=== PATIENT | female | born 1935 | race Caucasian/White ===

== ENCOUNTER → 2016-09-19 | Outpatient (CLI) | payer OTHER ==
[~2016-09-19] MED LIST: ACET325T96 PO; AMLO-114 PO; APIX1TAB3 PO; FLNIN NAE; FRS/40 PO; GUAI100L PO; IBUP1CAP9; LISI40TA PO; MULT-506 PO; PRAV20TA PO; TRAM-10 PO
[2016-09-19 13:30] LABS: HEMATOCRIT 48.6 % (37-47); MEAN CELL VOLUME 91.2 fL (80-100); MEAN PLATELET VOLUME 10.8 fL (7.4-10.4); PLATELET COUNT 185 K/uL (130-400); RED BLOOD COUNT 5.33 M/uL (4.2-5.4); WHITE BLOOD COUNT 7.26 K/uL (4.8-10.8)
[2016-09-19 13:53] LABS: ESTIMATED AVERAGE GLUCOSE 146 mg/dl; HA1C FLAG Normal (Normal)
[2016-09-19 13:56] LABS: URINE APPEARANCE CLEAR (CLEAR); URINE BILIRUBIN NEG (NEG); URINE COLOR YELLOW; URINE NITRITE NEG (NEG); URINE PH 7.5 (4.5-7.5); URINE SPECIFIC GRAVITY 1.008 (1.000-1.030); UROBILINOGEN NEG (NEG)
[2016-09-19 13:57] LABS: MANUAL MICROSCOPIC REQUIRED? NO; REVIEW REQ? NO
[2016-09-19 14:05] LABS: URINE PROTIEN/CREAT RATIO 0.9 (0-0.2); URINE TOTAL PROTEIN 19.3 mg/dl (0-11.9)
[2016-09-19 14:16] LABS: RATIO 462.4 mcg/mg (0-30.0)
[2016-09-19 14:38] LABS: CALCIUM 10.2 mg/dl (8.5-10.1)
[2016-09-19 14:41] LABS: ALT/SGPT 21 U/L (12-78); AST/SGOT 21 U/L (15-37); BLOOD UREA NITROGEN 35 mg/dl (7-18); BUN/CREATININE RATIO 24.8 (10-20); CARBON DIOXIDE 32 mmol/L (21-32); CHLORIDE 100 mmol/L (98-107); CHOLESTEROL 204 mg/dl (0-200); GLUCOSE 161 mg/dl (70-99); POTASSIUM 4.6 mmol/L (3.5-5.1); SODIUM 138 mmol/L (136-145)
[2016-09-19 14:46] LABS: ALB/GLOB RATIO 1.1 (0.9-2); ALKALINE PHOSPHATASE 115 U/L (45-117); CHOLESTEROL/HDL RATIO 3.6; HDL CHOLESTEROL 56 mg/dl; LDL CHOLESTEROL CALCULATED 108 mg/dl; PHOSPHORUS 3.5 mg/dl (2.5-4.9); TRIGLYCERIDES 202 mg/dl (0-150); VERY LOW DENSITY LIPOPROT CALC 40 mg/dl
== END | disposition home or self-care (01) ==
LOC: C.LABBC 09:27
PROVIDERS: ATTEND Internal Medicine Nephrology
DX: E11.9 Type 2 diabetes mellitus without complications (principal); E78.5 Hyperlipidemia, unspecified; E53.8 Deficiency of other specified B group vitamins; I10 Essential (primary) hypertension; N18.3 Chronic kidney disease, stage 3 (moderate); E55.9 Vitamin D deficiency, unspecified

== ENCOUNTER → 2016-11-29 | Outpatient (CLI) | payer OTHER ==
[2016-11-29 15:52] LABS: URINE APPEARANCE CLEAR (CLEAR); URINE BILIRUBIN NEG (NEG); URINE COLOR YELLOW; URINE NITRITE NEG (NEG); URINE PH 6.5 (4.5-7.5); URINE SPECIFIC GRAVITY 1.014 (1.000-1.030); UROBILINOGEN NEG (NEG)
[2016-11-29 16:03] LABS: MANUAL MICROSCOPIC REQUIRED? NO; REVIEW REQ? NO
[2016-11-29 16:07] LABS: URINE PROTIEN/CREAT RATIO 0.2 (0-0.2); URINE TOTAL PROTEIN 10.4 mg/dl (0-11.9)
== END | disposition home or self-care (01) ==
LOC: C.LAB1850 14:12
PROVIDERS: ATTEND Internal Medicine Nephrology
DX: N18.3 Chronic kidney disease, stage 3 (moderate) (principal); N25.81 Secondary hyperparathyroidism of renal origin; R60.9 Edema, unspecified; E55.9 Vitamin D deficiency, unspecified; I12.9 Hypertensive chronic kidney disease with stage 1 through stage 4 chronic kidney disease, or unspecified chronic kidney disease

== ENCOUNTER → 2017-10-09 | Outpatient (CLI) | payer OTHER ==
[~2017-10-09] MED LIST changes: +ACET-1693 PO; -ACET325T96 PO
[2017-10-09 16:53] LABS: HEMATOCRIT 48.9 % (37-47); HEMOGLOBIN 16.7 g/dL (12.0-16.0); MEAN CELL VOLUME 90.6 fL (80-100); MEAN CORPUSCULAR HEMOGLOBIN 30.9 pg (25-34); MEAN CORPUSCULAR HGB CONC 34.2 g/dl (32-36); MEAN PLATELET VOLUME 10.8 fL (7.4-10.4); PLATELET COUNT 192 K/uL (130-400); RED CELL DISTRIBUTION WIDTH SD 46.6 fL (36.4-46.3); WHITE BLOOD COUNT 6.83 K/uL (4.8-10.8)
[2017-10-09 17:15] LABS: ALBUMIN 4.1 gm/dl (3.4-5.0); ALT/SGPT 17 U/L (12-78); AST/SGOT 18 U/L (15-37); BLOOD UREA NITROGEN 33 mg/dl (7-18); CALCIUM 9.2 mg/dl (8.5-10.1); CARBON DIOXIDE 31 mmol/L (21-32); CREATININE 1.56 mg/dl (0.60-1.20); GLUCOSE 166 mg/dl (70-99); POTASSIUM 4.1 mmol/L (3.5-5.1); SODIUM 135 mmol/L (136-145)
[2017-10-09 17:46] LABS: HEMOGLOBIN A1C 7.2 % (4.5-5.6)
== END | disposition home or self-care (01) ==
LOC: C.LABBC 13:17
PROVIDERS: ATTEND Internal Medicine Nephrology
DX: I12.9 Hypertensive chronic kidney disease with stage 1 through stage 4 chronic kidney disease, or unspecified chronic kidney disease (principal); E11.22 Type 2 diabetes mellitus with diabetic chronic kidney disease; N18.3 Chronic kidney disease, stage 3 (moderate); N25.81 Secondary hyperparathyroidism of renal origin; R60.9 Edema, unspecified; E55.9 Vitamin D deficiency, unspecified; E78.5 Hyperlipidemia, unspecified; E53.8 Deficiency of other specified B group vitamins

== ENCOUNTER 2022-09-26 12:10 | Inpatient (IN) ==
[2022-09-26 12:52] LABS: Basophils # (auto) 0.06 K/uL (0-0.2); Basophils % (auto) 0.9 %; Eosinophils # (auto) 0.11 K/uL (0-0.50); Eosinophils % (auto) 1.6 %; Hematocrit (blood only) 43.4 % (37.0-47.0); Hemoglobin 14.6 g/dl (12.0-16.0); Immature Granulocytes # (auto) 0.02 K/uL (0.01-0.20); Immature Granulocytes % (auto) 0.3 %; Lymphocytes # (auto) 1.07 K/uL (1.2-3.4); Lymphocytes % (auto) 15.7 %; Mean Corpuscular Hemoglobin 30.7 pg (25.0-34.0); Mean Corpuscular Hgb Conc 33.6 g/dL (32.0-36.0); Mean Corpuscular Volume 91.4 fL (80.0-100.0); Mean Platelet Volume 9.6 fL (9.4-12.4); Monocytes # (auto) 0.56 K/uL (0.11-0.59); Monocytes % (auto) 8.2 %; Neutrophils # (auto) 5.01 K/uL (1.40-6.50); Neutrophils % (auto) 73.3 %; Platelet Count 211 K/uL (130-400); RDW Coefficient of Variation 15.3 % (11.5-14.5); RDW Standard Deviation 50.4 fL (36.4-46.3); Red Blood Count 4.75 M/uL (4.20-5.40); White Blood Count 6.83 K/ul (4.8-10.8)
[2022-09-26 13:06] LABS: Alanine Aminotransferase 6 U/L (7-52); Albumin Globulin Ratio 1.2 (0.9-2); Albumin Level 4.2 gm/dl (3.4-5.0); Alkaline Phosphatase 121 U/L (34-104); Anion Gap 10 (3-11); Aspartate Aminotransferase 17 U/L (13-39); Bilirubin,Total 0.7 mg/dl (0.2-1.0); Blood Urea Nitrogen 78 mg/dl (6-23); Carbon Dioxide 24 mmol/L (21-32); Chloride 93 mmol/L (98-107); Est GFR (African American) 22.2 ml/min; Est GFR (Non-African American) 19.2 ml/min; Globulin 3.4 gm/dl (2.5-4.0); Glucose 122 mg/dl (70-99(Fasting)); Potassium 5.5 mmol/L (3.5-5.1); Sodium 127 mmol/L (136-145); Total Protein 7.6 gm/dl (6.0-8.3)
--- NOTE | 2022-09-26 13:50 | Emergency Department Note ---
Impression & Plan Cellulitis, JUDE (acute kidney injury), Acute hyponatremia, Acute hyperkalemia ED Provider Note NAME: DEBBIE GRANADOS AGE: 87 SEX: F : 1935 ARRIVES VIA: Walk-In INFORMANT: Patient ED PROVIDER(S): Raymond Dumas DO CHIEF COMPLAINT: right foot pain HPI: Patient is an 87-year-old female who presents to the ER as he was seen and evaluated here about a week ago. She was treated for cellulitis of her right lower extremity. She notes about a month ago she dropped an object on her foot. She was found to have a fracture and discharged on antibiotics. She was eventually placed on doxycycline as she was having a fair amount of diarrhea from the initial antibiotics. She currently is still taking the doxycycline. The redness has gotten worse. The swelling and the pain is worse. She saw her PCP today who sent over for admission for IV antibiotics. Denies any fevers. No headache or change in vision. No chest pain or shortness of breath. PAST MEDICAL HISTORY:See Below PAST SURGICAL HISTORY:See Below FAMILY HISTORY:See Below SOCIAL HISTORY:See Below HOME MEDICATIONS:See Below ALLERGIES:See Below VITALS:See Below PHYSICAL EXAMINATION: GENERAL: Sitting up in bed, alert, well appearing, well nourished, no distress, non-toxic EYE EXAM: normal conjunctiva. OROPHARYNX: no exudate, no erythema, lips, buccal mucosa, and tongue normal and mucous membranes are moist NECK: supple, no nuchal rigidity, no adenopathy, non-tender LUNGS: Clear to auscultation. Normal chest wall mechanics HEART: no murmurs, S1 normal and S2 normal ABDOMEN: abdomen soft, non-tender, normo-active bowel sounds, no masses, no rebound or guarding. UPPER EXTREMITIES: upper extremities are grossly normal. LOWER EXTREMITIES: Pitting edema in bilateral lower extremities with small open sore over the right third through fifth metatarsals on the dorsal surface. Pitting edema bilaterally. Erythema tracking up to the right mid greer. NEURO EXAM: Normal sensorium, cranial nerves II-XII grossly intact, normal spee ch, no gross weakness of arms, no gross weakness of legs. MEDICAL DECISION MAKING: Patient is an 87-year-old female who presents the ER for right foot pain. IV was established blood work was obtained. External records were reviewed. Labs show no significant leukocytosis or anemia. BMP with a mild hyponatremia 127 and hyperkalemia at 5.5 and a creatinine of 2.2 up from baseline of 1. Pro-Brooks was normal. COVID was negative. X-ray of the foot shows no obvious fracture. Patient was given IV antibiotics. Updated bedside. Discussed with Dr. En Ernst for further evaluation management and treatment. Patient was given Reglan as well as IV fluids and Zofran. Triage Nursing notes reviewed. Limited review of prior medical records performed Vital Signs: reviewed and remarkable for no significant abnormalities Differential diagnosis: Cellulitis, abscess, MRSA infection, DVT, necrotizing fasciitis, dermatitis, drug eruption, allergic reaction, as well as other pathologies. ER treatment provided: See below Diagnostics interpreted by me include EKG and cardiac monitoring as listed below: -Cardiac Monitoring: An order was placed for continuous cardiac monitoring. The monitor shows a rate of 62 with sinus rhythm. -ECG: none -Laboratory studies:Interpreted by me as stated above in MDM and shown below. Imaging studies: Xrays: As interpreted by me: X-ray of the foot shows no obvious fracture CTs show: none Consultation(s): As described in MDM Procedures:none Critical Care: None Past Med/Surg History Medical History Chronic anticoagulation Diastolic congestive heart failure Hyperlipidemia Hypertension Lymphedema Osteoarthritis Stage III chronic kidney disease Surgical History H/O left cataract extraction History of radiation therapy History of right cataract extraction Hx of basal cell carcinoma excision Hx of shoulder surgery Hx of total hysterectomy with removal of both tubes and ovaries S/P appendectomy S/P colonoscopy S/P lumpectomy, left breast S/P tonsillectomy Family History Other Adopted Myocardial infarction Denies family history of Ovarian cancer Prostate cancer Breast cancer Colorectal cancer Social History Smoking Status: Never smoker Second Hand Exposure: No; Do You Dip or Chew Tobacco: No; Hx Alcohol Use: Yes Alcohol type: wine Hx Substance Use: No Preferred Language: Ug[place] Communication Ability: Effective Visual Impairment: No Limitations Hearing Ability: Normal Solid Waste Analyst Required: No Beliefs That Will Affect Care: None marital status: Current Living Situation: Alone 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, unknown family hx Feels Safe at Home: Yes Childhood Exposure to Second-Hand Smoke: No Dental Care, Regularly: Yes Physical Activity Frequency Comment: limited by physical condition Seatbelt Use: always Sunscreen Use: No Assistive Devices: Cane, Glasses and Stair Lift Allergies Allergies Allergy/AdvReac Type Severity Reaction Status Date / Time amoxicillin Allergy Mild Rash Verified 09/26/22 14:52 ciprofloxacin Allergy Mild Rash Verified 09/26/22 14:52 clavulanic acid Allergy Mild Rash Verified 09/26/22 14:52 codeine Allergy Mild nausea and Verified 09/26/22 14:52 vomiting latex Allergy Mild Rash Verified 09/26/22 14:52 povidone-iodine Allergy Mild RASH Verified 09/26/22 14:52 soap [From Betadine] Allergy Mild Rash Verified 09/26/22 14:52 Sulfa (Sulfonamide Allergy Mild RASH Verified 09/26/22 14:52 Antibiotics) cephalexin Allergy Unknown . Verified 09/26/22 14:52 sulfamethoxazole Allergy Unknown Diarrhea Verified 09/26/22 14:52 [From Bactrim] trimethoprim [From Bactrim] Allergy Unknown Diarrhea Verified 09/26/22 14:52 ceftriaxone [From Rocephin] AdvReac Severe Diarrhea Verified 09/26/22 11:26 meperidine AdvReac Mild nausea/vomi Verified 09/26/22 11:26 ting Home Meds Home Medications Medication Instructions Recorded Confirmed acetaminophen 500 mg tablet 1,000 mg PO HS PRN Pain 07/25/20 09/26/22 (Tylenol Extra Strength) furosemide 40 mg tablet 80 mg PO QAM 11/08/21 09/26/22 amlodipine 2.5 mg tablet 2.5 mg PO DAILY 09/21/22 09/26/22 multivitamin 1 tab PO DAILY 09/26/22 09/26/22 Previous Rx's Medication Instructions Recorded blood sugar diagnostic (FreeStyle #100 ea 02/27/19 Lite Strips) diclofenac sodium 1 % topical gel 1 g topical BID PRN Pain #100 grams 01/22/22 lisinopril 40 mg tablet 40 mg PO QAM #90 tabs 04/11/22 apixaban 5 mg tablet (Eliquis) 5 mg PO BID #180 tabs 07/31/22 tramadol 50 mg tablet 50 mg PO TID #270 tabs 09/19/22 doxycycline monohydrate 100 mg 100 mg PO BID #20 caps 09/21/22 capsule Results & Data (ED) Vital Signs Vital Signs - 24 hr 09/26/22 12:21 09/26/22 13:41 09/26/22 13:39 Temperature 36.6 C Temperature Source Temporal Artery Scan Pulse Rate 60 65 59 L Pulse Rate from SpO2 Sensor 65 Respiratory Rate 18 19 Respiratory Effort / Characteristics Non-Labored Spontaneous Respiratory Depth Normal Respiratory Pattern Regular Blood Pressure 167/78 H Blood Pressure Mean 107 Blood Pressure Position Sitting Pulse Oximetry 95 97 Oxygen Delivery Method Room Air Oxygen Flow Rate Sepsis Recent Fever Within 48 Hours No Sepsis New/Unexplained Change in Mental Status N/A Sepsis Action Taken by Nursing No Action Required 09/26/22 13:40 09/26/22 13:50 09/26/22 13:55 Temperature Temperature Source Pulse Rate 65 62 63 Pulse Rate from SpO2 Sensor 66 65 59 L Respiratory Rate 14 16 22 Respiratory Effort / Characteristics Respiratory Depth Respiratory Pattern Blood Pressure Blood Pressure Mean Blood Pressure Position Pulse Oximetry 97 93 95 Oxygen Delivery Method Oxygen Flow Rate Sepsis Recent Fever Within 48 Hours Sepsis New/Unexplained Change in Mental Status Sepsis Action Taken by Nursing 09/26/22 13:55 09/26/22 14:00 09/26/22 14:00 Temperature Temperature Source Pulse Rate 65 Pulse Rate from SpO2 Sensor 63 Respiratory Rate 17 Respiratory Effort / Characteristics Respiratory Depth Respiratory Pattern Blood Pressure 147/68 H 147/62 H Blood Pressure Mean 94 90 Blood Pressure Position Pulse Oximetry 96 Oxygen Delivery Method Oxygen Flow Rate Sepsis Recent Fever Within 48 Hours Sepsis New/Unexplained Change in Mental Status Sepsis Action Taken by Nursing 09/26/22 14:10 09/26/22 14:20 09/26/22 14:30 Temperature Temperature Source Pulse Rate 61 62 68 Pulse Rate from SpO2 Sensor 58 L 65 68 Respiratory Rate 24 30 H 29 H Respiratory Effort / Characteristics Respiratory Depth Respiratory Pattern Blood Pressure Blood Pressure Mean Blood Pressure Position Pulse Oximetry 96 100 92 Oxygen Delivery Method Oxygen Flow Rate Sepsis Recent Fever Within 48 Hours Sepsis New/Unexplained Change in Mental Status Sepsis Action Taken by Nursing 09/26/22 14:31 09/26/22 14:31 09/26/22 14:40 Temperature Temperature Source Pulse Rate 72 71 Pulse Rate from SpO2 Sensor 72 73 Respiratory Rate 39 H 27 H Respiratory Effort / Characteristics Respiratory Depth Respiratory Pattern Blood Pressure 170/71 H Blood Pressure Mean 104 Blood Pressure Position Pulse Oximetry 95 92 Oxygen Delivery Method Oxygen Flow Rate Sepsis Recent Fever Within 48 Hours Sepsis New/Unexplained Change in Mental Status Sepsis Action Taken by Nursing 09/26/22 14:50 09/26/22 15:00 09/26/22 15:00 Temperature Temperature Source Pulse Rate 66 64 Pulse Rate from SpO2 Sensor 72 69 Respiratory Rate 35 H 15 Respiratory Effort / Characteristics Respiratory Depth Respiratory Pattern Blood Pressure 142/87 H Blood Pressure Mean 105 Blood Pressure Position Pulse Oximetry 97 99 Oxygen Delivery Method Oxygen Flow Rate Sepsis Recent Fever Within 48 Hours Sepsis New/Unexplained Change in Mental Status Sepsis Action Taken by Nursing 09/26/22 15:10 09/26/22 15:20 09/26/22 15:29 Temperature Temperature Source Pulse Rate 72 75 67 Pulse Rate from SpO2 Sensor 80 72 Respiratory Rate 15 19 15 Respiratory Effort / Characteristics Respiratory Depth Respiratory Pattern Blood Pressure Blood Pressure Mean Blood Pressure Position Pulse Oximetry 96 98 97 Oxygen Delivery Method Oxygen Flow Rate Sepsis Recent Fever Within 48 Hours Sepsis New/Unexplained Change in Mental Status Sepsis Action Taken by Nursing 09/26/22 15:29 09/26/22 15:30 09/26/22 15:30 Temperature Temperature Source Pulse Rate 66 Pulse Rate from SpO2 Sensor 68 Respiratory Rate 15 Respiratory Effort / Characteristics Respiratory Depth Respiratory Pattern Blood Pressure 163/121 H 168/74 H Blood Pressure Mean 135 105 Blood Pressure Position Pulse Oximetry 95 Oxygen Delivery Method Oxygen Flow Rate Sepsis Recent Fever Within 48 Hours Sepsis New/Unexplained Change in Mental Status Sepsis Action Taken by Nursing 09/26/22 15:40 09/26/22 15:41 09/26/22 15:41 Temperature Temperature Source Pulse Rate 66 67 Pulse Rate from SpO2 Sensor Respiratory Rate 15 19 Respiratory Effort / Characteristics Respiratory Depth Respiratory Pattern Blood Pressure 180/71 H Blood Pressure Mean 107 Blood Pressure Position Pulse Oximetry Oxygen Delivery Method Oxygen Flow Rate Sepsis Recent Fever Within 48 Hours Sepsis New/Unexplained Change in Mental Status Sepsis Action Taken by Nursing 09/26/22 15:50 09/26/22 16:00 09/26/22 16:00 Temperature Temperature Source Pulse Rate 64 58 L Pulse Rate from SpO2 Sensor 63 58 L Respiratory Rate 15 15 Respiratory Effort / Characteristics Respiratory Depth Respiratory Pattern Blood Pressure 153/62 H Blood Pressure Mean 92 Blood Pressure Position Pulse Oximetry 98 98 Oxygen Delivery Method Oxygen Flow Rate Sepsis Recent Fever Within 48 Hours Sepsis New/Unexplained Change in Mental Status Sepsis Action Taken by Nursing 09/26/22 16:10 Temperature Temperature Source Pulse Rate 60 Pulse Rate from SpO2 Sensor 56 L Respiratory Rate 18 Respiratory Effort / Characteristics Respiratory Depth Respiratory Pattern Blood Pressure Blood Pressure Mean Blood Pressure Position Pulse Oximetry 99 Oxygen Delivery Method Oxygen Flow Rate 2 Sepsis Recent Fever Within 48 Hours Sepsis New/Unexplained Change in Mental Status Sepsis Action Taken by Nursing Laboratory Data 09/26/22 12:29 09/26/22 12:29 Lab Results 09/26/22 09/26/22 09/26/22 Range/Units 12:29 12:29 12:29 WBC 6.83 (4.8-10.8) K/ul RBC 4.75 (4.20-5.40) M/uL Hgb 14.6 (12.0-16.0) g/dl Hct 43.4 (37.0-47.0) % MCV 91.4 (80.0-100.0) fL MCH 30.7 (25.0-34.0) pg MCHC 33.6 (32.0-36.0) g/dL RDW Std Deviation 50.4 H (36.4-46.3) fL RDW Coeff of Rylee 15.3 H (11.5-14.5) % Plt Count 211 (130-400) K/uL MPV 9.6 (9.4-12.4) fL Immature Gran % (Auto) 0.3 % Neut % (Auto) 73.3 % Lymph % (Auto) 15.7 % [place] % (Auto) 8.2 % Eos % (Auto) 1.6 % Baso % (Auto) 0.9 % Neut # (Auto) 5.01 (1.40-6.50) K/uL Lymph # (Auto) 1.07 L (1.2-3.4) K/uL [place] # (Auto) 0.56 (0.11-0.59) K/uL Eos # (Auto) 0.11 (0-0.50) K/uL Baso # (Auto) 0.06 (0-0.2) K/uL Immature Gran # (Auto) 0.02 (0.01-0.20) K/uL ESR 65 H (0-30) mm/hr Sodium 127 L (136-145) mmol/L Potassium 5.5 H (3.5-5.1) mmol/L Chloride 93 L (98-107) mmol/L Carbon Dioxide 24 (21-32) mmol/L Anion Gap 10 (3-11) BUN 78 H (6-23) mg/dl Creatinine 2.23 H (0.6-1.2) mg/dl Est Cr Clr Drug Dosing Not Reportable Est GFR ( Amer) 22.2 ml/min Est GFR (Non-Af Amer) 19.2 ml/min BUN/Creatinine Ratio 35.0 H (10-20) Glucose 122 H (70-99(Fasting)) mg/dl Calcium 9.0 (8.6-10.3) mg/dl Total Bilirubin 0.7 (0.2-1.0) mg/dl AST 17 (13-39) U/L ALT 6 L (7-52) U/L Alkaline Phosphatase 121 H (34-104) U/L C-Reactive Protein 2.01 H (0-0.5) mg/dl Total Protein 7.6 (6.0-8.3) gm/dl Albumin 4.2 (3.4-5.0) gm/dl Globulin 3.4 (2.5-4.0) gm/dl Albumin/Globulin Ratio 1.2 (0.9-2) Procalcitonin (0-0.5) ng/ml SARS-CoV-2, RNA, NAAT (NEGATIVE) 09/26/22 09/26/22 Range/Units 12:29 13:55 WBC (4.8-10.8) K/ul RBC (4.20-5.40) M/uL Hgb (12.0-16.0) g/dl Hct (37.0-47.0) % MCV (80.0-100.0) fL MCH (25.0-34.0) pg MCHC (32.0-36.0) g/dL RDW Std Deviation (36.4-46.3) fL RDW Coeff of Rylee (11.5-14.5) % Plt Count (130-400) K/uL MPV (9.4-12.4) fL Immature Gran % (Auto) % Neut % (Auto) % Lymph % (Auto) % [place] % (Auto) % Eos % (Auto) % Baso % (Auto) % Neut # (Auto) (1.40-6.50) K/uL Lymph # (Auto) (1.2-3.4) K/uL [place] # (Auto) (0.11-0.59) K/uL Eos # (Auto) (0-0.50) K/uL Baso # (Auto) (0-0.2) K/uL Immature Gran # (Auto) (0.01-0.20) K/uL ESR (0-30) mm/hr Sodium (136-145) mmol/L Potassium (3.5-5.1) mmol/L Chloride (98-107) mmol/L Carbon Dioxide (21-32) mmol/L Anion Gap (3-11) BUN (6-23) mg/dl Creatinine (0.6-1.2) mg/dl Est Cr Clr Drug Dosing Est GFR ( Amer) ml/min Est GFR (Non-Af Amer) ml/min BUN/Creatinine Ratio (10-20) Glucose (70-99(Fasting)) mg/dl Calcium (8.6-10.3) mg/dl Total Bilirubin (0.2-1.0) mg/dl AST (13-39) U/L ALT (7-52) U/L Alkaline Phosphatase (34-104) U/L C-Reactive Protein (0-0.5) mg/dl Total Protein (6.0-8.3) gm/dl Albumin (3.4-5.0) gm/dl Globulin (2.5-4.0) gm/dl Albumin/Globulin Ratio (0.9-2) Procalcitonin 0.06 (0-0.5) ng/ml SARS-CoV-2, RNA, NAAT NEGATIVE (NEGATIVE) Administered Medications Daptomycin 300 mg/ Syringe 6 mls @ 3 mls/min IV Q24H [facility]; Protocol Stop: 09/28/22 13:59 Last Admin: 09/26/22 14:36 Dose: 3 mls/min Documented By: BCN Discontinued Medications Morphine Sulfate (Morphine Sulfate 4 Mg/Ml 1 Ml Carp\Vial) 4 mg IV NOW STA Stop: 09/26/22 14:39 Last Admin: 09/26/22 14:46 Dose: 4 mg Documented By: OSCAR Ondansetron HCl (Ondansetron Inj 2 Mg/Ml 2 Ml Vial) 4 mg IV NOW STA Stop: 09/26/22 14:31 Last Admin: 09/26/22 14:36 Dose: 4 mg Documented By: OSCAR Imaging Data Radiologist's Impression: Foot X-Ray 09/26/22 13:50 RIGHT FOOT 3 VIEWS CLINICAL HISTORY: Right foot pain and swelling. FINDINGS: 3 views of the right foot are compared to study dated 09/17/2022. The skeletal structures are osteopenic. No acute fracture is seen. There is a large plantar heel spur. Degenerative spurring is seen along the dorsal aspect of the tarsal bones. Erosive/destructive change is again seen at the first metatarsophalangeal joint with surrounding edema and soft tissue calcifications. Moderate osteoarthritic change is noted in the midfoot. Milder soft tissue francine ma is present throughout the remainder of the foot. IMPRESSION: 1. Diffuse soft tissue swelling with no fracture identified. 2. Erosive/destructive change at the first metatarsophalangeal joint as above. This could represent septic arthritis with osteomyelitis or gout. Clinical correlation will be essential. Electronically signed by: Olman Benítez M.D. 09/26/2022 2:24 PM Discharge Plan Visit Data Chief Complaint: Infection Stated Complaint: RIGHT FOOT INFECTION ED Provider: Raymond Dumas Discharge Problem: Cellulitis, JUDE (acute kidney injury), Acute hyponatremia, Acute hyperkalemia Forms Stand Alone Forms: [facility] Prescriptions Prescriptions: No Action (DME) FreeStyle Lite Strips strip See Dose Instructions .ROUTE .MEDSUPPLY Qty: 100 3RF Dose Instruction: As directed Rx Instructions: test once daily diclofenac sodium 1 % gel 1 g topical BID PRN (Reason: Pain) Qty: 100 6RF Eliquis 5 mg tablet 5 mg PO BID Qty: 180 3RF tramadol 50 mg tablet 50 mg PO TID Qty: 270 0RF acetaminophen [Tylenol Extra Strength] 500 mg tablet 1,000 mg PO HS PRN (Reason: Pain) lisinopril 40 mg tablet 40 mg PO QAM Qty: 90 3RF amlodipine 2.5 mg tablet 2.5 mg PO DAILY doxycycline monohydrate 100 mg capsule 100 mg PO BID Qty: 20 0RF Rx Instructions: BEGIN 09/21/22 X 10 DAYS furosemide 40 mg tablet 80 mg PO QAM multivitamin [Multiple Vitamin] Tablet 1 tab PO DAILY Referrals Referrals: Pro,Donnell Mcclain MD [Primary Care Provider] -
[2022-09-26] MEDS ORDERED: DAPTOmycin 300 MG in SYRINGE 0 ML IV SCH (14:00)
--- NOTE | 2022-09-26 14:26 | XRay Report ---
RIGHT FOOT 3 VIEWS CLINICAL HISTORY: Right foot pain and swelling. FINDINGS: 3 views of the right foot are compared to study dated 09/17/2022. The skeletal structures ar e osteopenic. No acute fracture is seen. There is a large plantar heel spur. Degenerative spurring is seen along the dorsal aspect of the tarsal bones. Erosive/destructive change is again seen at the fi rst metatarsophalangeal joint with surrounding edema and soft tissue calcifications. Moderate osteoa rthritic change is noted in the midfoot. Milder soft tissue edema is present throughout the remainder of the foot. IMPRESSION: 1. Diffuse soft tissue swelling with no fracture identified. 2. Erosive/destructive change at the first metatarsophalangeal joint as above. This could represent s eptic arthritis with osteomyelitis or gout. Clinical correlation will be essential. Electronically signed by: Olman Benítez M.D. 09/26/2022 2:24 PM
[2022-09-26] MEDS ORDERED: ONDANSETRON INJ 2 MG/ML 2 ML VIAL IV STA (14:30)
[2022-09-26] MEDS ORDERED: MoRPHine SULFATE 4 MG/ML 1 ML CARP\\VIAL IV STA (14:38)
--- NOTE | 2022-09-26 15:00 | History & Physical Report ---
Date of Service September 26, 2022 Assessment & Plan (1) JUDE (acute kidney injury): Plan: Suspect pre-renal secondary to Lasix use and recent diarrhea NSS @ 100 ml/hr, reduced rate due to history of diastolic heart failure although no frequent hospitalizations for this (2) Cellulitis of foot: Plan: Suspected cellulitis - although unclear if just resolving in setting of swelling given lack of WBC or fever. Add blood cultures, ESR, CRP, procalcitonin Given multiple allergies will continue just on daptomycin at this time Consult orthopedics given concern for OM on foot XR US arterial doppler (3) Acute hyponatremia: Plan: Suspect secondary to diuretics. Hold Lasix. IV fluids as above (4) Acute hyperkalemia: Plan: Suspect secondary to JUDE and ACEi. Should improve with IV fluids, d/c lisinopril and as JUDE improves. (5) Diastolic congestive heart failure: Plan: Noted history of this. Although per cardiology outpatient note this was in Jun 2012 in setting of atrial fibrillation. Suspect current leg edema is more from vein insufficiency and lack of movement due to recent cellulitis and fracture rather than CHF. US venous doppler deferred on admission given she is already taking Eliquis (6) Fracture of 1st metatarsal: Plan: Consult orthopedics (7) Hypertension: Plan: Hold lisinopril due to hyperkalemia and Lasix due to JUDE Continue amlodipine Hydralazine PRN for sBP > 180 (8) Permanent atrial fibrillation: Plan: Anticoagulation with Eliquis Rate controlled without medications Plan VTE Prophylaxis - continue Eliquis (reduced dose due to current Cr Diet - regular Disposition - admit to med/tele Admission and Anticipated Discharge Date Admission Date: September 26, 2022 History of Present Illness Chief Complaint: Nausea, diarrhea, increasing right leg pain Primary Care Provider: Donnell Garibay MD Kelsey Gatica is an 87 year old female who presents to the ER with nausea, diarrhea and increasing right leg pain. She reports initial injury to her right foot in the first week of August when she dropped an umbrella stand on it. She was able to ambulate on it afterwards and did not initially present to a health care provider. However on September 17 she presented to the ER due to worsening erythema around her foot. XR showed comminuted fracture of distal 1st MT. She was also diagnosed with cellulitis and given a dose of ceftriaxone in the emergency room. Admission was advised but she refused. She was initially treated with cefdinir but this was changed to doxycycline at her primary care provider follow up appointment due to cefdinir causing diarrhea. The doxycycline caused her to have nausea but has been able to keep taking this. She also reports burning her skin on her right foot as she was soaking it she poured some hot water in the water bath and it splashed on the top of her foot. She followed up with her PCP today and recommended she comes to the emergency room due to worsening swelling and pain. Due to concerns for dehydration as she has not been eating and drinking well with her diarrhea she stopped taking her furosemide today. She reports her diarrhea has improved and is not watery. No history of c. diff. Allergies Allergy/AdvReac Type Severity Reaction Status Date / Time amoxicillin Allergy Mild Rash Verified 09/26/22 14:52 ciprofloxacin Allergy Mild Rash Verified 09/26/22 14:52 clavulanic acid Allergy Mild Rash Verified 09/26/22 14:52 codeine Allergy Mild nausea and Verified 09/26/22 14:52 vomiting latex Allergy Mild Rash Verified 09/26/22 14:52 povidone-iodine Allergy Mild RASH Verified 09/26/22 14:52 soap [From Betadine] Allergy Mild Rash Verified 09/26/22 14:52 Sulfa (Sulfonamide Allergy Mild RASH Verified 09/26/22 14:52 Antibiotics) cephalexin Allergy Unknown . Verified 09/26/22 14:52 sulfamethoxazole Allergy Unknown Diarrhea Verified 09/26/22 14:52 [From Bactrim] trimethoprim [From Bactrim] Allergy Unknown Diarrhea Verified 09/26/22 14:52 ceftriaxone [From Rocephin] AdvReac Severe Diarrhea Verified 09/26/22 11:26 meperidine AdvReac Mild nausea/vomi Verified 09/26/22 11:26 ting Home Medications Medication Instructions Recorded Confirmed Type blood sugar diagnostic (FreeStyle #100 ea 02/27/19 09/26/22 Rx Lite Strips) acetaminophen 500 mg tablet 1,000 mg PO HS PRN Pain 07/25/20 09/26/22 History (Tylenol Extra Strength) furosemide 40 mg tablet 80 mg PO QAM 11/08/21 09/26/22 History diclofenac sodium 1 % topical gel 1 g topical BID PRN Pain #100 grams 01/22/22 09/26/22 Rx lisinopril 40 mg tablet 40 mg PO QAM #90 tabs 04/11/22 09/26/22 Rx apixaban 5 mg tablet (Eliquis) 5 mg PO BID #180 tabs 07/31/22 09/26/22 Rx tramadol 50 mg tablet 50 mg PO TID #270 tabs 09/19/22 09/26/22 Rx amlodipine 2.5 mg tablet 2.5 mg PO DAILY 09/21/22 09/26/22 History doxycycline monohydrate 100 mg 100 mg PO BID #20 caps 09/21/22 09/26/22 Rx capsule multivitamin 1 tab PO DAILY 09/26/22 09/26/22 History Past Med/Surg History Medical History Chronic anticoagulation Diastolic congestive heart failure f/u Dr. Hayes Hyperlipidemia Hypertension Lymphedema chronic Osteoarthritis Stage III chronic kidney disease f/u nephrology at [place] Surgical History H/O left cataract extraction History of radiation therapy History of right cataract extraction Hx of basal cell carcinoma excision x1 rt eyelid, x1 left and left ear Hx of shoulder surgery rt. repair shoulder dislocation Hx of total hysterectomy with removal of both tubes and ovaries S/P appendectomy S/P colonoscopy S/P lumpectomy, left breast with axillary node removal S/P tonsillectomy Family History Other Adopted Myocardial infarction Denies family history of Ovarian cancer Prostate cancer Breast cancer Colorectal cancer Social History Smoking Status: Never smoker Second Hand Exposure: No; Do You Dip or Chew Tobacco: No; Hx Alcohol Use: No Hx Substance Use: No Preferred Language: Malian Communication Ability: Effective Visual Impairment: No Limitations Hearing Ability: Normal Documentation Analyst Required: No Beliefs That Will Affect Care: None marital status: Current Living Situation: Alone Current Living Situation Comment: lives home alone in a townhouse 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, unknown family hx Feels Safe at Home: Yes Safety Concerns: Feels Safe At This Time Childhood Exposure to Second-Hand Smoke: No Dental Care, Regularly: Yes Physical Activity Frequency Comment: limited by physical condition Seatbelt Use: always Sunscreen Use: No Assistive Devices: Cane and Walker Review of Systems Review of Systems: All systems reviewed & are unremarkable except as noted in HPI & below Physical Exam Constitutional: well developed; + not well nourished and no acute distress Eyes: + anicteric sclerae; normal pupil size Respiratory: normal respiratory effort, lungs clear to auscultation Cardiovascular: Rate/Rhythm: regular rate and + irregularly irregular Heart Sounds: + murmur (systolic loudest in apex) Extremities: + pedal edema (3+ b/l pitting right > left) Gastrointestinal (Abdomen): normal bowel sounds, soft, nontender, no hepatosplenomegaly Skin: + erythema (right dark erythema from mid-greer to toes) clear fluid filled blister over dorsal foot and distal 1st toe Neurologic: moves all extremities and awake; not confused Psychiatric: A+Ox3, euthymic affect Results & Data Results & Data Vital Signs (Past 12 Hours) Vital Signs Temp Pulse Resp BP Pulse Ox O2 Del Method 09/26/22 14:50 66 35 H 97 09/26/22 14:40 71 27 H 92 09/26/22 14:31 170/71 H 09/26/22 14:31 72 39 H 95 09/26/22 14:30 68 29 H 92 09/26/22 14:20 62 30 H 100 09/26/22 14:10 61 24 96 09/26/22 14:00 65 17 96 09/26/22 14:00 147/62 H 09/26/22 13:55 147/68 H 09/26/22 13:55 63 22 95 09/26/22 13:50 62 16 93 09/26/22 13:40 65 14 97 09/26/22 13:39 59 L 19 97 09/26/22 13:41 65 09/26/22 12:21 36.6 C 60 18 167/78 H 95 Room Air Laboratory Results Abnormal lab results 09/26/22 09/26/22 Range/Units 12:29 12:29 RDW Std Deviation 50.4 H (36.4-46.3) fL RDW Coeff of Rylee 15.3 H (11.5-14.5) % Lymph # (Auto) 1.07 L (1.2-3.4) K/uL Sodium 127 L (136-145) mmol/L Potassium 5.5 H (3.5-5.1) mmol/L Chloride 93 L (98-107) mmol/L BUN 78 H (6-23) mg/dl Creatinine 2.23 H (0.6-1.2) mg/dl BUN/Creatinine Ratio 35.0 H (10-20) Glucose 122 H (70-99(Fasting)) mg/dl ALT 6 L (7-52) U/L Alkaline Phosphatase 121 H (34-104) U/L Diagnostic Findings RIGHT FOOT 3 VIEWS CLINICAL HISTORY: Right foot pain and swelling. FINDINGS: 3 views of the right foot are compared to study dated 09/17/2022. The skeletal structures are osteopenic. No acute fracture is seen. There is a large plantar heel spur. Degenerative spurring is seen along the dorsal aspect of the tarsal bones. Erosive/destructive change is again seen at the first metatarsophalangeal joint with surrounding edema and soft tissue calcifications. Moderate osteoarthritic change is noted in the midfoot. Milder soft tissue edema is present throughout the remainder of the foot. IMPRESSION: 1. Diffuse soft tissue swelling with no fracture identified. 2. Erosive/destructive change at the first metatarsophalangeal joint as above. This could represent septic arthritis with osteomyelitis or gout. Clinical correlation will be essential. Medications Administered ER Medications Given: Ondansetron 4mg IV Morphine 4mg IV Daptomycin 300mg IV ECG Rate (beats per minute): 60 Rhythm: atrial fibrillation Findings: + LAFB Comparison ECG Date: from (September 17, 2022) Change: no significant change Code Status & VTE Plan Code Status Full PG Care Time/CCT Total # of Minutes Spent Total Time Spent with Patient: Total time spent is greater than 50% in coordination of care (as documented) at patient's floor/unit and/or counseling patient: Coding Level of Care Code 21550 INT INP/OBS CARE 3/75MIN Diagnoses JUDE (acute kidney injury) N17.9 Cellulitis of foot L03.119 Acute hyponatremia E87.1 Acute hyperkalemia E87.5 Diastolic congestive heart failure I50.30 Fracture of 1st metatarsal S92.313A Hypertension I10 Permanent atrial fibrillation I48.2
[2022-09-26 16:01] LABS: C Reactive Protein 2.01 mg/dl (0-0.5)
[2022-09-26] MEDS ORDERED: METOCLOPRAMIDE HCL INJ 5 MG/ML 2 ML VIAL IV STA (16:48)
[2022-09-26] MEDS: SODIUM CHLORIDE 0.9% 1000ML 1,000 ML IV SCH (18:58)
--- NOTE | 2022-09-26 19:05 | XRay Report ---
XR chest 1V portable CLINICAL HISTORY: Congestive heart failure. COMPARISON STUDY: Chest radiograph June 30, 2012. FINDINGS: There are left axillary surgical clips. Cardiomegaly is noted. There is extensive mitral an nular calcification. There is no pneumothorax or pleural effusion. No definite consolidation. Interst itial thickening has slightly increased since prior exam although is likely chronic. IMPRESSION: 1. Slight increase in interstitial thickening. This likely reflects interstitial lung disease althoug h mild superimposed pulmonary edema would be difficult to exclude. 2. Stable cardiomegaly. ACT 112: Negative or not required by law. Electronically signed by: Navid Lemus M.D. 09/26/2022 7:04 PM
[2022-09-26] MEDS: ONDANSETRON INJ 2 MG/ML 2 ML VIAL IV PRN (20:09)
[2022-09-26] MEDS: ACETAMINOPHEN 500 MG TAB PO SCH (22:50)
[2022-09-26] MEDS: MoRPHine SULFATE 2 MG/ML CARP IV PRN (22:56)
[2022-09-26] MEDS: APIXABAN 2.5 MG TAB PO SCH (22:57)
[2022-09-26] MEDS ORDERED: hydrALAZINE HCL 20 MG/ML VIAL IV PRN (23:40)
[2022-09-27] MEDS: traMADol HCL 50 MG TABLET PO PRN ×2 (00:25→13:40)
[2022-09-27 01:14] LABS: BUN Creatinine Ratio 39.7 (10-20); Calcium 8.7 mg/dl (8.6-10.3); Creatinine Clr Calc Pharmacy 18.5 ml/min; Est GFR (African American) 27.2 ml/min; Est GFR (Non-African American) 23.4 ml/min; Potassium 5.2 mmol/L (3.5-5.1)
[2022-09-27] MEDS: MoRPHine SULFATE 4 MG/ML 1 ML CARP\\VIAL IV PRN ×2 (02:00→06:13)
[2022-09-27] MEDS: SODIUM CHLORIDE 0.9% 1000ML 1,000 ML IV SCH ×2 (05:44→10:52)
[2022-09-27] MEDS ORDERED: STAT IV STA (06:04)
[2022-09-27] MEDS ORDERED: SODIUM BICARBONATE 8.4% 150 MEQ in DEXTROSE 5% 1,000 ML IV SCH (06:30)
[2022-09-27] MEDS: ONDANSETRON INJ 2 MG/ML 2 ML VIAL IV PRN ×2 (06:47→13:40)
[2022-09-27 08:17] LABS: Basophils # (auto) 0.04 K/uL (0-0.2); Basophils % (auto) 0.7 %; Eosinophils # (auto) 0.05 K/uL (0-0.50); Eosinophils % (auto) 0.8 %; Hematocrit (blood only) 41.3 % (37.0-47.0); Hemoglobin 14.1 g/dl (12.0-16.0); Immature Granulocytes # (auto) 0.02 K/uL (0.01-0.20); Immature Granulocytes % (auto) 0.3 %; Lymphocytes # (auto) 1.26 K/uL (1.2-3.4); Lymphocytes % (auto) 20.8 %; Mean Corpuscular Hemoglobin 30.9 pg (25.0-34.0); Mean Corpuscular Hgb Conc 34.1 g/dL (32.0-36.0); Mean Corpuscular Volume 90.4 fL (80.0-100.0); Monocytes # (auto) 0.45 K/uL (0.11-0.59); Monocytes % (auto) 7.4 %; Neutrophils # (auto) 4.25 K/uL (1.40-6.50); Platelet Count 187 K/uL (130-400); RDW Coefficient of Variation 14.8 % (11.5-14.5); RDW Standard Deviation 49.1 fL (36.4-46.3); Red Blood Count 4.57 M/uL (4.20-5.40); White Blood Count 6.07 K/ul (4.8-10.8)
[2022-09-27] MEDS: amLODIPine BESYLATE 5 MG TAB PO SCH (08:19)
[2022-09-27] MEDS: APIXABAN 2.5 MG TAB PO SCH ×2 (08:19→22:34)
[2022-09-27] MEDS: ACETAMINOPHEN 500 MG TAB PO SCH ×3 (08:19→22:34)
--- NOTE | 2022-09-27 08:24 | Ultrasound Report ---
ULTRASOUND RIGHT LOWER EXTREMITY ARTERIAL CLINICAL HISTORY: Right leg cellulitis. Pain and swelling. COMPARISON STUDY: No priors. TECHNIQUE: Real-time grayscale and color Doppler sonography of the arteries of the right lower extrem ity is performed from the inguinal crease to the foot. Ankle brachial indices were not assessed due t o severe calf pain. FINDINGS: Atherosclerotic plaque and irregularity is seen throughout the arteries of the right lower extremity. The cardiac pulsations are irregularly irregular. There are triphasic waveforms in the com mon femoral artery with velocities measuring up to 95 cm/s. The profunda femoris artery is patent wit h velocities measuring up to 110 cm/s. There are biphasic to triphasic waveforms throughout the super ficial femoral artery with velocities measuring up to 126 cm/s. There are focally elevated velocities in the popliteal artery, which measured up to 384 cm/s. The [id number] posterior tibial artery is not visualized and likely occluded. The proximal posterior tibial artery is patent with velocities m easuring up to 42 cm/s. The anterior tibial and peroneal arteries are patent. Velocities in the anter ior tibial artery measured up to 69 cm/s and velocities in the peroneal artery measured up to 41 cm/s . The dorsalis pedis artery is patent with fluoroscopy is measuring up to 53 cm/s. IMPRESSION: 1. Peripheral vascular disease as above with occlusion of the [id number] posterior tibial artery. 2. Focally elevated velocities within the popliteal artery suggest high-grade stenosis. 3. The cardiac pulsations are irregularly irregular. Correlate for evidence of arrhythmia. Dictated: 09/27/2022 7:53 AM Transcribed: 09/27/2022 8:21 AM Yousif [id number] KETTY_George Electronically signed by: Olman Benítez M.D. 09/27/2022 8:22 AM
[2022-09-27 08:43] LABS: BUN Creatinine Ratio 40.2 (10-20); Calcium 8.6 mg/dl (8.6-10.3); Creatinine Clr Calc Pharmacy 20.6 ml/min; Est GFR (Non-African American) 25.9 ml/min; Potassium 5.2 mmol/L (3.5-5.1)
[2022-09-27] MEDS ORDERED: SODIUM CHLORIDE 1 GM TABLET PO SCH (09:00)
--- NOTE | 2022-09-27 10:36 | Electrocardiogram Report ---
Test Reason : Blood Pressure : / mmHG Vent. Rate : 060 BPM Atrial Rate : 044 BPM P-R Int : 000 ms QRS Dur : 104 ms QT Int : 404 ms P-R-T Axes : 000 -50 077 degrees QTc Int : 404 ms Atrial fibrillation Left anterior fascicular block Cannot rule out Inferior infarct (masked by fascicular block?) , age undetermined Anterior infarct (cited on or before 17-SEP-2022) Abnormal ECG When compared with ECG of 17-SEP-2022 11:55, Premature ventricular complexes are no longer Present Confirmed by Yves Samaniego ([id number]) on 09/27/2022 10:36:47 AM Referred By: Donnell Garibay Confirmed By:Yves Samaniego
[2022-09-27] MEDS: METOCLOPRAMIDE HCL INJ 5 MG/ML 2 ML VIAL IV SCH ×3 (10:52→22:43)
--- NOTE | 2022-09-27 15:29 | Hospitalist Progress Note ---
Date of Service September 27, 2022 Assessment & Plan (1) JUDE (acute kidney injury): Plan: Creatinine improving with IV fluids. 2.2 on admission and now 1.7. Monitor intake and output. Serial labs . Lasix and lisinopril are on hold (2) Cellulitis of foot: Plan: Suspected cellulitis distal right forefoot. Osteomyelitis needs to be ruled out. Orthopedic consultation pending. Continue daptomycin, day 2. Blood cultures negative to date (3) Acute hyponatremia: Plan: Improving with IV fluids. Serial labs. Hold Lasix. (4) Acute hyperkalemia: Plan: Lisinopril on hold. Continue IV fluids. Treat acute kidney injury. Improving (5) Diastolic congestive heart failure: Plan: No current CHF. Monitor intake and output. Serial chest x-ray as needed. Continue current medical management. Lasix is temporarily on hold (6) Fracture of 1st metatarsal: Plan: Possible. Consult orthopedics (7) Hypertension: Plan: Hold lisinopril due to hyperkalemia and Lasix due to JUDE. Continue amlodipine. Hydralazine PRN for SBP > 180 (8) Permanent atrial fibrillation: Plan: Anticoagulation with Eliquis. Telemetry. Rate controlled without medications (9) Peripheral arterial disease: Plan: Right lower extremity, noted on arterial Doppler. Vascular surgery consultation requested. No overt ischemia of the right foot Plan VTE Prophylaxis - continue Eliquis (reduced dose due to current Cr Disposition -to be determined Admission and Anticipated Discharge Date Admission Date: September 26, 2022 Subjective Alert and oriented. No distress. Daughter is at the bedside. Persistent nausea and vomiting despite intravenous Zofran. She had loose stools prior to this admission. Intravenous Reglan ordered. We will check stool BioFire. Arterial Doppler of the right lower extremity reveals occluded posterior tibialis artery. Vascular surgery consultation pending. She remains on intravenous daptomycin, day 2, for suspected right foot cellulitis. O steomyelitis needs to be ruled out. She remains on Eliquis. Potassium improved down to 5.2. Creatinine improved down to 1.7. Review of Systems Review of Systems: Constitutional-no fever or chills ENT-no blurred vision, no double vision, no epistaxis, no sore throat Respiratory-no cough, no wheezing, no shortness of breath Cardiac-no palpitations, no chest pain, no syncope GI-persistent nausea and vomiting. No hematemesis. Diarrhea has resolved. No melena or hematochezia. -no urinary retention, no urinary incontinence, no dysuria, no hematuria Musculoskeletal-distal right foot pain since she dropped a patio umbrella on it a month ago. Skin-bruising noted on the dorsal distal aspect of the right foot. Superficial laceration in this area is healing. Neuro-no isolated weakness, no paresthesia Psych-no depression, no anxiety Physical Exam Physical Exam: General-alert and oriented x3, no fevers, no chills HEENT-head atraumatic and normocephalic, pupils equal and reactive to light, extraocular muscles intact Neck-no lymphadenopathy or thyromegaly, trachea midline Chest-clear to auscultation percussion. No rales wheezing or rhonchi Cardiac-regular rate and rhythm, normal S1 and S2 Abdomen-normal bowel sounds, nontender, no hepatosplenomegaly Extremities-distal right forefoot is tender to palpation with associated bruising. Healing curved laceration distal aspect right lateral foot. Nonpalpable pulses in the right foot. Neuro-cranial nerves II through XII intact, motor and sensory function within normal limits, strength symmetrical , no focal deficits Psych-normal affect, normal mood Results & Data Results & Data Vital Signs (Past 12 Hours) Vital Signs Temp Pulse Pulse Resp BP Pulse Ox O2 Del Method 09/27/22 11:22 36.9 C 52 L 19 150/75 H 96 Nasal Cannula 09/27/22 08:00 Nasal Cannula 09/27/22 07:55 36.9 C 75 20 184/86 H 97 Nasal Cannula 09/27/22 07:00 75 09/27/22 04:00 36.6 C 75 18 129/65 98 Nasal Cannula O2 Flow Rate 09/27/22 11:22 2 09/27/22 08:00 2 09/27/22 07:55 2 09/27/22 07:00 09/27/22 04:00 2 Laboratory Results 09/27/22 06:57 09/27/22 06:57 PG Care Time/CCT Total # of Minutes Spent Total Time Spent with Patient: Total time spent is greater than 50% in coordination of care (as documented) at patient's floor/unit and/or counseling patient: Coding Level of Care Code 42127 SUB INP/OBS CARE 3/50MIN Diagnoses JUDE (acute kidney injury) N17.9 Cellulitis of foot L03.119 Acute hyponatremia E87.1 Acute hyperkalemia E87.5 Diastolic congestive heart failure I50.30 Fracture of 1st metatarsal S92.313A Hypertension I10 Permanent atrial fibrillation I48.2 Peripheral arterial disease I73.9
[2022-09-27 18:24] LABS: Adenovirus F 40/41 PCR Not Detected (NotDetected); Astrovirus PCR Not Detected (NotDetected); Campylobacter PCR Not Detected (NotDetected); Cryptosporidium PCR Not Detected (NotDetected); Cyclospora cayetanensis PCR Not Detected (NotDetected); Entamoeba histolytica PCR Not Detected (NotDetected); Enteroaggregative E.coli(EAEC) Not Detected (NotDetected); Enteropathogenic E.coli (EPEC) Not Detected (NotDetected); Enterotoxigenic E.coli (ETEC) Not Detected (NotDetected); Giardia lamblia PCR Not Detected (NotDetected); Norovirus GI/GII PCR Not Detected (NotDetected); Plesiomonas shigelloides PCR Not Detected (NotDetected); Salmonella PCR Not Detected (NotDetected); Sapovirus PCR Not Detected (NotDetected); Shiga-like Toxin E.coli (STEC) Not Detected (NotDetected); Shigella/Enteroinvasive E.coli Not Detected (NotDetected); Vibrio cholerae PCR Not Detected (NotDetected); Vibrio species PCR Not Detected (NotDetected); Yersinia enterocolitica PCR Not Detected (NotDetected)
[2022-09-27 19:05] LABS: Rotavirus A PCR DETECTED (NotDetected)
[2022-09-28] MEDS: traMADol HCL 50 MG TABLET PO PRN ×2 (00:34→21:59)
[2022-09-28] MEDS: MoRPHine SULFATE 2 MG/ML CARP IV PRN (02:41)
[2022-09-28] MEDS: SODIUM CHLORIDE 0.9% 1000ML 1,000 ML IV SCH ×3 (02:44→19:47)
[2022-09-28] MEDS: METOCLOPRAMIDE HCL INJ 5 MG/ML 2 ML VIAL IV SCH ×4 (02:47→21:50)
[2022-09-28 07:19] LABS: Basophils # (auto) 0.06 K/uL (0-0.2); Basophils % (auto) 0.9 %; Eosinophils # (auto) 0.11 K/uL (0-0.50); Eosinophils % (auto) 1.6 %; Hematocrit (blood only) 39.8 % (37.0-47.0); Hemoglobin 13.4 g/dl (12.0-16.0); Immature Granulocytes # (auto) 0.02 K/uL (0.01-0.20); Immature Granulocytes % (auto) 0.3 %; Lymphocytes # (auto) 1.36 K/uL (1.2-3.4); Lymphocytes % (auto) 20.2 %; Mean Corpuscular Hemoglobin 31.2 pg (25.0-34.0); Mean Corpuscular Hgb Conc 33.7 g/dL (32.0-36.0); Mean Corpuscular Volume 92.8 fL (80.0-100.0); Mean Platelet Volume 9.5 fL (9.4-12.4); Monocytes # (auto) 0.56 K/uL (0.11-0.59); Monocytes % (auto) 8.3 %; Neutrophils # (auto) 4.61 K/uL (1.40-6.50); Neutrophils % (auto) 68.7 %; Platelet Count 160 K/uL (130-400); RDW Coefficient of Variation 15.9 % (11.5-14.5); Red Blood Count 4.29 M/uL (4.20-5.40); White Blood Count 6.72 K/ul (4.8-10.8)
[2022-09-28 07:32] LABS: Calcium 8.4 mg/dl (8.6-10.3); Creatinine Clr Calc Pharmacy 22.7 ml/min; Est GFR (African American) 33.5 ml/min; Est GFR (Non-African American) 28.9 ml/min
[2022-09-28] MEDS: ACETAMINOPHEN 500 MG TAB PO SCH ×3 (09:13→21:50)
[2022-09-28] MEDS: amLODIPine BESYLATE 5 MG TAB PO SCH (09:13)
[2022-09-28] MEDS: APIXABAN 2.5 MG TAB PO SCH ×2 (09:13→21:50)
--- NOTE | 2022-09-28 10:49 | Consultation ---
Date of Consultation September 28, 2022 Assessment & Plan (1) Peripheral arterial disease: Pt with mild/moderate PAD of RLE by US. She is asymptomatic from this and does not require vascular surgical intervention at this time. Recommend continue local wound care/abx. Please call if needed. History of Present Illness Reason for Consultation: PAD Attending Physician: Anthony Stevenson MD History of Present Illness 87 yo f with hx of CKD, a fib on apixaban, OA, lymphedema, HTN, gout, hyperlipemia, CHF, DMII, admitted with cellulitis of R foot, seen in consultation today for PAD noted on ultrasound. Pt states she dropped something on her R foot 1-2 weeks ago, and developed increasing erythema, pain, and swelling a few days ago and came to [facility] for eval. States her sx are improving since admission. Prior to this event, denies hx of calf claudication, prior nonhealing wounds or ulcerations, rest pain. Denies RICHARDS, fever, chest pain, SOB, abd pain, N/V, other complaints. Arterial US of RLE demonstrates moderate stenosis of R pop, otherwise mild diffuse disease. Allergies Allergy/AdvReac Type Severity Reaction Status Date / Time amoxicillin Allergy Mild Rash Verified 09/26/22 14:52 ciprofloxacin Allergy Mild Rash Verified 09/26/22 14:52 clavulanic acid Allergy Mild Rash Verified 09/26/22 14:52 codeine Allergy Mild nausea and Verified 09/26/22 14:52 vomiting latex Allergy Mild Rash Verified 09/26/22 14:52 povidone-iodine Allergy Mild RASH Verified 09/26/22 14:52 soap [From Betadine] Allergy Mild Rash Verified 09/26/22 14:52 Sulfa (Sulfonamide Allergy Mild RASH Verified 09/26/22 14:52 Antibiotics) cephalexin Allergy Unknown . Verified 09/26/22 14:52 sulfamethoxazole Allergy Unknown Diarrhea Verified 09/26/22 14:52 [From Bactrim] trimethoprim [From Bactrim] Allergy Unknown Diarrhea Verified 09/26/22 14:52 ceftriaxone [From Rocephin] AdvReac Severe Diarrhea Verified 09/26/22 11:26 meperidine AdvReac Mild nausea/vomi Verified 09/26/22 11:26 ting Home Medications Medication Instructions Recorded Confirmed Type blood sugar diagnostic (FreeStyle #100 ea 02/27/19 09/26/22 Rx Lite Strips) acetaminophen 500 mg tablet 1,000 mg PO HS PRN Pain 07/25/20 09/26/22 History (Tylenol Extra Strength) furosemide 40 mg tablet 80 mg PO QAM 11/08/21 09/26/22 History diclofenac sodium 1 % topical gel 1 g topical BID PRN Pain #100 grams 01/22/22 09/26/22 Rx lisinopril 40 mg tablet 40 mg PO QAM #90 tabs 04/11/22 09/26/22 Rx apixaban 5 mg tablet (Eliquis) 5 mg PO BID #180 tabs 07/31/22 09/26/22 Rx tramadol 50 mg tablet 50 mg PO TID #270 tabs 09/19/22 09/26/22 Rx amlodipine 2.5 mg tablet 2.5 mg PO DAILY 09/21/22 09/26/22 History doxycycline monohydrate 100 mg 100 mg PO BID #20 caps 09/21/22 09/26/22 Rx capsule multivitamin 1 tab PO DAILY 09/26/22 09/26/22 History Patient History Medical History Chronic anticoagulation Diastolic congestive heart failure f/u Dr. Hayes Hyperlipidemia Hypertension Lymphedema chronic Osteoarthritis Stage III chronic kidney disease f/u nephrology at [place] Surgical History H/O left cataract extraction History of radiation therapy History of right cataract extraction Hx of basal cell carcinoma excision x1 rt eyelid, x1 left and left ear Hx of shoulder surgery rt. repair shoulder dislocation Hx of total hysterectomy with removal of both tubes and ovaries S/P appendectomy S/P colonoscopy S/P lumpectomy, left breast with axillary node removal S/P tonsillectomy Family History Other Adopted Myocardial infarction Denies family history of Ovarian cancer Prostate cancer Breast cancer Colorectal cancer Social History Smoking Status: Never smoker Second Hand Exposure: No; Do You Dip or Chew Tobacco: No; Hx Alcohol Use: No Hx Substance Use: No Preferred Language: Kazakh Communication Ability: Effective Visual Impairment: No Limitations Hearing Ability: Normal Stock Receiver Required: No Beliefs That Will Affect Care: None marital status: Current Living Situation: Alone Current Living Situation Comment: lives home alone in a townhouse 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, unknown family hx Feels Safe at Home: Yes Safety Concerns: Feels Safe At This Time Childhood Exposure to Second-Hand Smoke: No Dental Care, Regularly: Yes Physical Activity Frequency Comment: limited by physical condition Seatbelt Use: always Sunscreen Use: No Assistive Devices: Cane, Glasses, Raised Toilet Seat, Stair Lift and Walker Review of Systems Review of Systems: All systems reviewed & are unremarkable except as noted in HPI & below Physical Exam Constitutional: WD/WN, vitals as above cooperative and comfortable; not in distress ENMT: Ears: no hearing impairment Neck: trachea midline Respiratory: normal respiratory effort, lungs clear to auscultation Auscultation: + diminished lung sounds Cardiovascular: Rate/Rhythm: + irregularly irregular Vessels: posterior tibial pulses present (excellent doppler signals BLE), dorsalis pedis pulses present (excellent doppler signals BLE) and radial pulses present; + abnormal peripheral pulses Extremities: normal capillary refill Gastrointestinal (Abdomen): Inspection/Auscultation: abdomen normal to inspection and normal bowel sounds Percussion/Palpation: abdomen soft; abdomen nontender Musculoskeletal: no cyanosis or clubbing, extremities motor strength 5/5 Skin: + wound (R lateral dorsal foot skin superficial skin wound) and + erythema (dorsal foot) Pt with mild erythema, edema, tenderness to R foot, with small open/scabbed area lateral-dorsal foot. Purplish discoloration to distal toes 2,3,4 blanches and refills normally, likely ecchymosis, not ischemic. Psychiatric: A+Ox3, euthymic affect Results & Data Vital Signs (Past 12 Hours) Vital Signs Temp Pulse Resp BP Pulse Ox O2 Del Method O2 Flow Rate 09/28/22 07:21 36.7 C 63 18 167/69 H 96 Room Air 09/28/22 03:00 36.4 C L 61 18 174/76 H 90 Nasal Cannula 2
[2022-09-28] MEDS ORDERED: DAPTOmycin 300 MG in SYRINGE 0 ML IV SCH ×2 (13:00→14:00)
--- NOTE | 2022-09-28 14:34 | Orthopedic Consultation ---
Date of Service September 28, 2022 Assessment & Plan (1) Cellulitis of leg, right: Patient can be weightbearing as tolerated Continue with prophylactic ABX No evidence of osteomyelitis in RLE Continue with boot as tolerated Follow up with [facility] Orthopedics on an outpatient basis if needed Dr. Peterson was at bedside and performed the history, physical exam, and plan History of Present Illness Reason for Consultation: . Requesting Physician: . Attending Physician: Anthony Stevenson MD Kelsey is an 87 y/o female who was admitted to [facility] for RLE swelling and pain. She states that a months ago she has an outdoor umbrella fall on her right foot. If did break the skin. Since then she has had swelling, pain in her foot. She states that she expectedit to get better at this time but it hasnt. 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 Allergies Allergy/AdvReac Type Severity Reaction Status Date / Time amoxicillin Allergy Mild Rash Verified 09/26/22 14:52 ciprofloxacin Allergy Mild Rash Verified 09/26/22 14:52 clavulanic acid Allergy Mild Rash Verified 09/26/22 14:52 codeine Allergy Mild nausea and Verified 09/26/22 14:52 vomiting latex Allergy Mild Rash Verified 09/26/22 14:52 povidone-iodine Allergy Mild RASH Verified 09/26/22 14:52 soap [From Betadine] Allergy Mild Rash Verified 09/26/22 14:52 Sulfa (Sulfonamide Allergy Mild RASH Verified 09/26/22 14:52 Antibiotics) cephalexin Allergy Unknown . Verified 09/26/22 14:52 sulfamethoxazole Allergy Unknown Diarrhea Verified 09/26/22 14:52 [From Bactrim] trimethoprim [From Bactrim] Allergy Unknown Diarrhea Verified 09/26/22 14:52 ceftriaxone [From Rocephin] AdvReac Severe Diarrhea Verified 09/26/22 11:26 meperidine AdvReac Mild nausea/vomi Verified 09/26/22 11:26 ting Home Medications Medication Instructions Recorded Confirmed Type blood sugar diagnostic (MalloryStyle #100 ea 02/27/19 09/26/22 Rx Lite Strips) acetaminophen 500 mg tablet 1,000 mg PO HS PRN Pain 07/25/20 09/26/22 History (Tylenol Extra Strength) furosemide 40 mg tablet 80 mg PO QAM 11/08/21 09/26/22 History diclofenac sodium 1 % topical gel 1 g topical BID PRN Pain #100 grams 01/22/22 09/26/22 Rx lisinopril 40 mg tablet 40 mg PO QAM #90 tabs 04/11/22 09/26/22 Rx apixaban 5 mg tablet (Eliquis) 5 mg PO BID #180 tabs 07/31/22 09/26/22 Rx tramadol 50 mg tablet 50 mg PO TID #270 tabs 09/19/22 09/26/22 Rx amlodipine 2.5 mg tablet 2.5 mg PO DAILY 09/21/22 09/26/22 History doxycycline monohydrate 100 mg 100 mg PO BID #20 caps 09/21/22 09/26/22 Rx capsule multivitamin 1 tab PO DAILY 09/26/22 09/26/22 History Past Med/Surg History Medical History Chronic anticoagulation Diastolic congestive heart failure f/u Dr. Hayes Hyperlipidemia Hypertension Lymphedema chronic Osteoarthritis Stage III chronic kidney disease f/u nephrology at [facility] Surgical History H/O left cataract extraction History of radiation therapy History of right cataract extraction Hx of basal cell carcinoma excision x1 rt eyelid, x1 left and left ear Hx of shoulder surgery rt. repair shoulder dislocation Hx of total hysterectomy with removal of both tubes and ovaries S/P appendectomy S/P colonoscopy S/P lumpectomy, left breast with axillary node removal S/P tonsillectomy Family History Other Adopted Myocardial infarction Denies family history of Ovarian cancer Prostate cancer Breast cancer Colorectal cancer Social History Smoking Status: Never smoker Second Hand Exposure: No; Do You Dip or Chew Tobacco: No; Hx Alcohol Use: No Hx Substance Use: No Preferred Language: Greenlandic Communication Ability: Effective Visual Impairment: No Limitations Hearing Ability: Normal Allopathic Doctor Required: No Beliefs That Will Affect Care: None marital status: Current Living Situation: Alone Current Living Situation Comment: lives home alone in a townhouse 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 Physical Exam Swelling with associated eccymosis in RLE over the dorsal aspect of her foot. There is a small abrasion in the dorsal and lateral aspect of her right foot. No drainage, eythema. Neurovascularly intact. Results & Data Results & Data Laboratory Results . Diagnostic Findings . PG Care Time/CCT Total # of Minutes Spent Total Time Spent with Patient: Total time spent is greater than 50% in coordination of care (as documented) at patient's floor/unit and/or counseling patient: Coding Level of Care Code 46787 IN/OBS CONSULT LVL 3,45M Diagnoses Cellulitis of leg, right L03.115
--- NOTE | 2022-09-28 15:44 | Hospitalist Progress Note ---
Date of Service September 28, 2022 Assessment & Plan (1) JUDE (acute kidney injury): Plan: Creatinine improving with IV fluids. Fluid rate tapered down. Cr 2.2 on admission and now 1.5. Monitor intake and output. Serial labs . Lasix and lisinopril are on hold (2) Cellulitis of foot: Plan: Suspected cellulitis distal right forefoot. Osteomyelitis needs to be ruled out. Orthopedic consultation pending. Continue daptomycin, day 3. Blood cultures negative to date (3) Acute hyponatremia: Plan: Resolved with IV fluids. Serial labs. Holding Lasix due to volume depletion brought on by gastroenteritis (4) Acute hyperkalemia: Plan: Lisinopril has been discontinued. Potassium has improved. IV fluids have been tapered down. (5) Diastolic congestive heart failure: Plan: No current CHF. Monitor intake and output. Serial chest x-ray as needed. Continue current medical management. Lasix is temporarily on hold (6) Fracture of 1st metatarsal: Plan: Possible. Consult orthopedics (7) Hypertension: Plan: Discontinued lisinopril due to hyperkalemia and Lasix is on hold due to JUDE. Continue amlodipine. Hydralazine PRN for SBP > 180 (8) Permanent atrial fibrillation: Plan: Anticoagulation with Eliquis. Telemetry. Rate controlled without medications (9) Peripheral arterial disease: Plan: Right lower extremity, noted on arterial Doppler. Vascular surgery consultation appreciated. No acute intervention needed at this time. No overt ischemia of the right foot Plan VTE Prophylaxis - continue Eliquis (reduced dose on admission ) Disposition -possible discharge to home tomorrow, September 29 Admission and Anticipated Discharge Date Admission Date: September 26, 2022 Subjective She looks and feels better. Rotavirus identified in the stool which is the cause of her gastroenteritis. It is viral. IV fluids taper down. Lasix remain s on hold. Lisinopril will be stopped indefinitely due to hyperkalemia. Blood pressure is acceptable and stable without it. Creatinine improved to 1.5. No acute intervention necessary for the right lower extremity arterial disease per vascular surgery. She remains on intravenous daptomycin. Orthopedic consultation pending. Hopefully she can go home tomorrow, September 29 Review of Systems Review of Systems: Constitutional-no fever or chills ENT-no blurred vision, no double vision, no epistaxis, no sore throat Respiratory-no cough, no wheezing, no shortness of breath Cardiac-no palpitations, no chest pain, no syncope GI-persistent nausea and vomiting. No hematemesis. Diarrhea has resolved. No melena or hematochezia. -no urinary retention, no urinary incontinence, no dysuria, no hematuria Musculoskeletal-distal right foot pain since she dropped a patio umbrella on it a month ago. Skin-bruising noted on the dorsal distal aspect of the right foot. Superficial laceration in this area is healing. Neuro-no isolated weakness, no paresthesia Psych-no depression, no anxiety Physical Exam Physical Exam: General-alert and oriented x3, no fevers, no chills HEENT-head atraumatic and normocephalic, pupils equal and reactive to light, extraocular muscles intact Neck-no lymphadenopathy or thyromegaly, trachea midline Chest-clear to auscultation percussion. No rales wheezing or rhonchi Cardiac-regular rate and rhythm, normal S1 and S2 Abdomen-normal bowel sounds, nontender, no hepatosplenomegaly Extremities-distal right forefoot is tender to palpation with associated bruising. Healing curved laceration distal aspect right lateral foot. Nonpalpable pulses in the right foot. Neuro-cranial nerves II through XII intact, motor and sensory function within normal limits, strength symmetrical , no focal deficits Psych-normal affect, normal mood Results & Data Results & Data Vital Signs (Past 12 Hours) Vital Signs Temp Pulse Pulse Resp BP Pulse Ox O2 Del Method 09/28/22 14:41 36.4 C L 60 18 169/71 H 93 Room Air 09/28/22 11:52 36.4 C L 67 20 173/76 H 94 Room Air 09/28/22 08:00 58 L 09/28/22 07:21 36.7 C 63 18 167/69 H 96 Room Air Laboratory Results 09/28/22 06:53 09/28/22 06:53 PG Care Time/CCT Total # of Minutes Spent Total Time Spent with Patient: Total time spent is greater than 50% in coordination of care (as documented) at patient's floor/unit and/or counseling patient: Coding Level of Care Code 39643 SUB INP/OBS CARE 3/50MIN Diagnoses JUDE (acute kidney injury) N17.9 Cellulitis of foot L03.119 Acute hyponatremia E87.1 Acute hyperkalemia E87.5 Diastolic congestive heart failure I50.30 Fracture of 1st metatarsal S92.313A Hypertension I10 Permanent atrial fibrillation I48.2 Peripheral arterial disease I73.9
[2022-09-29] MEDS: METOCLOPRAMIDE HCL INJ 5 MG/ML 2 ML VIAL IV SCH ×3 (04:27→16:07)
[2022-09-29 07:11] LABS: Basophils # (auto) 0.06 K/uL (0-0.2); Basophils % (auto) 0.8 %; Eosinophils # (auto) 0.25 K/uL (0-0.50); Eosinophils % (auto) 3.4 %; Hemoglobin 13.9 g/dl (12.0-16.0); Immature Granulocytes # (auto) 0.02 K/uL (0.01-0.20); Immature Granulocytes % (auto) 0.3 %; Lymphocytes # (auto) 1.34 K/uL (1.2-3.4); Lymphocytes % (auto) 18.1 %; Mean Corpuscular Hemoglobin 31.2 pg (25.0-34.0); Mean Corpuscular Hgb Conc 33.9 g/dL (32.0-36.0); Mean Corpuscular Volume 91.9 fL (80.0-100.0); Mean Platelet Volume 9.8 fL (9.4-12.4); Monocytes # (auto) 0.64 K/uL (0.11-0.59); Monocytes % (auto) 8.6 %; Neutrophils # (auto) 5.11 K/uL (1.40-6.50); Neutrophils % (auto) 68.8 %; Platelet Count 162 K/uL (130-400); RDW Coefficient of Variation 15.5 % (11.5-14.5); RDW Standard Deviation 51.7 fL (36.4-46.3); Red Blood Count 4.46 M/uL (4.20-5.40); White Blood Count 7.42 K/ul (4.8-10.8)
[2022-09-29 07:37] LABS: BUN Creatinine Ratio 39.9 (10-20); Calcium 8.7 mg/dl (8.6-10.3); Creatinine Clr Calc Pharmacy 26.3 ml/min; Est GFR (African American) 39.7 ml/min; Est GFR (Non-African American) 34.3 ml/min; Potassium 4.8 mmol/L (3.5-5.1)
[2022-09-29] MEDS ORDERED: amLODIPine BESYLATE 5 MG TAB PO SCH (09:00)
[2022-09-29] MEDS: APIXABAN 2.5 MG TAB PO SCH (09:03)
[2022-09-29] MEDS: ACETAMINOPHEN 500 MG TAB PO SCH ×2 (09:03→13:57)
[2022-09-29] MEDS ORDERED: FUROSEMIDE 40 MG/4 ML VIAL IV ONE (09:50)
--- NOTE | 2022-09-29 11:08 | Discharge Summary ---
Date of Service September 29, 2022 Admission HPI Per Admitting Provider Kelsey Gatica is an 87 year old female who presents to the ER with nausea, diarrhea and increasing right leg pain. She reports initial injury to her right foot in the first week of August when she dropped an umbrella stand on it. She was able to ambulate on it afterwards and did not initially present to a health care provider. However on September 17 she presented to the ER due to worsening erythema around her foot. XR showed comminuted fracture of distal 1st MT. She was also diagnosed with cellulitis and given a dose of ceftriaxone in the emergency room. Admission was advised but she refused. She was initially treated with cefdinir but this was changed to doxycycline at her primary care provider follow up appointment due to cefdinir causing diarrhea. The doxycycline caused her to have nausea but has been able to keep taking this. She also reports burning her skin on her right foot as she was soaking it she poured some hot water in the water bath and it splashed on the top of her foot. She followed up with her PCP today and recommended she comes to the emergency room due to worsening swelling and pain. Due to concerns for dehydration as she has not been eating and drinking well with her diarrhea she stopped taking her furosemide today. She reports her diarrhea has improved and is not watery. No history of c. diff. Principal Diagnosis Acute viral gastroenteritis, hypovolemia, acute kidney injury, hyperkalemia, hyponatremia, right foot cellulitis Discharge Exam General-alert and oriented x3, no fevers, no chills HEENT-head atraumatic and normocephalic, pupils equal and reactive to light, extraocular muscles intact Neck-no lymphadenopathy or thyromegaly, trachea midline Chest-clear to auscultation percussion. No rales wheezing or rhonchi Cardiac-regular rate and rhythm, normal S1 and S2 Abdomen-normal bowel sounds, nontender, no hepatosplenomegaly Extremities-distal right forefoot is tender to palpation with associated bruising. Healing curved laceration distal aspect right lateral foot. Nonpalpable pulses in the right foot. Neuro-cranial nerves II through XII intact, motor and sensory function within normal limits, strength symmetrical , no focal deficits Psych-normal affect, normal mood Discharge Data Allergies Allergy/AdvReac Type Severity Reaction Status Date / Time amoxicillin Allergy Mild Rash Verified 09/26/22 14:52 ciprofloxacin Allergy Mild Rash Verified 09/26/22 14:52 clavulanic acid Allergy Mild Rash Verified 09/26/22 14:52 codeine Allergy Mild nausea and Verified 09/26/22 14:52 vomiting latex Allergy Mild Rash Verified 09/26/22 14:52 povidone-iodine Allergy Mild RASH Verified 09/26/22 14:52 soap [From Betadine] Allergy Mild Rash Verified 09/26/22 14:52 Sulfa (Sulfonamide Allergy Mild RASH Verified 09/26/22 14:52 Antibiotics) cephalexin Allergy Unknown . Verified 09/26/22 14:52 sulfamethoxazole Allergy Unknown Diarrhea Verified 09/26/22 14:52 [From Bactrim] trimethoprim [From Bactrim] Allergy Unknown Diarrhea Verified 09/26/22 14:52 ceftriaxone [From Rocephin] AdvReac Severe Diarrhea Verified 09/26/22 11:26 meperidine AdvReac Mild nausea/vomi Verified 09/26/22 11:26 ting Consultations 09/26/22 13:46 ED Decision to Admit Stat 09/26/22 23:43 Consult Orthopedic Surgery Routine 09/27/22 09:38 Consult Vascular Surgery Routine Ordered Studies 09/26/22 15:24 US arterial duplex LE RT Routine Hospital Course (1) JUDE (acute kidney injury): Creatinine improved with IV fluids. However, her chronic edema has worsened. She will will receive 1 dose of intravenous Lasix before she goes home today, september 29. Lasix will be restarted at discharge. Lisinopril has been discontinued indefinitely due to hyperkalemia and renal insufficiency (2) Cellulitis of foot: Suspected cellulitis distal right forefoot. Osteomyelitis ruled out by orthopedics. We will switch to oral antibiotic at discharge. Treated with intravenous daptomycin while hospitalized. Blood cultures negative to date (3) Acute hyponatremia: Resolved with IV fluids. Serial labs. Holding Lasix due to volume depletion brought on by gastroenteritis. Will restart Lasix at discharge (4) Acute hyperkalemia: Lisinopril has been discontinued indefinitely. Potassium has improved. IV fluids now discontinued (5) Diastolic congestive heart failure: No current CHF. Monitor intake and output. Serial chest x-ray as needed. Continue current medical management. Lasix held while hospitalized and will be restarted at discharge (6) Fracture of 1st metatarsal: Ruled out by orthopedics (7) Hypertension: Discontinued lisinopril due to hyperkalemia. She is intolerant of higher doses of amlodipine. Lasix will be restarted at discharge. Hydralazine PRN for SBP > 180 (8) Permanent atrial fibrillation: Anticoagulation with Eliquis. Telemetry. Rate controlled without medications (9) Peripheral arterial disease: Right lower extremity, noted on arterial Doppler. Vascular surgery consultation appreciated. No acute intervention needed at this time. No overt ischemia of the right foot Plan VTE Prophylaxis - continue Eliquis Disposition -anticipate discharge to home later today, september Total Time Total Time Spent Total Time Spent (In Minutes): 40 minutes Discharge Plan Discharge Items Patient Disposition: Home - Self-Care Reason For Visit: CELLULITIS, JUDE Discharge Diagnosis: Acute viral gastroenteritis, hypovolemia, acute kidney injury, hyponatremia, hyperkalemia, right foot cellulitis Activity: Resume your previous activity Non-emergency contact: Primary Care Provider Call non-emergency contact if: you have any medication questions Follow-up/Referrals: Donnell Garibay MD [Primary Care Provider] - 10/08/22 11:00 am Diet: Regular and Heart Healthy Addtl Attending Provider Instructions: Lisinopril has been stopped indefinitely. Take cephalexin antibiotic for 1 more week Pending Studies at Discharge: No Stand-Alone Forms: [facility] [employer], Smoking Cessation Medications and DC Order Prescriptions: New doxycycline hyclate 100 mg capsule 100 mg PO BID 7 Days Qty: 14 0RF Continued (DME) FreeStyle Lite Strips strip See Dose Instructions .ROUTE .MEDSUPPLY Qty: 100 3RF Dose Instruction: As directed Rx Instructions: test once daily diclofenac sodium 1 % gel 1 g topical BID PRN (Reason: Pain) Qty: 100 6RF Eliquis 5 mg tablet 5 mg PO BID Qty: 180 3RF tramadol 50 mg tablet 50 mg PO TID Qty: 270 0RF acetaminophen [Tylenol Extra Strength] 500 mg tablet 1,000 mg PO HS PRN (Reason: Pain) amlodipine 2.5 mg tablet 2.5 mg PO DAILY furosemide 40 mg tablet 80 mg PO QAM multivitamin [Multiple Vitamin] Tablet 1 tab PO DAILY Discontinued lisinopril 40 mg tablet 40 mg PO QAM Qty: 90 3RF doxycycline monohydrate 100 mg capsule 100 mg PO BID Qty: 20 0RF Rx Instructions: BEGIN 09/21/22 X 10 DAYS Discharge Orders: Discharge Order (Routine); Ordered 09/29/22 Ordered By: Anthony Stevenson Admission Data Admit Date/Time: 09/26/22 15:23 Attending Provider: Anthony Stevenson Admit Provider: En Ernst Primary Care Provider: Donnell Garibay Other Providers: En Ernst ; Dandre Peterson ; Tulio Grimaldo Coding Level of Care Code 36952 INP/OBS DISCH >30 MIN Diagnoses JUDE (acute kidney injury) N17.9 Cellulitis of foot L03.119 Acute hyponatremia E87.1 Acute hyperkalemia E87.5 Diastolic congestive heart failure I50.30 Fracture of 1st metatarsal S92.313A Hypertension I10 Permanent atrial fibrillation I48.2 Peripheral arterial disease I73.9
[2022-09-29] MEDS ORDERED: DAPTOmycin 300 MG in SYRINGE 0 ML IV SCH (14:00)
[2022-09-30] MEDS ORDERED: amLODIPine BESYLATE 5 MG TAB PO SCH (09:00)
== END 2022-09-29 18:10 | disposition home or self-care (01) | DRG 683 ==
LOC: ED 12:10 → SUATTDRO 15:23 → 2N 15:23
DX: Z79.899 Other long term (current) drug therapy; L03.115 Cellulitis of right lower limb; S92.313A Displaced fracture of first metatarsal bone, unspecified foot, initial encounter for closed fracture; I50.30 Unspecified diastolic (congestive) heart failure; W22.8XXA Striking against or struck by other objects, initial encounter; E87.1 Hypo-osmolality and hyponatremia; A08.4 Viral intestinal infection, unspecified; Z88.2 Allergy status to sulfonamides; Z79.811 Long term (current) use of aromatase inhibitors; Z88.0 Allergy status to penicillin; E87.5 Hyperkalemia; Z88.1 Allergy status to other antibiotic agents; Z88.8 Allergy status to other drugs, medicaments and biological substances; I48.21 Permanent atrial fibrillation; Z88.5 Allergy status to narcotic agent; Z79.01 Long term (current) use of anticoagulants; N17.9 Acute kidney failure, unspecified; Z79.83 Long term (current) use of bisphosphonates; I73.9 Peripheral vascular disease, unspecified; Z88.3 Allergy status to other anti-infective agents; I13.0 Hypertensive heart and chronic kidney disease with heart failure and stage 1 through stage 4 chronic kidney disease, or unspecified chronic kidney disease

== ENCOUNTER 2023-04-25 12:46 | Inpatient (IN) ==
--- NOTE | 2023-04-25 13:07 | ED Triage Note ---
Date of Service April 25, 2023 History of Present Illness This patient was briefly evaluated while in triage. An abbreviated physical exam was performed. This patient is a 87-year-old Female sent to ED by nuclear worker technician who presents to the ED for evaluation of edema and increasing dyspnea. No chest pain. Is taking diuretics but is 40 pounds over goal weight. Physical Exam CONSTITUTIONAL: in no acute pain or distress, resting comfortably SKIN: pink, warm, dry CARDIAC: regular rate and rhythm RESPIRATORY: crackles wheezes b/l bases. not dyspneic MSK: 4+ pitting edema in b/l lower extremities Initial orders for labs and / or imaging were placed and patient was placed in the waiting area until a bed is available. Please see further documentation for the full ED course.
[2023-04-25 14:10] LABS: Anion Gap 15 (3-11); Bilirubin,Total 1.6 mg/dl (0.2-1.0); Calcium 9.1 mg/dl (8.6-10.3); Carbon Dioxide 23 mmol/L (21-32); Chloride 96 mmol/L (98-107); Magnesium 2.4 mg/dl (1.7-2.4); Potassium 4.8 mmol/L (3.5-5.1); Sodium 134 mmol/L (136-145)
[2023-04-25 14:16] LABS: Alanine Aminotransferase 9 U/L (7-52); Albumin Globulin Ratio 1.4 (0.9-2); Alkaline Phosphatase 97 U/L (34-104); Aspartate Aminotransferase 20 U/L (13-39); BUN Creatinine Ratio 40.7 (10-20); Blood Urea Nitrogen 98 mg/dl (6-23); Est GFR (African American) 20.3 ml/min; Est GFR (Non-African American) 17.5 ml/min; Globulin 2.9 gm/dl (2.5-4.0); Glucose 135 mg/dl (70-99(Fasting)); Total Protein 6.9 gm/dl (6.0-8.3)
--- NOTE | 2023-04-25 14:42 | XRay Report ---
SINGLE VIEW CHEST CLINICAL HISTORY: Dyspnea. Edema. FINDINGS: A PA chest radiograph is compared to study dated 09/26/2022. The examination is degraded by p atient rotation. Surgical clips project over the left axilla. The heart is enlarged and noting ather osclerotic calcification of the thoracic aorta. There is pulmonary vascular congestion. Bilateral air space opacities likely representing interstitial edema. Small pleural effusions are noted. There is b ibasilar scarring/atelectasis. No pneumothorax is seen. The skeletal structures are osteopenic. The b gregoria thorax is grossly intact. IMPRESSION: 1. Cardiomegaly with evidence of congestive failure. 2. Bilateral airspace opacities likely represent pulmonary edema. Correlate clinically for evidence o f a superimposed infectious/inflammatory pneumonitis. Radiographic follow-up to resolution is recomme nded. 3. Small pleural effusions. ACT 112: Negative or not required by law. Electronically signed by: Olman Benítez M.D. 04/25/2023 2:41 PM
[2023-04-25] MEDS ORDERED: ASPIRIN CHEW 324 MG PO STA (15:04)
[2023-04-25] MEDS ORDERED: FUROSEMIDE 40 MG/4 ML VIAL IV ONE ×2 (15:04→19:51)
[2023-04-25 15:09] LABS: Hemoglobin 14.9 g/dl (12.0-16.0); Mean Corpuscular Hemoglobin 26.5 pg (25.0-34.0); Mean Corpuscular Volume 85.4 fL (80.0-100.0); Mean Platelet Volume 11.6 fL (9.4-12.4); Platelet Count 111 K/uL (130-400); RDW Coefficient of Variation 17.4 % (11.5-14.5); RDW Standard Deviation 51.1 fL (36.4-46.3); Red Blood Count 5.62 M/uL (4.20-5.40)
--- NOTE | 2023-04-25 15:18 | Emergency Department Note ---
Impression & Plan Pulmonary edema, Non-ST elevation [place] (NSTEMI), Elevated troponin I level, JUDE (acute kidney injury), Abnormal EKG, Bilateral pleural effusion ED Provider Note NAME: DEBBIE GRANADOS AGE: 87 SEX: F : 1935 ARRIVES VIA: Walk-In INFORMANT: Patient, ED PROVIDER(S): Donnell Garcia DO CHIEF COMPLAINT: Shortness of breath HPI: The patient is an 87-year-old female who has a history of volume overload who presented to the emergency department because of swelling in both upper and lower extremities. She is also had difficulty breathing. She was sent to the emergency department by Dr. Hurst for possible admission to the hospital. The patient denies having any significant urine output since this morning. She denies having any fever or hemoptysis. She states that she is been compliant with her outpatient medications ROS: See above HPI for pertinent positives & negatives. A total of 10 systems reviewed and were otherwise negative. PAST MEDICAL HISTORY: See Below PAST SURGICAL HISTORY: See Below FAMILY HISTORY: See Below SOCIAL HISTORY: See Below HOME MEDICATIONS: See Below ALLERGIES: See Below VITALS: See Below PHYSICAL EXAMINATION: GENERAL: Patient is awake alert in no acute distress patient is resting comfortably and showing no signs of anxiety EYES: The conjunctivae are clear. The pupils are round and reactive. EARS, NOSE, MOUTH AND THROAT: The nose is without any evidence of any deformity. NECK: The neck is nontender and supple. JVD was noted. RESPIRATORY: Diminished breath sounds are noted throughout with rales in all lung salazar. CARDIOVASCULAR: Regular heart sounds were noted to auscultation. There is no definite murmur. Heart sounds were distant. GASTROINTESTINAL: The abdomen is soft. Abdomen is nontender. MUSCULOSKELETAL/EXTREMITIES: There is no evidence of gross deformity full range of motion is noted in the hips and shoulders. SKIN: Chronic venous stasis changes were noted. Pedal edema was noted bilaterally. NEUROLOGIC: Patient is awake alert and oriented x3 MEDICAL DECISION MAKING: The patient is an 87-year-old female who presented to the emergency department for an evaluation of difficulty breathing. The patient had difficulty breathing and fluid retention. She has a history of cardiac disease. The patient was seen by her primary community relations manager and was referred to the emergency department for possible admission. The patient was treated with aspirin in the emergency department. The patient was also treated with Lasix. She was found to have an elevation in her creatinine as well as signs of volume overload on physical exam as well as pulmonary edema on chest x-ray. I discussed the patient's laboratory and radiographic studies with her. I also discussed her condition with the on- call [facility]. They have agreed to evaluate the patient in the emergency department for further management and disposition. Triage Nursing notes reviewed. Prior medical records reviewed Vital Signs: reviewed and remarkable for bradycardia. Differential diagnosis: Reactive airway disease, pneumonia, pneumothorax, COPD, CHF, infections, cardiac ischemia, pulmonary embolism, musculoskeletal, gastrointestinal, as well as other pathologies. ER treatment provided: See below Diagnostics interpreted by me: ECG: EKG was obtained in the emergency department. My interpretation is regular bradycardic rhythm that could be a slow atrial fibrillation versus junctional at 58 bpm. There is no ectopy. Low voltage was noted throughout as well as poor R wave progression. This was compared to a tracing from September 26, 2022. The changes are new compared to the previous tracing. Cardiac Monitoring: An order was placed for continuous cardiac monitoring. The monitor shows a rate of 53 bpm with sinus rhythm. Laboratory studies: As stated above and show below. Imaging studies: See below. Radiographic imaging was reviewed by myself Consultation(s): I discussed this case with Dr. Ernst who is on-call for the [facility]. ED COURSE: Procedures: none Critical Care: I have personally spent greater than 35 minutes of critical care time in the direct management of this patient. This includes bedside care, interpretation of diagnostic studies, and testing, discussion with consultants, patient, and family members, and other required patient management activities. This 35 minutes is in excess of all separately billable procedures. Past Med/Surg History Medical History Acute hyperkalemia Acute hyponatremia JUDE (acute kidney injury) Cellulitis of foot Chronic anticoagulation Diastolic congestive heart failure f/u Dr. Hayes Hyperlipidemia Hypertension Lymphedema chronic Osteoarthritis Permanent atrial fibrillation Stage III chronic kidney disease f/u nephrology at [place] Surgical History H/O left cataract extraction History of right cataract extraction Hx of shoulder surgery rt. repair shoulder dislocation Hx of basal cell carcinoma excision x1 rt eyelid, x1 left and left ear Hx of total hysterectomy with removal of both tubes and ovaries History of radiation therapy S/P tonsillectomy S/P colonoscopy S/P lumpectomy, left breast with axillary node removal S/P appendectomy Family History Other Adopted Myocardial infarction Denies family history of Ovarian cancer Prostate cancer Breast cancer Colorectal cancer Social History Smoking Status: Never smoker Second Hand Exposure: No; Do You Dip or Chew Tobacco: No; Hx Alcohol Use: No Hx Substance Use: No Preferred Language: Palestinian Communication Ability: Effective Visual Impairment: No Limitations Hearing Ability: Normal Rag Sorter Required: No Beliefs That Will Affect Care: None marital status: Current Living Situation: Alone Current Living Situation Comment: lives home alone in a townhouse 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, unknown family hx Feels Safe at Home: Yes Childhood Exposure to Second-Hand Smoke: No Dental Care, Regularly: Yes Physical Activity Frequency Comment: limited by physical condition Seatbelt Use: always Sunscreen Use: No Assistive Devices: Cane, Glasses, Raised Toilet Seat, Stair Lift and Walker Allergies Allergies Allergy/AdvReac Type Severity Reaction Status Date / Time codeine Allergy Mild nausea and Verified 04/25/23 11:43 vomiting latex Allergy Mild Rash Verified 04/25/23 11:43 povidone-iodine Allergy Mild RASH Verified 04/25/23 11:43 soap [From Betadine] Allergy Mild Rash Verified 04/25/23 11:43 Sulfa (Sulfonamide Allergy Mild RASH Verified 04/25/23 11:43 Antibiotics) cephalexin Allergy Unknown . Verified 04/25/23 11:43 sulfamethoxazole Allergy Unknown Diarrhea Verified 04/25/23 11:43 [From Bactrim] trimethoprim [From Bactrim] Allergy Unknown Diarrhea Verified 04/25/23 11:43 ceftriaxone [From Rocephin] AdvReac Severe Diarrhea Verified 04/25/23 11:43 meperidine AdvReac Mild nausea/vomi Verified 04/25/23 11:43 ting Home Meds Home Medications Medication Instructions Recorded Confirmed acetaminophen 500 mg tablet 1,000 mg PO HS PRN Pain 07/25/20 04/25/23 (Tylenol Extra Strength) Previous Rx's Medication Instructions Recorded ondansetron HCl 4 mg tablet 4 mg PO Q8H PRN nausea and 12/05/22 vomiting #10 tabs diclofenac sodium 1 % topical gel 1 g topical BID PRN Pain #100 grams 02/20/23 apixaban 2.5 mg tablet (Eliquis) 2.5 mg PO BID #180 tabs 04/02/23 bumetanide 2 mg tablet 2 mg PO BID #60 tabs 04/02/23 tramadol 50 mg tablet 50 mg PO TID #270 tabs 04/10/23 Results & Data (ED) Vital Signs Vital Signs - 24 hr 04/25/23 13:02 04/25/23 15:13 04/25/23 15:15 Pulse Rate 54 L 54 L Pulse Rate [Apical] Pulse Rate from SpO2 Sensor 51 L 53 L Respiratory Rate 18 17 13 Respiratory Effort / Characteristics Non-Labored Spontaneous Respiratory Depth Normal Respiratory Pattern Blood Pressure 125/65 Blood Pressure [Right Arm] Blood Pressure Mean 85 Blood Pressure Mean [Right Arm] Blood Pressure Position Sitting Blood Pressure Position [Right Arm] Pulse Oximetry 90 95 93 Oxygen Delivery Method Room Air Sepsis Recent Fever Within 48 Hours No Sepsis New/Unexplained Change in Mental Status No Sepsis Action Taken by Nursing No Action Required 04/25/23 15:15 04/25/23 15:19 04/25/23 15:19 Pulse Rate 60 Pulse Rate [Apical] Pulse Rate from SpO2 Sensor 55 L Respiratory Rate 25 H Respiratory Effort / Characteristics Respiratory Depth Respiratory Pattern Blood Pressure 140/60 119/65 Blood Pressure [Right Arm] Blood Pressure Mean 97 79 Blood Pressure Mean [Right Arm] Blood Pressure Position Blood Pressure Position [Right Arm] Pulse Oximetry 88 L Oxygen Delivery Method Sepsis Recent Fever Within 48 Hours Sepsis New/Unexplained Change in Mental Status Sepsis Action Taken by Nursing 04/25/23 15:20 04/25/23 15:21 04/25/23 15:30 Pulse Rate 57 L 62 65 Pulse Rate [Apical] Pulse Rate from SpO2 Sensor 59 L 53 L Respiratory Rate 26 H 8 L Respiratory Effort / Characteristics Respiratory Depth Respiratory Pattern Blood Pressure Blood Pressure [Right Arm] Blood Pressure Mean Blood Pressure Mean [Right Arm] Blood Pressure Position Blood Pressure Position [Right Arm] Pulse Oximetry 86 L 89 L Oxygen Delivery Method Sepsis Recent Fever Within 48 Hours Sepsis New/Unexplained Change in Mental Status Sepsis Action Taken by Nursing 04/25/23 15:35 04/25/23 16:43 Pulse Rate Pulse Rate [Apical] 53 L Pulse Rate from SpO2 Sensor Respiratory Rate 20 Respiratory Effort / Characteristics Non-Labored Spontaneous Respiratory Depth Normal Respiratory Pattern Regular Blood Pressure Blood Pressure [Right Arm] 125/70 Blood Pressure Mean Blood Pressure Mean [Right Arm] 88 Blood Pressure Position Blood Pressure Position [Right Arm] Semi-fowlers Pulse Oximetry 90 94 Oxygen Delivery Method Room Air Room Air Sepsis Recent Fever Within 48 Hours Sepsis New/Unexplained Change in Mental Status Sepsis Action Taken by Assisted Medications Current Medication List: was personally reviewed by me Laboratory Data Attestation: I reviewed the patient's lab results. 04/25/23 13:18 04/25/23 13:26 Lab Results 04/25/23 04/25/23 04/25/23 Range/Units 13:18 13:20 13:26 WBC 14.80 H (4.8-10.8) K/ul RBC 5.62 H (4.20-5.40) M/uL Hgb 14.9 (12.0-16.0) g/dl Hct 48.0 H (37.0-47.0) % MCV 85.4 (80.0-100.0) fL MCH 26.5 (25.0-34.0) pg MCHC 31.0 L (32.0-36.0) g/dL RDW Std Deviation 51.1 H (36.4-46.3) fL RDW Coeff of Rylee 17.4 H (11.5-14.5) % Plt Count 111 L (130-400) K/uL MPV 11.6 (9.4-12.4) fL Immature Gran % (Auto) 0.7 % Neut % (Auto) 93.2 % Lymph % (Auto) 3.4 % [place]asta % (Auto) 2.1 % Eos % (Auto) 0.1 % Baso % (Auto) 0.5 % Neut # (Auto) 13.80 H (1.40-6.50) K/uL Lymph # (Auto) 0.51 L (1.20-3.40) K/uL [place]asta # (Auto) 0.31 (0.11-0.59) K/uL Eos # (Auto) 0.01 (0.00-0.50) K/uL Baso # (Auto) 0.07 (0.00-0.20) K/uL Immature Gran # (Auto) 0.10 (0.01-0.20) K/uL Anisocytosis Present Echinocytes 1+ Sodium 134 L (136-145) mmol/L Potassium 4.8 (3.5-5.1) mmol/L Chloride 96 L (98-107) mmol/L Carbon Dioxide 23 (21-32) mmol/L Anion Gap 15 H (3-11) BUN 98 H (6-23) mg/dl Creatinine 2.41 H (0.6-1.2) mg/dl Est Cr Clr Drug Dosing Not Reportable Est GFR ( Amer) 20.3 ml/min Est GFR (Non-Af Amer) 17.5 ml/min BUN/Creatinine Ratio 40.7 H (10-20) Glucose 135 H (70-99(Fasting)) mg/dl Calcium 9.1 (8.6-10.3) mg/dl Magnesium 2.4 (1.7-2.4) mg/dl Total Bilirubin 1.6 H (0.2-1.0) mg/dl AST 20 (13-39) U/L ALT 9 (7-52) U/L Alkaline Phosphatase 97 (34-104) U/L Troponin I High Sens 140.0 H* (0-14) pg/ml C-Reactive Protein 11.62 H (0-0.5) mg/dl B-Natriuretic Peptide 2673 H (0-100) pg/ml Total Protein 6.9 (6.0-8.3) gm/dl Albumin 4.0 (3.4-5.0) gm/dl Globulin 2.9 (2.5-4.0) gm/dl Albumin/Globulin Ratio 1.4 (0.9-2) 04/25/23 Range/Units 15:31 WBC (4.8-10.8) K/ul RBC (4.20-5.40) M/uL Hgb (12.0-16.0) g/dl Hct (37.0-47.0) % MCV (80.0-100.0) fL MCH (25.0-34.0) pg MCHC (32.0-36.0) g/dL RDW Std Deviation (36.4-46.3) fL RDW Coeff of Rylee (11.5-14.5) % Plt Count (130-400) K/uL MPV (9.4-12.4) fL Immature Gran % (Auto) % Neut % (Auto) % Lymph % (Auto) % [place]asta % (Auto) % Eos % (Auto) % Baso % (Auto) % Neut # (Auto) (1.40-6.50) K/uL Lymph # (Auto) (1.20-3.40) K/uL [place] # (Auto) (0.11-0.59) K/uL Eos # (Auto) (0.00-0.50) K/uL Baso # (Auto) (0.00-0.20) K/uL Immature Gran # (Auto) (0.01-0.20) K/uL Anisocytosis Echinocytes Sodium (136-145) mmol/L Potassium (3.5-5.1) mmol/L Chloride (98-107) mmol/L Carbon Dioxide (21-32) mmol/L Anion Gap (3-11) BUN (6-23) mg/dl Creatinine (0.6-1.2) mg/dl Est Cr Clr Drug Dosing Est GFR ( Amer) ml/min Est GFR (Non-Af Amer) ml/min BUN/Creatinine Ratio (10-20) Glucose (70-99(Fasting)) mg/dl Calcium (8.6-10.3) mg/dl Magnesium (1.7-2.4) mg/dl Total Bilirubin (0.2-1.0) mg/dl AST (13-39) U/L ALT (7-52) U/L Alkaline Phosphatase (34-104) U/L Troponin I High Sens 189.8 H* D (0-14) pg/ml C-Reactive Protein (0-0.5) mg/dl B-Natriuretic Peptide (0-100) pg/ml Total Protein (6.0-8.3) gm/dl Albumin (3.4-5.0) gm/dl Globulin (2.5-4.0) gm/dl Albumin/Globulin Ratio (0.9-2) Administered Medications Discontinued Medications Aspirin (Aspirin Chew 324 Mg) 324 mg PO NOW STA Stop: 04/25/23 15:05 Last Admin: 04/25/23 15:15 Dose: 324 mg Documented By: VICKY Furosemide (Furosemide 40 Mg/4 Ml Vial) 40 mg IV ONE ONE Stop: 04/25/23 15:05 Last Admin: 04/25/23 15:16 Dose: 40 mg Documented By: VICKY Imaging Data Attestation: I personally reviewed and interpreted this imaging study as follows: My Impression: 1 view chest x-ray was obtained in the emergency department. My interpretation is pulmonary edema with bilateral pleural effusions, final report below Radiologist's Impression: Chest X-Ray 04/25/23 13:00 SINGLE VIEW CHEST CLINICAL HISTORY: Dyspnea. Edema. FINDINGS: A PA chest radiograph is compared to study dated 09/26/2022. The examination is degraded by patient rotation. Surgical clips project over the left axilla. The heart is enlarged and noting atherosclerotic calcification of the thoracic aorta. There is pulmonary vascular congestion. Bilateral airspace opacities likely representing interstitial edema. Small pleural effusions are noted. There is bibasilar scarring/atelectasis. No pneumothorax is seen. The skeletal structures are osteopenic. The bony thorax is grossly intact. IMPRESSION: 1. Cardiomegaly with evidence of congestive failure. 2. Bilateral airspace opacities likely represent pulmonary edema. Correlate clinically for evidence of a superimposed infectious/inflammatory pneumonitis. Radiographic follow-up to resolution is recommended. 3. Small pleural effusions. ACT 112: Negative or not required by law. Electronically signed by: Olman Benítez M.D. 04/25/2023 2:41 PM Discharge Plan Visit Data Chief Complaint: Shortness of Breath/Dyspnea Stated Complaint: REF BY , ANJEL, ED Provider: Donnell Garcia Discharge Problem: Pulmonary edema, Non-ST elevation [place] (NSTEMI), Elevated troponin I level, JUDE (acute kidney injury), Abnormal EKG, Bilateral pleural effusion Patient Disposition: Being Evaluated by Hospitalist Forms Stand Alone Forms: My [facility] Prescriptions Prescriptions: No Action diclofenac sodium 1 % gel 1 g topical BID PRN (Reason: Pain) Qty: 100 6RF tramadol 50 mg tablet 50 mg PO TID Qty: 270 0RF acetaminophen [Tylenol Extra Strength] 500 mg tablet 1,000 mg PO HS PRN (Reason: Pain) ondansetron HCl 4 mg tablet 4 mg PO Q8H PRN (Reason: nausea and vomiting) Qty: 10 1RF Eliquis 2.5 mg tablet 2.5 mg PO BID Qty: 180 3RF bumetanide 2 mg tablet 2 mg PO BID Qty: 60 2RF Referrals Referrals: Donnell Garibay MD [Primary Care Provider] - Discharge Problem: Pulmonary edema Qualifiers: Chronicity: acute Qualified Code(s): J81.0 - Acute pulmonary edema
[2023-04-25 15:26] LABS: Anisocytosis Present; Basophils # (auto) 0.07 K/uL (0.00-0.20); Basophils % (auto) 0.5 %; Echinocytes 1+; Eosinophils # (auto) 0.01 K/uL (0.00-0.50); Eosinophils % (auto) 0.1 %; Immature Granulocytes % (auto) 0.7 %; Lymphocytes # (auto) 0.51 K/uL (1.20-3.40); Lymphocytes % (auto) 3.4 %; Monocytes # (auto) 0.31 K/uL (0.11-0.59); Monocytes % (auto) 2.1 %; Neutrophils % (auto) 93.2 %
--- NOTE | 2023-04-25 15:55 | History & Physical Report ---
Date of Service April 25, 2023 Assessment & Plan (1) (HFpEF) heart failure with preserved ejection fraction: Plan: Significant fluid/weight/anasarca/BNP Suspect from under diuresis following hospitalization in September when she was dehydrated with diarrhea but appears the balance tipped too much the other way and she has never got back down to her baseline weight - start Lasix 80mg IV BID Strict I&Os, smith catheter inserted on admission for better UA and strict I&Os Daily weights Repeat TTE per cardiology recommendations (2) Leukocytosis: Plan: UA concerning for infection although no specific symptoms of this No definitive cellulitic region although large blister on left foot No alternative cause of neutrophilia from history other than infection with mildly elevated procalcitonin Therefore will empirically treat with IV Zosyn pending blood/urine cultures (3) JUDE (acute kidney injury): Plan: Nephrology consult per patient request Suspect from poor effective forward flow and should improve with diuresis +/- UTI Cr 2.41 on admission with baseline 1.26 in October (1.73 in February) CT A/P without contrast to rule out obstructive cause (4) Bilateral pleural effusion: (5) Anasarca: (6) Permanent atrial fibrillation: Plan: Continue Eliquis for anticoagulation Rate controlled without AV nadira blocking agents (7) Type 2 diabetes mellitus: Plan: Hemoglobin A1C 6.9 On no medications as outpatient (8) Liver cirrhosis: Plan: Noted on CT Hepatitis panel in AM INR in AM Decrease Plt and elevated bilirubin suggestive this may be contributing towards overall fluid balance Consider gastroenterology consult (9) Elevated troponin: Plan: No acute chest pain or shortness of breath to suggest ACS, suspect demand ischemia from hypervolemia state TTE in AM Plan VTE Prophylaxis - Eliquis Diet - Low Na, Heart healthy, fluid restricted Disposition - admit to PCU Admission and Anticipated Discharge Date Admission Date: April 25, 2023 History of Present Illness Chief Complaint: Leg swelling and shortness of breath Primary Care Provider: Donnell Garibay MD Emma Gatica is an 87 year old female who presented to the ER on advice of her kitchen mechanic due to worsening shortness of breath and increasing leg edema. She reports her kitchen mechanic and heart failure clinic have been trying to get her into the hospital for some time. For the past few days she has been getting significant worse and now finding it difficult to get around. Noticed blister on her left foot just a couple of days ago which subsequently popped. No urinary symptoms. No chest pain or palpitations. She has significant orthopnea and shortness of breath on exertion. She notes the significant weight gain occurred after IV fluids given for multiple days in September when she was dehydrated with JUDE in setting of diarrhea and Lasix/lisinopril discontinued and she received IV fluids for several days with improvement in her Cr. She has never gone back to her baseline weight since this admission. WBC elevated in the ER. She notes a blister that suddenly appeared on her left foot a few days ago but no definitive new infection on her legs. No fevers. She reports chills since September but nothing new recently. No cough, nasal congestion or sinus pain. Allergies Allergy/AdvReac Type Severity Reaction Status Date / Time codeine Allergy Mild nausea and Verified 04/25/23 11:43 vomiting latex Allergy Mild Rash Verified 04/25/23 11:43 povidone-iodine Allergy Mild RASH Verified 04/25/23 11:43 soap [From Betadine] Allergy Mild Rash Verified 04/25/23 11:43 Sulfa (Sulfonamide Allergy Mild RASH Verified 04/25/23 11:43 Antibiotics) cephalexin Allergy Unknown . Verified 04/25/23 11:43 sulfamethoxazole Allergy Unknown Diarrhea Verified 04/25/23 11:43 [From Bactrim] trimethoprim [From Bactrim] Allergy Unknown Diarrhea Verified 04/25/23 11:43 ceftriaxone [From Rocephin] AdvReac Severe Diarrhea Verified 04/25/23 11:43 meperidine AdvReac Mild nausea/vomi Verified 04/25/23 11:43 ting Home Medications Medication Instructions Recorded Confirmed Type acetaminophen 500 mg tablet 1,000 mg PO HS PRN Pain 07/25/20 04/25/23 History (Tylenol Extra Strength) ondansetron HCl 4 mg tablet 4 mg PO Q8H PRN nausea and 12/05/22 04/25/23 Rx vomiting #10 tabs diclofenac sodium 1 % topical gel 1 g topical BID PRN Pain #100 grams 02/20/23 04/25/23 Rx apixaban 2.5 mg tablet (Eliquis) 2.5 mg PO BID #180 tabs 04/02/23 04/25/23 Rx bumetanide 2 mg tablet 2 mg PO BID #60 tabs 04/02/23 04/25/23 Rx tramadol 50 mg tablet 50 mg PO TID #270 tabs 04/10/23 04/25/23 Rx Past Med/Surg History Medical History Acute hyperkalemia Acute hyponatremia JUDE (acute kidney injury) Cellulitis of foot Chronic anticoagulation Diastolic congestive heart failure f/u Dr. Hayes Hyperlipidemia Hypertension Lymphedema chronic Osteoarthritis Permanent atrial fibrillation Stage III chronic kidney disease f/u nephrology at [place] Surgical History H/O left cataract extraction History of right cataract extraction Hx of shoulder surgery rt. repair shoulder dislocation Hx of basal cell carcinoma excision x1 rt eyelid, x1 left and left ear Hx of total hysterectomy with removal of both tubes and ovaries History of radiation therapy S/P tonsillectomy S/P colonoscopy S/P lumpectomy, left breast with axillary node removal S/P appendectomy Family History Other Adopted Myocardial infarction Denies family history of Ovarian cancer Prostate cancer Breast cancer Colorectal cancer Social History Smoking Status: Never smoker Second Hand Exposure: No; Do You Dip or Chew Tobacco: No; Hx Alcohol Use: No Hx Substance Use: No Preferred Language: Bruneian Communication Ability: Effective Visual Impairment: No Limitations Hearing Ability: Normal Fabricator [employer]er [employer] Required: No Beliefs That Will Affect Care: None marital status: Current Living Situation: Family Current Living Situation Comment: lives home alone in a townhouse 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 Other Information That Helps Us Care for You: No other: patient is adopted, unknown family hx Feels Safe at Home: Yes Safety Concerns: Feels Safe At This Time Childhood Exposure to Second-Hand Smoke: No Dental Care, Regularly: Yes Physical Activity Frequency Comment: limited by physical condition Seatbelt Use: always Sunscreen Use: No Assistive Devices: Lift Chair, Stair Lift and Walker Review of Systems Review of Systems: All systems reviewed & are unremarkable except as noted in HPI & below Physical Exam Constitutional: well developed; + not well nourished and no acute distress Eyes: PERRL, conjunctivae normal, anicteric sclerae ENMT: external ear and nose normal, oropharynx normal Respiratory: normal respiratory effort; no respiratory distress Auscultation: + diminished lung sounds (bibasal) and + crackles (bibasal); no wheezes Cardiovascular: Rate/Rhythm: regular rate and + irregularly irregular Heart Sounds: no murmur Extremities: normal capillary refill and + pedal edema (unwrapped legs therefore unclear extent but up to abdomen); no calf tenderness Gastrointestinal (Abdomen): Inspection/Auscultation: abdomen normal to inspection and + abdomen distended Percussion/Palpation: + abdomen tender (generalized) and abdomen soft; no guarding and abdomen not rigid Skin: Homogenous dark erythema on b/l lower extremities without any definitive bright erythematous swelling and warmth consistent with cellulitis Large erupted blister on left foot Neurologic: moves all extremities and awake; not confused Psychiatric: A+Ox3, euthymic affect Results & Data Results & Data Vital Signs (Past 12 Hours) Vital Signs Pulse Resp BP Pulse Ox O2 Del Method 04/25/23 15:35 90 Room Air 04/25/23 15:30 65 8 L 89 L 04/25/23 15:21 62 04/25/23 15:20 57 L 26 H 86 L 04/25/23 15:19 119/65 04/25/23 15:19 60 25 H 88 L 04/25/23 15:15 140/60 04/25/23 15:15 54 L 13 93 04/25/23 15:13 54 L 17 95 04/25/23 13:02 18 125/65 90 Room Air Laboratory Results Abnormal lab results 04/25/23 04/25/23 04/25/23 Range/Units 13:18 13:20 13:26 WBC 14.80 H (4.8-10.8) K/ul RBC 5.62 H (4.20-5.40) M/uL Hct 48.0 H (37.0-47.0) % MCHC 31.0 L (32.0-36.0) g/dL RDW Std Deviation 51.1 H (36.4-46.3) fL RDW Coeff of Rylee 17.4 H (11.5-14.5) % Plt Count 111 L (130-400) K/uL Neut # (Auto) 13.80 H (1.40-6.50) K/uL Lymph # (Auto) 0.51 L (1.20-3.40) K/uL Sodium 134 L (136-145) mmol/L Chloride 96 L (98-107) mmol/L Anion Gap 15 H (3-11) BUN 98 H (6-23) mg/dl Creatinine 2.41 H (0.6-1.2) mg/dl BUN/Creatinine Ratio 40.7 H (10-20) Glucose 135 H (70-99(Fasting)) mg/dl Lactate (0.4-2.0) mmol/L Total Bilirubin 1.6 H (0.2-1.0) mg/dl Troponin I High Sens 140.0 H* (0-14) pg/ml C-Reactive Protein 11.62 H (0-0.5) mg/dl B-Natriuretic Peptide 2673 H (0-100) pg/ml Procalcitonin (0-0.5) ng/ml Urine Appearance (Clear) Urine Protein (Negative) Urine Ketones (Negative) Urine Blood (Negative) Urine Bilirubin (Negative) Ur Leukocyte Esterase (Negative) Urine RBC (0-4) /hpf Urine WBC (0-5) /hpf Ur Epithelial Cells (0-5) /lpf Urine Bacteria (Negative) U Random Total Protein (0-11.9) mg/dl Protein/Creatinin Ratio (0-0.2) 04/25/23 04/25/23 04/25/23 Range/Units 15:31 16:44 17:16 WBC (4.8-10.8) K/ul RBC (4.20-5.40) M/uL Hct (37.0-47.0) % MCHC (32.0-36.0) g/dL RDW Std Deviation (36.4-46.3) fL RDW Coeff of Rylee (11.5-14.5) % Plt Count (130-400) K/uL Neut # (Auto) (1.40-6.50) K/uL Lymph # (Auto) (1.20-3.40) K/uL Sodium (136-145) mmol/L Chloride (98-107) mmol/L Anion Gap (3-11) BUN (6-23) mg/dl Creatinine (0.6-1.2) mg/dl BUN/Creatinine Ratio (10-20) Glucose (70-99(Fasting)) mg/dl Lactate 2.8 H* (0.4-2.0) mmol/L Total Bilirubin (0.2-1.0) mg/dl Troponin I High Sens 189.8 H* D (0-14) pg/ml C-Reactive Protein (0-0.5) mg/dl B-Natriuretic Peptide (0-100) pg/ml Procalcitonin 0.66 H (0-0.5) ng/ml Urine Appearance Turbid A (Clear) Urine Protein 1+ H (Negative) Urine Ketones Trace H (Negative) Urine Blood 3+ H (Negative) Urine Bilirubin 1+ H (Negative) Ur Leukocyte Esterase 3+ H (Negative) Urine RBC 5-10 H (0-4) /hpf Urine WBC >30 H (0-5) /hpf Ur Epithelial Cells >30 H (0-5) /lpf Urine Bacteria 4+ H (Negative) U Random Total Protein 38.5 H (0-11.9) mg/dl Protein/Creatinin Ratio 0.4 H (0-0.2) Diagnostic Findings SINGLE VIEW CHEST CLINICAL HISTORY: Dyspnea. Edema. FINDINGS: A PA chest radiograph is compared to study dated 09/26/2022. The examination is degraded by patient rotation. Surgical clips project over the left axilla. The heart is enlarged and noting atherosclerotic calcification of the thoracic aorta. There is pulmonary vascular congestion. Bilateral airspace opacities likely representing interstitial edema. Small pleural effusions are noted. There is bibasilar scarring/atelectasis. No pneumothorax is seen. The skeletal structures are osteopenic. The bony thorax is grossly intact. IMPRESSION: 1. Cardiomegaly with evidence of congestive failure. 2. Bilateral airspace opacities likely represent pulmonary edema. Correlate clinically for evidence of a superimposed infectious/inflammatory pneumonitis. Radiographic follow-up to resolution is recommended. 3. Small pleural effusions. Medications Administered ER Medications Given: Aspirin 324mg PO Lasix 40mg IV ECG Rate (beats per minute): 58 Rhythm: atrial fibrillation Findings: + other (low voltage QRS) and + LAFB Comparison ECG Date: from (September 26, 2022) Change: the following changes noted (QRS complexes much lower amplitude, T wave flattening throughout) Code Status & VTE Plan Code Status Full VTE Prophylaxis Plan VTE Prophylaxis will be ordered: Yes PG Care Time/CCT Total # of Minutes Spent Total Time Spent with Patient: Total time spent is greater than 50% in coordination of care (as documented) at patient's floor/unit and/or counseling patient: Coding Level of Care Code 58518 INT INP/OBS CARE 75MIN Diagnoses (HFpEF) heart failure with preserved ejection fraction I50.30 Leukocytosis D72.829 JUDE (acute kidney injury) N17.9 Bilateral pleural effusion J90 Anasarca R60.1 Permanent atrial fibrillation I48.2 Type 2 diabetes mellitus E11.9 Liver cirrhosis K74.60 Elevated troponin R79.89
[2023-04-25 16:43] LABS: C Reactive Protein 11.62 mg/dl (0-0.5)
--- NOTE | 2023-04-25 16:46 | CT Scan Report ---
CT chest diagnostic wo con CLINICAL HISTORY: Shortness of breath ?pulmonary edema ?PNA TECHNIQUE: Multidetector row helical CT of the chest was performed. Coronal and sagittal reformations were obtained. Automated dose lowering techniques and/or adjustment according to patient size were u tilized for this exam. CT DOSE: 1244.28 mGy.cm Comparison: Comparison is made to CT abdomen pelvis 01/12/2022 FINDINGS: Lungs and pleura: Moderate bilateral pleural effusions are seen. Atelectasis is seen with mosaic atte nuation and bronchial wall thickening. Interstitial thickening is seen. Heart and pericardium: Cardiomegaly is seen with biatrial enlargement. Vessels: Severe atherosclerotic changes in the aorta and coronary arteries. Pulmonary trunk measures 37 mm in diameter. Mediastinum and anya: Multiple lymph nodes measure up to 11 mm in diameter. Chest wall and lower neck: Unremarkable. Abdomen: For findings below the diaphragm, please refer to CT of the abdomen dated the same. Bones: Degenerative changes in the thoracic spine. IMPRESSION: 1. Moderate bilateral pleural effusions with underlying atelectasis. Interstitial thickening with br onchial wall thickening and mosaic attenuation may which reflect small airways disease. 2. Cardiomegaly and pulmonary hypertension. ACT 112: Negative or not required by law. Electronically signed by: Elvin Nath M.D. 04/25/2023 4:45 PM
[2023-04-25 17:02] LABS: Appearance Urine Turbid (Clear); Blood Urine 3+ (Negative); Color Urine Dark Yellow; Glucose Urine UA Negative (Negative); Ketones Urine Trace (Negative); Leukocyte Esterase Urine 3+ (Negative); Nitrite Urine Negative (Negative); Protein Urine 1+ (Negative); Specific Gravity Urine 1.019 (1.000-1.030); Urobilinogen Urine Negative (Negative)
--- NOTE | 2023-04-25 17:08 | CT Scan Report ---
CT SCAN OF THE ABDOMEN AND PELVIS WITHOUT IV CONTRAST CLINICAL HISTORY: Acute renal insufficiency. Generalized abdominal pain. Dyspnea. Fluid retention. COMPARISON STUDY: Abdominal CT dated 01/12/2022. TECHNIQUE: CT scan of the abdomen and pelvis is performed from the lung bases to the proximal femora. Images are reviewed in the axial, sagittal, and coronal planes. IV contrast was not administered for this examination due to poor renal function. Note that the examination is suboptimal without oral an d IV contrast. There is also motion artifact, and streak artifact from the arms which could not be el evated above the abdomen. A dose lowering technique was utilized adhering to the principles of ALARA. FINDINGS: Lung bases: The heart is enlarged and without pericardial effusion. The coronary arteries and mitral annulus are denser calcified. There are moderate pleural effusions with dependent consolidation. Surg ical clips are noted in the left breast. Liver: The unenhanced liver is cirrhotic in morphology and heterogeneous attenuation. There is hypert rophy of the left lobe and nodularity of the hepatic surface contour. There is no intrahepatic biliar y ductal dilatation. Gallbladder: There are layering calcified gallstones within the gallbladder lumen, with no CT evidenc e of acute cholecystitis. Spleen: Normal in size and attenuation. Pancreas: The unenhanced pancreas is atrophic and grossly unremarkable. Adrenal glands: Unremarkable. Kidneys: The unenhanced kidneys are atrophic and without hydronephrosis. There are bilateral renovasc ular calcifications. No renal calculi are clearly identified. There is no evidence of contour deformi ng renal mass lesion. Abdominal vasculature: The abdominal aorta is normal in course and caliber noting advanced atheroscle rotic calcification. Bowel: There is advanced colonic diverticulosis without CT evidence of acute diverticulitis. No bowel obstruction is seen. Mild to moderate fecal retention is noted throughout the colon. The appendix is not visualized and reported surgically absent. Peritoneum: There is a small volume of abdominopelvic ascites. No intraperitoneal free air is seen. Lymphadenopathy: None. Pelvic viscera: The bladder is decompressed and grossly unremarkable. The uterus is surgically absent . No adnexal lesion is seen. Skeletal structures: The skeletal structures are osteopenic. There is moderate to advanced lumbosacra l spondylosis as well as mild scoliosis. No lytic or blastic lesions are seen. Advanced arthritic ramirez nge is seen in the left hip. Soft tissues: There is anasarca of the body wall. IMPRESSION: 1. Significantly streak and motion compromised examination. The examination is also suboptimal withou t oral and IV contrast. 2. There is evidence of fluid overload, including moderate pleural effusions, anasarca of the body wa ll, and a small volume of abdominopelvic ascites. 3. The liver is cirrhotic in morphology and heterogeneous attenuation. 4. Cholelithiasis without CT evidence of acute cholecystitis. 5. Colonic diverticulosis without CT evidence of acute diverticulitis. 6. Cardiomegaly with advanced coronary atherosclerosis. 7. Additional findings as above. ACT 112: Negative or not required by law. Electronically signed by: Olman Benítez M.D. 04/25/2023 5:07 PM
[2023-04-25 17:09] LABS: Bilirubin Urine 1+ (Negative)
[2023-04-25 17:18] LABS: Bacteria Urine 4+ (Negative); Epithelial Cell Urine >30 /lpf (0-5); WBC Urine >30 /hpf (0-5)
[2023-04-25 17:23] LABS: Creatinine Urine Random 98.5 mg/dl; Protein Creatinine Ratio Urine 0.4 (0-0.2); Total Protein Urine Random 38.5 mg/dl (0-11.9)
[2023-04-25 17:53] LABS: Adenovirus PCR Not Detected (NotDetected); Bordetella parapertussis PCR Not Detected (NotDetected); Bordetella pertussis PCR Not Detected (NotDetected); Chlamydia pneumoniae PCR Not Detected (NotDetected); Coronavirus 229E PCR Not Detected (NotDetected); Coronavirus CoV-2 (COVID19)PCR Not Detected (NotDetected); Coronavirus HKU1 PCR Not Detected (NotDetected); Coronavirus NL63 PCR Not Detected (NotDetected); Coronavirus OC43PCR Not Detected (NotDetected); Human Metapneumovirus PCR Not Detected (NotDetected); Influenza A PCR Not Detected (NotDetected); Influenza B PCR Not Detected (NotDetected); Mycoplasma pneumoniae PCR Not Detected (NotDetected); Parainfluenza Virus 1 PCR Not Detected (NotDetected); Parainfluenza Virus 2 PCR Not Detected (NotDetected); Parainfluenza Virus 3 PCR Not Detected (NotDetected); Parainfluenza Virus 4 PCR Not Detected (NotDetected); Respiratory Syncytial VirusPCR Not Detected (NotDetected); Rhinovirus/Enterovirus PCR Not Detected (NotDetected)
[2023-04-25] MEDS ORDERED: ACETAMINOPHEN 500 MG TAB PO PRN (18:23)
[2023-04-25] MEDS ORDERED: Patient's HEIGHT &/or WEIGHT Needed SCH (19:00)
[2023-04-25] MEDS ORDERED: PIPER/TAZO 4.5g in D5W MINI-B 100 ML IV ONE (20:00)
[2023-04-25] MEDS: traMADol HCL 50 MG TABLET PO SCH (20:32)
[2023-04-25] MEDS: APIXABAN 2.5 MG TAB PO SCH (20:49)
[2023-04-26] MEDS ORDERED: GLUCAGON FOR INJ 1 MG VIAL SQ PRN (00:08)
[2023-04-26] MEDS ORDERED: GLUCOSE 40% GEL 15 GM TUBE PO PRN (00:08)
[2023-04-26] MEDS ORDERED: DEXTROSE 50% 50 ML SYRINGE IV PRN (00:08)
[2023-04-26] MEDS ORDERED: GLUCOSE 10 TAB/TUBE PO PRN (00:08)
[2023-04-26] MEDS ORDERED: CARBOHYDRATES FOR HYPOGLYCEMIA PO PRN (00:08)
[2023-04-26] MEDS: PIPERACILLIN/TAZOBACTAM 4.5 GM in DEXTROSE 5% MINI-B 100 ML IV SCH ×2 (03:36→16:11)
[2023-04-26 06:07] LABS: Basophils # (auto) 0.05 K/uL (0.00-0.20); Basophils % (auto) 0.5 %; Eosinophils # (auto) 0.13 K/uL (0.00-0.50); Eosinophils % (auto) 1.2 %; Hematocrit (blood only) 43.8 % (37.0-47.0); Immature Granulocytes # (auto) 0.03 K/uL (0.01-0.20); Immature Granulocytes % (auto) 0.3 %; Lymphocytes # (auto) 0.45 K/uL (1.20-3.40); Lymphocytes % (auto) 4.1 %; Mean Corpuscular Hemoglobin 26.5 pg (25.0-34.0); Mean Corpuscular Volume 82.8 fL (80.0-100.0); Mean Platelet Volume 10.9 fL (9.4-12.4); Monocytes # (auto) 0.45 K/uL (0.11-0.59); Monocytes % (auto) 4.1 %; Neutrophils # (auto) 9.85 K/uL (1.40-6.50); Neutrophils % (auto) 89.8 %; Platelet Count 100 K/uL (130-400); RDW Coefficient of Variation 17.3 % (11.5-14.5); RDW Standard Deviation 50.6 fL (36.4-46.3); Red Blood Count 5.29 M/uL (4.20-5.40); White Blood Count 10.96 K/ul (4.8-10.8)
[2023-04-26 06:24] LABS: Albumin Globulin Ratio 1.3 (0.9-2); Albumin Level 3.4 gm/dl (3.4-5.0); BUN Creatinine Ratio 38.4 (10-20); Bilirubin,Total 1.3 mg/dl (0.2-1.0); Calcium 8.9 mg/dl (8.6-10.3); Creatinine Clr Calc Pharmacy 15.7 ml/min; Est GFR (African American) 18.9 ml/min; Est GFR (Non-African American) 16.3 ml/min; Globulin 2.7 gm/dl (2.5-4.0); Potassium 4.8 mmol/L (3.5-5.1); Total Protein 6.1 gm/dl (6.0-8.3)
[2023-04-26 06:39] LABS: INR 1.3 (0.9-1.1); Prothrombin Time 13.8 Seconds (9.0-12.0)
--- NOTE | 2023-04-26 08:15 | Hospitalist Progress Note ---
Date of Service April 26, 2023 Assessment & Plan (1) Leukocytosis: Plan: Possible sepsis - leukocytosis which improved on antibiotics, lactate elevation (though may be caused by organ failure above), mild procalcitonin elevation, CRP significantly elevated at 11 Possible sources - left foot / leg cellulitis, urinary tract infection (culture with 100K GNR), pneumonia seems less likely pulmonary symptoms more related to volume overload and PCT proportionally not very elevated Consider gout flare as alternative explanation (L foot most suspicious) - steroids would be only reasonable treatment for acute gout in this case -continue pip-tazo -follow blood cx 04/25 -follow urine Cx -orderd hydromorphone IV x 1 for left foot, then prn oxycodone and tramadol (2) (HFpEF) heart failure with preserved ejection fraction: Plan: Acute on chronic biventricular heart failure with mildly reduced LV EF, moderately reduced RV function, RV volume and pressure overload Cardiorenal syndrome Underlying cirrhosis Severe total body volume overload with moderate bilateral pleural effusions, some ascites, severe anasarca refractory to oral diuretics Echo 04/26 reviewed Elevation of HS troponin is related to demand ischemia from the above issues rather than an ACS. She has severe atherosclerosis based on CT findings. This is a complex situation with underlying multiple organ failure and limited therapeutic options. Ms. Gatica is at extremely high risk of morbidity, mortality, and significant loss of functional status due to severe exacerbation of severe underlying medical comorbidities. Appreciate thoughtful consultation by private mortgage banker safe and sql consultant, whose recommendations I reviewed today. Discussed with Dr. Clemente at bedside. -trial of diuresis with lasix 80 IV bid and IV diuril per private mortgage banker safe -if this fails, trial of dialysis was discussed with Ms. Gatica who would want to proceed. Hemodialysis may be physiologically challenging given the cardiorenal failure and cirrhosis -standard GDMT options for heart failure are problematic and contraindicated in this case as outlined in Dr. Perales's note -I&O, daily weight -am CBC BMP LFT INR trop (3) JUDE (acute kidney injury): Plan: JUDE on CKD stage 3, cardiorenal syndrome Cr 2.41 on admission with baseline 1.26 in October (1.73-2 in February) CT A/P without contrast - no obstructive cause of JUDE present private mortgage banker safe consulting, see discussion above (4) Bilateral pleural effusion: (5) Anasarca: (6) Permanent atrial fibrillation: Plan: Continue Eliquis for anticoagulation intrinsically rate controlled without AV nadira blocking agents (7) Type 2 diabetes mellitus: Plan: Hemoglobin A1C 6.9 On no medications as outpatient, stop BG checks unless steroids ordered (8) Liver cirrhosis: Plan: Noted on CT, discussed finding with patient Hepatitis panel pending 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 Demand ischemia. See above Plan Foot wound present on admission - consulted wound nurse VTE Prophylaxis - Eliquis Diet - Low Na, Heart healthy, fluid restricted Disposition - admit to PCU Admission and Anticipated Discharge Date Admission Date: April 25, 2023 Subjective shortness of breath persists unchanged since yesterday, dry cough, no chest pain anasarca - edema of abdomen and 4 ext building for months and legs weeping large bulla dorsum L foot ruptured, left foot very painful Only 200 UOP after lasix 100 mg IV Physical Exam 2 Physical Exam: PHYSICAL EXAMINATION Last 24h vital signs reviewed, see documentation in flowsheet General: acutely and chronically ill appearing woman, some distress with acute L foot pain with dressing change HEENT: Normocephalic, atraumatic, pupils round and equal, sclerae anicteric, no conjunctival injection, dry mucus membranes Lungs: increased respiratory effort. Clear to auscultation anteriorly, can't get posterior exam. Heart: Regular rate and rhythm, systolic murmur, +JVD Abdomen: Soft, nontender, nondistended. Bowel sounds present. Abdominal wall edema present Extremities: Warm, dry. 2+ UE edema 3-4+ edema of bilateral LE. Ext are warm Both LE are key. L forefoot is tender and more erythematous than chronic bilateral LE erythema. large shallow wound L forfoot on dorsum site of ruptured bulla. no drainage 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 Neuro: Alert and oriented x 4, face symmetric, moves 4 extremities but appears globally weak Psych: Normal affect and behavior Results & Data Results & Data Vital Signs (Past 12 Hours) Vital Signs Temp Pulse Resp BP Pulse Ox O2 Del Method 04/26/23 07:00 36.5 C 68 16 124/61 95 Room Air 04/26/23 03:00 36.7 C 48 L 16 107/44 L 95 Nasal Cannula 04/25/23 22:48 36.5 C 45 L 16 104/59 L 98 Nasal Cannula Laboratory Results 04/26/23 05:48 04/26/23 05:48 Diagnostic Findings Chest X-Ray 04/25/23 13:00 SINGLE VIEW CHEST CLINICAL HISTORY: Dyspnea. Edema. FINDINGS: A PA chest radiograph is compared to study dated 09/26/2022. The examination is degraded by patient rotation. Surgical clips project over the left axilla. The heart is enlarged and noting atherosclerotic calcification of the thoracic aorta. There is pulmonary vascular congestion. Bilateral airspace opacities likely representing interstitial edema. Small pleural effusions are noted. There is bibasilar scarring/atelectasis. No pneumothorax is seen. The skeletal structures are osteopenic. The bony thorax is grossly intact. IMPRESSION: 1. Cardiomegaly with evidence of congestive failure. 2. Bilateral airspace opacities likely represent pulmonary edema. Correlate clinically for evidence of a superimposed infectious/inflammatory pneumonitis. Radiographic follow-up to resolution is recommended. 3. Small pleural effusions. ACT 112: Negative or not required by law. Electronically signed by: Olman Benítez M.D. 04/25/2023 2:41 PM Abdomen/Pelvis CT 04/25/23 15:55 CT SCAN OF THE ABDOMEN AND PELVIS WITHOUT IV CONTRAST CLINICAL HISTORY: Acute renal insufficiency. Generalized abdominal pain. Dyspnea. Fluid retention. COMPARISON STUDY: Abdominal CT dated 01/12/2022. TECHNIQUE: CT scan of the abdomen and pelvis is performed from the lung bases to the proximal femora. Images are reviewed in the axial, sagittal, and coronal planes. IV contrast was not administered for this examination due to poor renal function. Note that the examination is suboptimal without oral and IV contrast. There is also motion artifact, and streak artifact from the arms which could not be elevated above the abdomen. A dose lowering technique was utilized adhering to the principles of ALARA. FINDINGS: Lung bases: The heart is enlarged and without pericardial effusion. The coronary arteries and mitral annulus are denser calcified. There are moderate pleural effusions with dependent consolidation. Surgical clips are noted in the left breast. Liver: The unenhanced liver is cirrhotic in morphology and heterogeneous attenuation. There is hypertrophy of the left lobe and nodularity of the hepatic surface contour. There is no intrahepatic biliary ductal dilatation. Gallbladder: There are layering calcified gallstones within the gallbladder lumen, with no CT evidence of acute cholecystitis. Spleen: Normal in size and attenuation. Pancreas: The unenhanced pancreas is atrophic and grossly unremarkable. Adrenal glands: Unremarkable. Kidneys: The unenhanced kidneys are atrophic and without hydronephrosis. There are bilateral renovascular calcifications. No renal calculi are clearly identified. There is no evidence of contour deforming renal mass lesion. Abdominal vasculature: The abdominal aorta is normal in course and caliber noting advanced atherosclerotic calcification. Bowel: There is advanced colonic diverticulosis without CT evidence of acute diverticulitis. No bowel obstruction is seen. Mild to moderate fecal retention is noted throughout the colon. The appendix is not visualized and reported surgically absent. Peritoneum: There is a small volume of abdominopelvic ascites. No intraperitoneal free air is seen. Lymphadenopathy: None. Pelvic viscera: The bladder is decompressed and grossly unremarkable. The uterus is surgically absent. No adnexal lesion is seen. Skeletal structures: The skeletal structures are osteopenic. There is moderate to advanced lumbosacral spondylosis as well as mild scoliosis. No lytic or blastic lesions are seen. Advanced arthritic change is seen in the left hip. Soft tissues: There is anasarca of the body wall. IMPRESSION: 1. Significantly streak and motion compromised examination. The examination is also suboptimal without oral and IV contrast. 2. There is evidence of fluid overload, including moderate pleural effusions, anasarca of the body wall, and a small volume of abdominopelvic ascites. 3. The liver is cirrhotic in morphology and heterogeneous attenuation. 4. Cholelithiasis without CT evidence of acute cholecystitis. 5. Colonic diverticulosis without CT evidence of acute diverticulitis. 6. Cardiomegaly with advanced coronary atherosclerosis. 7. Additional findings as above. ACT 112: Negative or not required by law. Electronically signed by: Olman Benítez M.D. 04/25/2023 5:[address] 04/25/23 15:59 CT chest diagnostic wo con CLINICAL HISTORY: Shortness of breath ?pulmonary edema ?PNA TECHNIQUE: Multidetector row helical CT of the chest was performed. Coronal and sagittal reformations were obtained. Automated dose lowering techniques and/or adjustment according to patient size were utilized for this exam. CT DOSE: 1244.28 mGy.cm Comparison: Comparison is made to CT abdomen pelvis 01/12/2022 FINDINGS: Lungs and pleura: Moderate bilateral pleural effusions are seen. Atelectasis is seen with mosaic attenuation and bronchial wall thickening. Interstitial thickening is seen. Heart and pericardium: Cardiomegaly is seen with biatrial enlargement. Vessels: Severe atherosclerotic changes in the aorta and coronary arteries. Pulmonary trunk measures 37 mm in diameter. Mediastinum and anya: Multiple lymph nodes measure up to 11 mm in diameter. Chest wall and lower neck: Unremarkable. Abdomen: For findings below the diaphragm, please refer to CT of the abdomen dated the same. Bones: Degenerative changes in the thoracic spine. IMPRESSION: 1. Moderate bilateral pleural effusions with underlying atelectasis. Interstitial thickening with bronchial wall thickening and mosaic attenuation may which reflect small airways disease. 2. Cardiomegaly and pulmonary hypertension. ACT 112: Negative or not required by law. Electronically signed by: Elvin Nath M.D. 04/25/2023 4:45 PM PG Care Time/CCT Total # of Minutes Spent Total Time Spent with Patient: Total time spent on clincial care today 60 minutes Coding Level of Care Code 80523 SUB INP/OBS CARE 3/50MIN Diagnoses Leukocytosis D72.829 (HFpEF) heart failure with preserved ejection fraction I50.30 JUDE (acute kidney injury) N17.9 Bilateral pleural effusion J90 Anasarca R60.1 Permanent atrial fibrillation I48.2 Type 2 diabetes mellitus E11.9 Liver cirrhosis K74.60 Elevated troponin R79.89
[2023-04-26] MEDS: ACETAMINOPHEN 325 MG TAB PO PRN (08:27)
[2023-04-26] MEDS ORDERED: FUROSEMIDE 40 MG/4 ML VIAL IV ONE (08:39)
--- NOTE | 2023-04-26 08:43 | Nephrology Consultation ---
Date of Consultation April 26, 2023 Assessment & Plan (1) Stage III chronic kidney disease: (2) JUDE (acute kidney injury): (3) Congestive heart failure: Plan Cardiorenal syndrome. Although patient has preserved LVEF 50-55% on 11/16 echocardiogram, she has moderate mitral regurgitation and evidence of pulmonary HTN. Attempts at diuresis as outpatient have resulted in an increase in Cr from 1.5 to 2.5. Patient was admitted last evening w/ pulmonary edema and tense LE swelling with weeping bullae. Furosemide 100 mg IV x1 given this morning resulting in 200 cc UO within one hour. This suggests that patient remains diuretic sensitive and warrants a trial of medical management before considering RELATIONS MANAGER. Will schedule Furosemide 80 mg IV BID and provide one dose of IV Diuril. Monitor PRP, UO. Follow up echocardiogram has been ordered. If patient fails to diurese, will need to consider IJ TCC on Saturday. I did speak w/ Ms. Gatica today about dialysis. Indications/risks/benefits/alternatives were reviewed with her in detail. I explained that patient's usually suffer a functional decline when started on dialysis. I expressed concern due to her frailty. Mrs. Gatica voiced understanding but indicated that if she develops renal failure, she would like a trial of dialysis to see if she would improve. History of Present Illness Reason for Consultation: JUDE/CKD, CHF Attending Physician: Jyothi Matthew MD History of Present Illness Ms. Gatica is an 87 year old white female who is seen at the request of the [facility] Hospitalist Service for evaluation of JUDE/CKD, CHF. Information for the HPI is obtained from direct patient interview and review of the EMR. HPI is summarized as follows: Mrs. Gatica has CKD stage G3a/A3 (moderate impairment). Her baseline Cr has been 1.2-1.5 w/ mGFR 47 cc/min. Her renal impairment has been attributed to hypertensive nephrosclerosis and microvascular disease. Ms. Gatica's medical history is also significant for hypercholesterolemia, atrial fibrillation, diastolic CHF (possibly related to previous radiation therapy), breast CA s/p left breast lumpectomy w/ lymph node dissection, chemotherapy and radiation therapy - L arm chronic lymphedema. Ms. Gatica has been followed at the [facility] CHF clinic. She has experienced progressive volume retention and diuretic titration has resulted in worsening kidney function. Ms. Gatica returned to Cardiology yesterday and was noted to be in heart failure with tense LE swelling and weeping bullae. Creatinine had risen to 2.5. Admission was advised for IV diuretic therapy and possible HD if renal function continues to worsen. Allergies Allergy/AdvReac Type Severity Reaction Status Date / Time codeine Allergy Mild nausea and Verified 04/25/23 11:43 vomiting latex Allergy Mild Rash Verified 04/25/23 11:43 povidone-iodine Allergy Mild RASH Verified 04/25/23 11:43 soap [From Betadine] Allergy Mild Rash Verified 04/25/23 11:43 Sulfa (Sulfonamide Allergy Mild RASH Verified 04/25/23 11:43 Antibiotics) cephalexin Allergy Unknown . Verified 04/25/23 11:43 sulfamethoxazole Allergy Unknown Diarrhea Verified 04/25/23 11:43 [From Bactrim] trimethoprim [From Bactrim] Allergy Unknown Diarrhea Verified 04/25/23 11:43 ceftriaxone [From Rocephin] AdvReac Severe Diarrhea Verified 04/25/23 11:43 meperidine AdvReac Mild nausea/vomi Verified 04/25/23 11:43 ting Home Medications Medication Instructions Recorded Confirmed Type acetaminophen 500 mg tablet 1,000 mg PO HS PRN Pain 07/25/20 04/25/23 History (Tylenol Extra Strength) ondansetron HCl 4 mg tablet 4 mg PO Q8H PRN nausea and 12/05/22 04/25/23 Rx vomiting #10 tabs diclofenac sodium 1 % topical gel 1 g topical BID PRN Pain #100 grams 02/20/23 04/25/23 Rx apixaban 2.5 mg tablet (Eliquis) 2.5 mg PO BID #180 tabs 04/02/23 04/25/23 Rx bumetanide 2 mg tablet 2 mg PO BID #60 tabs 04/02/23 04/25/23 Rx tramadol 50 mg tablet 50 mg PO TID #270 tabs 04/10/23 04/25/23 Rx Patient History Medical History Acute hyperkalemia Acute hyponatremia JUDE (acute kidney injury) Cellulitis of foot Chronic anticoagulation Diastolic congestive heart failure f/u Dr. Hayes Hyperlipidemia Hypertension Lymphedema chronic Osteoarthritis Permanent atrial fibrillation Stage III chronic kidney disease f/u nephrology [place] Surgical History H/O left cataract extraction History of right cataract extraction Hx of shoulder surgery rt. repair shoulder dislocation Hx of basal cell carcinoma excision x1 rt eyelid, x1 left and left ear Hx of total hysterectomy with removal of both tubes and ovaries History of radiation therapy S/P tonsillectomy S/P colonoscopy S/P lumpectomy, left breast with axillary node removal S/P appendectomy Family History Other Adopted Myocardial infarction Denies family history of Ovarian cancer Prostate cancer Breast cancer Colorectal cancer Social History Smoking Status: Never smoker Second Hand Exposure: No; Do You Dip or Chew Tobacco: No; Hx Alcohol Use: No Hx Substance Use: No Preferred Language: Italian Communication Ability: Effective Visual Impairment: No Limitations Hearing Ability: Normal Meter Attendant Required: No Beliefs That Will Affect Care: None marital status: Current Living Situation: Family Current Living Situation Comment: lives home alone in a townhouse 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 Other Information That Helps Us Care for You: No other: patient is adopted, unknown family hx Feels Safe at Home: Yes Safety Concerns: Feels Safe At This Time Childhood Exposure to Second-Hand Smoke: No Dental Care, Regularly: Yes Physical Activity Frequency Comment: limited by physical condition Seatbelt Use: always Sunscreen Use: No Assistive Devices: Stair Lift and Walker Review of Systems Constitutional: no fever Eyes: no worsening vision Ear, Nose, Mouth, Throat: no problem reported Respiratory: + dyspnea; no cough Cardiovascular: no chest pain Gastrointestinal: no abdominal pain, no nausea, no vomiting and no diarrhea/loose stools Integumentary: tense LE swelling with weeping bullae Physical Exam Constitutional: + ill appearing Eyes: PERRL, conjunctivae normal, anicteric sclerae ENMT: external ear and nose normal, oropharynx normal Neck: trachea midline, no thyromegaly Respiratory: Auscultation: + rales Cardiovascular: Rate/Rhythm: regular rate and regular rhythm Extremities: + edema (tense LE swelling w/ weeping bullae. Severe pain L foot from denuded skin) Gastrointestinal (Abdomen): normal bowel sounds, soft, nontender, no hepatosplenomegaly Neurologic: Speech / Cognition: normal speech and normal cognition Results & Data Vital Signs (Past 12 Hours) Vital Signs Temp Pulse Pulse Resp BP Pulse Ox O2 Del Method 04/26/23 08:00 Nasal Cannula 04/26/23 07:00 53 L 04/26/23 07:00 36.5 C 68 16 124/61 95 Room Air 04/26/23 03:00 36.7 C 48 L 16 107/44 L 95 Nasal Cannula 04/25/23 22:48 36.5 C 45 L 16 104/59 L 98 Nasal Cannula O2 Flow Rate 04/26/23 08:00 2 04/26/23 07:00 04/26/23 07:00 04/26/23 03:00 04/25/23 22:48 Laboratory Results Laboratory Results WBC 10.96 K/ul (4.8-10.8) H 04/26/23 05:48 RBC 5.29 M/uL (4.20-5.40) 04/26/23 05:48 Hgb 14.0 g/dl (12.0-16.0) 04/26/23 05:48 Hct 43.8 % (37.0-47.0) 04/26/23 05:48 MCV 82.8 fL (80.0-100.0) 04/26/23 05:48 MCH 26.5 pg (25.0-34.0) 04/26/23 05:48 MCHC 32.0 g/dL (32.0-36.0) 04/26/23 05:48 RDW Std Deviation 50.6 fL (36.4-46.3) H 04/26/23 05:48 RDW Coeff of Rylee 17.3 % (11.5-14.5) H 04/26/23 05:48 Plt Count 100 K/uL (130-400) L 04/26/23 05:48 MPV 10.9 fL (9.4-12.4) 04/26/23 05:48 Immature Gran % (Auto) 0.3 % 04/26/23 05:48 Neut % (Auto) 89.8 % 04/26/23 05:48 Lymph % (Auto) 4.1 % 04/26/23 05:48 [place] % (Auto) 4.1 % 04/26/23 05:48 Eos % (Auto) 1.2 % 04/26/23 05:48 Baso % (Auto) 0.5 % 04/26/23 05:48 Neut # (Auto) 9.85 K/uL (1.40-6.50) H 04/26/23 05:48 Lymph # (Auto) 0.45 K/uL (1.20-3.40) L 04/26/23 05:48 [place] # (Auto) 0.45 K/uL (0.11-0.59) 04/26/23 05:48 Eos # (Auto) 0.13 K/uL (0.00-0.50) 04/26/23 05:48 Baso # (Auto) 0.05 K/uL (0.00-0.20) 04/26/23 05:48 Immature Gran # (Auto) 0.03 K/uL (0.01-0.20) 04/26/23 05:48 Anisocytosis Present 04/25/23 13:18 Echinocytes 1+ 04/25/23 13:18 ESR 16 mm/hr (0-30) 04/25/23 15:31 PT 13.8 Seconds (9.0-12.0) H 04/26/23 05:49 INR 1.3 (0.9-1.1) H 04/26/23 05:49 Sodium 133 mmol/L (136-145) L 04/26/23 05:48 Potassium 4.8 mmol/L (3.5-5.1) 04/26/23 05:48 Chloride 96 mmol/L (98-107) L 04/26/23 05:48 Carbon Dioxide 27 mmol/L (21-32) 04/26/23 05:48 Anion Gap 10 (3-11) 04/26/23 05:48 BUN 98 mg/dl (6-23) H 04/26/23 05:48 Creatinine 2.55 mg/dl (0.6-1.2) H 04/26/23 05:48 Est Cr Clr Drug Dosing 15.7 ml/min 04/26/23 05:48 Est GFR ( Amer) 18.9 ml/min 04/26/23 05:48 Est GFR (Non-Af Amer) 16.3 ml/min 04/26/23 05:48 BUN/Creatinine Ratio 38.4 (10-20) H 04/26/23 05:48 Glucose 122 mg/dl (70-99(Fasting)) H 04/26/23 05:48 POC Glucose 100 mg/dl (70-99) H 04/26/23 07:27 Lactate 1.8 mmol/L (0.4-2.0) 04/26/23 05:48 Calcium 8.9 mg/dl (8.6-10.3) 04/26/23 05:48 Magnesium 2.4 mg/dl (1.7-2.4) 04/25/23 13:26 Total Bilirubin 1.3 mg/dl (0.2-1.0) H 04/26/23 05:48 AST 17 U/L (13-39) 04/26/23 05:48 ALT 7 U/L (7-52) 04/26/23 05:48 Alkaline Phosphatase 78 U/L (34-104) 04/26/23 05:48 Troponin I High Sens 241.6 pg/ml (0-14) H* 04/26/23 05:48 C-Reactive Protein 11.62 mg/dl (0-0.5) H 04/25/23 13:26 B-Natriuretic Peptide 2673 pg/ml (0-100) H 04/25/23 13:20 Total Protein 6.1 gm/dl (6.0-8.3) 04/26/23 05:48 Albumin 3.4 gm/dl (3.4-5.0) 04/26/23 05:48 Globulin 2.7 gm/dl (2.5-4.0) 04/26/23 05:48 Albumin/Globulin Ratio 1.3 (0.9-2) 04/26/23 05:48 Procalcitonin 0.66 ng/ml (0-0.5) H 04/25/23 15:31 Urine Color Dark Yellow 04/25/23 16:44 Urine Appearance Turbid (Clear) A 04/25/23 16:44 Urine pH 5.0 (4.5-7.5) 04/25/23 16:44 Ur Specific [place] 1.019 (1.000-1.030) 04/25/23 16:44 Urine Protein 1+ (Negative) H 04/25/23 16:44 Urine Glucose (UA) Negative (Negative) 04/25/23 16:44 Urine Ketones Trace (Negative) H 04/25/23 16:44 Urine Blood 3+ (Negative) H 04/25/23 16:44 Urine Nitrite Negative (Negative) 04/25/23 16:44 Urine Bilirubin 1+ (Negative) H 04/25/23 16:44 Urine Urobilinogen Negative (Negative) 04/25/23 16:44 Ur Leukocyte Esterase 3+ (Negative) H 04/25/23 16:44 Urine RBC 5-10 /hpf (0-4) H 04/25/23 16:44 Urine WBC >30 /hpf (0-5) H 04/25/23 16:44 Ur Epithelial Cells >30 /lpf (0-5) H 04/25/23 16:44 Urine Bacteria 4+ (Negative) H 04/25/23 16:44 Ur Random Creatinine 98.5 mg/dl 04/25/23 16:44 U Random Total Protein 38.5 mg/dl (0-11.9) H 04/25/23 16:44 Protein/Creatinin Ratio 0.4 (0-0.2) H 04/25/23 16:44 Adenovirus (PCR) Not Detected (NotDetected) 04/25/23 16:51 B. pertussis DNA (PCR) Not Detected (NotDetected) 04/25/23 16:51 B.parapertussis DNA PCR Not Detected (NotDetected) 04/25/23 16:51 C. pneumoniae DNA (PCR) Not Detected (NotDetected) 04/25/23 16:51 Coronavirus OC43 (PCR) Not Detected (NotDetected) 04/25/23 16:51 Coronavirus HKU1 (PCR) Not Detected (NotDetected) 04/25/23 16:51 Coronavirus 229E (PCR) Not Detected (NotDetected) 04/25/23 16:51 SARS-CoV-2 (PCR) Not Detected (NotDetected) 04/25/23 16:51 Coronavirus NL63 (PCR) Not Detected (NotDetected) 04/25/23 16:51 Human Metapneumovir PCR Not Detected (NotDetected) 04/25/23 16:51 Influenza Type A (PCR) Not Detected (NotDetected) 04/25/23 16:51 Influenza Type B (PCR) Not Detected (NotDetected) 04/25/23 16:51 M. pneumoniae (PCR) Not Detected (NotDetected) 04/25/23 16:51 Parainfluenza 1 (PCR) Not Detected (NotDetected) 04/25/23 16:51 Parainfluenza 2 (PCR) Not Detected (NotDetected) 04/25/23 16:51 Parainfluenza 3 (PCR) Not Detected (NotDetected) 04/25/23 16:51 Parainfluenza 4 (PCR) Not Detected (NotDetected) 04/25/23 16:51 RSV (PCR) Not Detected (NotDetected) 04/25/23 16:51 Entero/Rhino (PCR) Not Detected (NotDetected) 04/25/23 16:51 Impressions Chest X-Ray 04/25/23 13:00 SINGLE VIEW CHEST CLINICAL HISTORY: Dyspnea. Edema. FINDINGS: A PA chest radiograph is compared to study dated 09/26/2022. The examination is degraded by patient rotation. Surgical clips project over the left axilla. The heart is enlarged and noting atherosclerotic calcification of the thoracic aorta. There is pulmonary vascular congestion. Bilateral airspace opacities likely representing interstitial edema. Small pleural effusions are noted. There is bibasilar scarring/atelectasis. No pneumothorax is seen. The skeletal structures are osteopenic. The bony thorax is grossly intact. IMPRESSION: 1. Cardiomegaly with evidence of congestive failure. 2. Bilateral airspace opacities likely represent pulmonary edema. Correlate clinically for evidence of a superimposed infectious/inflammatory pneumonitis. Radiographic follow-up to resolution is recommended. 3. Small pleural effusions. ACT 112: Negative or not required by law. Electronically signed by: Olman Benítez M.D. 04/25/2023 2:41 PM Abdomen/Pelvis CT 04/25/23 15:55 CT SCAN OF THE ABDOMEN AND PELVIS WITHOUT IV CONTRAST CLINICAL HISTORY: Acute renal insufficiency. Generalized abdominal pain. Dyspnea. Fluid retention. COMPARISON STUDY: Abdominal CT dated 01/12/2022. TECHNIQUE: CT scan of the abdomen and pelvis is performed from the lung bases to the proximal femora. Images are reviewed in the axial, sagittal, and coronal planes. IV contrast was not administered for this examination due to poor renal function. Note that the examination is suboptimal without oral and IV contrast. There is also motion artifact, and streak artifact from the arms which could not be elevated above the abdomen. A dose lowering technique was utilized adhering to the principles of ALARA. FINDINGS: Lung bases: The heart is enlarged and without pericardial effusion. The coronary arteries and mitral annulus are denser calcified. There are moderate pleural effusions with dependent consolidation. Surgical clips are noted in the left breast. Liver: The unenhanced liver is cirrhotic in morphology and heterogeneous attenuation. There is hypertrophy of the left lobe and nodularity of the hepatic surface contour. There is no intrahepatic biliary ductal dilatation. Gallbladder: There are layering calcified gallstones within the gallbladder lumen, with no CT evidence of acute cholecystitis. Spleen: Normal in size and attenuation. Pancreas: The unenhanced pancreas is atrophic and grossly unremarkable. Adrenal glands: Unremarkable. Kidneys: The unenhanced kidneys are atrophic and without hydronephrosis. There are bilateral renovascular calcifications. No renal calculi are clearly identified. There is no evidence of contour deforming renal mass lesion. Abdominal vasculature: The abdominal aorta is normal in course and caliber noting advanced atherosclerotic calcification. Bowel: There is advanced colonic diverticulosis without CT evidence of acute diverticulitis. No bowel obstruction is seen. Mild to moderate fecal retention is noted throughout the colon. The appendix is not visualized and reported surgically absent. Peritoneum: There is a small volume of abdominopelvic ascites. No intraperitoneal free air is seen. Lymphadenopathy: None. Pelvic viscera: The bladder is decompressed and grossly unremarkable. The uterus is surgically absent. No adnexal lesion is seen. Skeletal structures: The skeletal structures are osteopenic. There is moderate to advanced lumbosacral spondylosis as well as mild scoliosis. No lytic or blastic lesions are seen. Advanced arthritic change is seen in the left hip. Soft tissues: There is anasarca of the body wall. IMPRESSION: 1. Significantly streak and motion compromised examination. The examination is also suboptimal without oral and IV contrast. 2. There is evidence of fluid overload, including moderate pleural effusions, anasarca of the body wall, and a small volume of abdominopelvic ascites. 3. The liver is cirrhotic in morphology and heterogeneous attenuation. 4. Cholelithiasis without CT evidence of acute cholecystitis. 5. Colonic diverticulosis without CT evidence of acute diverticulitis. 6. Cardiomegaly with advanced coronary atherosclerosis. 7. Additional findings as above. ACT 112: Negative or not required by law. Electronically signed by: Olman Benítez M.D. 04/25/2023 5:[address] 04/25/23 15:59 CT chest diagnostic wo con CLINICAL HISTORY: Shortness of breath ?pulmonary edema ?PNA TECHNIQUE: Multidetector row helical CT of the chest was performed. Coronal and sagittal reformations were obtained. Automated dose lowering techniques and/or adjustment according to patient size were utilized for this exam. CT DOSE: 1244.28 mGy.cm Comparison: Comparison is made to CT abdomen pelvis 01/12/2022 FINDINGS: Lungs and pleura: Moderate bilateral pleural effusions are seen. Atelectasis is seen with mosaic attenuation and bronchial wall thickening. Interstitial thickening is seen. Heart and pericardium: Cardiomegaly is seen with biatrial enlargement. Vessels: Severe atherosclerotic changes in the aorta and coronary arteries. Pulmonary trunk measures 37 mm in diameter. Mediastinum and anya: Multiple lymph nodes measure up to 11 mm in diameter. Chest wall and lower neck: Unremarkable. Abdomen: For findings below the diaphragm, please refer to CT of the abdomen dated the same. Bones: Degenerative changes in the thoracic spine. IMPRESSION: 1. Moderate bilateral pleural effusions with underlying atelectasis. Interstitial thickening with bronchial wall thickening and mosaic attenuation may which reflect small airways disease. 2. Cardiomegaly and pulmonary hypertension. ACT 112: Negative or not required by law. Electronically signed by: Elvin Nath M.D. 04/25/2023 4:45 PM Diagnostic Findings 10/25/22 Echocardiogram: LVEF 50-55%, severe biatrial dilations, moderate MR, moderate pulmonary HTN w/ RVSP 49 mm Hg. PG Care Time/CCT Total # of Minutes Spent Total Time Spent with Patient: Total time spent is greater than 50% in coordination of care (as documented) at patient's floor/unit and/or counseling patient: Coding Level of Care Code 74645 IN/OBS CONSULT LVL 5,80M Diagnoses Stage III chronic kidney disease N18.3 JUDE (acute kidney injury) N17.9 Congestive heart failure I50.9
[2023-04-26] MEDS ORDERED: FUROSEMIDE 40 MG/4 ML VIAL IV SCH (09:00)
[2023-04-26] MEDS: INSULIN ASPART PER UNIT CHARGE SC SCH ×3 (09:17→16:11)
[2023-04-26] MEDS: APIXABAN 2.5 MG TAB PO SCH ×2 (09:18→21:07)
[2023-04-26] MEDS: traMADol HCL 50 MG TABLET PO SCH ×3 (09:19→21:14)
[2023-04-26] MEDS ORDERED: HYDROmorphone INJ 0.5 MG/0.5 ML SYR IV ONE (10:18)
[2023-04-26] MEDS ORDERED: CHLOROTHIAZIDE SODIUM 250 MG in DEXTROSE 5% 50 ML IV SCH (13:30)
--- NOTE | 2023-04-26 14:19 | Electrocardiogram Report ---
Test Reason : Blood Pressure : / mmHG Vent. Rate : 058 BPM Atrial Rate : 000 BPM P-R Int : 000 ms QRS Dur : 094 ms QT Int : 370 ms P-R-T Axes : 000 -51 135 degrees QTc Int : 363 ms Atrial fibrillation with slow ventricular response Low voltage QRS Left anterior fascicular block Possible Anterolateral infarct (cited on or before 17-SEP-2022) Abnormal ECG When compared with ECG of 26-SEP-2022 20:03, Nonspecific T wave abnormality now evident in Inferior leads Nonspecific T wave abnormality, worse in Lateral leads Confirmed by Devan Perales ([id number]) on 04/26/2023 2:18:50 PM Referred By: Confirmed By:Chandra Perales
[2023-04-26] MEDS: FUROSEMIDE 40 MG/4 ML VIAL IV SCH ×2 (15:08→21:07)
--- NOTE | 2023-04-26 16:20 | Cardiology Consultation ---
Date of Consultation April 26, 2023 Assessment & Plan (1) Congestive heart failure: (2) Permanent atrial fibrillation: (3) Valvular heart disease: Plan 1. Decompensated heart failure: She appears to have an element of reduced LV systolic function and significant right ventricular failure. This undoubtedly accounts for her significant anasarca, pulmonary congestion and pleural effusions. Notable lower extremity edema likely from her right ventricular failure and possibly a contribution from cirrhosis. I suspect her RV dysfunction is related to her chronic heart failure with preserved ejection fraction. No obvious primary pulmonary process. Unfortunately, she appears to be a poor candidate for standard therapies due to her renal dysfunction. Maximino, ARB and Entresto relatively contraindicated due to her renal dysfunction and SG LT 2 inhibitor is likely ineffectual. Her relative bradycardia in the setting of permanent atrial fibrillation also represents a relative contraindication to the use of beta-blockade. She also does not appear to have had a good response to escalating doses of diuretics. The only solution for maintaining euvolemia. I do not think she is a good candidate for more advanced heart failure therapies given her overall poor functional status. I do not think inotrope infusion is a good long-term solution either. 2. Permanent atrial fibrillation. Adequate rate control without rate controlling agents. On appropriately dosed systemic anticoagulation. Certainly contributing to her heart failure, but no therapies for return to sinus rhythm at this point. 3. Valvular heart disease: She has an element of mitral regurgitation. Do not believe this is causing symptoms. Again, no readily available therapy in any regard. History of Present Illness Reason for Consultation: Congestive heart failure, edema Requesting Physician: Sujata Attending Physician: Jyothi Matthew MD History of Present Illness The patient is an 87-year-old woman with a history heart failure and preserved ejection fraction. She also suffers from permanent atrial fibrillation. It seems that in September of this year she was admitted for gastroenteritis and cellulitis. At that time she was felt to be volume depleted and administered intravenous fluids. Since that time she has struggled with volume overload. She has been seen extensively on outpatient basis in an attempt to improve her volume status. Diuretics have been adjusted and changed in this regard. However, she continued to have increasing abdominal girth and lower extremity edema. Recently she has had difficulty with ambulation due to the weight and size of her legs. She has some weeping ulcers in believe she has developed a decubitus ulcer as well. On the advice or cardiology she presented to the emergency room yesterday for admission and attempt at more aggressive diuresis. The patient states that she can ambulate with a walker but this has become more difficult recently. She did not appear to have any breathing difficulty at rest recently but does report sleeping in a recliner primarily for comfort purposes and an easier way to get out of the chair rather than bed. She denies dizziness or lightheadedness. No sense of palpitations. No recent symptoms of chest discomfort. She did not endorse any recent changes in her diet or increased sodium intake. Allergies Allergy/AdvReac Type Severity Reaction Status Date / Time codeine Allergy Mild nausea and Verified 04/25/23 11:43 vomiting latex Allergy Mild Rash Verified 04/25/23 11:43 povidone-iodine Allergy Mild RASH Verified 04/25/23 11:43 soap [From Betadine] Allergy Mild Rash Verified 04/25/23 11:43 Sulfa (Sulfonamide Allergy Mild RASH Verified 04/25/23 11:43 Antibiotics) cephalexin Allergy Unknown . Verified 04/25/23 11:43 sulfamethoxazole Allergy Unknown Diarrhea Verified 04/25/23 11:43 [From Bactrim] trimethoprim [From Bactrim] Allergy Unknown Diarrhea Verified 04/25/23 11:43 ceftriaxone [From Rocephin] AdvReac Severe Diarrhea Verified 04/25/23 11:43 meperidine AdvReac Mild nausea/vomi Verified 04/25/23 11:43 ting Home Medications Medication Instructions Recorded Confirmed Type acetaminophen 500 mg tablet 1,000 mg PO HS PRN Pain 07/25/20 04/25/23 History (Tylenol Extra Strength) ondansetron HCl 4 mg tablet 4 mg PO Q8H PRN nausea and 12/05/22 04/25/23 Rx vomiting #10 tabs diclofenac sodium 1 % topical gel 1 g topical BID PRN Pain #100 grams 02/20/23 04/25/23 Rx apixaban 2.5 mg tablet (Eliquis) 2.5 mg PO BID #180 tabs 04/02/23 04/25/23 Rx bumetanide 2 mg tablet 2 mg PO BID #60 tabs 04/02/23 04/25/23 Rx tramadol 50 mg tablet 50 mg PO TID #270 tabs 04/10/23 04/25/23 Rx Patient History Medical History Acute hyperkalemia Acute hyponatremia JUDE (acute kidney injury) Cellulitis of foot Chronic anticoagulation Diastolic congestive heart failure f/u Dr. Hayes Hyperlipidemia Hypertension Lymphedema chronic Osteoarthritis Permanent atrial fibrillation Stage III chronic kidney disease f/u nephrology at [facility] Surgical History H/O left cataract extraction History of right cataract extraction Hx of shoulder surgery rt. repair shoulder dislocation Hx of basal cell carcinoma excision x1 rt eyelid, x1 left and left ear Hx of total hysterectomy with removal of both tubes and ovaries History of radiation therapy S/P tonsillectomy S/P colonoscopy S/P lumpectomy, left breast with axillary node removal S/P appendectomy Family History Other Adopted Myocardial infarction Denies family history of Ovarian cancer Prostate cancer Breast cancer Colorectal cancer Social History Smoking Status: Never smoker Second Hand Exposure: No; Do You Dip or Chew Tobacco: No; Hx Alcohol Use: No Hx Substance Use: No Preferred Language: Ecuadorean Communication Ability: Effective Visual Impairment: No Limitations Hearing Ability: Normal Roof Tiler Required: No Beliefs That Will Affect Care: None marital status: Current Living Situation: Family Current Living Situation Comment: lives home alone in a townhouse 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 Mood affect appear normal. She answered all questions appropriately. HEENT: Sclerae are anicteric. Pupils are equal and reactive to light and accommodation. Extraocular movements were intact. Neuro: Cranial nerves intact Lungs: Crackles at the bases bilaterally. Poor inspiratory effort. No expiratory wheezing. Cardiac: The rhythm was irregular. S1 and S2 were normal. There are no murmurs on examination. The PMI was not markedly displaced on palpation. Abdomen: Distended but nontender. Extremities: Patient has bilateral radial pulses that are equal in intensity. There is no evidence cyanosis or clubbing. Severe lower extremity edema and erythema bilaterally Skin: There are no rashes noted on examination today. Results & Data Vital Signs (Past 12 Hours) Vital Signs Temp Pulse Pulse Pulse Resp BP Pulse Ox 04/26/23 15:49 36.3 C L 59 L 16 111/68 99 04/26/23 12:04 36.5 C 59 L 18 119/63 98 04/26/23 08:00 04/26/23 07:00 53 L 04/26/23 07:00 36.5 C 68 16 124/61 95 O2 Del Method O2 Flow Rate 04/26/23 15:49 Nasal Cannula 6 04/26/23 12:04 Nasal Cannula 2 04/26/23 08:00 Nasal Cannula 2 04/26/23 07:00 04/26/23 07:00 Room Air Laboratory Results Abnormal Lab Results 04/25/23 04/25/23 04/25/23 13:26 15:31 16:44 WBC RBC Hgb Hct MCV MCH MCHC RDW Std Deviation RDW Coeff of Rylee Plt Count MPV Immature Gran % (Auto) Neut % (Auto) Lymph % (Auto) [place] % (Auto) Eos % (Auto) Baso % (Auto) Neut # (Auto) Lymph # (Auto) [place] # (Auto) Eos # (Auto) Baso # (Auto) Immature Gran # (Auto) ESR 16 PT INR Sodium Potassium Chloride Carbon Dioxide Anion Gap BUN Creatinine Est Cr Clr Drug Dosing Est GFR ( Amer) Est GFR (Non-Af Amer) BUN/Creatinine Ratio Glucose POC Glucose Lactate Calcium Total Bilirubin AST ALT Alkaline Phosphatase Troponin I High Sens C-Reactive Protein 11.62 H Total Protein Albumin Globulin Albumin/Globulin Ratio Procalcitonin 0.66 H Urine Color Dark Yellow Urine Appearance Turbid A Urine pH 5.0 Ur Specific [place] 1.019 Urine Protein 1+ H Urine Glucose (UA) Negative Urine Ketones Trace H Urine Blood 3+ H Urine Nitrite Negative Urine Bilirubin 1+ H Urine Urobilinogen Negative Ur Leukocyte Esterase 3+ H Urine RBC 5-10 H Urine WBC >30 H Ur Epithelial Cells >30 H Urine Bacteria 4+ H Ur Random Creatinine 98.5 U Random Total Protein 38.5 H Protein/Creatinin Ratio 0.4 H Adenovirus (PCR) B. pertussis DNA (PCR) B.parapertussis DNA PCR C. pneumoniae DNA (PCR) Coronavirus OC43 (PCR) Coronavirus HKU1 (PCR) Coronavirus 229E (PCR) SARS-CoV-2 (PCR) Coronavirus NL63 (PCR) Human Metapneumovir PCR Influenza Type A (PCR) Influenza Type B (PCR) M. pneumoniae (PCR) Parainfluenza 1 (PCR) Parainfluenza 2 (PCR) Parainfluenza 3 (PCR) Parainfluenza 4 (PCR) RSV (PCR) Entero/Rhino (PCR) 04/25/23 04/25/23 04/26/23 16:51 17:16 00:23 WBC RBC Hgb Hct MCV MCH MCHC RDW Std Deviation RDW Coeff of Rylee Plt Count MPV Immature Gran % (Auto) Neut % (Auto) Lymph % (Auto) [place] % (Auto) Eos % (Auto) Baso % (Auto) Neut # (Auto) Lymph # (Auto) [place] # (Auto) Eos # (Auto) Baso # (Auto) Immature Gran # (Auto) ESR PT INR Sodium Potassium Chloride Carbon Dioxide Anion Gap BUN Creatinine Est Cr Clr Drug Dosing Est GFR ( Amer) Est GFR (Non-Af Amer) BUN/Creatinine Ratio Glucose POC Glucose Lactate 2.8 H* Calcium Total Bilirubin AST ALT Alkaline Phosphatase Troponin I High Sens 253.4 H* D C-Reactive Protein Total Protein Albumin Globulin Albumin/Globulin Ratio Procalcitonin Urine Color Urine Appearance Urine pH Ur Specific [place] Urine Protein Urine Glucose (UA) Urine Ketones Urine Blood Urine Nitrite Urine Bilirubin Urine Urobilinogen Ur Leukocyte Esterase Urine RBC Urine WBC Ur Epithelial Cells Urine Bacteria Ur Random Creatinine U Random Total Protein Protein/Creatinin Ratio Adenovirus (PCR) Not Detected B. pertussis DNA (PCR) Not Detected B.parapertussis DNA PCR Not Detected C. pneumoniae DNA (PCR) Not Detected Coronavirus OC43 (PCR) Not Detected Coronavirus HKU1 (PCR) Not Detected Coronavirus 229E (PCR) Not Detected SARS-CoV-2 (PCR) Not Detected Coronavirus NL63 (PCR) Not Detected Human Metapneumovir PCR Not Detected Influenza Type A (PCR) Not Detected Influenza Type B (PCR) Not Detected M. pneumoniae (PCR) Not Detected Parainfluenza 1 (PCR) Not Detected Parainfluenza 2 (PCR) Not Detected Parainfluenza 3 (PCR) Not Detected Parainfluenza 4 (PCR) Not Detected RSV (PCR) Not Detected Entero/Rhino (PCR) Not Detected 04/26/23 04/26/23 04/26/23 05:48 05:49 05:50 WBC 10.96 H RBC 5.29 Hgb 14.0 Hct 43.8 MCV 82.8 MCH 26.5 MCHC 32.0 RDW Std Deviation 50.6 H RDW Coeff of Rylee 17.3 H Plt Count 100 L MPV 10.9 Immature Gran % (Auto) 0.3 Neut % (Auto) 89.8 Lymph % (Auto) 4.1 [place] % (Auto) 4.1 Eos % (Auto) 1.2 Baso % (Auto) 0.5 Neut # (Auto) 9.85 H Lymph # (Auto) 0.45 L [place] # (Auto) 0.45 Eos # (Auto) 0.13 Baso # (Auto) 0.05 Immature Gran # (Auto) 0.03 ESR PT 13.8 H INR 1.3 H Sodium 133 L Potassium 4.8 Chloride 96 L Carbon Dioxide 27 Anion Gap 10 BUN 98 H Creatinine 2.55 H Est Cr Clr Drug Dosing 15.7 Est GFR ( Amer) 18.9 Est GFR (Non-Af Amer) 16.3 BUN/Creatinine Ratio 38.4 H Glucose 122 H POC Glucose Lactate 1.8 Calcium 8.9 Total Bilirubin 1.3 H AST 17 ALT 7 Alkaline Phosphatase 78 Troponin I High Sens 241.6 H* C-Reactive Protein Total Protein 6.1 Albumin 3.4 Globulin 2.7 Albumin/Globulin Ratio 1.3 Procalcitonin 0.84 H Urine Color Urine Appearance Urine pH Ur Specific [place] Urine Protein Urine Glucose (UA) Urine Ketones Urine Blood Urine Nitrite Urine Bilirubin Urine Urobilinogen Ur Leukocyte Esterase Urine RBC Urine WBC Ur Epithelial Cells Urine Bacteria Ur Random Creatinine U Random Total Protein Protein/Creatinin Ratio Adenovirus (PCR) B. pertussis DNA (PCR) B.parapertussis DNA PCR C. pneumoniae DNA (PCR) Coronavirus OC43 (PCR) Coronavirus HKU1 (PCR) Coronavirus 229E (PCR) SARS-CoV-2 (PCR) Coronavirus NL63 (PCR) Human Metapneumovir PCR Influenza Type A (PCR) Influenza Type B (PCR) M. pneumoniae (PCR) Parainfluenza 1 (PCR) Parainfluenza 2 (PCR) Parainfluenza 3 (PCR) Parainfluenza 4 (PCR) RSV (PCR) Entero/Rhino (PCR) 04/26/23 07:27 WBC RBC Hgb Hct MCV MCH MCHC RDW Std Deviation RDW Coeff of Rylee Plt Count MPV Immature Gran % (Auto) Neut % (Auto) Lymph % (Auto) [place] % (Auto) Eos % (Auto) Baso % (Auto) Neut # (Auto) Lymph # (Auto) [place] # (Auto) Eos # (Auto) Baso # (Auto) Immature Gran # (Auto) ESR PT INR Sodium Potassium Chloride Carbon Dioxide Anion Gap BUN Creatinine Est Cr Clr Drug Dosing Est GFR ( Amer) Est GFR (Non-Af Amer) BUN/Creatinine Ratio Glucose POC Glucose 100 H Lactate Calcium Total Bilirubin AST ALT Alkaline Phosphatase Troponin I High Sens C-Reactive Protein Total Protein Albumin Globulin Albumin/Globulin Ratio Procalcitonin Urine Color Urine Appearance Urine pH Ur Specific [place] Urine Protein Urine Glucose (UA) Urine Ketones Urine Blood Urine Nitrite Urine Bilirubin Urine Urobilinogen Ur Leukocyte Esterase Urine RBC Urine WBC Ur Epithelial Cells Urine Bacteria Ur Random Creatinine U Random Total Protein Protein/Creatinin Ratio Adenovirus (PCR) B. pertussis DNA (PCR) B.parapertussis DNA PCR C. pneumoniae DNA (PCR) Coronavirus OC43 (PCR) Coronavirus HKU1 (PCR) Coronavirus 229E (PCR) SARS-CoV-2 (PCR) Coronavirus NL63 (PCR) Human Metapneumovir PCR Influenza Type A (PCR) Influenza Type B (PCR) M. pneumoniae (PCR) Parainfluenza 1 (PCR) Parainfluenza 2 (PCR) Parainfluenza 3 (PCR) Parainfluenza 4 (PCR) RSV (PCR) Entero/Rhino (PCR) Diagnostic Findings Chest CT on 04/25/2023 demonstrated moderate bilateral pleural effusions. Pulmonary hypertension cardiomegaly On 04/25/2023: Anasarca. Small amount of abdominal pelvic ascites. Cirrhotic liver. 04/26/2023: Mildly reduced LV systolic function ejection fraction around 45%. Evidence of right ventricular dilation and reduced function with volume pressure overload. Severe biatrial dilation. Moderate mitral regurgitation. Large left pleural effusion PG Care Time/CCT Total # of Minutes Spent Total Time Spent with Patient: Total time spent is greater than 50% in coordination of care (as documented) at patient's floor/unit and/or counseling patient: Coding Level of Care Code 19239 INT INP/OBS CARE 3/75MIN Diagnoses Congestive heart failure I50.9 Permanent atrial fibrillation I48.2 Valvular heart disease I38
--- NOTE | 2023-04-26 16:29 | XCELERA ---
[id number] \\[id number]
[2023-04-26] MEDS ORDERED: traMADol HCL 50 MG TABLET PO PRN ×2 (16:32→17:08)
[2023-04-26] MEDS ORDERED: oxyCODONE HCL IR 5 MG TAB (IMMEDIATE RELEASE) PO PRN (16:32)
[2023-04-27] MEDS: PIPERACILLIN/TAZOBACTAM 4.5 GM in DEXTROSE 5% MINI-B 100 ML IV SCH ×2 (03:44→16:09)
[2023-04-27 06:50] LABS: Albumin Level 3.2 gm/dl (3.4-5.0); BUN Creatinine Ratio 40.3 (10-20); Bilirubin Direct 0.4 mg/dl (0-0.2); Bilirubin,Total 1.3 mg/dl (0.2-1.0); Calcium 8.6 mg/dl (8.6-10.3); Creatinine Clr Calc Pharmacy 16.5 ml/min; Est GFR (African American) 20.1 ml/min; Est GFR (Non-African American) 17.3 ml/min; Potassium 4.4 mmol/L (3.5-5.1); Total Protein 6.1 gm/dl (6.0-8.3)
[2023-04-27 07:07] LABS: Troponin I High Sensitivity 140.2 pg/ml (0-14)
[2023-04-27 07:14] LABS: INR 1.2 (0.9-1.1); Prothrombin Time 12.8 Seconds (9.0-12.0)
--- NOTE | 2023-04-27 08:45 | Hospitalist Progress Note ---
Date of Service April 27, 2023 Assessment & Plan (1) Leukocytosis: Plan: Possible sepsis - leukocytosis which improved on antibiotics, lactate elevation (though may be caused by organ failure above), mild procalcitonin elevation, CRP significantly elevated at 11 Possible sources - left foot / leg cellulitis, urinary tract infection (culture with 100K GNR), pneumonia seems less likely pulmonary symptoms more related to volume overload and PCT proportionally not very elevated Consider gout flare as alternative explanation (L foot most suspicious) - steroids would be only reasonable treatment for acute gout in this case. L MTP is not painful today, seems less likely -continue pip-tazo for diabetic foot infection, consider narrowing to ceftriaxone if blood cx remain neg 48h and foot improving -follow blood cx 04/25 - NGTD -follow urine Cx - 100K alvarado-sensitive E. coli -orderd hydromorphone IV x 1 for left foot, then prn oxycodone and tramadol (2) (HFpEF) heart failure with preserved ejection fraction: Plan: Acute on chronic biventricular heart failure with mildly reduced LV EF, moderately reduced RV function, RV volume and pressure overload on Echo 04/26 Cardiorenal syndrome Underlying cirrhosis Severe total body volume overload with moderate bilateral pleural effusions, some ascites, severe anasarca refractory to oral diuretics Elevation of HS troponin is related to demand ischemia from the above issues rather than an ACS, downtrending 04/26- without rwma's on echo. She has severe atherosclerosis based on CT findings. This is a complex situation with underlying multiple organ failure and limited therapeutic options. Ms. Gatica is at extremely high risk of morbidity, mortality, and significant loss of functional status due to severe exacerbation of severe underlying medical comorbidities. Appreciate thoughtful consultation by varitypist and psychometric examiner, whose recommendations I reviewed today. Discussed with Dr. Clemente at bedside. -trial of diuresis with lasix 80 IV bid and IV diuril per varitypist - I/O slightly positive and weight not recorded 04/26 UOP only 850. Dose unchanged today. BMP reviewed Cr and lytes stable -if this fails, trial of dialysis was discussed with Ms. Gatica who would want to proceed. Hemodialysis may be physiologically challenging given the cardiorenal failure and cirrhosis -standard GDMT options for heart failure are problematic and contraindicated in this case as outlined in Dr. Perales's note -I&O, daily weight -CBC BMP LFT INR trop reviewed - Cr unchanged, bili improved since admission, INR slightly improved, potassium normal -AM CBC LFT INR ordered (3) JUDE (acute kidney injury): Plan: JUDE on CKD stage 3, cardiorenal syndrome Cr 2.41 on admission with baseline 1.26 in October (1.73-2 in February) CT A/P without contrast - no obstructive cause of JUDE present varitypist consulting, see discussion above -Cr unchanged 04/27 (4) Bilateral pleural effusion: (5) Anasarca: (6) Permanent atrial fibrillation: Plan: Continue Eliquis for anticoagulation intrinsically rate controlled without AV nadira blocking agents (7) Type 2 diabetes mellitus: Plan: Hemoglobin A1C 6.9 On no medications as outpatient, stop BG checks unless steroids ordered (8) Liver cirrhosis: Plan: Noted on CT, discussed finding with patient Hepatitis panel pending 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 No chest pain. Consistent with demand ischemia. Trop downtrending. See above Plan Foot wound present on admission - consulted wound nurse Nayeli smith - for accurate I/O in advanced renal disease, JUDE, gross volume overload VTE Prophylaxis - Eliquis Diet - Low Na, Heart healthy, fluid restricted Disposition - PCU Updated mirta at bedside 04/27 Admission and Anticipated Discharge Date Admission Date: April 25, 2023 Subjective Ms Gatica is definitely feeling better today. Her breathing has improved, less short of breath, her edema is unchanged, she feels stronger, no dysuria, pain on dorsum of L foot at blister site remains severe possibly improved, pain back of R heel improved with floating it Physical Exam 2 Physical Exam: PHYSICAL EXAMINATION Last 24h vital signs reviewed, see documentation in flowsheet General: chronically ill appearing woman, no distress HEENT: Normocephalic, atraumatic, pupils round and equal, sclerae anicteric, no conjunctival injection, dry mucus membranes. cat scratch on nose - healing well Lungs: increased respiratory effort but better. Clear to auscultation anteriorly, can't get posterior exam. unchanged Heart: Regular rate and rhythm, systolic murmur, +JVD Abdomen: Soft, nontender, nondistended. Bowel sounds present. Abdominal wall edema present Extremities: Warm, dry. 2+ UE edema 3-4+ edema of bilateral LE. Ext are warm - unchanged Both LE are key. L forefoot and both lower legs are dressed. large shallow wound L forfoot on dorsum site of ruptured bulla - dressed, clean/dry. Tolerates me wiggling 1st MTP on L without pain 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 Neuro: Alert and oriented x 4, face symmetric, moves 4 extremities but appears globally weak Psych: Normal affect and behavior Results & Data Results & Data Vital Signs (Past 12 Hours) Vital Signs Temp Pulse Pulse Resp BP Pulse Ox O2 Del Method 04/27/23 07:41 36.3 C L 51 L 18 120/61 100 Nasal Cannula 04/27/23 07:00 Nasal Cannula 04/27/23 03:40 36.4 C L 53 L 20 107/54 L 96 Nasal Cannula 04/27/23 00:42 Nasal Cannula 04/27/23 00:28 53 L 04/26/23 23:00 36.4 C L 48 L 16 107/54 L 90 Nasal Cannula O2 Flow Rate 04/27/23 07:41 2 04/27/23 07:00 2 04/27/23 03:40 04/27/23 00:42 2 04/27/23 00:28 04/26/23 23:00 Laboratory Results 04/26/23 05:48 04/27/23 05:27 PG Care Time/CCT Total # of Minutes Spent Total Time Spent with Patient: Total time spent is greater than 50% in coordination of care (as documented) at patient's floor/unit and/or counseling patient: Coding Level of Care Code 84191 SUB INP/OBS CARE 3/50MIN Diagnoses Leukocytosis D72.829 (HFpEF) heart failure with preserved ejection fraction I50.30 JUDE (acute kidney injury) N17.9 Bilateral pleural effusion J90 Anasarca R60.1 Permanent atrial fibrillation I48.2 Type 2 diabetes mellitus E11.9 Liver cirrhosis K74.60 Elevated troponin R79.89
[2023-04-27] MEDS: FUROSEMIDE 40 MG/4 ML VIAL IV SCH ×2 (08:50→20:32)
[2023-04-27] MEDS: APIXABAN 2.5 MG TAB PO SCH ×2 (08:50→20:31)
[2023-04-27] MEDS: traMADol HCL 50 MG TABLET PO SCH ×3 (08:52→20:36)
[2023-04-27 11:03] LABS: HBSAG NON-REACTIVE (NON-REACTIVE); Hepatitis A Antibody IgM NON-REACTIVE (NON-REACTIVE); Hepatitis B Core Antibody IgM NON-REACTIVE (NON-REACTIVE)
--- NOTE | 2023-04-27 13:13 | Nephrology Progress Note ---
Date of Service April 27, 2023 Assessment & Plan (1) JUDE (acute kidney injury): (2) Bilateral pleural effusion: (3) Secondary hyperparathyroidism: (4) Lymphedema: Plan 87 yo F with PMH of stage 3B CKD, b/l cr 1.4 to 1.6 mg/dl and recent worsening of renal function over last 1 month with creatinine staying around 2.0 to 2.2 mg/dl admitted to the hospital with progressive shortness of breath and noted to have decompensated congestive heart failure. 2D echo showed EF 40 to 45% with EF 50 to 55% 6 months ago with evidence of right-sided heart failure and pulmonary hypertension. She also has permanent atrial fibrillation.. On admission her creatinine was 2.4 which peaked to 2.6. JUDE was thought to be secondary to cardiorenal syndrome. Urinalysis with low-grade proteinuria and UTI with E. coli currently on Zosyn. She was continued on Lasix 80 mg IV twice a day but continues to have suboptimal response to diuretics although overall she reports feeling better. Creatinine slightly improved to 2.4 today, urine output about 700 on IV diuretics. Clinically seems doing better. --Continue on Lasix 80 mg twice a day, monitor intake and output --Do not see any pressing indication for kidney replacement therapy at this time. If volume status worsen will consider increasing the diuretics dose. -- Monitor electrolytes Admission and Anticipated Discharge Date Admission Date: April 25, 2023 Subjective Emma was seen and evaluated this morning. She reports feeling much better this morning. She is less short of breath. Appetite improved. Continues to have significant lower extremity edema and some pain. Renal function staying relatively stable, creatinine slightly improved to 2.4 from peak creatinine of 2.9. Electrolytes acceptable. Blood pressure stable. Decent urine output. Review of Systems Review of Systems: Detailed review of system was done and pertinent positives and negatives were mentioned above Physical Exam Constitutional: WD/WN, vitals as above no acute distress Eyes: + anicteric sclerae Neck: normal visual inspection Respiratory: no respiratory distress Auscultation: lungs clear to auscultation bilaterally Cardiovascular: Rate/Rhythm: regular rate and regular rhythm Heart Sounds: normal S1 and normal S2 Extremities: + edema Skin: Bilateral leg edematous and erythematous. Neurologic: no focal motor deficits Psychiatric: Orientation: alert and oriented x 3 Results & Data Vital Signs (Past 12 Hours) Vital Signs Temp Pulse Resp BP Pulse Ox O2 Del Method O2 Flow Rate 04/27/23 07:41 36.3 C L 51 L 18 120/61 100 Nasal Cannula 2 04/27/23 07:00 Nasal Cannula 2 04/27/23 03:40 36.4 C L 53 L 20 107/54 L 96 Nasal Cannula PG Care Time/CCT Total # of Minutes Spent Total Time Spent with Patient: Total time spent is greater than 50% in coordination of care (as documented) at patient's floor/unit and/or counseling patient: Coding Level of Care Code 16034 SUB INP/OBS CARE 3/50MIN Diagnoses JUDE (acute kidney injury) N17.9 Bilateral pleural effusion J90 Secondary hyperparathyroidism N25.81 Lymphedema I89.0
[2023-04-27] MEDS: oxyCODONE HCL IR 5 MG TAB (IMMEDIATE RELEASE) PO PRN (15:50)
[2023-04-28 06:16] LABS: Albumin Level 3.3 gm/dl (3.4-5.0); Bilirubin Direct 0.4 mg/dl (0-0.2); Bilirubin,Total 1.1 mg/dl (0.2-1.0); Calcium 8.2 mg/dl (8.6-10.3); Creatinine Clr Calc Pharmacy 16.3 ml/min; Est GFR (African American) 19.9 ml/min; Est GFR (Non-African American) 17.1 ml/min; Potassium 4.1 mmol/L (3.5-5.1)
--- NOTE | 2023-04-28 08:42 | Hospitalist Progress Note ---
Date of Service April 28, 2023 Assessment & Plan (1) Leukocytosis: Plan: Possible sepsis - leukocytosis which improved on antibiotics, lactate elevation (though may be caused by organ failure above), mild procalcitonin elevation, CRP significantly elevated at 11 (ESR normal) Possible sources - left foot / leg cellulitis, urinary tract infection (culture with 100K GNR), pneumonia seems less likely pulmonary symptoms more related to volume overload and PCT proportionally not very elevated Consider gout flare as alternative explanation (L foot most suspicious) - steroids would be only reasonable treatment for acute gout in this case. L MTP is not painful today, seems less likely -narrow pip-tazo to ceftriaxone today - will cover UTI and fairly broad for L forefoot cellulitis -follow blood cx 04/25 - NGTD at 48h -urine Cx - 100K alvarado-sensitive E. coli -left foot pain prn oxycodone and tramadol -AM CBC CRP (2) (HFpEF) heart failure with preserved ejection fraction: Plan: Acute on chronic biventricular heart failure with mildly reduced LV EF, moderately reduced RV function, RV volume and pressure overload on Echo 04/26 Cardiorenal syndrome Underlying cirrhosis Severe total body volume overload with moderate bilateral pleural effusions, some ascites, severe anasarca refractory to oral diuretics Elevation of HS troponin is related to demand ischemia from the above issues rather than an ACS, downtrending 04/26- without rwma's on echo. She has severe atherosclerosis based on CT findings. This is a complex situation with underlying multiple organ failure and limited therapeutic options. Ms. Gatica is at extremely high risk of morbidity, mortality, and significant loss of functional status due to severe exacerbation of severe underlying medical comorbidities. Appreciate thoughtful consultation by general internal medicine physician and core machine tender -trial of diuresis with lasix 80 IV bid and IV diuril per general internal medicine physician - I/O slightly positive and weight not recorded 04/27 I/O neg 800 and wt down. Dose unchanged today. Current dose seems effective, discussed with general internal medicine physician -if this fails, trial of dialysis was discussed with Ms. Gatica who would want to proceed. Hemodialysis may be physiologically challenging given the cardiorenal failure and cirrhosis -standard GDMT options for heart failure are problematic and contraindicated in this case as outlined in Dr. Perales's note -I&O, daily weight reviewed -BMP LFT 04/28 reviewed - Cr unchanged, BUN remains high at 100, K ok, bili improved normalized at 1.1 -mild-mod hypervolemic hyponatremia persists Na 131 -AM CBC LFT ordered (3) JUDE (acute kidney injury): Plan: JUDE on CKD stage 3, cardiorenal syndrome Cr 2.41 on admission with baseline 1.26 in October (1.73-2 in February) CT A/P without contrast - no obstructive cause of JUDE present general internal medicine physician consulting, see discussion above -Cr unchanged 04/27-, BUN high unchanged, no acidosis (4) Bilateral pleural effusion: Plan: caused by global fluid overload, ascites and anasarca also present -diuretics (5) Anasarca: (6) Permanent atrial fibrillation: Plan: Continue Eliquis for anticoagulation intrinsically rate controlled without AV nadira blocking agents caution with thrombocytopenia - AM CBC ordered (7) Type 2 diabetes mellitus: Plan: Hemoglobin A1C 6.9 On no medications as outpatient, stop BG checks unless steroids ordered (8) Liver cirrhosis: Plan: Noted on CT, discussed finding with patient Hepatitis panel pending 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 No chest pain. Consistent with demand ischemia. Trop downtrending. See above Plan Foot wound present on admission - consulted wound nurse Has luis - for accurate I/O in advanced renal disease, JUDE, gross volume overload VTE Prophylaxis - Eliquis Diet - Low Na, Heart healthy, fluid restricted Disposition - PCU though may downgrade to tele soon Updated mirta at bedside 04/27 Admission and Anticipated Discharge Date Admission Date: April 25, 2023 Subjective Continues to slowly improve with respect to dyspnea and general strength. L forefoot and R heel remain painful but seem improved. Sitting up in chair today. Physical Exam 2 Physical Exam: PHYSICAL EXAMINATION Last 24h vital signs reviewed, see documentation in flowsheet General: chronically ill appearing woman, no distress, sitting up in chair HEENT: Normocephalic, atraumatic, pupils round and equal, sclerae anicteric, no conjunctival injection, moist mucus membranes. cat scratch on nose - healing well Lungs: increased respiratory effort but continues better. Clear to auscultation anteriorly, posteriorly bibasliar crackles Heart: Regular rate and rhythm, systolic murmur, +JVD Abdomen: Soft, nontender, nondistended. Bowel sounds present. Abdominal wall edema present Extremities: Warm, dry. 2+ UE edema 3-4+ edema of bilateral LE slighlty improved. Ext are warm Both LE are key. L forefoot and both lower legs are dressed. bloody strikethrough over L great toe, small amoutn. large shallow wound L forfoot on dorsum site of ruptured bulla - dressed, clean/dry. 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 Neuro: Alert and oriented x 4, face symmetric, moves 4 extremities but appears globally weak Psych: Normal affect and behavior Results & Data Results & Data Vital Signs (Past 12 Hours) Vital Signs Temp Pulse Pulse Resp BP BP Pulse Ox 04/28/23 07:36 36.5 C 49 L 18 132/80 97 04/28/23 07:30 53 L 04/28/23 07:00 04/28/23 03:10 36.5 C 81 18 114/65 97 04/28/23 02:01 41 L 04/27/23 22:10 36.3 C L 53 L 18 130/78 97 O2 Del Method O2 Flow Rate 04/28/23 07:36 Room Air 04/28/23 07:30 04/28/23 07:00 Nasal Cannula 2 04/28/23 03:10 Nasal Cannula 2 04/28/23 02:01 04/27/23 22:10 Nasal Cannula 2 Laboratory Results 04/26/23 05:48 04/28/23 04:49 PG Care Time/CCT Total # of Minutes Spent Total Time Spent with Patient: Total time spent is greater than 50% in coordination of care (as documented) at patient's floor/unit and/or counseling patient: Coding Level of Care Code 90503 SUB INP/OBS CARE 3/50MIN Diagnoses Leukocytosis D72.829 (HFpEF) heart failure with preserved ejection fraction I50.30 JUDE (acute kidney injury) N17.9 Bilateral pleural effusion J90 Anasarca R60.1 Permanent atrial fibrillation I48.2 Type 2 diabetes mellitus E11.9 Liver cirrhosis K74.60 Elevated troponin R79.89
[2023-04-28] MEDS: traMADol HCL 50 MG TABLET PO SCH ×3 (09:49→21:19)
[2023-04-28] MEDS: APIXABAN 2.5 MG TAB PO SCH ×2 (09:49→21:18)
[2023-04-28] MEDS: FUROSEMIDE 40 MG/4 ML VIAL IV SCH ×2 (09:50→21:19)
--- NOTE | 2023-04-28 12:29 | Nephrology Progress Note ---
Date of Service April 28, 2023 Assessment & Plan (1) JUDE (acute kidney injury): (2) Bilateral pleural effusion: (3) Secondary hyperparathyroidism: (4) Lymphedema: Plan 87 yo F with PMH of stage 3B CKD, b/l cr 1.4 to 1.6 mg/dl and recent worsening of renal function over last 1 month with creatinine staying around 2.0 to 2.2 mg/dl admitted to the hospital with progressive shortness of breath and noted to have decompensated congestive heart failure. 2D echo showed EF 40 to 45% with EF 50 to 55% 6 months ago with evidence of right-sided heart failure and pulmonary hypertension. She also has permanent atrial fibrillation.. On admission her creatinine was 2.4 which peaked to 2.6. JUDE was thought to be secondary to cardiorenal syndrome. Urinalysis with low-grade proteinuria and UTI with E. coli currently on Zosyn. She was continued on Lasix 80 mg IV twice a day but continues to have suboptimal response to diuretics although overall she reports feeling better. Renal function somewhat stable, electrolyte acceptable. Responding to current dose of diuretics with net negative more than 500 mL. --Continue on Lasix 80 mg twice a day, monitor intake and output, aim for net negative, if volume status worsen will consider increasing the diuretics dose. --Do not see any pressing indication for kidney replacement therapy at this time. --Monitor electrolytes Admission and Anticipated Discharge Date Admission Date: April 25, 2023 Subjective Emma was seen and evaluated this morning. Overall clinically stable, was sitting at the bedside chair. Denied any worsening of shortness of breath. Reports having episodes of loose stool this morning. Continues to have significant lower extremity edema and some pain. Renal function staying relatively stable, Electrolytes acceptable. Blood pressure stable. Decent urine output with net negative more than 500 mL. Review of Systems Review of Systems: Detailed review of system was done and pertinent positives and negatives were mentioned above Physical Exam Constitutional: WD/WN, vitals as above no acute distress Eyes: + anicteric sclerae Neck: normal visual inspection Respiratory: no respiratory distress Auscultation: + diminished lung sounds and + crackles Cardiovascular: Rate/Rhythm: regular rate and regular rhythm Heart Sounds: normal S1 and normal S2 Extremities: + edema Neurologic: no focal motor deficits Psychiatric: Orientation: alert and oriented x 3 Results & Data Vital Signs (Past 12 Hours) Vital Signs Temp Pulse Pulse Resp BP BP Pulse Ox 04/28/23 07:36 36.5 C 49 L 18 132/80 97 04/28/23 07:30 53 L 04/28/23 07:00 04/28/23 03:10 36.5 C 81 18 114/65 97 04/28/23 02:01 41 L 04/27/23 22:10 36.3 C L 53 L 18 130/78 97 O2 Del Method O2 Flow Rate 04/28/23 07:36 Room Air 04/28/23 07:30 04/28/23 07:00 Nasal Cannula 2 04/28/23 03:10 Nasal Cannula 2 04/28/23 02:01 04/27/23 22:10 Nasal Cannula 2 PG Care Time/CCT Total # of Minutes Spent Total Time Spent with Patient: Total time spent is greater than 50% in coordination of care (as documented) at patient's floor/unit and/or counseling patient: Coding Level of Care Code 52577 SUB INP/OBS CARE 235MIN Diagnoses JUDE (acute kidney injury) N17.9 Bilateral pleural effusion J90 Secondary hyperparathyroidism N25.81 Lymphedema I89.0
[2023-04-28] MEDS: cefTRIAXone SODIUM 2,000 MG in DEXTROSE 5 % MINI-B 50 ML IV SCH (12:56)
[2023-04-28] MEDS: ADVANCED PROBIOTIC 1250 MG CAPSULE PO SCH (13:50)
[2023-04-29] MEDS: oxyCODONE HCL IR 5 MG TAB (IMMEDIATE RELEASE) PO PRN ×2 (01:52→16:54)
[2023-04-29] MEDS: ACETAMINOPHEN 325 MG TAB PO PRN ×2 (03:44→20:32)
[2023-04-29 04:32] LABS: Albumin Level 3.4 gm/dl (3.4-5.0); BUN Creatinine Ratio 45.3 (10-20); Bilirubin Direct 0.3 mg/dl (0-0.2); C Reactive Protein 9.27 mg/dl (0-0.5); Calcium 8.7 mg/dl (8.6-10.3); Creatinine Clr Calc Pharmacy 17.9 ml/min; Est GFR (African American) 22.2 ml/min; Est GFR (Non-African American) 19.2 ml/min; Potassium 4.3 mmol/L (3.5-5.1); Total Protein 6.4 gm/dl (6.0-8.3)
[2023-04-29 04:33] LABS: Hematocrit (blood only) 44.6 % (37.0-47.0); Mean Corpuscular Hemoglobin 26.2 pg (25.0-34.0); Mean Corpuscular Hgb Conc 31.4 g/dL (32.0-36.0); Mean Corpuscular Volume 83.5 fL (80.0-100.0); Platelet Count 101 K/uL (130-400); RDW Coefficient of Variation 17.2 % (11.5-14.5); RDW Standard Deviation 50.9 fL (36.4-46.3); Red Blood Count 5.34 M/uL (4.20-5.40); White Blood Count 7.67 K/ul (4.8-10.8)
--- NOTE | 2023-04-29 07:14 | XRay Report ---
XR chest 1V portable HISTORY: increasing dyspnea COMPARISON: Chest 04/25/2023. FINDINGS: No pneumothorax. The heart remains enlarged. There are surgical clips within the left axill a. No acute fractures identified. Pulmonary edema and small bilateral pleural effusions have progress ed. IMPRESSION: Pulmonary edema and small bilateral pleural effusions have progressed. ACT 112: Negative or not required by law. Electronically signed by: Francisco Javier Aragon M.D. 04/29/2023 7:12 AM
[2023-04-29] MEDS: APIXABAN 2.5 MG TAB PO SCH ×2 (09:31→20:31)
[2023-04-29] MEDS: FUROSEMIDE 40 MG/4 ML VIAL IV SCH ×4 (09:31→20:32)
[2023-04-29] MEDS: ADVANCED PROBIOTIC 1250 MG CAPSULE PO SCH (09:32)
[2023-04-29] MEDS: traMADol HCL 50 MG TABLET PO SCH ×3 (09:34→20:31)
--- NOTE | 2023-04-29 10:41 | Nephrology Progress Note ---
Date of Service April 29, 2023 Assessment & Plan (1) JUDE (acute kidney injury): (2) Bilateral pleural effusion: (3) Secondary hyperparathyroidism: (4) Lymphedema: Plan 87 yo F with PMH of stage 3B CKD, b/l cr 1.4 to 1.6 mg/dl and recent worsening of renal function over last 1 month with creatinine staying around 2.0 to 2.2 mg/dl admitted to the hospital with progressive shortness of breath and noted to have decompensated congestive heart failure. 2D echo showed EF 40 to 45% with EF 50 to 55% 6 months ago with evidence of right-sided heart failure and pulmonary hypertension. She also has permanent atrial fibrillation.. On admission her creatinine was 2.4 which peaked to 2.6. JUDE was thought to be secondary to cardiorenal syndrome. Urinalysis with low-grade proteinuria and UTI with E. coli currently on Zosyn. She was continued on Lasix 80 mg IV twice a day but continues to have suboptimal response to diuretics although overall she reports feeling better. Renal function somewhat stable, electrolyte acceptable. Continues to have significant pulmonary congestion lower extremity edema and overall staying negative and on current dose of diuretics. -- Increase Lasix to 120 mg twice a day, monitor intake and output, aim for net negative --Do not see any pressing indication for kidney replacement therapy at this time. --Monitor electrolytes Admission and Anticipated Discharge Date Admission Date: April 25, 2023 Subjective Emma was seen and evaluated this morning. Has been having more shortness of breath with minimal activity, net even. Continues to have significant lower extremity edema and some pain. Renal function staying relatively stable, Electrolytes acceptable. Blood pressure stable Review of Systems Review of Systems: Detailed review of system was done and pertinent positives and negatives were mentioned above Physical Exam Constitutional: WD/WN, vitals as above + acute distress and + ill appearing Eyes: + anicteric sclerae Neck: normal visual inspection Respiratory: no respiratory distress Auscultation: lungs clear to auscultation bilaterally, + diminished lung sounds and + crackles Cardiovascular: Rate/Rhythm: regular rate and regular rhythm Heart Sounds: normal S1 and normal S2 Extremities: + edema Neurologic: no focal motor deficits Psychiatric: Orientation: alert and oriented x 3 Results & Data Vital Signs (Past 12 Hours) Vital Signs Temp Pulse Pulse Resp BP Pulse Ox O2 Del Method 04/29/23 07:15 Nasal Cannula 04/29/23 07:14 36.5 C 52 L 19 138/71 99 Nasal Cannula 04/29/23 03:57 36.4 C L 62 20 158/77 H 92 Nasal Cannula 04/29/23 01:22 58 L 04/28/23 23:22 36.5 C 59 L 18 131/75 92 Room Air O2 Flow Rate 04/29/23 07:15 2 04/29/23 07:14 2 04/29/23 03:57 2 04/29/23 01:22 04/28/23 23:22 PG Care Time/CCT Total # of Minutes Spent Total Time Spent with Patient: Total time spent is greater than 50% in coordination of care (as documented) at patient's floor/unit and/or counseling patient: Coding Level of Care Code 51089 SUB INP/OBS CARE 2MIN Diagnoses JUDE (acute kidney injury) N17.9 Bilateral pleural effusion J90 Secondary hyperparathyroidism N25.81 Lymphedema I89.0
[2023-04-29] MEDS: cefTRIAXone SODIUM 2,000 MG in DEXTROSE 5 % MINI-B 50 ML IV SCH (12:08)
[2023-04-29] MEDS: LOPERAMIDE HCL 2 MG CAP PO PRN (16:55)
--- NOTE | 2023-04-29 18:05 | Hospitalist Progress Note ---
Date of Service April 29, 2023 Assessment & Plan (1) Leukocytosis: Plan: Sepsis probably due to E. coli UTI - leukocytosis which improved on antibiotics, lactate elevation (though may be caused by organ failure above), mild procalcitonin elevation, CRP significantly elevated at 11 (ESR normal) Possible sources - left foot / leg cellulitis, urinary tract infection (culture with 100K GNR), pneumonia seems less likely pulmonary symptoms more related to volume overload and PCT proportionally not very elevated Consider gout flare as alternative explanation (L foot most suspicious) - steroids would be only reasonable treatment for acute gout in this case. L MTP is not painful last 2 days, seems less likely -narrowed pip-tazo to ceftriaxone 04/28 - will cover UTI and fairly broad for L forefoot cellulitis -follow blood cx 04/25 - NGTD reviewed 04/29 -urine Cx - 100K alvarado-sensitive E. coli -left foot pain prn oxycodone and tramadol -AM CBC CRP reviewed. CRP 11-->9 still very elevated. Leukocytosis resolved (2) (HFpEF) heart failure with preserved ejection fraction: Plan: Acute on chronic biventricular heart failure with mildly reduced LV EF, moderately reduced RV function, RV volume and pressure overload on Echo 04/26 Cardiorenal syndrome Underlying cirrhosis Severe total body volume overload with moderate bilateral pleural effusions, some ascites, severe anasarca refractory to oral diuretics Elevation of HS troponin is related to demand ischemia from the above issues rather than an ACS, downtrending 04/26-2 without rwma's on echo. She has severe atherosclerosis based on CT findings. This is a complex situation with underlying multiple organ failure and limited therapeutic options. Ms. Gatica is at extremely high risk of morbidity, mortality, and significant loss of functional status due to severe exacerbation of severe underlying medical comorbidities. Appreciate thoughtful consultation by prefabricator and millwright helper -trial of diuresis with lasix 80 IV bid has not been very effective - lasix increased to 120 bid today, discussed with prefabricator -if this fails, trial of dialysis was discussed with Ms. Gatica who would want to proceed. Hemodialysis may be physiologically challenging given the cardiorenal failure and cirrhosis -standard GDMT options for heart failure are problematic and contraindicated in this case as outlined in Dr. Perales's note -I&O, daily weight reviewed -BMP LFT 04/29 notable for worsened hyponatremia but BUN/Cr stable 2.23, high bilirubin resolved to 1.0 -mild-mod hypervolemic hyponatremia persists -AM BMP (3) JUDE (acute kidney injury): Plan: JUDE on CKD stage 3, cardiorenal syndrome Cr 2.41 on admission with baseline 1.26 in October (1.73-2 in February) CT A/P without contrast - no obstructive cause of JUDE present prefabricator consulting, see discussion above -Cr unchanged 04/27-, BUN high unchanged, no acidosis (4) Bilateral pleural effusion: Plan: caused by global fluid overload, ascites and anasarca also present -diuretics (5) Anasarca: (6) Permanent atrial fibrillation: Plan: Continue Eliquis for anticoagulation, renal dose 2.5 bid intrinsically rate controlled without AV nadira blocking agents caution with thrombocytopenia - CBC with platelets stable at 100 (7) Type 2 diabetes mellitus: Plan: Hemoglobin A1C 6.9 On no medications as outpatient, stop BG checks unless steroids ordered (8) Liver cirrhosis: Plan: Noted on CT, discussed finding with patient Hepatitis panel negative for A/B/C 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 No chest pain. Consistent with demand ischemia. Trop downtrending. See above Plan Foot wound present on admission - consulted wound nurse Nayeli smith - for accurate I/O in advanced renal disease, JUDE, gross volume overload VTE Prophylaxis - Eliquis Diet - Low Na, Heart healthy, fluid restricted Disposition - PCU though may downgrade to tele soon Updated mirta at bedside last 04/27 Admission and Anticipated Discharge Date Admission Date: April 25, 2023 Subjective Continues dyspneic unchanged last 2 days but improved compared to at time of admission. Edema not improved. Has pain mostly in both heels, L forefoot pain improved a bit since admission. Physical Exam 2 Physical Exam: PHYSICAL EXAMINATION Last 24h vital signs reviewed, see documentation in flowsheet General: chronically ill appearing woman, no distress, lying pretty flat in bed HEENT: Normocephalic, atraumatic, pupils round and equal, sclerae anicteric, no conjunctival injection, moist mucus membranes. cat scratch on nose - healing well Lungs: increased respiratory effort unchanged. scattered coarse sounds and crackles anteriorly, not currently wheezing Heart: Regular rate and rhythm, systolic murmur, +JVD Abdomen: Soft, nontender, nondistended. Bowel sounds present. Abdominal wall edema present - not improved Extremities: Warm, dry. 3+ UE edema seems worse, 3-4+ edema of bilateral LE unchanged. Ext are warm Both LE are key and purplish at baseline. L forefoot and both lower legs are dressed. c/d/i 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 Neuro: Alert and oriented x 4, face symmetric, moves 4 extremities but appears globally weak Psych: Normal affect and behavior Results & Data Results & Data Vital Signs (Past 12 Hours) Vital Signs Temp Pulse Pulse Resp BP Pulse Ox O2 Del Method 04/29/23 16:02 36.4 C L 54 L 17 131/62 96 Nasal Cannula 04/29/23 10:59 36.5 C 50 L 20 146/75 H 98 Nasal Cannula 04/29/23 07:15 Nasal Cannula 04/29/23 07:14 36.5 C 52 L 19 138/71 99 Nasal Cannula O2 Flow Rate 04/29/23 16:02 2 04/29/23 10:59 2 04/29/23 07:15 2 04/29/23 07:14 2 Laboratory Results 04/29/23 03:56 04/29/23 03:56 PG Care Time/CCT Total # of Minutes Spent Total Time Spent with Patient: Total time spent is greater than 50% in coordination of care (as documented) at patient's floor/unit and/or counseling patient: Coding Level of Care Code 89950 SUB INP/OBS CARE 3/50MIN Diagnoses Leukocytosis D72.829 (HFpEF) heart failure with preserved ejection fraction I50.30 JUDE (acute kidney injury) N17.9 Bilateral pleural effusion J90 Anasarca R60.1 Permanent atrial fibrillation I48.2 Type 2 diabetes mellitus E11.9 Liver cirrhosis K74.60 Elevated troponin R79.89
[2023-04-30 07:08] LABS: BUN Creatinine Ratio 47.1 (10-20); Calcium 8.9 mg/dl (8.6-10.3); Est GFR (African American) 21.8 ml/min; Est GFR (Non-African American) 18.8 ml/min; Potassium 4.2 mmol/L (3.5-5.1)
[2023-04-30] MEDS: ADVANCED PROBIOTIC 1250 MG CAPSULE PO SCH (08:15)
[2023-04-30] MEDS: APIXABAN 2.5 MG TAB PO SCH ×2 (08:15→20:37)
[2023-04-30] MEDS: traMADol HCL 50 MG TABLET PO SCH ×3 (08:15→20:39)
[2023-04-30] MEDS: FUROSEMIDE 40 MG/4 ML VIAL IV SCH ×2 (08:15→20:37)
[2023-04-30] MEDS: ACETAMINOPHEN 325 MG TAB PO PRN ×3 (08:16→20:38)
[2023-04-30] MEDS: metOLazone 5 MG TABLET PO SCH (09:08)
[2023-04-30] MEDS: cefTRIAXone SODIUM 2,000 MG in DEXTROSE 5 % MINI-B 50 ML IV SCH (11:59)
--- NOTE | 2023-04-30 12:36 | Nephrology Progress Note ---
Date of Service April 30, 2023 Assessment & Plan (1) JUDE (acute kidney injury): (2) Bilateral pleural effusion: (3) Secondary hyperparathyroidism: (4) Lymphedema: Plan 87 yo F with PMH of stage 3B CKD, b/l cr 1.4 to 1.6 mg/dl and recent worsening of renal function over last 1 month with creatinine staying around 2.0 to 2.2 mg/dl admitted to the hospital with progressive shortness of breath and noted to have decompensated congestive heart failure. 2D echo showed EF 40 to 45% with EF 50 to 55% 6 months ago with evidence of right-sided heart failure and pulmonary hypertension. She also has permanent atrial fibrillation.. On admission her creatinine was 2.4 which peaked to 2.6. JUDE was thought to be secondary to cardiorenal syndrome. Urinalysis with low-grade proteinuria and UTI with E. coli currently on Zosyn. She was continued on Lasix 80 mg IV twice a day but continues to have suboptimal response to diuretics although overall she reports feeling better. Although urine output slightly improved continues to have significant pulmonary congestion and lower extremity edema and overall staying negative and on current dose of diuretics. No significant changes in renal function creatinine 2.3, BUN staying around 1.7 and sodium dropped to 129. --Metolazone 5 mg daily before a.m. Lasix dose and continue on Lasix 120 mg IV twice a day, monitor intake and output, aim for net negative --Discussed in detail with Emma this morning that we are not seeing any meaningful clinical improvement orimprovement in her renal function over last few days although so far electrolyte remain acceptable. With metolazone and higher dose of diuretics we may see further worsening of renal function. In the next day or 2 if we do not see any significant improvement in renal function or volume status and overall how she feels, it would be reasonable to consider getting a tunneled dialysis catheter and starting on dialysis. She is agreeable to the plan. Admission and Anticipated Discharge Date Admission Date: April 25, 2023 Subjective Ananda was seen and examined this morning. She reports overall feeling slightly better today compared to yesterday. She feels that her legs are not as swollen and tender like yesterday. Urine output slightly improved to about 900 cc overnight with higher dose of Lasix. However, no significant changes in renal function. Blood pressure fair. Review of Systems Review of Systems: Detailed review of system was done and pertinent positives and negatives were mentioned above Physical Exam Constitutional: WD/WN, vitals as above + acute distress and + ill appearing Eyes: + anicteric sclerae Neck: normal visual inspection Respiratory: no respiratory distress Auscultation: + diminished lung sounds and + crackles Cardiovascular: Rate/Rhythm: regular rate and regular rhythm Heart Sounds: normal S1 and normal S2 Extremities: + edema Neurologic: no focal motor deficits Psychiatric: Orientation: alert and oriented x 3 Results & Data Vital Signs (Past 12 Hours) Vital Signs Temp Pulse Resp BP Pulse Ox O2 Del Method O2 Flow Rate 04/30/23 07:15 36.5 C 55 L 17 145/74 H 98 Nasal Cannula 2 04/30/23 07:00 Nasal Cannula 2 04/30/23 03:10 36.4 C L 48 L 18 130/65 99 Nasal Cannula PG Care Time/CCT Total # of Minutes Spent Total Time Spent with Patient: Total time spent is greater than 50% in coordination of care (as documented) at patient's floor/unit and/or counseling patient: Coding Level of Care Code 90865 SUB INP/OBS CARE 3/50MIN Diagnoses JUDE (acute kidney injury) N17.9 Bilateral pleural effusion J90 Secondary hyperparathyroidism N25.81 Lymphedema I89.0
--- NOTE | 2023-04-30 22:14 | Hospitalist Progress Note ---
Date of Service April 30, 2023 Assessment & Plan (1) Acute on chronic systolic heart failure: Plan: echo this admission with EF 40-45%, pulm HTN, and right ventricular systolic dysfunction as well remains on IV lasix 120mg BID slow diuresis with rising BUN and decreasing Na level still quite volume overloaded on examination appreciate assistance from Dr Ferrera, nephrology, with respect to diuretics defer management to her BMP daily (2) Pulmonary hypertension: Plan: moderate on echo cont NC O2 with improvement in volume status her PA pressures may fall (3) Liver cirrhosis: Plan: 2nd MCKEON? 2nd to "cardiac cirrhosis?" other? (4) Elevated troponin: Plan: peak HS troponin 250 likely myocardial demand ischemia from #1 above no evidence of ACS (5) Permanent atrial fibrillation: Plan: rates controlled w/o any AV nadira agent cont Eliquis BID 2.5mg (6) Type 2 diabetes mellitus: Plan: a1c 6.9% in Mar 2023 should have BSG checks institute novolog if needed (7) Lymphedema: Plan: LUE chronic, due to prior Rx for breast ca (8) Gout: Plan: SEVERE tophaceous gout of hands, etc indicative of long-standing, uncontrolled disease strongly consider allopurinol or uloric check uric acid level am (9) Hyponatremia: Plan: 2nd to diuresis for #1 daily BMP (10) Chronic kidney disease, stage IV (severe): Plan: baseline CrCl 15-25 daily BMP (11) Cellulitis of foot: Plan: left with wound cont local wound care day #6 of abx - currently on once daily IV rocephin (12) UTI (urinary tract infection): Plan: 2nd e.coli rocephin will suffice (13) DVT prophylaxis: Plan: eliquis 2.5mg BID Plan cont PT/OT Admission and Anticipated Discharge Date Admission Date: April 25, 2023 Subjective tele overnight - a.fib patient denies dyspnea at rest appetite fair no chest pain no abd pain chronic joint pains in hands, etc Review of Systems Review of Systems: gen - no fevers cv - no orthopnea; ongoing edema pulm - no cough GI - no N/V Physical Exam Physical Exam: gen - obese, NAD, pleasant neck - JVD present mouth - MM dry; no thrush extremities - severe edema b/l legs from feet to thighs; left arm lymphedema musculo - SEVERE tophaceous gout of b/l hands - numerous small joints heart - irregularly irregular, s1 s2, 2/6 systolic murmur LSB lungs - b/l rales abd - distended with body wall edema, BS+, NT vascular - pulses b/l feet 2+ Results & Data Results & Data Vital Signs (Past 12 Hours) Vital Signs Temp Pulse Resp BP BP Pulse Ox O2 Del Method 04/30/23 19:10 36.7 C 68 18 133/60 96 Nasal Cannula 04/30/23 16:24 36.6 C 53 L 17 132/66 99 Nasal Cannula 04/30/23 13:52 93 04/30/23 12:35 36.5 C 53 L 18 115/59 L 98 Nasal Cannula O2 Flow Rate 04/30/23 19:10 2 04/30/23 16:24 2 04/30/23 13:52 04/30/23 12:35 2 Laboratory Results Laboratory Results 04/30/23 06:01 Sodium 129 L Potassium 4.2 Chloride 91 L Carbon Dioxide 28 Anion Gap 10 BUN 107 H Creatinine 2.27 H Est Cr Clr Drug Dosing 18.0 Est GFR ( Amer) 21.8 Est GFR (Non-Af Amer) 18.8 BUN/Creatinine Ratio 47.1 H Glucose 118 H Uric Acid Calcium 8.9 PG Care Time/CCT Total # of Minutes Spent Total Time Spent with Patient: Total time spent is greater than 50% in coordination of care (as documented) at patient's floor/unit and/or counseling patient: Coding Level of Care Code 87044 SUB INP/OBS CARE 2/35MIN Diagnoses Acute on chronic systolic heart failure I50.23 Pulmonary hypertension I27.20 Liver cirrhosis K74.60 Elevated troponin R79.89 Permanent atrial fibrillation I48.2 Type 2 diabetes mellitus E11.9 Lymphedema I89.0 Gout M10.9 Hyponatremia E87.1 Chronic kidney disease, stage IV (severe) N18.4 Cellulitis of foot L03.119 UTI (urinary tract infection) N39.0 DVT prophylaxis Z29.9
[2023-05-01 06:10] LABS: BUN Creatinine Ratio 51.2 (10-20); Calcium 8.7 mg/dl (8.6-10.3); Creatinine Clr Calc Pharmacy 19.2 ml/min; Est GFR (African American) 23.5 ml/min; Est GFR (Non-African American) 20.3 ml/min; Potassium 3.8 mmol/L (3.5-5.1); Uric Acid 11.2 mg/dl (2.6-7.2)
[2023-05-01] MEDS: metOLazone 5 MG TABLET PO SCH (08:57)
[2023-05-01] MEDS: ADVANCED PROBIOTIC 1250 MG CAPSULE PO SCH (08:57)
[2023-05-01] MEDS: APIXABAN 2.5 MG TAB PO SCH ×2 (08:57→20:19)
[2023-05-01] MEDS: LOPERAMIDE HCL 2 MG CAP PO PRN (08:58)
[2023-05-01] MEDS: traMADol HCL 50 MG TABLET PO SCH ×3 (08:58→20:19)
[2023-05-01] MEDS: ACETAMINOPHEN 325 MG TAB PO PRN ×3 (08:58→20:18)
[2023-05-01] MEDS: FUROSEMIDE 40 MG/4 ML VIAL IV SCH ×2 (08:58→20:19)
[2023-05-01] MEDS: cefTRIAXone SODIUM 2,000 MG in DEXTROSE 5 % MINI-B 50 ML IV SCH (12:48)
--- NOTE | 2023-05-01 13:13 | Nephrology Progress Note ---
Date of Service May 01, 2023 Assessment & Plan (1) JUDE (acute kidney injury): (2) Bilateral pleural effusion: (3) Secondary hyperparathyroidism: (4) Lymphedema: Plan 87 yo F with PMH of stage 3B CKD, b/l cr 1.4 to 1.6 mg/dl and recent worsening of renal function over last 1 month with creatinine staying around 2.0 to 2.2 mg/dl admitted to the hospital with progressive shortness of breath and noted to have decompensated congestive heart failure. 2D echo showed EF 40 to 45% with EF 50 to 55% 6 months ago with evidence of right-sided heart failure and pulmonary hypertension. She also has permanent atrial fibrillation.. On admission her creatinine was 2.4 which peaked to 2.6. JUDE was thought to be secondary to cardiorenal syndrome. Urinalysis with low-grade proteinuria and UTI with E. coli currently on Zosyn. She was continued on Lasix 80 mg IV twice a day but continues to have suboptimal response to diuretics although overall she reports feeling better. Urine output improved on Metolazone and net about 0.5 L negative. Lower extremity edema improved. Relatively stable renal function creatinine 2.1, BUN staying around 107 and sodium dropped to 129. --continue Metolazone 5 mg daily before a.m. Lasix dose and continue on Lasix 120 mg IV twice a day, monitor intake and output, aim for net negative --Discussed in detail with Emma again this morning that overall her renal function staying about the same over last few days. With metolazone and higher dose of diuretics we may see further worsening of renal function. In the next day or 2 if we do not see any significant improvement in renal function or volume status and overall how she feels, it would be reasonable to consider getting a tunneled dialysis catheter and starting on dialysis. She is agreeable to the plan. Admission and Anticipated Discharge Date Admission Date: April 25, 2023 Subjective Ananda was seen and examined this morning. She reports " spirit slightly down" today overall no significant changes clinically. Urine output improved to about 1500 cc overnight. Renal function relatively stable. Blood pressure fair. Review of Systems Review of Systems: Detailed review of system was done and pertinent positives and negatives were mentioned above Physical Exam Constitutional: WD/WN, vitals as above + ill appearing; no acute distress Eyes: + anicteric sclerae Neck: normal visual inspection Respiratory: no respiratory distress Auscultation: + diminished lung sounds and + crackles Cardiovascular: Rate/Rhythm: regular rate and regular rhythm Heart Sounds: normal S1 and normal S2 Extremities: + edema Neurologic: no focal motor deficits Psychiatric: Orientation: alert and oriented x 3 Results & Data Vital Signs (Past 12 Hours) Vital Signs Temp Pulse Pulse Resp BP Pulse Ox O2 Del Method 05/01/23 11:22 36.5 C 53 L 17 129/65 98 Nasal Cannula 05/01/23 10:20 52 L 05/01/23 08:03 Nasal Cannula 05/01/23 07:15 36.4 C L 55 L 16 138/70 99 Nasal Cannula 05/01/23 03:00 36.3 C L 57 L 18 147/74 H 98 Nasal Cannula O2 Flow Rate 05/01/23 11:22 2.0 05/01/23 10:20 05/01/23 08:03 2 05/01/23 07:15 2.0 05/01/23 03:00 2 PG Care Time/CCT Total # of Minutes Spent Total Time Spent with Patient: Total time spent is greater than 50% in coordination of care (as documented) at patient's floor/unit and/or counseling patient: Coding Level of Care Code 82483 SUB INP/OBS CARE 2/35MIN Diagnoses JUDE (acute kidney injury) N17.9 Bilateral pleural effusion J90 Secondary hyperparathyroidism N25.81 Lymphedema I89.0
--- NOTE | 2023-05-01 22:03 | Hospitalist Progress Note ---
Date of Service May 01, 2023 Assessment & Plan (1) Acute on chronic systolic heart failure: Plan: echo this admission with EF 40-45%, pulm HTN, and right ventricular systolic dysfunction as well remains on IV lasix 120mg BID metolazone 5mg AM added by Dr Ferrera diuresis was better today with such unfortunately she continues to have a rise in BUN with aggressive diuresis and remains volume overloaded appreciate assistance from Dr Ferrera, nephrology, with respect to diuretics defer management to her BMP daily (2) Pulmonary hypertension: Plan: moderate on echo cont NC O2 with improvement in volume status her PA pressures may fall (3) Liver cirrhosis: Plan: 2nd MCKEON? 2nd to "cardiac cirrhosis?" other? consider aldactone but hold off due to CKD (4) Elevated troponin: Plan: peak HS troponin 250 likely myocardial demand ischemia from #1 above no evidence of ACS (5) Permanent atrial fibrillation: Plan: rates controlled w/o any AV nadira agent cont Eliquis BID 2.5mg (6) Type 2 diabetes mellitus: Plan: a1c 6.9% in Mar 2023 should have BSG checks institute novolog if needed (7) Lymphedema: Plan: LUE chronic, due to prior Rx for breast ca (8) Gout: Plan: SEVERE tophaceous gout of hands, etc indicative of long-standing, uncontrolled disease strongly consider allopurinol or uloric uric acid level 11.2; goal would be <6 (9) Hyponatremia: Plan: 2nd to diuresis for #1 daily BMP (10) Chronic kidney disease, stage IV (severe): Plan: baseline CrCl 15-25 daily BMP (11) Cellulitis of foot: Plan: left with wound cont local wound care day #7 of abx - currently on once daily IV rocephin will inspect L foot tomorrow (12) UTI (urinary tract infection): Plan: 2nd e.coli rocephin will suffice (13) DVT prophylaxis: Plan: eliquis 2.5mg BID Plan cont PT/OT daughter updated at bedside discussed with them that if volume status is not consistently improving by Saturday Dr Ferrera may consider dialysis Admission and Anticipated Discharge Date Admission Date: April 25, 2023 Subjective tele - afib rate controlled no new complaints she thinks she is a little better today denies dyspnea at rest no new areas of joint pain daughter at bedside Review of Systems Review of Systems: cv - no chest pain pulm - no cough GI - no abd pain/nausea/emesis Physical Exam Physical Exam: gen - obese, NAD, pleasant neck - JVD present mouth - MM very dry; no thrush extremities - severe edema b/l legs from feet to thighs - maybe slightly better; left arm lymphedema musculo - SEVERE tophaceous gout of b/l hands heart - irregularly irregular, s1 s2, 2/6 systolic murmur LSB lungs - b/l rales bases; anteriorly she is clear abd - distended with body wall edema, BS+, NT vascular - pulses b/l feet 2+ psych - a/o x 3 skin - left foot wrapped in dressings; no cellulitis of L greer Results & Data Results & Data Vital Signs (Past 12 Hours) Vital Signs Temp Pulse Pulse Resp BP Pulse Ox O2 Del Method 05/01/23 20:53 Nasal Cannula 05/01/23 19:41 36.4 C L 54 L 18 122/58 L 97 Room Air 05/01/23 16:00 60 05/01/23 15:45 36.4 C L 51 L 18 124/63 100 Nasal Cannula 05/01/23 11:22 36.5 C 53 L 17 129/65 98 Nasal Cannula 05/01/23 10:20 52 L O2 Flow Rate 05/01/23 20:53 2 05/01/23 19:41 05/01/23 16:00 05/01/23 15:45 2.0 05/01/23 11:22 2.0 05/01/23 10:20 Laboratory Results Laboratory Results - last 24 hr 05/01/23 05:09 Sodium 129 L Potassium 3.8 Chloride 92 L Carbon Dioxide 27 Anion Gap 10 BUN 109 H Creatinine 2.13 H Est Cr Clr Drug Dosing 19.2 Est GFR ( Amer) 23.5 Est GFR (Non-Af Amer) 20.3 BUN/Creatinine Ratio 51.2 H Glucose 112 H Uric Acid 11.2 H Calcium 8.7 PG Care Time/CCT Total # of Minutes Spent Total Time Spent with Patient: Total time spent is greater than 50% in coordination of care (as documented) at patient's floor/unit and/or counseling patient: Coding Level of Care Code 76353 SUB INP/OBS CARE 2/35MIN Diagnoses Acute on chronic systolic heart failure I50.23 Pulmonary hypertension I27.20 Liver cirrhosis K74.60 Elevated troponin R79.89 Permanent atrial fibrillation I48.2 Type 2 diabetes mellitus E11.9 Lymphedema I89.0 Gout M10.9 Hyponatremia E87.1 Chronic kidney disease, stage IV (severe) N18.4 Cellulitis of foot L03.119 UTI (urinary tract infection) N39.0 DVT prophylaxis Z29.9
[2023-05-02 06:47] LABS: BUN Creatinine Ratio 55.3 (10-20); Calcium 8.7 mg/dl (8.6-10.3); Creatinine Clr Calc Pharmacy 20.2 ml/min; Est GFR (African American) 25.5 ml/min; Potassium 3.5 mmol/L (3.5-5.1)
[2023-05-02] MEDS: APIXABAN 2.5 MG TAB PO SCH ×2 (08:05→20:52)
[2023-05-02] MEDS: ADVANCED PROBIOTIC 1250 MG CAPSULE PO SCH (08:05)
[2023-05-02] MEDS: traMADol HCL 50 MG TABLET PO SCH ×3 (08:05→20:51)
[2023-05-02] MEDS: ACETAMINOPHEN 325 MG TAB PO PRN ×3 (08:05→20:52)
[2023-05-02] MEDS: metOLazone 5 MG TABLET PO SCH (08:06)
[2023-05-02] MEDS: LOPERAMIDE HCL 2 MG CAP PO PRN ×2 (08:07→20:51)
[2023-05-02] MEDS: FUROSEMIDE 40 MG/4 ML VIAL IV SCH ×2 (09:19→20:53)
[2023-05-02] MEDS: cefTRIAXone SODIUM 2,000 MG in DEXTROSE 5 % MINI-B 50 ML IV SCH (11:48)
--- NOTE | 2023-05-02 13:39 | Nephrology Progress Note ---
Date of Service May 02, 2023 Assessment & Plan (1) JUDE (acute kidney injury): (2) Bilateral pleural effusion: (3) Secondary hyperparathyroidism: (4) Lymphedema: Plan 87 yo F with PMH of stage 3B CKD, b/l cr 1.4 to 1.6 mg/dl and recent worsening of renal function over last 1 month with creatinine staying around 2.0 to 2.2 mg/dl admitted to the hospital with progressive shortness of breath and noted to have decompensated congestive heart failure. 2D echo showed EF 40 to 45% with EF 50 to 55% 6 months ago with evidence of right-sided heart failure and pulmonary hypertension. She also has permanent atrial fibrillation.. On admission her creatinine was 2.4 which peaked to 2.6. JUDE was thought to be secondary to cardiorenal syndrome. Urinalysis with low-grade proteinuria and UTI with E. coli currently on Zosyn. She was continued on Lasix 80 mg IV twice a day but continues to have suboptimal response to diuretics although overall she reports feeling better. Urine output improved on Metolazone and net about 0.5 L negative. Lower extremity edema improved. Relatively stable renal function creatinine 2.1, BUN staying around 107 and sodium dropped to 129. --continue Metolazone 5 mg daily before a.m. Lasix dose and continue on Lasix 120 mg IV twice a day, monitor intake and output, aim for net negative --Discussed in detail with Emma again this morning that overall her renal function staying about the same, . With metolazone and higher dose of diuretics we may see worsening of renal function although so far remained stable. No indication for dialysis at this time. Admission and Anticipated Discharge Date Admission Date: April 25, 2023 Subjective Ananda was seen and examined this morning. She reports overall feeling better today. Urine output improved to about 1500 cc overnight. Renal function relatively stable, acceptable electrolyte. Blood pressure fair. Review of Systems Review of Systems: Detailed review of system was done and pertinent positives and negatives were mentioned above Physical Exam Constitutional: WD/WN, vitals as above + ill appearing; no acute distress Eyes: + anicteric sclerae Neck: normal visual inspection Respiratory: no respiratory distress Auscultation: + diminished lung sounds and + crackles Cardiovascular: Rate/Rhythm: regular rate and regular rhythm Heart Sounds: normal S1 and normal S2 Extremities: + edema Neurologic: no focal motor deficits Psychiatric: Orientation: alert and oriented x 3 Results & Data Vital Signs (Past 12 Hours) Vital Signs Temp Pulse Pulse Resp BP Pulse Ox O2 Del Method 05/02/23 11:47 36.5 C 55 L 16 149/66 H 95 Nasal Cannula 05/02/23 08:00 Nasal Cannula 05/02/23 07:32 50 L 05/02/23 07:13 36.3 C L 55 L 16 144/67 H 98 Nasal Cannula 05/02/23 03:21 67 05/02/23 03:14 36.3 C L 53 L 18 130/67 97 Nasal Cannula O2 Flow Rate 05/02/23 11:47 2.0 05/02/23 08:00 2 05/02/23 07:32 05/02/23 07:13 2.0 05/02/23 03:21 05/02/23 03:14 2 PG Care Time/CCT Total # of Minutes Spent Total Time Spent with Patient: Total time spent is greater than 50% in coordination of care (as documented) at patient's floor/unit and/or counseling patient: Coding Level of Care Code 91389 SUB INP/OBS CARE 2/35MIN Diagnoses JUDE (acute kidney injury) N17.9 Bilateral pleural effusion J90 Secondary hyperparathyroidism N25.81 Lymphedema I89.0
--- NOTE | 2023-05-02 20:50 | Hospitalist Progress Note ---
Date of Service May 02, 2023 Assessment & Plan (1) Acute on chronic systolic heart failure: Plan: echo this admission with EF 40-45%, pulm HTN, and right ventricular systolic dysfunction as well remains on IV lasix 120mg BID + metolazone 5mg AM diuresis has improved last 48 hours with above regimen unfortunately she continues to have a rise in BUN with aggressive diuresis and remains volume overloaded appreciate assistance from Dr Ferrera, nephrology, with respect to diuretics defer management to her BMP daily does follow with Nasrin Shields in [facility] as well (2) Pulmonary hypertension: Plan: moderate on echo cont NC O2 with improvement in volume status her PA pressures may fall (3) Liver cirrhosis: Plan: 2nd MCKEON? 2nd to "cardiac cirrhosis?" other? consider aldactone but hold off due to CKD (4) Elevated troponin: Plan: peak HS troponin 250 likely myocardial demand ischemia from #1 above no evidence of ACS (5) Permanent atrial fibrillation: Plan: rates controlled w/o any AV nadira agent cont Eliquis BID 2.5mg (6) Type 2 diabetes mellitus: Plan: a1c 6.9% in Mar 2023 should have BSG checks - will order institute novolog if needed DM diet (7) Lymphedema: Plan: LUE chronic, due to prior Rx for breast ca (8) Gout: Plan: SEVERE tophaceous gout of hands, etc indicative of long-standing, uncontrolled disease strongly consider allopurinol or uloric uric acid level 11.2; goal would be <6 (9) Hyponatremia: Plan: 2nd to diuresis for #1 stable daily BMP (10) Chronic kidney disease, stage IV (severe): Plan: baseline CrCl 15-25 daily BMP (11) Cellulitis of foot: Plan: left foot/distal greer - resolved wound L foot - no infection on exam today cont local wound care day #8 of abx - currently on once daily IV rocephin - stop, change to 2 days more of omnicef then stop all abx (12) UTI (urinary tract infection): Plan: 2nd e.coli resolved clinically has completed 7+ days of IV/PO abx (13) DVT prophylaxis: Plan: eliquis 2.5mg BID Plan cont PT/OT daughter updated at bedside Admission and Anticipated Discharge Date Admission Date: April 25, 2023 Subjective tele - a.fib, rates acceptable no new complaints was OOB and walking with therapy states she didn't have significant dyspnea no orthopnea cont with severe edema minor pain L foot daughter at bedside Review of Systems Review of Systems: cv - no pain pulm - no cough GI - no N/V Physical Exam Physical Exam: gen - obese, NAD, pleasant neck - JVD present to the jaw mouth - MM very dry; no thrush; no ulcers extremities - severe edema b/l legs from feet to thighs - unchanged; left arm lymphedema musculo - SEVERE tophaceous gout of b/l hands unchanged heart - irregularly irregular, s1 s2, 2/6 systolic murmur LSB lungs - b/l rales bases unchanged abd - distended with body wall edema, BS+, NT vascular - pulses b/l feet 2+ psych - a/o x 3 skin - left foot dressings removed; no cellulitis of L greer; no cellulitis of L foot. large ulcer on dorsum of L foot with thin rim of granulation on border and wound bed is nice and pink without purulence or odor. Left great toe plantar aspect area of necrotic skin - about nickel-quarter size, no drainage Results & Data Results & Data Vital Signs (Past 12 Hours) Vital Signs Temp Pulse Resp BP Pulse Ox O2 Del Method O2 Flow Rate 05/02/23 20:05 Nasal Cannula 2 05/02/23 19:09 36.3 C L 52 L 18 129/67 98 Nasal Cannula 2 05/02/23 15:30 36.3 C L 55 L 17 151/76 H 98 Nasal Cannula 2.0 05/02/23 14:10 Nasal Cannula 2 05/02/23 11:47 36.5 C 55 L 16 149/66 H 95 Nasal Cannula 2.0 Laboratory Results Laboratory Results 05/02/23 05:36 Sodium 130 L Potassium 3.5 Chloride 91 L Carbon Dioxide 28 Anion Gap 11 BUN 110 H Creatinine 1.99 H Est Cr Clr Drug Dosing 20.2 Est GFR ( Amer) 25.5 Est GFR (Non-Af Amer) 22.0 BUN/Creatinine Ratio 55.3 H Glucose 103 H Calcium 8.7 Magnesium PG Care Time/CCT Total # of Minutes Spent Total Time Spent with Patient: Total time spent is greater than 50% in coordination of care (as documented) at patient's floor/unit and/or counseling patient: Coding Level of Care Code 51623 SUB INP/OBS CARE MIN Diagnoses Acute on chronic systolic heart failure I50.23 Pulmonary hypertension I27.20 Liver cirrhosis K74.60 Elevated troponin R79.89 Permanent atrial fibrillation I48.2 Type 2 diabetes mellitus E11.9 Lymphedema I89.0 Gout M10.9 Hyponatremia E87.1 Chronic kidney disease, stage IV (severe) N18.4 Cellulitis of foot L03.119 UTI (urinary tract infection) N39.0 DVT prophylaxis Z29.9
[2023-05-03 06:27] LABS: BUN Creatinine Ratio 64.2 (10-20); Calcium 8.8 mg/dl (8.6-10.3); Creatinine Clr Calc Pharmacy 22.9 ml/min; Est GFR (African American) 29.6 ml/min; Est GFR (Non-African American) 25.6 ml/min; Magnesium 2.2 mg/dl (1.7-2.4)
[2023-05-03] MEDS ORDERED: POTASSIUM CHLORIDE CRTAB 20 MEQ TABCR PO STA ×2 (08:31→18:04)
[2023-05-03] MEDS: CEFDINIR 300 MG CAP PO SCH (09:54)
[2023-05-03] MEDS: ADVANCED PROBIOTIC 1250 MG CAPSULE PO SCH (09:55)
[2023-05-03] MEDS: metOLazone 5 MG TABLET PO SCH (09:55)
[2023-05-03] MEDS: APIXABAN 2.5 MG TAB PO SCH ×2 (09:55→20:12)
[2023-05-03] MEDS: traMADol HCL 50 MG TABLET PO SCH ×3 (09:57→20:13)
[2023-05-03] MEDS: LOPERAMIDE HCL 2 MG CAP PO PRN (09:57)
[2023-05-03] MEDS: ACETAMINOPHEN 325 MG TAB PO PRN ×3 (09:57→20:12)
[2023-05-03] MEDS: FUROSEMIDE 40 MG/4 ML VIAL IV SCH ×2 (09:57→20:13)
--- NOTE | 2023-05-03 13:14 | Nephrology Progress Note ---
Date of Service May 03, 2023 Assessment & Plan (1) JUDE (acute kidney injury): (2) Bilateral pleural effusion: (3) Secondary hyperparathyroidism: (4) Lymphedema: Plan 87 yo F with PMH of stage 3B CKD, b/l cr 1.4 to 1.6 mg/dl and recent worsening of renal function over last 1 month with creatinine staying around 2.0 to 2.2 mg/dl admitted to the hospital with progressive shortness of breath and noted to have decompensated congestive heart failure. 2D echo showed EF 40 to 45% with EF 50 to 55% 6 months ago with evidence of right-sided heart failure and pulmonary hypertension. She also has permanent atrial fibrillation.. On admission her creatinine was 2.4 which peaked to 2.6. JUDE was thought to be secondary to cardiorenal syndrome. Urinalysis with low-grade proteinuria and UTI with E. coli currently on Zosyn. She was continued on Lasix 80 mg IV twice a day but continues to have suboptimal response to diuretics although overall she reports feeling better. Urine output improved on Metolazone and net about 2 L negative and total >4 L negative. Lower extremity edema improved. Relatively stable renal function creatinine 1.9, BUN staying around 110 and sodium 130. Overall clinically seems doing better --continue Metolazone 5 mg daily and Lasix 120 mg IV twice a day, monitor intake and output, aim for net negative --Discussed in detail with Emma that overall her renal function staying about the same. With metolazone and higher dose of diuretics we may see worsening of renal function although so far remained stable. No indication for dialysis at this time. --continue PT/OT Admission and Anticipated Discharge Date Admission Date: April 25, 2023 Subjective Ananda was seen and examined this morning. She reports overall feeling better. Urine output improved to 2500 cc overnight and net negative about 2 L. Renal function relatively stable, acceptable electrolyte. Blood pressure fair. LE edema improving. Review of Systems Review of Systems: Detailed review of system was done and pertinent positives and negatives were mentioned above Physical Exam Constitutional: WD/WN, vitals as above + ill appearing; no acute distress Eyes: + anicteric sclerae Neck: normal visual inspection Respiratory: no respiratory distress Auscultation: + diminished lung sounds and + crackles Cardiovascular: Rate/Rhythm: regular rate and regular rhythm Heart Sounds: normal S1 and normal S2 Extremities: + edema Neurologic: no focal motor deficits Psychiatric: Orientation: alert and oriented x 3 Results & Data Vital Signs (Past 12 Hours) Vital Signs Temp Pulse Resp BP Pulse Ox O2 Del Method O2 Flow Rate 05/03/23 11:03 36.4 C L 53 L 19 128/68 96 Nasal Cannula 2 05/03/23 10:46 Nasal Cannula 2 05/03/23 07:06 36.4 C L 50 L 18 141/71 H 97 Nasal Cannula 2 05/03/23 03:25 36.5 C 51 L 18 147/74 H 99 Nasal Cannula 2 PG Care Time/CCT Total # of Minutes Spent Total Time Spent with Patient: Total time spent is greater than 50% in coordination of care (as documented) at patient's floor/unit and/or counseling patient: Coding Level of Care Code 89467 SUB INP/OBS CARE 235MIN Diagnoses JUDE (acute kidney injury) N17.9 Bilateral pleural effusion J90 Secondary hyperparathyroidism N25.81 Lymphedema I89.0
[2023-05-03] MEDS: allopurinoL 100 MG TAB PO SCH (14:33)
--- NOTE | 2023-05-03 18:30 | Hospitalist Progress Note ---
Date of Service May 03, 2023 Assessment & Plan (1) Acute on chronic systolic heart failure: Plan: volume status improving, albeit very slowly given her renal dysfunction is finally (and consistently) putting out 2 to 2.5 L of urine/day still very volume overloaded echo this admission with EF 40-45%, pulm HTN, and right ventricular systolic dysfunction as well remains on IV lasix 120mg BID + metolazone 5mg AM unfortunately her BUN is very high with aggressive diuresis and trying to increase diuretics further likely not possible appreciate assistance from Dr Ferrera, nephrology, with respect to diuretics BMP daily does follow with Nasrin Shields in [facility] CHF clinic as well (2) Pulmonary hypertension: Plan: moderate on echo cont NC O2 with improvement in volume status her PA pressures may fall (3) Liver cirrhosis: Plan: 2nd MCKEON? 2nd to "cardiac cirrhosis?" other? consider aldactone but hold off due to CKD (4) Elevated troponin: Plan: peak HS troponin 250 likely myocardial demand ischemia from #1 above no evidence of ACS (5) Permanent atrial fibrillation: Plan: rates controlled w/o any AV nadira agent cont Eliquis BID 2.5mg (6) Type 2 diabetes mellitus: Plan: a1c 6.9% in Mar 2023 BSGs are wnl today thus - diet control only defer on novolog DM diet (7) Lymphedema: Plan: LUE chronic, due to prior Rx for breast ca (8) Gout: Plan: SEVERE tophaceous gout of hands, etc indicative of long-standing, uncontrolled disease uric acid level 11.2; goal would be <6 start allopurinol 50mg/day titrate over the next few months (9) Hyponatremia: Plan: 2nd to diuresis for #1 stable daily BMP (10) Chronic kidney disease, stage IV (severe): Plan: baseline CrCl 15-25 daily BMP (11) Cellulitis of foot: Plan: left foot/distal greer - resolved wound L foot cont local wound care day #9 of abx stop abx tomorrow (12) UTI (urinary tract infection): Plan: 2nd e.coli resolved clinically has completed 7+ days of IV/PO abx (13) DVT prophylaxis: Plan: eliquis 2.5mg BID Plan cont PT/OT daughter updated at bedside diarrhea - check a cdiff Admission and Anticipated Discharge Date Admission Date: April 25, 2023 Subjective a.fib with rates <100 no new complaints feeling ok feels stronger, able to bend her limbs more easily especially the knees eating better minimal L foot discomfort no cough denies any dyspnea Review of Systems Review of Systems: cv - no chest pain GI - no abd pain but still having diarrhea pulm - no dyspnea on exertion or wheezes Physical Exam Physical Exam: gen - obese, NAD, pleasant; laying in bed comfortably neck - JVD present to the jaw mouth - MM more moist extremities - severe edema b/l legs from feet to thighs - unchanged; left arm lymphedema musculo - SEVERE tophaceous gout of b/l hands unchanged heart - irregularly irregular, s1 s2, 2/6 systolic murmur LSB lungs - b/l rales bases maybe slightly better abd - distended with body wall edema - improved , BS+, NT vascular - pulses b/l feet 2+ psych - a/o x 3 skin - left foot dressings intact Results & Data Results & Data Vital Signs (Past 12 Hours) Vital Signs Temp Pulse Resp BP Pulse Ox O2 Del Method O2 Flow Rate 05/03/23 15:09 36.5 C 56 L 19 156/79 H 99 Nasal Cannula 2 05/03/23 11:03 36.4 C L 53 L 19 128/68 96 Nasal Cannula 2 05/03/23 10:46 Nasal Cannula 2 05/03/23 07:06 36.4 C L 50 L 18 141/71 H 97 Nasal Cannula 2 Laboratory Results Laboratory Results 05/03/23 05/03/23 05:51 12:20 WBC RBC Hgb Hct MCV MCH MCHC RDW Std Deviation RDW Coeff of Rylee Plt Count MPV Immature Gran % (Auto) Neut % (Auto) Lymph % (Auto) Kimble % (Auto) Eos % (Auto) Baso % (Auto) Neut # (Auto) Lymph # (Auto) Kimble # (Auto) Eos # (Auto) Baso # (Auto) Immature Gran # (Auto) Platelet Estimate Polychromasia Sodium 130 L Potassium 3.0 L Chloride 89 L Carbon Dioxide 30 Anion Gap 11 BUN 113 H Creatinine 1.76 H Est Cr Clr Drug Dosing 22.9 Est GFR ( Amer) 29.6 Est GFR (Non-Af Amer) 25.6 BUN/Creatinine Ratio 64.2 H Glucose 117 H POC Glucose 135 H Calcium 8.8 Phosphorus Magnesium 2.2 PG Care Time/CCT Total # of Minutes Spent Total Time Spent with Patient: Total time spent is greater than 50% in coordination of care (as documented) at patient's floor/unit and/or counseling patient: Coding Level of Care Code 98203 SUB INP/OBS CARE 2/35MIN Diagnoses Acute on chronic systolic heart failure I50.23 Pulmonary hypertension I27.20 Liver cirrhosis K74.60 Elevated troponin R79.89 Permanent atrial fibrillation I48.2 Type 2 diabetes mellitus E11.9 Lymphedema I89.0 Gout M10.9 Hyponatremia E87.1 Chronic kidney disease, stage IV (severe) N18.4 Cellulitis of foot L03.119 UTI (urinary tract infection) N39.0 DVT prophylaxis Z29.9
[2023-05-04 06:44] LABS: Albumin Level 3.1 gm/dl (3.4-5.0); BUN Creatinine Ratio 65.3 (10-20); Calcium 8.8 mg/dl (8.6-10.3); Creatinine Clr Calc Pharmacy 23.6 ml/min; Est GFR (African American) 30.9 ml/min; Est GFR (Non-African American) 26.6 ml/min; Magnesium 2.2 mg/dl (1.7-2.4); Phosphorus 4.6 mg/dl (2.5-4.9); Potassium 3.4 mmol/L (3.5-5.1)
[2023-05-04 07:57] LABS: Basophils # (auto) 0.03 K/uL (0.00-0.20); Basophils % (auto) 0.7 %; Eosinophils % (auto) 4.7 %; Hematocrit (blood only) 43.6 % (37.0-47.0); Hemoglobin 13.6 g/dl (12.0-16.0); Immature Granulocytes # (auto) 0.01 K/uL (0.01-0.20); Immature Granulocytes % (auto) 0.2 %; Lymphocytes # (auto) 0.52 K/uL (1.20-3.40); Lymphocytes % (auto) 12.2 %; Mean Corpuscular Hemoglobin 25.9 pg (25.0-34.0); Mean Corpuscular Hgb Conc 31.2 g/dL (32.0-36.0); Mean Corpuscular Volume 82.9 fL (80.0-100.0); Mean Platelet Volume 10.3 fL (9.4-12.4); Monocytes # (auto) 0.45 K/uL (0.11-0.59); Monocytes % (auto) 10.5 %; Neutrophils # (auto) 3.06 K/uL (1.40-6.50); Neutrophils % (auto) 71.7 %; Platelet Count 93 K/uL (130-400); Platelet Estimate Decreased (Normal); Polychromasia 1+; RDW Coefficient of Variation 17.4 % (11.5-14.5); RDW Standard Deviation 50.5 fL (36.4-46.3); Red Blood Count 5.26 M/uL (4.20-5.40); White Blood Count 4.27 K/ul (4.8-10.8)
[2023-05-04] MEDS ORDERED: POTASSIUM CHLORIDE PWD 20 MEQ PACK PO SCH (09:00)
[2023-05-04] MEDS: metOLazone 5 MG TABLET PO SCH (09:09)
[2023-05-04] MEDS: allopurinoL 100 MG TAB PO SCH (09:09)
[2023-05-04] MEDS: ADVANCED PROBIOTIC 1250 MG CAPSULE PO SCH (09:09)
[2023-05-04] MEDS: CEFDINIR 300 MG CAP PO SCH (09:09)
[2023-05-04] MEDS: APIXABAN 2.5 MG TAB PO SCH ×2 (09:09→20:23)
[2023-05-04] MEDS: traMADol HCL 50 MG TABLET PO SCH ×3 (09:12→20:25)
[2023-05-04] MEDS: FUROSEMIDE 40 MG/4 ML VIAL IV SCH ×2 (09:13→20:22)
--- NOTE | 2023-05-04 11:30 | Nephrology Progress Note ---
Date of Service May 04, 2023 Assessment & Plan (1) JUDE (acute kidney injury): Plan: Attributed to CRS. Volume status improving. Creatinine stable. Electrolytes acceptable. Mild hypokalemia and hyponatremia associated with diuresis. Oral KCl replacement is being provided. Continue metolazone and furosemide as Rx. Document strict I/O's. Repeat metabolic profile tomorrow AM. Low sodium diet. Daily fluid restriction 1.5 L. (2) Chronic kidney disease, stage IV (severe): Plan: CKD IIIb A1. Baseline creatinine 1.4-1.6 mg/dL. Medications appropriately dosed for kidney function. (3) Lymphedema: Plan: Reasonably controlled LUE edema. Improvement reported. Arm elevation. Pneumatic compression used regularly at home. (4) Liver cirrhosis: Plan: If BP acceptable, consider low dose of spironolactone. Admission and Anticipated Discharge Date Admission Date: April 25, 2023 Subjective No acute events overnight. Robbie Peña was sitting in her bedside chair this AM. She has been ambulating in her room with assist of a walker. She some deconditioning and weakness but otherwise feeling better overall. Breathing has improved. Edema markedly improved. She continues to struggle with urine volume and would like to maintain the Lord catheter. She has developed loose stool and some incontinence of stool. Appetite is fair. Review of Systems Review of Systems: All systems reviewed & are unremarkable except as noted in HPI & below Physical Exam Constitutional: well developed and + frail appearing; no acute distress Eyes: no scleral abnormality and no corneal abnormality ENMT: Mouth: no oral mucosal abnormality and oral mucous membranes not dry Neck: normal visual inspection and trachea midline Respiratory: normal respiratory effort Auscultation: lungs clear to auscultation bilaterally Cardiovascular: Rate/Rhythm: regular rate Heart Sounds: normal S1 and normal S2 Extremities: + edema (LUE lymphedema, BL LE edema ) Musculoskeletal: Extremities: no cyanosis and no clubbing Skin: + turgor decreased; no jaundice Neurologic: Motor/Sensory: no tremor and no asterixis Psychiatric: Orientation: alert and oriented x 3 Results & Data Vital Signs (Past 12 Hours) Vital Signs Temp Pulse Pulse Resp BP Pulse Ox O2 Del Method 05/04/23 08:04 57 L 05/04/23 07:59 36.5 C 54 L 18 132/74 100 Nasal Cannula 05/04/23 03:42 36.4 C L 54 L 19 146/72 H 100 Nasal Cannula 05/04/23 00:01 36.4 C L 55 L 17 159/67 H 99 Nasal Cannula O2 Flow Rate 05/04/23 08:04 05/04/23 07:59 2 05/04/23 03:42 2 05/04/23 00:01 2 Laboratory Results Laboratory Results - last 24 hr 05/03/23 05/04/23 05/04/23 12:20 05:37 05:38 WBC 4.27 L RBC 5.26 Hgb 13.6 Hct 43.6 MCV 82.9 MCH 25.9 MCHC 31.2 L RDW Std Deviation 50.5 H RDW Coeff of Rylee 17.4 H Plt Count 93 L MPV 10.3 Immature Gran % (Auto) 0.2 Neut % (Auto) 71.7 Lymph % (Auto) 12.2 Ramsey % (Auto) 10.5 Eos % (Auto) 4.7 Baso % (Auto) 0.7 Neut # (Auto) 3.06 Lymph # (Auto) 0.52 L Ramsey # (Auto) 0.45 Eos # (Auto) 0.20 Baso # (Auto) 0.03 Immature Gran # (Auto) 0.01 Platelet Estimate Decreased L Polychromasia 1+ Sodium 132 L Potassium 3.4 L Chloride 91 L Carbon Dioxide 31 Anion Gap 10 BUN 111 H Creatinine 1.70 H Est Cr Clr Drug Dosing 23.6 Est GFR ( Amer) 30.9 Est GFR (Non-Af Amer) 26.6 BUN/Creatinine Ratio 65.3 H Glucose 106 H POC Glucose 135 H Calcium 8.8 Phosphorus 4.6 Magnesium 2.2 Albumin 3.1 L Stl C. diff Tox B Gene 05/04/23 08:20 WBC RBC Hgb Hct MCV MCH MCHC RDW Std Deviation RDW Coeff of Rylee Plt Count MPV Immature Gran % (Auto) Neut % (Auto) Lymph % (Auto) Ramsey % (Auto) Eos % (Auto) Baso % (Auto) Neut # (Auto) Lymph # (Auto) Ramsey # (Auto) Eos # (Auto) Baso # (Auto) Immature Gran # (Auto) Platelet Estimate Polychromasia Sodium Potassium Chloride Carbon Dioxide Anion Gap BUN Creatinine Est Cr Clr Drug Dosing Est GFR ( Amer) Est GFR (Non-Af Amer) BUN/Creatinine Ratio Glucose POC Glucose Calcium Phosphorus Magnesium Albumin Stl C. diff Tox B Gene Negative Cdiff Gene PG Care Time/CCT Total # of Minutes Spent Total Time Spent with Patient: Total time spent is greater than 50% in coordination of care (as documented) at patient's floor/unit and/or counseling patient: Coding Level of Care Code 51833 SUB INP/OBS CARE 3/50MIN Diagnoses JUDE (acute kidney injury) N17.9 Chronic kidney disease, stage IV (severe) N18.4 Lymphedema I89.0 Liver cirrhosis K74.60
--- NOTE | 2023-05-04 14:18 | Hospitalist Progress Note ---
Date of Service May 04, 2023 Assessment & Plan (1) Acute on chronic systolic heart failure: Plan: volume status improving, albeit very slowly given her renal dysfunction is consistently putting out 2 to 2.5 L of urine/day still very volume overloaded, however, by way of exam Cr has stabilized and, if anything, has improved over the last few days BUN remains markedly elevated echo this admission with EF 40-45%, pulm HTN, and right ventricular systolic dysfunction as well remains on IV lasix 120mg BID + metolazone 5mg AM continue the above regimen appreciate assistance from nephrology with respect to diuretics BMP daily does follow with Nasrin Shields in [facility] CHF clinic as well (2) Pulmonary hypertension: Plan: moderate on echo cont NC O2 with improvement in volume status her PA pressures may fall however, I am suspicious she may need NC O2 at time of discharge given severity of her pulm HTN (3) Liver cirrhosis: Plan: 2nd MCKEON? 2nd to "cardiac cirrhosis?" other? consider aldactone but hold off due to CKD (4) Elevated troponin: Plan: peak HS troponin 250 likely myocardial demand ischemia from #1 above no evidence of ACS (5) Permanent atrial fibrillation: Plan: rates controlled w/o any AV nadira agent cont Eliquis BID 2.5mg (6) Type 2 diabetes mellitus: Plan: a1c 6.9% in Mar 2023 BSGs are wnl diet control only defer on novolog (7) Lymphedema: Plan: LUE chronic, due to prior Rx for breast ca (8) Gout: Plan: SEVERE tophaceous gout of hands, etc indicative of long-standing, uncontrolled disease uric acid level 11.2; goal would be <6 started allopurinol 50mg/day 05/03/23 - tolerating such thus far titrate over the next few months no acute gout flare at this time (9) Hyponatremia: Plan: 2nd to diuresis for #1 stable daily BMP (10) Chronic kidney disease, stage IV (severe): Plan: baseline CrCl 15-25 daily BMP Cr has actually improved slowly over the last few days (11) Cellulitis of foot: Plan: left foot/distal greer - resolved wound L foot cont local wound care day #10 of abx today - stop all abx therapy today (12) UTI (urinary tract infection): Plan: 2nd e.coli resolved clinically has completed 7+ days of IV/PO abx (13) DVT prophylaxis: Plan: eliquis 2.5mg BID Plan cont PT/OT daughters updated at bedside again today diarrhea - checked a cdiff --> negative if diarrhea persists --> stool biofire, pancreatic insuff w/u, etc cont to replace low K Admission and Anticipated Discharge Date Admission Date: April 25, 2023 Subjective a.fib rates 50s/60s at rest again she states she "feels better" today eating ok tolerating allopurinol no new concerns still with diarrhea -- c diff was negative 2 daughters at bedside today Review of Systems Review of Systems: cv - no orthopnea; ongoing edema of both legs GI - no pain or nausea/emesis pulm - no cough, denies dyspnea with walking from bed to chair Physical Exam Physical Exam: gen - obese, NAD, pleasant neck - JVD unchanged mouth - MMM extremities - severe edema b/l legs from feet to thighs - modestly better in lower legs; thigh edema unchanged; left arm lymphedema is improved musculo - SEVERE tophaceous gout of b/l hands unchanged heart - irregularly irregular, s1 s2, 2/6 systolic murmur LSB lungs - b/l rales bases - improved; decreased BS at lower bases abd - distended with body wall edema - improved , BS+, NT vascular - pulses b/l feet 2+ psych - a/o x 3 skin - left foot dressings intact Results & Data Results & Data Vital Signs (Past 12 Hours) Vital Signs Temp Pulse Pulse Resp BP Pulse Ox O2 Del Method 05/04/23 12:00 36.5 C 63 18 142/68 H 95 Nasal Cannula 05/04/23 08:04 57 L 05/04/23 07:59 36.5 C 54 L 18 132/74 100 Nasal Cannula 05/04/23 03:42 36.4 C L 54 L 19 146/72 H 100 Nasal Cannula O2 Flow Rate 05/04/23 12:00 2 05/04/23 08:04 05/04/23 07:59 2 05/04/23 03:42 2 Laboratory Results Laboratory Results - last 24 hr 05/04/23 05/04/23 05/04/23 05:37 05:38 08:20 WBC 4.27 L RBC 5.26 Hgb 13.6 Hct 43.6 MCV 82.9 MCH 25.9 MCHC 31.2 L RDW Std Deviation 50.5 H RDW Coeff of Rylee 17.4 H Plt Count 93 L MPV 10.3 Immature Gran % (Auto) 0.2 Neut % (Auto) 71.7 Lymph % (Auto) 12.2 Nobles % (Auto) 10.5 Eos % (Auto) 4.7 Baso % (Auto) 0.7 Neut # (Auto) 3.06 Lymph # (Auto) 0.52 L Nobles # (Auto) 0.45 Eos # (Auto) 0.20 Baso # (Auto) 0.03 Immature Gran # (Auto) 0.01 Platelet Estimate Decreased L Polychromasia 1+ Sodium 132 L Potassium 3.4 L Chloride 91 L Carbon Dioxide 31 Anion Gap 10 BUN 111 H Creatinine 1.70 H Est Cr Clr Drug Dosing 23.6 Est GFR ( Amer) 30.9 Est GFR (Non-Af Amer) 26.6 BUN/Creatinine Ratio 65.3 H Glucose 106 H Calcium 8.8 Phosphorus 4.6 Magnesium 2.2 Albumin 3.1 L Stl C. diff Tox B Gene Negative Cdiff Gene PG Care Time/CCT Total # of Minutes Spent Total Time Spent with Patient: Total time spent is greater than 50% in coordination of care (as documented) at patient's floor/unit and/or counseling patient: Coding Level of Care Code 65348 SUB INP/OBS CARE 1/25MIN Diagnoses Acute on chronic systolic heart failure I50.23 Pulmonary hypertension I27.20 Liver cirrhosis K74.60 Elevated troponin R79.89 Permanent atrial fibrillation I48.2 Type 2 diabetes mellitus E11.9 Lymphedema I89.0 Gout M10.9 Hyponatremia E87.1 Chronic kidney disease, stage IV (severe) N18.4 Cellulitis of foot L03.119 UTI (urinary tract infection) N39.0 DVT prophylaxis Z29.9
[2023-05-04] MEDS: ACETAMINOPHEN 325 MG TAB PO PRN (20:22)
[2023-05-04] MEDS: POTASSIUM CHLORIDE CRTAB 20 MEQ TABCR PO SCH (20:23)
[2023-05-05] MEDS: metOLazone 5 MG TABLET PO SCH (07:53)
[2023-05-05] MEDS: LOPERAMIDE HCL 2 MG CAP PO PRN (07:57)
[2023-05-05 08:04] LABS: Calcium 8.9 mg/dl (8.6-10.3); Creatinine Clr Calc Pharmacy 25.9 ml/min; Est GFR (African American) 35.9 ml/min; Potassium 3.4 mmol/L (3.5-5.1)
[2023-05-05] MEDS: APIXABAN 2.5 MG TAB PO SCH ×2 (09:35→21:24)
[2023-05-05] MEDS: POTASSIUM CHLORIDE CRTAB 20 MEQ TABCR PO SCH ×3 (09:35→21:23)
[2023-05-05] MEDS: ADVANCED PROBIOTIC 1250 MG CAPSULE PO SCH (09:36)
[2023-05-05] MEDS: CEFDINIR 300 MG CAP PO SCH (09:36)
[2023-05-05] MEDS: FUROSEMIDE 40 MG/4 ML VIAL IV SCH ×2 (09:36→21:27)
[2023-05-05] MEDS: allopurinoL 100 MG TAB PO SCH (09:36)
[2023-05-05] MEDS: traMADol HCL 50 MG TABLET PO SCH ×3 (09:43→21:27)
--- NOTE | 2023-05-05 14:19 | Nephrology Progress Note ---
Date of Service May 05, 2023 Assessment & Plan (1) JUDE (acute kidney injury): Plan: Attributed to CRS. Volume status improving. Creatinine has returned to baseline. Electrolytes acceptable. Mild hypokalemia and hyponatremia associated with diuresis. Oral KCl replacement increased to 20 mEq BID. Continue furosemide as Rx. Will hold metolazone if remains net negative >2 L/d. Document strict I/O's. Repeat metabolic profile tomorrow AM. Low sodium diet. Daily fluid restriction 1.5 L. (2) Chronic kidney disease, stage IV (severe): Plan: CKD IIIb A1. Baseline creatinine 1.4-1.6 mg/dL. Medications appropriately dosed for kidney function. (3) Lymphedema: Plan: Reasonably controlled LUE edema. Arm elevation. Pneumatic compression used regularly at home. (4) Liver cirrhosis: Plan: If BP acceptable, consider low dose of spironolactone in the future. Admission and Anticipated Discharge Date Admission Date: April 25, 2023 Subjective No acute events overnight. Sleeping comfortably in chair. Emma Peña denies notable dyspnea. She was seen and evaluated with her daughter at the bedside. She is diuresing well. She prefers to maintain the Lord for comfort. Review of Systems Review of Systems: All systems reviewed & are unremarkable except as noted in HPI & below Physical Exam Constitutional: well developed and + frail appearing; no acute distress Eyes: no scleral abnormality and no corneal abnormality ENMT: Mouth: no oral mucosal abnormality and oral mucous membranes not dry Neck: normal visual inspection and trachea midline Respiratory: normal respiratory effort Auscultation: lungs clear to auscultation bilaterally Cardiovascular: Rate/Rhythm: regular rate Heart Sounds: normal S1 and normal S2 Extremities: + edema (LUE lymphedema, BL LE edema ) Musculoskeletal: Extremities: no cyanosis and no clubbing Skin: + turgor decreased; no jaundice Neurologic: Motor/Sensory: no tremor and no asterixis Psychiatric: Orientation: alert and oriented x 3 Results & Data Vital Signs (Past 12 Hours) Vital Signs Temp Pulse Resp BP Pulse Ox O2 Del Method O2 Flow Rate 05/05/23 11:46 55 L 20 149/72 H 90 Nasal Cannula 2 05/05/23 08:00 Nasal Cannula 2 05/05/23 07:46 58 L 18 130/79 98 Nasal Cannula 05/05/23 04:00 36.4 C L 56 L 17 149/73 H 96 Nasal Cannula 2 Laboratory Results Laboratory Results - last 24 hr 05/04/23 05/05/23 16:16 05:12 Sodium 133 L Potassium 3.4 L Chloride 89 L Carbon Dioxide 33 H Anion Gap 11 BUN 111 H Creatinine 1.50 H Est Cr Clr Drug Dosing 25.9 Est GFR ( Amer) 35.9 Est GFR (Non-Af Amer) 31.0 BUN/Creatinine Ratio 74.0 H Glucose 110 H POC Glucose 145 H Calcium 8.9 PG Care Time/CCT Total # of Minutes Spent Total Time Spent with Patient: Total time spent is greater than 50% in coordination of care (as documented) at patient's floor/unit and/or counseling patient: Coding Level of Care Code 05946 SUB INP/OBS CARE 3/50MIN Diagnoses JUDE (acute kidney injury) N17.9 Chronic kidney disease, stage IV (severe) N18.4 Lymphedema I89.0 Liver cirrhosis K74.60
--- NOTE | 2023-05-05 20:36 | Hospitalist Progress Note ---
Date of Service May 05, 2023 Assessment & Plan (1) Acute on chronic systolic heart failure: Plan: volume status improving is consistently putting out 2 to 2.5 L of urine/day still volume overloaded, however, on exam Cr has stabilized and is improving day to day BUN remains markedly elevated echo this admission with EF 40-45%, pulm HTN, and right ventricular systolic dysfunction as well remains on IV lasix 120mg BID metolazone held by nephrology appreciate assistance from nephrology with respect to diuretics BMP daily also check mag level am does follow with Nasrin Shields in [facility] CHF clinic as well (2) Pulmonary hypertension: Plan: moderate on echo cont NC O2 with improvement in volume status her PA pressures may fall however, I am suspicious she may need NC O2 at time of discharge given severity of her pulm HTN (3) Liver cirrhosis: Plan: 2nd MCKEON? 2nd to "cardiac cirrhosis?" other? consider aldactone but hold off for now (4) Elevated troponin: Plan: peak HS troponin 250 likely myocardial demand ischemia from #1 above no evidence of ACS (5) Permanent atrial fibrillation: Plan: rates controlled w/o any AV nadira agent cont Eliquis BID 2.5mg (6) Type 2 diabetes mellitus: Plan: a1c 6.9% in Mar 2023 BSGs are wnl diet control only defer on novolog (7) Lymphedema: Plan: LUE chronic, due to prior Rx for breast ca (8) Gout: Plan: SEVERE tophaceous gout of hands, etc indicative of long-standing, uncontrolled disease uric acid level 11.2; goal would be <6 started allopurinol 50mg/day 05/03/23 - tolerating such thus far titrate over the next few months no acute gout flare at this time recheck uric acid level later this week (9) Hyponatremia: Plan: improving cont lasix diuresis daily BMP (10) Chronic kidney disease, stage IV (severe): Plan: baseline CrCl 15-25 baseline Cr 1.3 to 1.5 today's Cr 1.5 Cr improving with diuresis daily BMP (11) Cellulitis of foot: Plan: fully resolved completed 10 days of IV/PO antibiotics cont local wound care for ulcer (12) UTI (urinary tract infection): Plan: 2nd e.coli resolved clinically has completed 7+ days of IV/PO abx (13) DVT prophylaxis: Plan: eliquis 2.5mg BID (14) Foot ulcer, left: Plan: large dorsal surface ulceration clean wound bed nice and pink granulating add MVI cont local wound care Plan cont PT/OT daughter updated at bedside again today cont to replace low K Admission and Anticipated Discharge Date Admission Date: April 25, 2023 Subjective tele - afib, rates remain controlled; mostly 60s sitting in chair daughter present energy, strength, mobility, appetite - all improved denies any new joint pains denies any L foot pain denies any dyspnea or cough no abd pain Review of Systems Review of Systems: gen - overall feels better; no fevers cv - no orthopnea; edema L arm, edema lower legs improved; thigh edema unchanged pulm - no cough GI - no N/V Physical Exam Physical Exam: gen - obese, NAD, pleasant; sitting in recliner chair neck - JVD unchanged (to the jaw) mouth - MMM musculo - SEVERE tophaceous gout of b/l hands unchanged heart - irregularly irregular, s1 s2, 2/6 systolic murmur LSB lungs - b/l rales bases - improved; decreased BS at lower bases also improved; better airation abd - distended with body wall edema - improved , BS+, NT vascular - pulses b/l feet 2+ psych - a/o x 3 skin - left foot dressings removed; large dorsal surface ulcer -- clean base (pink); no purulence; no foul odor; granulation at periphery continues to enlarge; left great toe - ulceration plantar aspect of toe - clean extremities - ongoing severe edema of b/l thighs - unchanged; edema from knees to feet - 1-2+ b/l Results & Data Results & Data Vital Signs (Past 12 Hours) Vital Signs Temp Pulse Resp BP Pulse Ox O2 Del Method O2 Flow Rate 05/05/23 20:02 36.5 C 51 L 18 148/69 H 99 Nasal Cannula 2 05/05/23 16:50 36.3 C L 54 L 18 147/77 H 99 Nasal Cannula 2 05/05/23 11:46 55 L 20 149/72 H 90 Nasal Cannula 2 Laboratory Results Laboratory Results - last 24 hr 05/05/23 05:12 Sodium 133 L Potassium 3.4 L Chloride 89 L Carbon Dioxide 33 H Anion Gap 11 BUN 111 H Creatinine 1.50 H Est Cr Clr Drug Dosing 25.9 Est GFR ( Amer) 35.9 Est GFR (Non-Af Amer) 31.0 BUN/Creatinine Ratio 74.0 H Glucose 110 H Calcium 8.9 PG Care Time/CCT Total # of Minutes Spent Total Time Spent with Patient: Total time spent is greater than 50% in coordination of care (as documented) at patient's floor/unit and/or counseling patient: Coding Level of Care Code 77051 SUB INP/OBS CARE 2/35MIN Diagnoses Acute on chronic systolic heart failure I50.23 Pulmonary hypertension I27.20 Liver cirrhosis K74.60 Elevated troponin R79.89 Permanent atrial fibrillation I48.2 Type 2 diabetes mellitus E11.9 Lymphedema I89.0 Gout M10.9 Hyponatremia E87.1 Chronic kidney disease, stage IV (severe) N18.4 Cellulitis of foot L03.119 UTI (urinary tract infection) N39.0 DVT prophylaxis Z29.9 Foot ulcer, left L97.529
[2023-05-06 07:36] LABS: BUN Creatinine Ratio 69.7 (10-20); Calcium 9.1 mg/dl (8.6-10.3); Creatinine Clr Calc Pharmacy 23.5 ml/min; Est GFR (Non-African American) 27.6 ml/min; Magnesium 2.1 mg/dl (1.7-2.4); Potassium 3.7 mmol/L (3.5-5.1)
[2023-05-06] MEDS: traMADol HCL 50 MG TABLET PO SCH ×3 (09:07→20:33)
[2023-05-06] MEDS: POTASSIUM CHLORIDE CRTAB 20 MEQ TABCR PO SCH ×3 (09:07→20:32)
[2023-05-06] MEDS: APIXABAN 2.5 MG TAB PO SCH ×2 (09:08→20:32)
[2023-05-06] MEDS: allopurinoL 100 MG TAB PO SCH (09:08)
[2023-05-06] MEDS: ADVANCED PROBIOTIC 1250 MG CAPSULE PO SCH (09:08)
[2023-05-06] MEDS: FUROSEMIDE 40 MG/4 ML VIAL IV SCH ×2 (09:10→20:31)
[2023-05-06] MEDS: CEROVITE ADV FORMULA TAB PO SCH (09:10)
--- NOTE | 2023-05-06 16:17 | Nephrology Progress Note ---
Date of Service May 06, 2023 Assessment & Plan (1) JUDE (acute kidney injury): Plan: Attributed to CRS. Volume status improving. Creatinine has returned to baseline. Electrolytes acceptable. Mild hypokalemia and hyponatremia associated with diuresis. Continue oral KCl replacement 20 mEq TID. Continue furosemide as Rx. Metolazone held. Document strict I/O's. Repeat metabolic profile tomorrow AM. Low sodium diet. Daily fluid restriction 1.5 L. I reviewed the plan of care with Dr. Moise this morning. (2) Chronic kidney disease, stage IV (severe): Plan: CKD IIIb A1. Baseline creatinine 1.4-1.6 mg/dL. Medications appropriately dosed for kidney function. (3) Liver cirrhosis: Plan: I continue to consider low dose of spironolactone in the future but no compelling indication at this time to make changes. Admission and Anticipated Discharge Date Admission Date: April 25, 2023 Subjective No acute events overnight. Continues to admit to some weakness and fatigue. Resting in chair each time I visit. Lord remains intact. Excellent urine output. Edema markedly improved. Denies shortness of breath. No chest pains or palpitations. Review of Systems Review of Systems: All systems reviewed & are unremarkable except as noted in HPI & below Physical Exam Constitutional: well developed and + frail appearing; no acute distress Eyes: no scleral abnormality and no corneal abnormality ENMT: Mouth: no oral mucosal abnormality and oral mucous membranes not dry Neck: normal visual inspection and trachea midline Respiratory: normal respiratory effort Auscultation: lungs clear to auscultation bilaterally Cardiovascular: Rate/Rhythm: regular rate Heart Sounds: normal S1 and normal S2 Extremities: + edema (LUE lymphedema, BL LE edema ) Musculoskeletal: Extremities: no cyanosis and no clubbing Skin: + turgor decreased; no jaundice Neurologic: Motor/Sensory: no tremor and no asterixis Psychiatric: Orientation: alert and oriented x 3 Results & Data Vital Signs (Past 12 Hours) Vital Signs Temp Pulse Pulse Resp BP Pulse Ox O2 Del Method 05/06/23 13:15 36.6 C 58 L 18 146/69 H 99 Nasal Cannula 05/06/23 07:50 36.4 C L 57 L 18 127/70 98 Nasal Cannula 05/06/23 07:44 Nasal Cannula 05/06/23 07:00 57 L O2 Flow Rate 05/06/23 13:15 2 05/06/23 07:50 2 05/06/23 07:44 2 05/06/23 07:00 Laboratory Results Laboratory Results - last 24 hr 05/06/23 05:54 Sodium 132 L Potassium 3.7 Chloride 87 L Carbon Dioxide 34 H Anion Gap 11 BUN 115 H Creatinine 1.65 H Est Cr Clr Drug Dosing 23.5 Est GFR ( Amer) 32.0 Est GFR (Non-Af Amer) 27.6 BUN/Creatinine Ratio 69.7 H Glucose 117 H Calcium 9.1 Magnesium 2.1 PG Care Time/CCT Total # of Minutes Spent Total Time Spent with Patient: Total time spent is greater than 50% in coordination of care (as documented) at patient's floor/unit and/or counseling patient: Coding Level of Care Code 02495 SUB INP/OBS CARE 3/50MIN Diagnoses JUDE (acute kidney injury) N17.9 Chronic kidney disease, stage IV (severe) N18.4 Liver cirrhosis K74.60
--- NOTE | 2023-05-06 19:00 | Hospitalist Progress Note ---
Date of Service May 06, 2023 Assessment & Plan (1) Acute on chronic systolic heart failure: Plan: volume status continues to improve is consistently putting out 2 to 2.5 L of urine/day still volume overloaded Cr has stabilized K, mag levels wnl BUN remains markedly elevated -- metolazone stopped by nephrology echo this admission with EF 40-45%, pulm HTN, and right ventricular systolic dysfunction as well continues on IV lasix 120mg BID appreciate assistance from nephrology with respect to diuretics BMP daily of note -- follows with Nasrin [place] [facility] (2) Pulmonary hypertension: Plan: moderate on echo cont NC O2 with improvement in volume status her PA pressures may fall however, I am suspicious she may need NC O2 at time of discharge given severity of her pulm HTN (3) Liver cirrhosis: Plan: 2nd MCKEON? 2nd to "cardiac cirrhosis?" other? consider aldactone but hold off for now - defer to nephrology (4) Elevated troponin: Plan: peak HS troponin 250 likely myocardial demand ischemia from #1 above no evidence of ACS (5) Permanent atrial fibrillation: Plan: rates controlled w/o any AV nadira agent cont Eliquis BID 2.5mg (6) Type 2 diabetes mellitus: Plan: a1c 6.9% in Mar 2023 BSGs are wnl diet control only defer on novolog (7) Lymphedema: Plan: LUE chronic, due to prior Rx for breast ca (8) Gout: Plan: SEVERE tophaceous gout of hands, etc indicative of long-standing, uncontrolled disease uric acid level 11.2; goal would be <6 started allopurinol 50mg/day 05/03/23 - tolerating such thus far titrate over the next few months no acute gout flare at this time recheck uric acid level later this week (9) Hyponatremia: Plan: stable cont lasix diuresis daily BMP (10) Chronic kidney disease, stage IV (severe): Plan: baseline CrCl 15-25 baseline Cr 1.3 to 1.5 today's Cr 1.6 Cr has improved with diuresis daily BMP (11) Cellulitis of foot: Plan: resolved completed 10 days of IV/PO antibiotics cont local wound care for large venous stasis ulceration (had large "bubble" from edema which popped leading to ulceration) (12) UTI (urinary tract infection): Plan: 2nd e.coli resolved clinically completed 7+ days of IV/PO abx (13) DVT prophylaxis: Plan: eliquis 2.5mg BID (14) Foot ulcer, left: Plan: large dorsal surface ulceration clean wound bed nice and pink granulating added MVI cont local wound care appreciate wound care team Plan cont PT/OT daughter extensively updated throughout last week and this past weekend progressing dispo - home with HH and her daughter who provides 17/12 care Admission and Anticipated Discharge Date Admission Date: April 25, 2023 Subjective tele - a.fib overnight, rates well controlled, upper 50s at lowest while sleeping sitting in recliner chair close friend at bedside no new complaints or issues cont to feel well denies any dyspnea or WOO feeling stronger each day eating better minimal "stinging" pain L foot wound wound care saw her today; they were happy with progress with foot we discussed her disposition at discharge - does not want rehab; wants home with daughter who lives there 17/12 Review of Systems Review of Systems: gen - feeling good today; appetite improved cv - no orthopnea; no PND; generalized edema improved (arms and legs, even abdomen) pulm - no cough, no wheezing GI - no N/V; stools becoming more formed Physical Exam Physical Exam: gen - NAD, pleasant; sitting in recliner chair neck - JVD unchanged (to the jaw) mouth - MMM musculo - SEVERE tophaceous gout of b/l hands unchanged heart - irregularly irregular, s1 s2, 2/6 systolic murmur LSB lungs - b/l rales bases - improved; decreased BS at lower bases also improved; better airation abd - less distension / softer each day (less body wall edema), BS+, NT vascular - pulses b/l feet 2+ psych - a/o x 3 skin - left foot dressings intact; I did not remove them today extremities - ongoing severe edema of b/l thighs - unchanged; edema from knees to feet - 1-2+ b/l - slightly improved today Results & Data Results & Data Vital Signs (Past 12 Hours) Vital Signs Temp Pulse Resp BP Pulse Ox O2 Del Method O2 Flow Rate 05/06/23 17:54 63 18 149/78 H 95 Nasal Cannula 2 05/06/23 13:15 36.6 C 58 L 18 146/69 H 99 Nasal Cannula 2 12/11/23 07:50 36.4 C L 57 L 18 127/70 98 Nasal Cannula 2 05/06/23 07:44 Nasal Cannula 2 Laboratory Results Laboratory Results - last 24 hr 05/06/23 05:54 Sodium 132 L Potassium 3.7 Chloride 87 L Carbon Dioxide 34 H Anion Gap 11 BUN 115 H Creatinine 1.65 H Est Cr Clr Drug Dosing 23.5 Est GFR ( Amer) 32.0 Est GFR (Non-Af Amer) 27.6 BUN/Creatinine Ratio 69.7 H Glucose 117 H Calcium 9.1 Magnesium 2.1 PG Care Time/CCT Total # of Minutes Spent Total Time Spent with Patient: Total time spent is greater than 50% in coordination of care (as documented) at patient's floor/unit and/or counseling patient: Coding Level of Care Code 66615 SUB INP/OBS CARE 2/35MIN Diagnoses Acute on chronic systolic heart failure I50.23 Pulmonary hypertension I27.20 Liver cirrhosis K74.60 Elevated troponin R79.89 Permanent atrial fibrillation I48.2 Type 2 diabetes mellitus E11.9 Lymphedema I89.0 Gout M10.9 Hyponatremia E87.1 Chronic kidney disease, stage IV (severe) N18.4 Cellulitis of foot L03.119 UTI (urinary tract infection) N39.0 DVT prophylaxis Z29.9 Foot ulcer, left L97.529
[2023-05-06] MEDS: ACETAMINOPHEN 325 MG TAB PO PRN (20:32)
[2023-05-06] MEDS: oxyCODONE HCL IR 5 MG TAB (IMMEDIATE RELEASE) PO PRN (23:18)
[2023-05-07 07:10] LABS: Albumin Level 3.3 gm/dl (3.4-5.0); BUN Creatinine Ratio 69.6 (10-20); Calcium 8.9 mg/dl (8.6-10.3); Creatinine Clr Calc Pharmacy 23.2 ml/min; Est GFR (African American) 31.3 ml/min; Potassium 4.2 mmol/L (3.5-5.1)
[2023-05-07] MEDS: traMADol HCL 50 MG TABLET PO SCH ×3 (09:14→20:08)
[2023-05-07] MEDS: FUROSEMIDE 40 MG/4 ML VIAL IV SCH (09:17)
[2023-05-07] MEDS: POTASSIUM CHLORIDE CRTAB 20 MEQ TABCR PO SCH ×2 (09:17→20:09)
[2023-05-07] MEDS: allopurinoL 100 MG TAB PO SCH (09:18)
[2023-05-07] MEDS: CEROVITE ADV FORMULA TAB PO SCH (09:19)
[2023-05-07] MEDS: APIXABAN 2.5 MG TAB PO SCH ×2 (09:19→20:09)
[2023-05-07] MEDS: ADVANCED PROBIOTIC 1250 MG CAPSULE PO SCH (09:19)
[2023-05-07] MEDS: ACETAMINOPHEN 325 MG TAB PO PRN ×2 (09:25→20:07)
--- NOTE | 2023-05-07 13:02 | Nephrology Progress Note ---
Date of Service May 07, 2023 Assessment & Plan (1) JUDE (acute kidney injury): Plan: Attributed to CRS. Volume status acceptable. Creatinine stable. Electrolytes acceptable. KCl replacement decreased from 20 mEq TID to BID. Furosemide switched to 100 mg PO BID. Document strict I/O's. Repeat metabolic profile tomorrow AM. Low sodium diet. Daily fluid restriction 1.5 L. (2) Chronic kidney disease, stage IV (severe): Plan: CKD IIIb A1. Baseline creatinine 1.4-1.6 mg/dL. Medications appropriately dosed for kidney function. (3) Liver cirrhosis: Plan: I continue to consider low dose of spironolactone in the future but no compelling indication at this time to make changes. Admission and Anticipated Discharge Date Admission Date: April 25, 2023 Subjective No acute events overnight. Emma Peña reported feeling "wonderful" this morning. She is very pleased with her volume status. Strength is improving. She was able to get up to a standing scale. Excellent urine output. Denies pain. No dyspnea. Review of Systems Review of Systems: All systems reviewed & are unremarkable except as noted in HPI & below Physical Exam Constitutional: well developed and + frail appearing; no acute distress Eyes: no scleral abnormality and no corneal abnormality ENMT: Mouth: no oral mucosal abnormality and oral mucous membranes not dry Neck: normal visual inspection and trachea midline Respiratory: normal respiratory effort Auscultation: lungs clear to auscu ltation bilaterally Cardiovascular: Rate/Rhythm: regular rate Heart Sounds: normal S1 and normal S2 Extremities: + edema (LUE lymphedema, BL LE edema ) Musculoskeletal: Extremities: no cyanosis and no clubbing Skin: + turgor decreased; no jaundice Neurologic: Motor/Sensory: no tremor and no asterixis Psychiatric: Orientation: alert and oriented x 3 Results & Data Vital Signs (Past 12 Hours) Vital Signs Temp Pulse Pulse Resp BP Pulse Ox O2 Del Method 05/07/23 11:23 36.5 C 50 L 16 123/69 98 Nasal Cannula 05/07/23 08:30 58 L 05/07/23 08:30 Nasal Cannula 05/07/23 07:07 36.5 C 54 L 18 131/69 97 Nasal Cannula 05/07/23 03:00 36.3 C L 57 L 16 127/69 96 Nasal Cannula O2 Flow Rate 05/07/23 11:23 2 05/07/23 08:30 05/07/23 08:30 2 05/07/23 07:07 2 05/07/23 03:00 Laboratory Results Laboratory Results - last 24 hr 05/07/23 05:22 Sodium 132 L Potassium 4.2 Chloride 89 L Carbon Dioxide 35 H Anion Gap 8 BUN 117 H Creatinine 1.68 H Est Cr Clr Drug Dosing 23.2 Est GFR ( Amer) 31.3 Est GFR (Non-Af Amer) 27.0 BUN/Creatinine Ratio 69.6 H Glucose 112 H Calcium 8.9 Phosphorus 4.0 Albumin 3.3 L PG Care Time/CCT Total # of Minutes Spent Total Time Spent with Patient: Total time spent is greater than 50% in coordination of care (as documented) at patient's floor/unit and/or counseling patient: Coding Level of Care Code 17286 SUB INP/OBS CARE 3/50MIN Diagnoses JUDE (acute kidney injury) N17.9 Chronic kidney disease, stage IV (severe) N18.4 Liver cirrhosis K74.60
[2023-05-07] MEDS ORDERED: FUROSEMIDE 20 MG TAB PO SCH (17:00)
[2023-05-07] MEDS: FUROSEMIDE 80 MG TAB PO SCH (17:35)
--- NOTE | 2023-05-07 18:32 | Hospitalist Progress Note ---
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 twice daily today - will assess response a.m. BMP of note -- [place] with Nasrin Shield[place] [facility] (2) Pulmonary hypertension: Plan: moderate on echo cont NC O2 - current 98% on 2L with improvement in volume status her PA pressures may fall may need 2-step O2 trial tomorrow (3) Liver cirrhosis: Plan: 2nd MCKEON? 2nd to "cardiac cirrhosis?" other? consider aldactone but hold off for now - defer to nephrology (4) Elevated troponin: Plan: peak HS troponin 250 likely myocardial demand ischemia from #1 above no evidence of ACS (5) Permanent atrial fibrillation: Plan: rates controlled w/o any AV nadira agent cont Eliquis BID 2.5mg (6) Type 2 diabetes mellitus: Plan: a1c 6.9% in Mar 2023 BSGs are wnl diet control only defer on novolog (7) Lymphedema: Plan: LUE chronic, due to prior Rx for breast ca (8) Gout: Plan: SEVERE tophaceous gout of hands, etc indicative of long-standing, uncontrolled disease uric acid level 11.2; goal would be <6 started allopurinol 50mg/day 05/03/23 - tolerating such thus far titrate over the next few months no acute gout flare at this time recheck uric acid level later this week (9) Hyponatremia: Plan: stable cont lasix diuresis daily BMP (10) Chronic kidney disease, stage IV (severe): Plan: baseline CrCl 15-25 baseline Cr 1.3 to 1.5 today's Cr 1.6 Cr has improved with diuresis daily BMP (11) Cellulitis of foot: Plan: resolved completed 10 days of IV/PO antibiotics cont local wound care for large venous stasis ulceration (had large "bubble" from edema which popped leading to ulceration) (12) UTI (urinary tract infection): Plan: 2nd e.coli resolved clinically completed 7+ days of IV/PO abx (13) DVT prophylaxis: Plan: eliquis 2.5mg BID (14) Foot ulcer, left: Plan: large dorsal surface ulceration clean wound bed nice and pink granulating added MVI cont local wound care appreciate wound care team Plan cont PT/OT daughter extensively updated throughout last week and this past weekend progressing dispo - home with HH and her daughter who provides 17/12 care, anticipate by saturday when HH intake can be done discussed with care coord Admission and Anticipated Discharge Date Admission Date: April 25, 2023 Subjective continues to slowly improve with respect to edema and dyspnea. She reports that the detailer furniture changed her to oral Lasix today. Bilateral foot pain remains unchanged she says she is unable to tolerate the Aquacel on dorsum of left foot because it causes pain Physical Exam 2 Physical Exam: PHYSICAL EXAMINATION Last 24h vital signs reviewed, see documentation in flowsheet General: awake and sitting up in bed HEENT: Normocephalic, atraumatic, pupils round and equal, sclerae anicteric, no conjunctival injection, moist mucus membranes. cat scratch on nose - continue slowly healing Lungs: minimally increased respiratory effort, improved, clear to auscultation anteriorly, not wheezing Heart: Regular rate and rhythm, systolic murmur, no JVD Abdomen: Soft, nontender, nondistended. Bowel sounds present. Abdominal wall edema improved Extremities: Warm, dry. left upper extremity lymphedema present however there has been complete resolution of the pitting edema. 2+edema of bilateral LE Significantly improved compared to a week ago. Ext are warm Both LE are key and purplish at baseline, unchanged. L forefoot is dressed. 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 Neuro: Alert and oriented x 4, face symmetric, moves 4 extremities but appears globally weak Psych: Normal affect and behavior Results & Data Results & Data Vital Signs (Past 12 Hours) Vital Signs Temp Pulse Pulse Resp BP Pulse Ox O2 Del Method 05/07/23 16:13 36.9 C 70 16 139/74 98 Nasal Cannula 05/07/23 11:23 36.5 C 50 L 16 123/69 98 Nasal Cannula 05/07/23 08:30 58 L 05/07/23 08:30 Nasal Cannula 05/07/23 07:07 36.5 C 54 L 18 131/69 97 Nasal Cannula O2 Flow Rate 05/07/23 16:13 2 05/07/23 11:23 2 05/07/23 08:30 05/07/23 08:30 2 05/07/23 07:07 2 Laboratory Results 05/04/23 05:38 05/07/23 05:22 PG Care Time/CCT Total # of Minutes Spent Total Time Spent with Patient: Total time spent is greater than 50% in coordination of care (as documented) at patient's floor/unit and/or counseling patient: Coding Level of Care Code 78425 SUB INP/OBS CARE 2/35MIN Diagnoses Acute on chronic systolic heart failure I50.23 Pulmonary hypertension I27.20 Liver cirrhosis K74.60 Elevated troponin R79.89 Permanent atrial fibrillation I48.2 Type 2 diabetes mellitus E11.9 Lymphedema I89.0 Gout M10.9 Hyponatremia E87.1 Chronic kidney disease, stage IV (severe) N18.4 Cellulitis of foot L03.119 UTI (urinary tract infection) N39.0 DVT prophylaxis Z29.9 Foot ulcer, left L97.529
[2023-05-08 06:20] LABS: Hematocrit (blood only) 40.9 % (37.0-47.0); Hemoglobin 13.1 g/dl (12.0-16.0); Mean Corpuscular Hemoglobin 26.1 pg (25.0-34.0); Mean Corpuscular Volume 81.6 fL (80.0-100.0); Platelet Count 101 K/uL (130-400); RDW Coefficient of Variation 17.9 % (11.5-14.5); Red Blood Count 5.01 M/uL (4.20-5.40); White Blood Count 5.17 K/ul (4.8-10.8)
[2023-05-08 06:39] LABS: BUN Creatinine Ratio 75.3 (10-20); Calcium 8.9 mg/dl (8.6-10.3); Creatinine Clr Calc Pharmacy 23.6 ml/min; Est GFR (African American) 32.7 ml/min; Est GFR (Non-African American) 28.2 ml/min; Potassium 4.3 mmol/L (3.5-5.1)
[2023-05-08] MEDS: CEROVITE ADV FORMULA TAB PO SCH (08:33)
[2023-05-08] MEDS: APIXABAN 2.5 MG TAB PO SCH ×2 (08:33→20:55)
[2023-05-08] MEDS: allopurinoL 100 MG TAB PO SCH (08:33)
[2023-05-08] MEDS: POTASSIUM CHLORIDE CRTAB 20 MEQ TABCR PO SCH ×2 (08:33→20:54)
[2023-05-08] MEDS: ADVANCED PROBIOTIC 1250 MG CAPSULE PO SCH (08:33)
[2023-05-08] MEDS: traMADol HCL 50 MG TABLET PO SCH ×3 (09:32→20:54)
[2023-05-08] MEDS: FUROSEMIDE 80 MG TAB PO SCH ×2 (09:33→17:10)
--- NOTE | 2023-05-08 09:49 | Hospitalist Progress Note ---
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 twice daily - will assess response a.m. BMP of note -- [place] Nas[place] [facility] [place] (2) Pulmonary hypertension: Plan: moderate on echo cont NC O2 - current 98% on 2L with improvement in volume status her PA pressures may fall on room air today may need 2-step O2 trial (3) Liver cirrhosis: Plan: 2nd MCKEON? 2nd to "cardiac cirrhosis?" other? consider aldactone but hold off for now - defer to nephrology (4) Elevated troponin: Plan: peak HS troponin 250 likely myocardial demand ischemia from #1 above no evidence of ACS (5) Permanent atrial fibrillation: Plan: rates controlled w/o any AV ndaira agent cont Eliquis BID 2.5mg (6) Type 2 diabetes mellitus: Plan: a1c 6.9% in Mar 2023 BSGs are wnl diet control only defer on novolog (7) Lymphedema: Plan: LUE chronic, due to prior Rx for breast ca (8) Gout: Plan: SEVERE tophaceous gout of hands, etc indicative of long-standing, uncontrolled disease uric acid level 11.2; goal would be <6 started allopurinol 50mg/day 05/03/23 - tolerating such thus far titrate over the next few months no acute gout flare at this time recheck uric acid level in AM (9) Hyponatremia: Plan: stable 132 cont lasix diuresis daily BMP (10) Chronic kidney disease, stage IV (severe): Plan: baseline CrCl 15-25 baseline Cr 1.3 to 1.5 today's Cr 1.6 Cr has improved with diuresis daily BMP (11) Cellulitis of foot: Plan: resolved completed 10 days of IV/PO antibiotics cont local wound care for large venous stasis ulceration (had large "bubble" from edema which popped leading to ulceration) (12) UTI (urinary tract infection): Plan: 2nd e.coli resolved clinically completed 7+ days of IV/PO abx (13) DVT prophylaxis: Plan: eliquis 2.5mg BID (14) Foot ulcer, left: Plan: large dorsal surface ulceration clean wound bed nice and pink granulating added MVI cont local wound care appreciate wound care team Plan cont PT/OT daughter extensively updated throughout last week and this past weekend progressing dispo - home with HH and her daughter who provides 17/12 care, anticipate by saturday when HH intake can be done discussed with patient today Admission and Anticipated Discharge Date Admission Date: April 25, 2023 Subjective breathing slowly improving - now on room air sats in 90s, LUE edema at baseline due to lymphedema, simran LE edema improving, had formed BM diarrhea resolved. L foot wound still weepy and painful Physical Exam 2 Physical Exam: PHYSICAL EXAMINATION Last 24h vital signs reviewed, see documentation in flowsheet General: awake and sitting up in chair HEENT: Normocephalic, atraumatic, pupils round and equal, sclerae anicteric, no conjunctival injection, moist mucus membranes. cat scratch on nose - continue slowly healing Lungs: normal respiratory effort, improved, scattered coarse crackles ant and post bilaterally, absent R base, L base has breath sounds Heart: Regular rate and rhythm, systolic murmur, no JVD Abdomen: Soft, nontender, nondistended. Bowel sounds present. Abdominal wall edema resolved Extremities: Warm, dry. left upper extremity lymphedema present however there has been complete resolution of the pitting edema (except in elbow area). 2+edema of bilateral LE seems improved today and skin on lower legs seems less key Both feet are key and purplish at baseline, unchanged. L forefoot is dressed, yellow serous drainage on bandage. 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 Neuro: Alert and oriented x 4, face symmetric, moves 4 extremities but appears globally weak Psych: Normal affect and behavior Results & Data Results & Data Vital Signs (Past 12 Hours) Vital Signs Temp Pulse Pulse Resp BP Pulse Ox O2 Del Method 05/08/23 07:32 36.3 C L 51 L 18 157/66 H 97 Nasal Cannula 05/08/23 03:00 36.6 C 58 L 16 153/70 H 98 Nasal Cannula 05/07/23 23:03 51 L 05/07/23 23:00 36.4 C L 57 L 20 129/65 98 Nasal Cannula O2 Flow Rate 05/08/23 07:32 2 05/08/23 03:00 05/07/23 23:03 05/07/23 23:00 Laboratory Results 05/08/23 05:42 05/08/23 05:42 PG Care Time/CCT Total # of Minutes Spent Total Time Spent with Patient: Total time spent is greater than 50% in coordination of care (as documented) at patient's floor/unit and/or counseling patient: Coding Level of Care Code 54160 SUB INP/OBS CARE 2/35MIN Diagnoses Acute on chronic systolic heart failure I50.23 Pulmonary hypertension I27.20 Liver cirrhosis K74.60 Elevated troponin R79.89 Permanent atrial fibrillation I48.2 Type 2 diabetes mellitus E11.9 Lymphedema I89.0 Gout M10.9 Hyponatremia E87.1 Chronic kidney disease, stage IV (severe) N18.4 Cellulitis of foot L03.119 UTI (urinary tract infection) N39.0 DVT prophylaxis Z29.9 Foot ulcer, left L97.529
--- NOTE | 2023-05-08 10:50 | Nephrology Progress Note ---
Date of Service May 08, 2023 Assessment & Plan (1) JUDE (acute kidney injury): Plan: Attributed to CRS. Volume status acceptable. Creatinine stable. Electrolytes normal. KCl 20 mEq BID. Furosemide switched to 80 mg PO BID yesterday afternoon. Received 100 mg PO yesterday AM. Adequate urine output. Will continue to monitor and adjust dose as needed. Weight is relatively stable. Document strict I/O's. Repeat metabolic profile tomorrow AM. Low sodium diet. Daily fluid restriction 1.5 L. (2) Chronic kidney disease, stage IV (severe): Plan: CKD IIIb A1. Baseline creatinine 1.4-1.6 mg/dL. Medications appropriately dosed for kidney function. I discussed the plan of care with Dr. Matthew this AM. Possible discharge home with home health on Saturday. (3) Liver cirrhosis: Plan: I continue to consider low dose of spironolactone in the future but no compelling indication at this time to make changes. Admission and Anticipated Discharge Date Admission Date: April 25, 2023 Subjective No acute events overnight. Resting comfortably in chair. Weakness persists. Continues to express reservations regarding removing Lord catheter. No dyspnea. Edema continues to improve. No complaints this AM. Review of Systems Review of Systems: All systems reviewed & are unremarkable except as noted in HPI & below Physical Exam Constitutional: well developed and + frail appearing; no acute distress Eyes: no scleral abnormality and no corneal abnormality ENMT: Mouth: no oral mucosal abnormality and oral mucous membranes not dry Neck: normal visual inspection and trachea midline Respiratory: normal respiratory effort Auscultation: lungs clear to auscultation bilaterally Cardiovascular: Rate/Rhythm: regular rate Heart Sounds: normal S1 and normal S2 Extremities: + edema (LUE lymphedema, BL LE edema ) Musculoskeletal: Extremities: no cyanosis and no clubbing Skin: + turgor decreased; no jaundice Neurologic: Motor/Sensory: no tremor and no asterixis Psychiatric: Orientation: alert and oriented x 3 Results & Data Vital Signs (Past 12 Hours) Vital Signs Temp Pulse Pulse Resp BP Pulse Ox O2 Del Method 05/08/23 07:32 36.3 C L 51 L 18 157/66 H 97 Nasal Cannula 05/08/23 05:58 48 L 05/08/23 03:00 36.6 C 58 L 16 153/70 H 98 Nasal Cannula 05/07/23 23:03 51 L 05/07/23 23:00 36.4 C L 57 L 20 129/65 98 Nasal Cannula O2 Flow Rate 05/08/23 07:32 2 05/08/23 05:58 05/08/23 03:00 05/07/23 23:03 05/07/23 23:00 Laboratory Results Laboratory Results - last 24 hr 05/08/23 05:42 WBC 5.17 RBC 5.01 Hgb 13.1 Hct 40.9 MCV 81.6 MCH 26.1 MCHC 32.0 RDW Std Deviation 51.0 H RDW Coeff of Rylee 17.9 H Plt Count 101 L MPV 10.0 Sodium 132 L Potassium 4.3 Chloride 89 L Carbon Dioxide 34 H Anion Gap 9 BUN 122 H Creatinine 1.62 H Est Cr Clr Drug Dosing 23.6 Est GFR ( Amer) 32.7 Est GFR (Non-Af Amer) 28.2 BUN/Creatinine Ratio 75.3 H Glucose 120 H Calcium 8.9 PG Care Time/CCT Total # of Minutes Spent Total Time Spent with Patient: Total time spent is greater than 50% in coordination of care (as documented) at patient's floor/unit and/or counseling patient: Coding Level of Care Code 73918 SUB INP/OBS CARE 3/50MIN Diagnoses JUDE (acute kidney injury) N17.9 Chronic kidney disease, stage IV (severe) N18.4 Liver cirrhosis K74.60
[2023-05-08] MEDS: ACETAMINOPHEN 325 MG TAB PO PRN ×2 (13:01→20:55)
[2023-05-09 04:58] LABS: Hemoglobin 12.4 g/dl (12.0-16.0)
[2023-05-09 05:07] LABS: Calcium 8.8 mg/dl (8.6-10.3); Est GFR (African American) 33.5 ml/min; Est GFR (Non-African American) 28.9 ml/min; Potassium 4.6 mmol/L (3.5-5.1)
[2023-05-09] MEDS: FUROSEMIDE 80 MG TAB PO SCH ×2 (09:31→17:47)
[2023-05-09] MEDS: ADVANCED PROBIOTIC 1250 MG CAPSULE PO SCH (09:31)
[2023-05-09] MEDS: CEROVITE ADV FORMULA TAB PO SCH (09:31)
[2023-05-09] MEDS: allopurinoL 100 MG TAB PO SCH (09:31)
[2023-05-09] MEDS: APIXABAN 2.5 MG TAB PO SCH ×2 (09:32→20:30)
[2023-05-09] MEDS: POTASSIUM CHLORIDE CRTAB 20 MEQ TABCR PO SCH ×2 (09:32→20:31)
[2023-05-09] MEDS: traMADol HCL 50 MG TABLET PO SCH ×3 (09:40→20:31)
--- NOTE | 2023-05-09 12:33 | Nephrology Progress Note ---
Date of Service May 09, 2023 Assessment & Plan (1) JUDE (acute kidney injury): Plan: Attributed to CRS. Volume status acceptable. Creatinine stable. Electrolytes normal. Close outpatient follow up in the nephrology clinic to be arranged. Home health to draw a metabolic profile next week. Low sodium diet. Daily fluid restriction 1.5 L. (2) Chronic kidney disease, stage IV (severe): Plan: CKD IIIb A1. Baseline creatinine 1.4-1.6 mg/dL. Medications appropriately dosed for kidney function. Follow up with Dr. Clemente within the next 2 weeks. Ideally, this can be coordinated with follow up in the CHF clinic. (3) Liver cirrhosis: Plan: No decompensated. Admission and Anticipated Discharge Date Admission Date: April 25, 2023 Subjective No acute events overnight. Emma Peña was out of bed and walking with her walker this AM. She feels well and is planning to be discharged home tomorrow. Volume status controlled. Lord removed. I discussed the plan of care with Dr. Matthew this AM. Review of Systems Review of Systems: All systems reviewed & are unremarkable except as noted in HPI & below Physical Exam Constitutional: well developed and + frail appearing; no acute distress Eyes: no scleral abnormality and no corneal abnormality ENMT: Mouth: no oral mucosal abnormality and oral mucous membranes not dry Neck: normal visual inspection and trachea midline Respiratory: normal respiratory effort Auscultation: lungs clear to auscultation bilaterally Cardiovascular: Rate/Rhythm: regular rate Heart Sounds: normal S1 and normal S2 Extremities: + edema (LUE lymphedema, BL LE edema ) Musculoskeletal: Extremities: no cyanosis and no clubbing Skin: + turgor decreased; no jaundice Neurologic: Motor/Sensory: no tremor and no asterixis Psychiatric: Orientation: alert and oriented x 3 Results & Data Vital Signs (Past 12 Hours) Vital Signs Temp Pulse Pulse Resp BP Pulse Ox O2 Del Method 05/09/23 11:12 36.4 C L 67 18 150/61 H 93 Room Air 05/09/23 09:30 Room Air 05/09/23 07:38 36.6 C 53 L 18 128/70 94 Room Air 05/09/23 06:36 63 05/09/23 03:15 36.6 C 61 18 153/77 H 100 Nasal Cannula O2 Flow Rate 05/09/23 11:12 05/09/23 09:30 05/09/23 07:38 05/09/23 06:36 05/09/23 03:15 2 Laboratory Results Laboratory Results - last 24 hr 05/09/23 03:59 Hgb 12.4 Hct 40.0 Sodium 131 L Potassium 4.6 Chloride 89 L Carbon Dioxide 33 H Anion Gap 9 BUN 124 H Creatinine 1.59 H Est Cr Clr Drug Dosing 24.0 Est GFR ( Amer) 33.5 Est GFR (Non-Af Amer) 28.9 BUN/Creatinine Ratio 78.0 H Glucose 118 H Calcium 8.8 PG Care Time/CCT Total # of Minutes Spent Total Time Spent with Patient: Total time spent is greater than 50% in coordination of care (as documented) at patient's floor/unit and/or counseling patient: Coding Level of Care Code 98873 SUB INP/OBS CARE 3/50MIN Diagnoses JUDE (acute kidney injury) N17.9 Chronic kidney disease, stage IV (severe) N18.4 Liver cirrhosis K74.60
--- NOTE | 2023-05-09 18:06 | Hospitalist Progress Note ---
Date of Service May 09, 2023 Assessment & Plan (1) Acute on chronic systolic heart failure: Plan: during this admission presented with massive volume overload and was diuresed successfully with twice a day high-dose IV Lasix and metolazone volume status continues to improve weight has improved from peak of 88.4 kg down to 80.9 kg, static overnight Cr has stabilized -1.59 today, BUN remains very elevated at 124, unchanged potassium normal at 4.6 echo this admission with EF 40-45%, pulm HTN, and right ventricular systolic dysfunction as well [facility] changed Lasix to 80 mg p.o. twice daily - will assess response. Discussed with Dr. Arora today of note -- follows with Nasrin Shields in [facility] [place] as well -discussed with her today and she will arrange clinic follow-up for next week (2) Pulmonary hypertension: Plan: moderate on echo cont NC O2 - current 98% on 2L with improvement in volume status her PA pressures may fall on room air last few days (3) Liver cirrhosis: Plan: 2nd MCKEON? 2nd to "cardiac cirrhosis?" other? consider aldactone but hold off for now - defer to nephrology (4) Elevated troponin: Plan: peak HS troponin 250 likely myocardial demand ischemia from #1 above no evidence of ACS (5) Permanent atrial fibrillation: Plan: rates controlled w/o any AV nadira agent cont Eliquis BID 2.5mg (6) Type 2 diabetes mellitus: Plan: a1c 6.9% in Mar 2023 BSGs are wnl diet control only defer on novolog (7) Lymphedema: Plan: LUE chronic, due to prior Rx for breast ca (8) Gout: Plan: SEVERE tophaceous gout of hands, etc indicative of long-standing, uncontrolled disease uric acid level 11.2; goal would be <6 started allopurinol 50mg/day 05/03/23 - tolerating such thus far -Check uric acid ordered for a.m. -Follow-up in nephrology (9) Hyponatremia: Plan: stable 131 cont lasix diuresis daily BMP -ordered (10) Chronic kidney disease, stage IV (severe): Plan: baseline CrCl 15-25 baseline Cr 1.3 to 1.5 Cr has improved with diuresis, remains to daily BMP (11) Cellulitis of foot: Plan: resolved completed 10 days of IV/PO antibiotics cont local wound care for large venous stasis ulceration (had large "bubble" from edema which popped leading to ulceration) (12) UTI (urinary tract infection): Plan: 2nd e.coli resolved clinically completed 7+ days of IV/PO abx (13) DVT prophylaxis: Plan: eliquis 2.5mg BID (14) Foot ulcer, left: Plan: large dorsal surface ulceration clean wound bed nice and pink granulating added MVI cont local wound care appreciate wound care team Plan cont PT/OT daughter extensively updated throughout last week and this past weekend progressing dispo - home with HH and her daughter who provides 17/12 care, anticipate tomorrow? when HH intake can be done Her daughter can pick her up and of the day Admission and Anticipated Discharge Date Admission Date: April 25, 2023 Subjective Breathing continues to slowly improve, edema also continues to slowly improve. Lord removed today voiding spontaneously had an episode of incontinence because could not get to the commode in time. Bilateral foot pain continues but has improved compared to a few weeks ago Physical Exam 2 Physical Exam: PHYSICAL EXAMINATION Last 24h vital signs reviewed, see documentation in flowsheet General: awake and sitting up in chair, very pleasant HEENT: Normocephalic, atraumatic, pupils round and equal, sclerae anicteric, no conjunctival injection, moist mucus membranes. cat scratch on nose -healing well Lungs: normal respiratory effort, improved, clear anteriorly, scattered bibasilar crackles, breath sounds improved in bases Heart: Regular rate and rhythm, systolic murmur, no JVD Abdomen: Soft, nontender, nondistended. Bowel sounds present. Abdominal wall edema resolved Extremities: Warm, dry. left upper extremity lymphedema present however there has been complete resolution of the pitting edema (except in elbow area). 2+edema of bilateral LE unchanged today and skin on lower legs remains key Both feet are key and purplish at baseline, unchanged. 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 Neuro: Alert and oriented x 4, face symmetric, moves 4 extremities but appears globally weak Psych: Normal affect and behavior Results & Data Results & Data Vital Signs (Past 12 Hours) Vital Signs Temp Pulse Pulse Resp BP Pulse Ox O2 Del Method 05/09/23 16:36 36.5 C 57 L 17 139/68 93 Room Air 05/09/23 14:32 64 05/09/23 11:12 36.4 C L 67 18 150/61 H 93 Room Air 05/09/23 09:30 Room Air 05/09/23 07:38 36.6 C 53 L 18 128/70 94 Room Air 05/09/23 06:36 63 Laboratory Results 05/09/23 03:59 05/09/23 03:59 PG Care Time/CCT Total # of Minutes Spent Total Time Spent with Patient: Total time spent is greater than 50% in coordination of care (as documented) at patient's floor/unit and/or counseling patient: Coding Level of Care Code 39042 SUB INP/OBS CARE 2/35MIN Diagnoses Acute on chronic systolic heart failure I50.23 Pulmonary hypertension I27.20 Liver cirrhosis K74.60 Elevated troponin R79.89 Permanent atrial fibrillation I48.2 Type 2 diabetes mellitus E11.9 Lymphedema I89.0 Gout M10.9 Hyponatremia E87.1 Chronic kidney disease, stage IV (severe) N18.4 Cellulitis of foot L03.119 UTI (urinary tract infection) N39.0 DVT prophylaxis Z29.9 Foot ulcer, left L97.529
[2023-05-10 07:13] LABS: BUN Creatinine Ratio 75.7 (10-20); Calcium 8.9 mg/dl (8.6-10.3); Creatinine Clr Calc Pharmacy 22.8 ml/min; Est GFR (African American) 31.1 ml/min; Est GFR (Non-African American) 26.8 ml/min; Potassium 4.8 mmol/L (3.5-5.1); Uric Acid 10.6 mg/dl (2.6-7.2)
[2023-05-10] MEDS: allopurinoL 100 MG TAB PO SCH (09:00)
[2023-05-10] MEDS: FUROSEMIDE 80 MG TAB PO SCH ×2 (09:00→17:09)
[2023-05-10] MEDS: APIXABAN 2.5 MG TAB PO SCH ×2 (09:00→20:37)
[2023-05-10] MEDS: ADVANCED PROBIOTIC 1250 MG CAPSULE PO SCH (09:01)
[2023-05-10] MEDS: CEROVITE ADV FORMULA TAB PO SCH (09:01)
[2023-05-10] MEDS: POTASSIUM CHLORIDE CRTAB 20 MEQ TABCR PO SCH ×2 (09:01→20:38)
[2023-05-10] MEDS: traMADol HCL 50 MG TABLET PO SCH ×3 (09:03→20:37)
[2023-05-10] MEDS ORDERED: metOLazone 5 MG TABLET PO ONE (09:10)
--- NOTE | 2023-05-10 10:26 | Nephrology Progress Note ---
Date of Service May 10, 2023 Assessment & Plan (1) JUDE (acute kidney injury): Plan: Attributed to CRS. Volume status acceptable. Creatinine stable. Electrolytes normal. Close outpatient follow up in the nephrology clinic to be arranged. Home health arrangements to draw a metabolic profile next week. Otherwise monitor metabolic profile daily while inpatient. Low sodium diet. Daily fluid restriction 1.5 L. (2) Chronic kidney disease, stage IV (severe): Plan: CKD IIIb A1. Baseline creatinine 1.4-1.6 mg/dL. Medications appropriately dosed for kidney function. Follow up with Dr. Clemente within the next 2 weeks of discharge. Ideally, this can be coordinated with follow up in the CHF clinic. (3) Acute on chronic systolic heart failure: Plan: Volume status appears stable on exam. Weight has increased. Urine output not documented completely. Metolazone was given with furosemide this morning. Close follow up in the CHF clinic arranged. No RASi due to kidney dysfunction. Admission and Anticipated Discharge Date Admission Date: April 25, 2023 Subjective No acute events overnight. Out of bed with 1 person assist this AM. Breathing comfortably. Denies signs of increased fluid retention. Wound care was in the room when I saw Emma this AM. She denies pain. No fevers or chills. No chest pains or palpitations. Very hopeful to be discharged home today. Voiding without difficulty s/p removal of Lord. Incontinent of urine. Urine output not accurately documented. I discussed the plan of care with Dr. Matthew this AM. Weight was elevated. Metolazone was ordered this morning with furosemide. Furosemide was given prior to metolazone administration. Review of Systems Review of Systems: All systems reviewed & are unremarkable except as noted in HPI & below Physical Exam Constitutional: well developed and + frail appearing; no acute distress Eyes: no scleral abnormality and no corneal abnormality ENMT: Mouth: no oral mucosal abnormality and oral mucous membranes not dry Neck: normal visual inspection and trachea midline Respiratory: normal respiratory effort Auscultation: lungs clear to auscultation bilaterally and + rales Cardiovascular: Rate/Rhythm: regular rate Heart Sounds: normal S1 and normal S2 Extremities: + edema (LUE lymphedema, BL LE edema ) Musculoskeletal: Extremities: no cyanosis and no clubbing Skin: + turgor decreased; no jaundice Neurologic: Motor/Sensory: no tremor and no asterixis Psychiatric: Orientation: alert and oriented x 3 Results & Data Vital Signs (Past 12 Hours) Vital Signs Temp Pulse Resp BP Pulse Ox O2 Del Method 05/10/23 08:24 36.6 C 65 20 137/76 90 Room Air 05/10/23 03:59 36.6 C 68 20 138/63 93 Room Air 05/10/23 00:33 Room Air 05/09/23 23:34 36.4 C L 67 18 132/68 92 Room Air Laboratory Results Laboratory Results - last 24 hr 05/10/23 05:37 Sodium 130 L Potassium 4.8 Chloride 88 L Carbon Dioxide 32 Anion Gap 10 BUN 128 H Creatinine 1.69 H Est Cr Clr Drug Dosing 22.8 Est GFR ( Amer) 31.1 Est GFR (Non-Af Amer) 26.8 BUN/Creatinine Ratio 75.7 H Glucose 126 H Uric Acid 10.6 H Calcium 8.9 PG Care Time/CCT Total # of Minutes Spent Total Time Spent with Patient: Total time spent is greater than 50% in coordination of care (as documented) at patient's floor/unit and/or counseling patient: Coding Level of Care Code 78079 SUB INP/OBS CARE 3/50MIN Diagnoses JUDE (acute kidney injury) N17.9 Chronic kidney disease, stage IV (severe) N18.4 Acute on chronic systolic heart failure I50.23
--- NOTE | 2023-05-10 18:22 | Hospitalist Progress Note ---
Date of Service May 10, 2023 Assessment & Plan (1) Acute on chronic systolic heart failure: Plan: during this admission presented with massive volume overload and was diuresed successfully with twice a day high-dose IV Lasix and metolazone echo this admission with EF 40-45%, pulm HTN, and right ventricular systolic dysfunction as well on Lasix to 80 mg p.o. twice daily volume status seems worse today with increased crackles and wheezing on lung exam weight has improved from peak of 88.4 kg down to 80.9 kg, up overnight - but was bed weight Discussed with Dr. Arora, added metolazone 5 mg in AM. given after lasix today, UOP only 600 for today so far will reassess for discharge in AM depending on volume status discussed x 2 visits with patient, her daughter here in afternoon of note -- follows with Nasrin Shields in [facility] CHF clinic as well -discussed with her and she will arrange clinic follow-up for next week (2) Pulmonary hypertension: Plan: moderate on echo cont NC O2 - current 98% on 2L with improvement in volume status her PA pressures may fall on room air last few days (3) Liver cirrhosis: Plan: Likely NAFLD or cardiac cirrhosis consider aldactone but hold off for now - defer to nephrology (4) Elevated troponin: Plan: peak HS troponin 250 likely myocardial demand ischemia from #1 above no evidence of ACS (5) Permanent atrial fibrillation: Plan: rates controlled w/o any AV nadira agent cont Eliquis BID 2.5mg (6) Type 2 diabetes mellitus: Plan: a1c 6.9% in Mar 2023 BSGs are wnl diet control only defer on novolog (7) Lymphedema: Plan: LUE chronic, due to prior Rx for breast ca (8) Gout: Plan: SEVERE tophaceous gout of hands, etc indicative of long-standing, uncontrolled disease uric acid level today still 10.5; goal would be <6 started allopurinol 50mg/day 05/03/23 - increase to 100 mg daily -Follow-up in nephrology (9) Hyponatremia: Plan: stable 130 cont lasix diuresis daily BMP -ordered (10) Chronic kidney disease, stage IV (severe): Plan: baseline CrCl 15-25 baseline Cr 1.3 to 1.5 Cr has improved with diuresis, remains to daily BMP (11) Cellulitis of foot: Plan: resolved completed 10 days of IV/PO antibiotics cont local wound care for large venous stasis ulceration (had large "bubble" from edema which popped leading to ulceration) (12) UTI (urinary tract infection): Plan: 2nd e.coli resolved clinically completed 7+ days of IV/PO abx (13) DVT prophylaxis: Plan: eliquis 2.5mg BID (14) Foot ulcer, left: Plan: large dorsal surface ulceration clean wound bed nice and pink granulating added MVI cont local wound care appreciate wound care team Plan cont PT/OT daughter extensively updated throughout last week and this past weekend progressing dispo - home with HH and her daughter who provides 17/12 care, anticipate tomorrow? when HH intake can be done - Saturday Admission and Anticipated Discharge Date Admission Date: April 25, 2023 Subjective really wants to go home. breathing is worse today and so is cough however. weight up however was a bed weight. daughter at bedside. heel pains have resolved. L dorsum foot pain slowly improving with wound care Physical Exam 2 Physical Exam: PHYSICAL EXAMINATION Last 24h vital signs reviewed, see documentation in flowsheet General: awake and sitting up in chair, very pleasant HEENT: Normocephalic, atraumatic, pupils round and equal, sclerae anicteric, no conjunctival injection, moist mucus membranes. cat scratch on nose -healing well Lungs: normal respiratory effort, clear anteriorly, bilateral mid and basilar field crackles and mild exp wheezes - unchanged on repeat exam this evening Heart: Regular rate and rhythm, systolic murmur, EJs remain distended Abdomen: Soft, nontender, nondistended. Bowel sounds present. Abdominal wall edema resolved Extremities: Warm, dry. left upper extremity lymphedema present however there has been complete resolution of the pitting edema (except in elbow area). 2+edema of bilateral LE unchanged today and skin on lower legs remains key - unchanged Both feet are key and purplish at baseline, unchanged 05/10. 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 Neuro: Alert and oriented x 4, face symmetric, moves 4 extremities equally Psych: Normal affect and behavior Results & Data Results & Data Vital Signs (Past 12 Hours) Vital Signs Temp Pulse Resp BP Pulse Ox O2 Del Method 05/10/23 15:19 36.3 C L 70 20 137/73 94 Room Air 12/15/23 11:13 36.7 C 59 L 20 127/68 91 Room Air 05/10/23 08:24 36.6 C 65 20 137/76 90 Room Air 05/10/23 08:00 Room Air Laboratory Results 05/09/23 03:59 05/10/23 05:37 PG Care Time/CCT Total # of Minutes Spent Total Time Spent with Patient: Total time spent is greater than 50% in coordination of care (as documented) at patient's floor/unit and/or counseling patient: Coding Level of Care Code 69162 SUB INP/OBS CARE 2/35MIN Diagnoses Acute on chronic systolic heart failure I50.23 Pulmonary hypertension I27.20 Liver cirrhosis K74.60 Elevated troponin R79.89 Permanent atrial fibrillation I48.2 Type 2 diabetes mellitus E11.9 Lymphedema I89.0 Gout M10.9 Hyponatremia E87.1 Chronic kidney disease, stage IV (severe) N18.4 Cellulitis of foot L03.119 UTI (urinary tract infection) N39.0 DVT prophylaxis Z29.9 Foot ulcer, left L97.529
[2023-05-10] MEDS: ACETAMINOPHEN 325 MG TAB PO PRN (20:39)
[2023-05-11 05:59] LABS: BUN Creatinine Ratio 75.1 (10-20); Calcium 8.7 mg/dl (8.6-10.3); Creatinine Clr Calc Pharmacy 22.3 ml/min; Est GFR (African American) 30.2 ml/min; Est GFR (Non-African American) 26.1 ml/min; Potassium 4.6 mmol/L (3.5-5.1)
[2023-05-11] MEDS: metOLazone 5 MG TABLET PO SCH (08:47)
[2023-05-11] MEDS: APIXABAN 2.5 MG TAB PO SCH (08:48)
--- NOTE | 2023-05-11 08:48 | Nephrology Progress Note ---
Date of Service May 11, 2023 Assessment & Plan (1) JUDE (acute kidney injury): Plan: * CRS. Although patient has preserved LVEF 50-55% on 11/16 echocardiogram, she has moderate mitral regurgitation and evidence of pulmonary HTN. Attempts at diuresis as outpatient have resulted in progressive renal dysfunction * Discussed HD with patient again today due to azotemia and mild hyponatremia. She wishes to continue with conservative medical management at this time. She understands that HD would likely prolong hospitalization and result in functional decline (possible SNF placement) due to her frail condition. terminal carman vascular access will be difficult due to L arm lymphedema. Ms. Gatica did indicate however that she would like to revisit the possibility of HD if she fails outpatient medical management. Her primary focus today is on returning home to be with her daughter * Advised 1500 mg NaCl and 1.5 L/day oral fluid restriction (2) Chronic kidney disease, stage IV (severe): Plan: * CKD stage G3b/A3. Baseline creatinine 1.4-1.6 mg/dL. * Follow up in my office within 2 weeks of discharge. Ideally, this can be coordinated with follow up in the CHF clinic (3) Acute on chronic systolic heart failure: Plan: * Volume status has improved. Target weight appears to be 80 kg * Currently on Furosemide 80 mg BID and Metolazone 5 mg QOD as outlined by hospitalist service. Consider changing Furosemide to Bumetanide 2 mg po BID as patient had been on Bumex prior to hospitalization and Bumex has better bioavailability Admission and Anticipated Discharge Date Admission Date: April 25, 2023 Subjective Ms. Gatica was evaluated in her hospital room this morning. She was breathing comfortably on RA and able to ambulate with the use of a rolling walker. Ms. Gatica noted that her LE swelling was markedly improved Review of Systems Constitutional: no fever Eyes: no worsening vision Ear, Nose, Mouth, Throat: no problem reported Respiratory: no cough and no dyspnea Cardiovascular: no chest pain Gastrointestinal: no abdominal pain, no nausea, no vomiting and no diarrhea/loose stools Integumentary: LE swelling improved Chronic lymphedema of L arm Physical Exam Constitutional: + ill appearing Eyes: PERRL, conjunctivae normal, anicteric sclerae ENMT: external ear and nose normal, oropharynx normal Neck: trachea midline, no thyromegaly Respiratory: Auscultation: + rales (at bases bilaterally) Cardiovascular: Rate/Rhythm: regular rate and regular rhythm Extremities: + edema (trace to 1+ pretibial edema. Markedly improved) Gastrointestinal (Abdomen): normal bowel sounds, soft, nontender, no hepatosplenomegaly Neurologic: Speech / Cognition: normal speech and normal cognition Results & Data Vital Signs (Past 12 Hours) Vital Signs Temp Pulse Resp BP Pulse Ox O2 Del Method 05/11/23 08:09 36.4 C L 60 17 149/76 H 91 Room Air 05/11/23 03:01 36.4 C L 62 20 154/81 H 95 Room Air 05/10/23 23:03 36.3 C L 63 18 129/72 91 Room Air 05/10/23 22:00 Room Air Laboratory Results Laboratory Results - last 24 hr 05/11/23 04:20 Sodium 130 L Potassium 4.6 Chloride 89 L Carbon Dioxide 31 Anion Gap 10 BUN 130 H Creatinine 1.73 H Est Cr Clr Drug Dosing 22.3 Est GFR ( Amer) 30.2 Est GFR (Non-Af Amer) 26.1 BUN/Creatinine Ratio 75.1 H Glucose 118 H Calcium 8.7 PG Care Time/CCT Total # of Minutes Spent Total Time Spent with Patient: Total time spent is greater than 50% in coordination of care (as documented) at patient's floor/unit and/or counseling patient: Coding Level of Care Code 82423 SUB INP/OBS CARE 3/50MIN Diagnoses JUDE (acute kidney injury) N17.9 Chronic kidney disease, stage IV (severe) N18.4 Acute on chronic systolic heart failure I50.23
[2023-05-11] MEDS: ADVANCED PROBIOTIC 1250 MG CAPSULE PO SCH (08:49)
[2023-05-11] MEDS: CEROVITE ADV FORMULA TAB PO SCH (08:49)
[2023-05-11] MEDS: POTASSIUM CHLORIDE CRTAB 20 MEQ TABCR PO SCH (08:49)
[2023-05-11] MEDS: traMADol HCL 50 MG TABLET PO SCH (08:51)
[2023-05-11] MEDS ORDERED: allopurinoL 100 MG TAB PO SCH (09:00)
[2023-05-11] MEDS: FUROSEMIDE 80 MG TAB PO SCH (09:20)
--- NOTE | 2023-05-11 10:06 | Discharge Summary ---
Date of Service May 11, 2023 Admission HPI Per Admitting Provider Emma Gatica is an 87 year old female who presented to the ER on advice of her marketing financial analyst due to worsening shortness of breath and increasing leg edema. She reports her marketing financial analyst and heart failure clinic have been trying to get her into the hospital for some time. For the past few days she has been getting significant worse and now finding it difficult to get around. Noticed blister on her left foot just a couple of days ago which subsequently popped. No urinary symptoms. No chest pain or palpitations. She has significant orthopnea and shortness of breath on exertion. She notes the significant weight gain occurred after IV fluids given for multiple days in September when she was dehydrated with JUDE in setting of diarrhea and Lasix/lisinopril discontinued and she received IV fluids for several days with improvement in her Cr. She has never gone back to her baseline weight since this admission. WBC elevated in the ER. She notes a blister that suddenly appeared on her left foot a few days ago but no definitive new infection on her legs. No fevers. She reports chills since September but nothing new recently. No cough, nasal congestion or sinus pain. Principal Diagnosis Acute on chronic systolic heart failure, severe volume overload Discharge Exam PHYSICAL EXAMINATION Last 24h vital signs reviewed, see documentation in flowsheet General: awake and sitting up in chair, very pleasant Exam unchanged 05/11 except lung exam slightly clearer HEENT: Normocephalic, atraumatic, pupils round and equal, sclerae anicteric, no conjunctival injection, moist mucus membranes. cat scratch on nose -healing well Lungs: normal respiratory effort, clear anteriorly, bilateral mid and basilar field crackles and mild exp wheezes - slight improvement Heart: Regular rate and rhythm, systolic murmur, EJs remain distended Abdomen: Soft, nontender, nondistended. Bowel sounds present. Abdominal wall edema resolved Extremities: Warm, dry. left upper extremity lymphedema present however there has been complete resolution of the pitting edema (except in elbow area). 2+edema of bilateral LE unchanged today and skin on lower legs remains key - unchanged Both feet are key and purplish at baseline, unchanged 05/10. 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 Verified 04/25/23 11:43 sulfamethoxazole Allergy Unknown Diarrhea Verified 04/25/23 11:43 [From Bactrim] trimethoprim [From Bactrim] Allergy Unknown Diarrhea Verified 04/25/23 11:43 ceftriaxone [From Rocephin] AdvReac Severe Diarrhea Verified 04/25/23 11:43 meperidine AdvReac Mild nausea/vomi Verified 04/25/23 11:43 ting Consultations 04/25/23 15:21 ED Decision to Admit Stat 04/25/23 20:55 Consult Nephrology Routine 04/25/23 21:40 Consult Cardiology Routine Ordered Studies 04/25/23 15:55 CT abd pelvis wo con Stat 04/25/23 15:59 CT chest diagnostic wo con Stat Chest X-Ray 04/25/23 13:00 SINGLE VIEW CHEST CLINICAL HISTORY: Dyspnea. Edema. FINDINGS: A PA chest radiograph is compared to study dated 09/26/2022. The examination is degraded by patient rotation. Surgical clips project over the left axilla. The heart is enlarged and noting atherosclerotic calcification of the thoracic aorta. There is pulmonary vascular congestion. Bilateral airspace opacities likely representing interstitial edema. Small pleural effusions are noted. There is bibasilar scarring/atelectasis. No pneumothorax is seen. The skeletal structures are osteopenic. The bony thorax is grossly intact. IMPRESSION: 1. Cardiomegaly with evidence of congestive failure. 2. Bilateral airspace opacities likely represent pulmonary edema. Correlate clinically for evidence of a superimposed infectious/inflammatory pneumonitis. Radiographic follow-up to resolution is recommended. 3. Small pleural effusions. ACT 112: Negative or not required by law. Electronically signed by: Olman Benítze M.D. 04/25/2023 2:41 PM Abdomen/Pelvis CT 04/25/23 15:55 CT SCAN OF THE ABDOMEN AND PELVIS WITHOUT IV CONTRAST CLINICAL HISTORY: Acute renal insufficiency. Generalized abdominal pain. Dyspnea. Fluid retention. COMPARISON STUDY: Abdominal CT dated 01/12/2022. TECHNIQUE: CT scan of the abdomen and pelvis is performed from the lung bases to the proximal femora. Images are reviewed in the axial, sagittal, and coronal planes. IV contrast was not administered for this examination due to poor renal function. Note that the examination is suboptimal without oral and IV contrast. There is also motion artifact, and streak artifact from the arms which could not be elevated above the abdomen. A dose lowering technique was utilized adhering to the principles of ALARA. FINDINGS: Lung bases: The heart is enlarged and without pericardial effusion. The coronary arteries and mitral annulus are denser calcified. There are moderate pleural effusions with dependent consolidation. Surgical clips are noted in the left breast. Liver: The unenhanced liver is cirrhotic in morphology and heterogeneous attenuation. There is hypertrophy of the left lobe and nodularity of the hepatic surface contour. There is no intrahepatic biliary ductal dilatation. Gallbladder: There are layering calcified gallstones within the gallbladder lumen, with no CT evidence of acute cholecystitis. Spleen: Normal in size and attenuation. Pancreas: The unenhanced pancreas is atrophic and grossly unremarkable. Adrenal glands: Unremarkable. Kidneys: The unenhanced kidneys are atrophic and without hydronephrosis. There are bilateral renovascular calcifications. No renal calculi are clearly identified. There is no evidence of contour deforming renal mass lesion. Abdominal vasculature: The abdominal aorta is normal in course and caliber noting advanced atherosclerotic calcification. Bowel: There is advanced colonic diverticulosis without CT evidence of acute diverticulitis. No bowel obstruction is seen. Mild to moderate fecal retention is noted throughout the colon. The appendix is not visualized and reported surgically absent. Peritoneum: There is a small volume of abdominopelvic ascites. No intraperitoneal free air is seen. Lymphadenopathy: None. Pelvic viscera: The bladder is decompressed and grossly unremarkable. The uterus is surgically absent. No adnexal lesion is seen. Skeletal structures: The skeletal structures are osteopenic. There is moderate to advanced lumbosacral spondylosis as well as mild scoliosis. No lytic or blast ic lesions are seen. Advanced arthritic change is seen in the left hip. Soft tissues: There is anasarca of the body wall. IMPRESSION: 1. Significantly streak and motion compromised examination. The examination is also suboptimal without oral and IV contrast. 2. There is evidence of fluid overload, including moderate pleural effusions, anasarca of the body wall, and a small volume of abdominopelvic ascites. 3. The liver is cirrhotic in morphology and heterogeneous attenuation. 4. Cholelithiasis without CT evidence of acute cholecystitis. 5. Colonic diverticulosis without CT evidence of acute diverticulitis. 6. Cardiomegaly with advanced coronary atherosclerosis. 7. Additional findings as above. ACT 112: Negative or not required by law. Electronically signed by: Olman Benítez M.D. 04/25/2023 5:[address] 04/25/23 15:59 CT chest diagnostic wo con CLINICAL HISTORY: Shortness of breath ?pulmonary edema ?PNA TECHNIQUE: Multidetector row helical CT of the chest was performed. Coronal and sagittal reformations were obtained. Automated dose lowering techniques and/or adjustment according to patient size were utilized for this exam. CT DOSE: 1244.28 mGy.cm Comparison: Comparison is made to CT abdomen pelvis 01/12/2022 FINDINGS: Lungs and pleura: Moderate bilateral pleural effusions are seen. Atelectasis is seen with mosaic attenuation and bronchial wall thickening. Interstitial thickening is seen. Heart and pericardium: Cardiomegaly is seen with biatrial enlargement. Vessels: Severe atherosclerotic changes in the aorta and coronary arteries. Pulmonary trunk measures 37 mm in diameter. Mediastinum and anya: Multiple lymph nodes measure up to 11 mm in diameter. Chest wall and lower neck: Unremarkable. Abdomen: For findings below the diaphragm, please refer to CT of the abdomen dated the same. Bones: Degenerative changes in the thoracic spine. IMPRESSION: 1. Moderate bilateral pleural effusions with underlying atelectasis. Interstitial thickening with bronchial wall thickening and mosaic attenuation may which reflect small airways disease. 2. Cardiomegaly and pulmonary hypertension. ACT 112: Negative or not required by law. Electronically signed by: Elvin Nath M.D. 04/25/2023 4:45 PM Chest X-Ray 04/29/23 03:00 XR chest 1V portable HISTORY: increasing dyspnea COMPARISON: Chest 04/25/2023. FINDINGS: No pneumothorax. The heart remains enlarged. There are surgical clips within the left axilla. No acute fractures identified. Pulmonary edema and small bilateral pleural effusions have progressed. IMPRESSION: Pulmonary edema and small bilateral pleural effusions have progressed. ACT 112: Negative or not required by law. Electronically signed by: Francisco Javier Aragon M.D. 04/29/2023 7:12 AM Hospital Course (1) Acute on chronic systolic heart failure: Emma has complex disease with chronic systolic heart failure, right sided heart failure, pulmonary hypertension, advanced CKD, and new finding of cirrhosis based on CT imaging. She had stopped responding to oral diuretics and accumulated a massive amount of edema resulting in weeping from her extremities and leg cellulitis. During this admission presented with massive volume overload - acute pulmonary e marcos with hypoxia, bilateral pleural effusions, ascites, severe anasarca of extremities and body wall. Initially it was not clear whether she would respond to diuretics or whether hemodialysis would be necessary. She was diuresed successfully with twice a day high-dose IV Lasix and metolazone. weight 91.7 --> 80.1 kg this admission. Remains edematous but significantly improved and no longer hypoxic. echo this admission with EF 40-45%, pulm HTN, and right ventricular systolic dysfunction as well on Lasix to 80 mg p.o. twice daily, added metolazone 5 mg every other morning and PRN of note -- follows with Nasrin Shields in [facility] clinic as well -discussed with her and she will arrange clinic follow-up for this upcoming week. She will have short term follow up with nephrology as well. 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 Hepatitis A/B/C were negative (4) Elevated troponin: peak HS troponin 250 myocardial demand ischemia from #1 above no evidence of ACS (5) Permanent atrial fibrillation: rates controlled w/o any AV nadira agent cont Eliquis BID 2.5mg (6) Type 2 diabetes mellitus: a1c 6.9% in Mar 2023 BSGs are wnl diet control only (7) Lymphedema: LUE chronic, due to prior Rx for breast ca (8) Gout: SEVERE tophaceous gout of hands, etc indicative of long-standing, uncontrolled disease started allopurinol 50mg/day 05/03/23 uric acid level today still 10.5 - increased to 100 mg daily at discharge -Follow-up in nephrology (9) Hyponatremia: (10) Chronic kidney disease, stage IV (severe): baseline CrCl 15-25 baseline Cr 1.3 to 1.5 Cr initially improved with diuresis, remaining stable (11) Cellulitis of foot: resolved completed 10 days of IV/PO antibiotics cont local wound care for large venous stasis ulceration (had large "bubble" from edema which popped leading to ulceration) (12) UTI (urinary tract infection): 2nd e.coli resolved clinically completed 7+ days of IV/PO abx (13) DVT prophylaxis: (14) Foot ulcer, left: large dorsal surface ulceration clean wound bed nice and pink granulating added MVI cont local wound care appreciate wound care team Plan home with HH and her daughter who provides 17/12 care. intake visit can be - Saturday Total Time Total Time Spent Total Time Spent (In Minutes): I personally spent: 40 minutes today on clinical care activities for discharge including: reviewing chart notes and vital signs reviewing labs reviewing studies examining and counseling the patient counseling the patient's family writing orders prescription and discourage instructions documentation Discharge Plan Discharge Items Patient Disposition: Home - Home Health Services Reason For Visit: JUDE, HYPERVOLEMIA Discharge Diagnosis: JUDE on CKD, hypervolemia Condition on Discharge: Fair Activity: Resume your previous activity Non-emergency contact: Primary Care Provider, Product/Industry Consultant and Boxing And Pressing Supervisor Call non-emergency contact if: you have any medication questions, your symptoms worsen and you have a fever Follow-up/Referrals: Saul Clemente MD [Physician] - (Please call to schedule this apt) Donnell Garibay MD [Primary Care Provider] - 05/15/23 11:00 am Torrie Shields PA-C [Physician Traffic Inspector] - 05/17/23 10:30 am Diet: Low Sodium (2gm) Fluids: 1500ml (6 cups) Addtl Attending Provider Instructions: You were treated for severe fluid overload This is caused by a combination of kidney disease, heart failure, and you also have some cirrhosis. The cirrhosis could be from non-alcohol related fatty liver, sometimes heart failure can also cause cirrhosis over time. You were treated with diuretics. Weigh yourself every morning on a bathroom scale and keep track Take furosemide 80 mg twice a day (morning and afternoon) Take metolazone 5 mg every other day to start. Take this 30 minutes prior to your furosemide dose. You can also take a morning dose on your off days as needed for increased weight (3 pounds in a day or 5 pounds in a week). The metolazone might need to be increased to daily, but we will see how it goes. If your weight / edema is going up despite furosemide and metolazone, call the heart failure clinic or signal tower operator for advice Stay on a low salt diet and continue fluid restriction of 1500 mL per day We started allopurinol to lower your uric acid and treat your gout. If you develop a rash while taking allopurinol, stop the medication immediately and call your signal tower operator. Continue daily dressing changes for your foot wound Pending Studies at Discharge: No Stand-Alone Forms: [facility], Smoking Cessation Medications and DC Order Prescriptions: New furosemide 80 mg Tablet 80 mg PO [id number] Qty: 60 0RF metolazone 5 mg Tablet See Rx Instructions .ROUTE .COMPLEX Qty: 30 0RF Rx Instructions: take every other morning, and as needed daily on other mornings. take 30 minutes prior to AM furosemide potassium chloride 20 mEq Tablet,Er Particles/Crystals 20 meq PO BID Qty: 60 0RF allopurinol 100 mg Tablet 100 mg PO DAILY Qty: 30 0RF Cerovite Senior 0.4 mg-300 mcg- 250 mcg Tablet 1 tab PO QAM Qty: 1 0RF Rx Instructions: buy over the counter Advanced Probiotic 625 mg (10 billion cell) Capsule 2 cap PO DAILY Qty: 1 0RF Rx Instructions: buy over the counter probiotic, take for 2-4 weeks Continued diclofenac sodium 1 % gel 1 g topical BID PRN (Reason: Pain) Qty: 100 6RF tramadol 50 mg tablet 50 mg PO TID Qty: 270 0RF acetaminophen [Tylenol Extra Strength] 500 mg tablet 1,000 mg PO HS PRN (Reason: Pain) ondansetron HCl 4 mg tablet 4 mg PO Q8H PRN (Reason: nausea and vomiting) Qty: 10 1RF Eliquis 2.5 mg tablet 2.5 mg PO BID Qty: 180 3RF Discontinued bumetanide 2 mg tablet 2 mg PO BID Qty: 60 2RF Discharge Orders: Discharge Order- CHF (Routine); Ordered 12/16/23 Ordered By: Jyothi Matthew Admission Data Admit Date/Time: 04/25/23 16:20 Attending Provider: Jyothi Matthew Admit Provider: En Ernst Primary Care Provider: Donnell Garibay Other Providers: En Ernst; Saul Clemente; Devan Perales; [place] Other Interventions: Discharge Summary Assessment (RN) Last Done: 05/11/23 10:33 Coding Level of Care Code 03419 INP/OBS DISCH >30 MIN Diagnoses Acute on chronic systolic heart failure I50.23 Pulmonary hypertension I27.20 Liver cirrhosis K74.60 Elevated troponin R79.89 Permanent atrial fibrillation I48.2 Type 2 diabetes mellitus E11.9 Lymphedema I89.0 Gout M10.9 Hyponatremia E87.1 Chronic kidney disease, stage IV (severe) N18.4 Cellulitis of foot L03.119 UTI (urinary tract infection) N39.0 DVT prophylaxis Z29.9 Foot ulcer, left L97.529
--- NOTE | 2023-05-15 13:24 | Coding Query ---
To promote full compliance with coding requirements relating to patient care, provider participation is requested in all cases of computer aided design drafter uncertainty. Please assist us with the question(s) below: Coding Question(s): The diagnosis(es) below was documented in the (progress notes) then subsequently fell off all further documentation. Please indicate if it is still a possible diagnosis or ruled out. Physician's Response(s): SEPSIS ( x ) Diagnosed and POA ( ) Diagnosed and not POA ( ) Ruled out ( ) Other (please specify) MTDD
--- NOTE | 2023-05-15 14:36 | Coding Query ---
CODING QUERY To promote full compliance with coding requirements relating to patient care, provider participation is requested in all cases of wealth management consultant uncertainty. Please assist us with the question(s) below: Coding Question(s): Please clarify whether the patient had systolic, diastolic, or combined systolic and diastolic CHF as progress notes documents both systolic and diastolic CHF numerous times Physician's Response(s): acute on chronic combined systolic and diastolic heart failure was present on admission Thank you Larissa Roberson Principal Diagnosis: "that condition established after study, to be chiefly responsible for occasioning the admission of the patient to the hospital for care." Co-Existing Principal Diagnosis: "when two or more diagnoses equally meet the criteria for principal diagnosis as determined by the circumstances of admission, diagnostic work up, and/or therapy provided, and the Alphabetic Index, Tabular List, or another coding guideline does not provide sequencing direction, any one of the diagnoses may be sequenced first." "When the physician has documented what appears to be a current diagnosis in the body of the record, but has not included the diagnosis in the final diagnostic statement, the physician should be asked whether the diagnosis should be added." (Source Coding [facility] 2 QTR90. p3-4) CED
== END 2023-05-11 11:45 | disposition home health service (06) | DRG 280 ==
LOC: ED 12:46 → 4W 16:20 → SUATTDRO 16:20 → 4W 17:57

== ENCOUNTER 2023-05-17 12:56 | Inpatient (IN) ==
[2023-05-17 14:02] LABS: Basophils # (auto) 0.05 K/uL (0.00-0.20); Basophils % (auto) 0.7 %; Eosinophils # (auto) 0.13 K/uL (0.00-0.50); Eosinophils % (auto) 1.8 %; Hematocrit (blood only) 49.1 % (37.0-47.0); Immature Granulocytes # (auto) 0.03 K/uL (0.01-0.20); Immature Granulocytes % (auto) 0.4 %; Lymphocytes # (auto) 0.82 K/uL (1.20-3.40); Lymphocytes % (auto) 11.1 %; Mean Corpuscular Hemoglobin 26.7 pg (25.0-34.0); Mean Corpuscular Hgb Conc 30.5 g/dL (32.0-36.0); Mean Corpuscular Volume 87.4 fL (80.0-100.0); Mean Platelet Volume 11.4 fL (9.4-12.4); Monocytes # (auto) 0.54 K/uL (0.11-0.59); Monocytes % (auto) 7.3 %; Neutrophils # (auto) 5.82 K/uL (1.40-6.50); Neutrophils % (auto) 78.7 %; Platelet Count 155 K/uL (130-400); RDW Coefficient of Variation 21.8 % (11.5-14.5); RDW Standard Deviation 63.4 fL (36.4-46.3); Red Blood Count 5.62 M/uL (4.20-5.40); White Blood Count 7.39 K/ul (4.8-10.8)
[2023-05-17 14:09] LABS: INR 1.2 (0.9-1.1); Partial Thromboplastin Ratio 1.2; Partial Thromboplastin Time 34 Seconds (21-31); Prothrombin Time 13.5 Seconds (9.0-12.0)
--- NOTE | 2023-05-17 14:19 | XRay Report ---
XR chest 1V portable HISTORY: Chest pain, nonspecific COMPARISON: Chest 04/29/2023. FINDINGS: No pneumothorax. The heart remains enlarged. There are mitral annulus calcifications again noted. Mild interstitial pulmonary edema and small bilateral pleural effusions have improved. There a re surgical clips within the left axilla. A few small scattered patchy airspace opacities are noted w ithin the lungs. Vascular calcifications are present. No acute fractures. IMPRESSION: 1. Interval improvement in the mild interstitial pulmonary edema and small bilateral pleural effusion s. 2. Stable cardiomegaly. 3. Small patchy airspace opacities within the lungs likely corresponds to the pulmonary edema. A supe rimposed pneumonia would be difficult to exclude. ACT 112: Negative or not required by law. Electronically signed by: Francisco Javier Aragon M.D. 05/17/2023 2:17 PM
[2023-05-17 14:23] LABS: Anisocytosis Present; Polychromasia 2+
[2023-05-17 14:28] LABS: Albumin Globulin Ratio 1.1 (0.9-2); Albumin Level 3.9 gm/dl (3.4-5.0); BUN Creatinine Ratio 62.6 (10-20); Bilirubin,Total 1.7 mg/dl (0.2-1.0); Calcium 9.5 mg/dl (8.6-10.3); Creatinine Clr Calc Pharmacy 15.5 ml/min; Est GFR (African American) 20.9 ml/min; Globulin 3.7 gm/dl (2.5-4.0); Potassium 3.6 mmol/L (3.5-5.1); Total Protein 7.6 gm/dl (6.0-8.3)
--- NOTE | 2023-05-17 14:44 | Emergency Department Note ---
Impression & Plan Respiratory syncytial virus (RSV) infection, CHF (congestive heart failure) ED Provider Note NAME: SHERRIE GRANADOS AGE: 87 SEX: F : 1935 ARRIVES VIA: Walk-In INFORMANT: Patient, ED PROVIDER(S): Giancarlo Holder MD CHIEF COMPLAINT: Shortness of breath HPI: This is a 87-year-old female with history of CKD, hyponatremia, cirrhosis, CHF presenting for shortness of breath. Patient was seen by her primary care physician and sent back in for low oxygen level, sat of 88%. Patient was discharged home on Saturday directly at home as patient does not want to go to a fdc facility. She has had trouble with worsening cough, now productive and going from clear to yellow sputum. Otherwise she notes leg swelling that is persistent however improved from previous. She notes that she was called yesterday by her CHF team and told to stop her Lasix and other diuretics as her kidney function was seen and worsening. ROS: See above HPI for pertinent positives & negatives. A total of 10 systems reviewed and were otherwise negative. PAST MEDICAL HISTORY: See Below PAST SURGICAL HISTORY: See Below FAMILY HISTORY: See Below SOCIAL HISTORY: See Below HOME MEDICATIONS: See Below ALLERGIES: See Below VITALS: See Below PHYSICAL EXAMINATION: General: Chronically ill-appearing Head: Normocephalic and atraumatic Eyes: Normal inspection, extraocular muscles intact Ear, nose, throat: Normal external exam Neck: Normal range of motion Respiratory: Rhonchi at the bases Cardiovascular: Regular rate/rhythm, no murmur GI: soft, nontender, no guarding or rebound Extremities: nontender, moves all extremities Neuro: The patient awake and alert, appropriately conversive, no focal deficits, symmetric faces Skin: Warm, dry, and intact MEDICAL DECISION MAKING: This is an 87-year-old female history of CKD, hyponatremia, cirrhosis, CHF presenting for shortness of breath. Patient recently admitted to the hospital, external records reviewed including discharge summary from patient's recent admission on the . Patient admitted for CHF, fluid overload. Has not patient has had worsening shortness of breath, new productive cough, hypoxia Lab work reveals no leukocytosis, INR 1.2, lab work that shows low chloride, elevated CO2, anion gap 12, creatinine was 2.35, still rising -RSV positive -Patient required admission for her RSV status, hypoxia, fluid overload and JUDE. Differential diagnosis: CHF, viral syndrome, pneumonia, fluid overload ER treatment provided: See below Diagnostics interpreted by me: ECG: ECG independently interpreted by me with atrial fibrillation, rate of 67, , , incomplete right bundle branch block, normal QTc, no ST segment elevations consistent with STEMI criteria, low QRS voltage, left anterior fascicular Cardiac Monitoring: An order was placed for continuous cardiac monitoring. The monitor shows a rate of 57 sinus rhythm. Laboratory studies: As stated above and show below. Imaging studies: See below. Past Med/Surg History Medical History Cellulitis of foot Acute hyperkalemia Acute hyponatremia JUDE (acute kidney injury) Chronic anticoagulation Diastolic congestive heart failure f/u Dr. Hayes Hyperlipidemia Hypertension Lymphedema chronic Osteoarthritis Permanent atrial fibrillation Stage III chronic kidney disease f/u nephrology at [place] Surgical History H/O left cataract extraction History of right cataract extraction Hx of shoulder surgery rt. repair shoulder dislocation Hx of basal cell carcinoma excision x1 rt eyelid, x1 left and left ear Hx of total hysterectomy with removal of both tubes and ovaries History of radiation therapy S/P tonsillectomy S/P colonoscopy S/P lumpectomy, left breast with axillary node removal S/P appendectomy Family History Other Adopted Myocardial infarction Denies family history of Ovarian cancer Prostate cancer Breast cancer Colorectal cancer Social History Smoking Status: Never smoker Second Hand Exposure: No; Do You Dip or Chew Tobacco: No; Hx Alcohol Use: No Hx Substance Use: No Preferred Language: Thai Communication Ability: Effective Visual Impairment: No Limitations Hearing Ability: Normal Machine Sorter Required: No Beliefs That Will Affect Care: None marital status: Current Living Situation: Family Current Living Situation Comment: lives home alone in a townhouse 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, unknown family hx Feels Safe at Home: Yes Childhood Exposure to Second-Hand Smoke: No Dental Care, Regularly: Yes Physical Activity Frequency Comment: limited by physical condition Seatbelt Use: always Sunscreen Use: No Assistive Devices: Lift Chair and Stair Lift Allergies Allergies Allergy/AdvReac Type Severity Reaction Status Date / Time codeine Allergy Mild nausea and Verified 05/17/23 16:53 vomiting latex Allergy Mild Rash Verified 05/17/23 16:53 povidone-iodine Allergy Mild RASH Verified 05/17/23 16:53 soap [From Betadine] Allergy Mild Rash Verified 05/17/23 16:53 Sulfa (Sulfonamide Allergy Mild RASH Verified 05/17/23 16:53 Antibiotics) cephalexin Allergy Unknown . Verified 05/17/23 16:53 sulfamethoxazole Allergy Unknown Diarrhea Verified 05/17/23 16:53 [From Bactrim] trimethoprim [From Bactrim] Allergy Unknown Diarrhea Verified 05/17/23 16:53 ceftriaxone [From Rocephin] AdvReac Severe Diarrhea Verified 05/17/23 16:53 meperidine AdvReac Mild nausea/vomi Verified 05/17/23 16:53 ting Home Meds Home Medications Medication Instructions Recorded Confirmed acetaminophen 500 mg tablet 1,000 mg PO HS PRN Pain 07/25/20 05/17/23 (Tylenol Extra Strength) furosemide 80 mg tablet 80 mg PO BID 05/17/23 05/17/23 metolazone 5 mg tablet 5 mg PO .Q2D/UD 05/17/23 05/17/23 Previous Rx's Medication Instructions Recorded ondansetron HCl 4 mg tablet 4 mg PO Q8H PRN nausea and 12/05/22 vomiting #10 tabs diclofenac sodium 1 % topical gel 1 g topical BID PRN Pain #100 grams 02/20/23 apixaban 2.5 mg tablet (Eliquis) 2.5 mg PO BID #180 tabs 04/02/23 tramadol 50 mg tablet 50 mg PO TID #270 tabs 04/10/23 L.acidop,casei,lactis,rham-B.lact,alexandre 2 cap PO DAILY #1 cap 05/11/23 625 mg (10 billion cell) capsule (Advanced Probiotic) allopurinol 100 mg tablet 100 mg PO DAILY #30 tabs 05/11/23 wuxlosqg-rkk-zwisi acid 0.4 1 tab PO QAM #1 tab 05/11/23 mg-lycopene 300 mcg-lutein 250 mcg tablet (Cerovite Senior) potassium chloride 20 mEq 20 meq PO BID #60 tabs 05/11/23 tablet,extended release(part/cryst) Results & Data (ED) Vital Signs Vital Signs - 24 hr 05/17/23 12:58 05/17/23 13:17 05/17/23 13:19 Temperature 36.8 C Temperature Source Temporal Artery Scan Pulse Rate 58 L 67 61 Pulse Rate [Apical] Pulse Rate from SpO2 Sensor 57 L 57 L Pulse Rhythm Respiratory Rate 18 14 27 H Respiratory Effort / Characteristics Non-Labored Spontaneous Respiratory Depth Normal Respiratory Pattern Regular Blood Pressure 130/67 Blood Pressure [Right Arm] Blood Pressure Mean 88 Blood Pressure Mean [Right Arm] Blood Pressure Position Sitting Blood Pressure Position [Right Arm] Pulse Oximetry 88 L 98 92 Oxygen Delivery Method Room Air Oxygen Flow Rate Sepsis Recent Fever Within 48 Hours No Sepsis New/Unexplained Change in Mental Status No Sepsis Action Taken by Nursing No Action Required 05/17/23 13:19 05/17/23 13:27 05/17/23 13:30 Temperature Temperature Source Pulse Rate 65 Pulse Rate [Apical] 67 Pulse Rate from SpO2 Sensor 59 L Pulse Rhythm Respiratory Rate 24 26 H Respiratory Effort / Characteristics Respiratory Depth Respiratory Pattern Blood Pressure 136/78 132/64 Blood Pressure [Right Arm] 161/113 H Blood Pressure Mean 107 86 Blood Pressure Mean [Right Arm] 129 Blood Pressure Position Blood Pressure Position [Right Arm] Pulse Oximetry 95 97 Oxygen Delivery Method Nasal Cannula Oxygen Flow Rate 2 Sepsis Recent Fever Within 48 Hours Sepsis New/Unexplained Change in Mental Status Sepsis Action Taken by Nursing 05/17/23 13:43 05/17/23 13:56 05/17/23 13:56 Temperature Temperature Source Pulse Rate 65 58 L Pulse Rate [Apical] Pulse Rate from SpO2 Sensor Pulse Rhythm Irregular Respiratory Rate 24 Respiratory Effort / Characteristics Respiratory Depth Respiratory Pattern Blood Pressure Blood Pressure [Right Arm] Blood Pressure Mean Blood Pressure Mean [Right Arm] Blood Pressure Position Blood Pressure Position [Right Arm] Pulse Oximetry 94 94 Oxygen Delivery Method Nasal Cannula Nasal Cannula Oxygen Flow Rate Sepsis Recent Fever Within 48 Hours Sepsis New/Unexplained Change in Mental Status Sepsis Action Taken by Nursing 05/17/23 14:00 05/17/23 14:30 05/17/23 14:30 Temperature Temperature Source Pulse Rate 60 57 L Pulse Rate [Apical] Pulse Rate from SpO2 Sensor 48 L 54 L Pulse Rhythm Respiratory Rate 20 17 Respiratory Effort / Characteristics Respiratory Depth Respiratory Pattern Blood Pressure 128/66 111/69 104/58 L Blood Pressure [Right Arm] Blood Pressure Mean 86 85 73 Blood Pressure Mean [Right Arm] Blood Pressure Position Blood Pressure Position [Right Arm] Pulse Oximetry 99 96 Oxygen Delivery Method Oxygen Flow Rate Sepsis Recent Fever Within 48 Hours Sepsis New/Unexplained Change in Mental Status Sepsis Action Taken by Nursing 05/17/23 14:48 05/17/23 15:00 05/17/23 15:30 Temperature Temperature Source Pulse Rate 52 L 51 L Pulse Rate [Apical] 53 L Pulse Rate from SpO2 Sensor 51 L 48 L Pulse Rhythm Respiratory Rate 18 18 15 Respiratory Effort / Characteristics Non-Labored Respiratory Depth Normal Respiratory Pattern Blood Pressure 104/58 L 129/61 Blood Pressure [Right Arm] 111/69 Blood Pressure Mean 73 83 Blood Pressure Mean [Right Arm] 83 Blood Pressure Position Blood Pressure Position [Right Arm] Lying Pulse Oximetry 97 97 97 Oxygen Delivery Method Nasal Cannula Oxygen Flow Rate 3 Sepsis Recent Fever Within 48 Hours Sepsis New/Unexplained Change in Mental Status Sepsis Action Taken by Nursing Laboratory Data 05/18/23 06:07 05/18/23 06:07 Lab Results 05/17/23 05/17/23 Range/Units 13:21 13:56 WBC 7.39 (4.8-10.8) K/ul RBC 5.62 H (4.20-5.40) M/uL Hgb 15.0 (12.0-16.0) g/dl Hct 49.1 H (37.0-47.0) % MCV 87.4 (80.0-100.0) fL MCH 26.7 (25.0-34.0) pg MCHC 30.5 L (32.0-36.0) g/dL RDW Std Deviation 63.4 H (36.4-46.3) fL RDW Coeff of Rylee 21.8 H (11.5-14.5) % Plt Count 155 (130-400) K/uL MPV 11.4 (9.4-12.4) fL Immature Gran % (Auto) 0.4 % Neut % (Auto) 78.7 % Lymph % (Auto) 11.1 % [place] % (Auto) 7.3 % Eos % (Auto) 1.8 % Baso % (Auto) 0.7 % Neut # (Auto) 5.82 (1.40-6.50) K/uL Lymph # (Auto) 0.82 L (1.20-3.40) K/uL [place] # (Auto) 0.54 (0.11-0.59) K/uL Eos # (Auto) 0.13 (0.00-0.50) K/uL Baso # (Auto) 0.05 (0.00-0.20) K/uL Immature Gran # (Auto) 0.03 (0.01-0.20) K/uL Polychromasia 2+ Anisocytosis Present PT 13.5 H (9.0-12.0) Seconds INR 1.2 H (0.9-1.1) APTT 34 H (21-31) Seconds PTT Ratio 1.2 Sodium 138 (136-145) mmol/L Potassium 3.6 (3.5-5.1) mmol/L Chloride 91 L (98-107) mmol/L Carbon Dioxide 35 H (21-32) mmol/L Anion Gap 12 H (3-11) BUN 147 H (6-23) mg/dl Creatinine 2.35 H (0.6-1.2) mg/dl Est Cr Clr Drug Dosing 15.5 ml/min Est GFR ( Amer) 20.9 ml/min Est GFR (Non-Af Amer) 18.0 ml/min BUN/Creatinine Ratio 62.6 H (10-20) Glucose 110 H (70-99(Fasting)) mg/dl Calcium 9.5 (8.6-10.3) mg/dl Total Bilirubin 1.7 H (0.2-1.0) mg/dl AST 28 (13-39) U/L ALT 8 (7-52) U/L Alkaline Phosphatase 112 H (34-104) U/L Total Protein 7.6 (6.0-8.3) gm/dl Albumin 3.9 (3.4-5.0) gm/dl Globulin 3.7 (2.5-4.0) gm/dl Albumin/Globulin Ratio 1.1 (0.9-2) Adenovirus (PCR) Not Detected (NotDetected) B. pertussis DNA (PCR) Not Detected (NotDetected) B.parapertussis DNA PCR Not Detected (NotDetected) C. pneumoniae DNA (PCR) Not Detected (NotDetected) Coronavirus OC43 (PCR) Not Detected (NotDetected) Coronavirus HKU1 (PCR) Not Detected (NotDetected) Coronavirus 229E (PCR) Not Detected (NotDetected) SARS-CoV-2 (PCR) Not Detected (NotDetected) Coronavirus NL63 (PCR) Not Detected (NotDetected) Human Metapneumovir PCR Not Detected (NotDetected) Influenza Type A (PCR) Not Detected (NotDetected) Influenza Type B (PCR) Not Detected (NotDetected) M. pneumoniae (PCR) Not Detected (NotDetected) Parainfluenza 1 (PCR) Not Detected (NotDetected) Parainfluenza 2 (PCR) Not Detected (NotDetected) Parainfluenza 3 (PCR) Not Detected (NotDetected) Parainfluenza 4 (PCR) Not Detected (NotDetected) RSV (PCR) DETECTED A* (NotDetected) Entero/Rhino (PCR) Not Detected (NotDetected) Administered Medications Acetaminophen (Acetaminophen 325 Mg Tab) 650 mg PO Q4H PRN PRN Reason: Pain or Fever Stop: 06/16/23 18:30 Last Admin: 05/18/23 10:53 Dose: 650 mg Documented By: SANDRA Apixaban (Apixaban 2.5 Mg Tab) 2.5 mg PO BID [facility] Stop: 06/16/23 20:59 Last Admin: 05/18/23 08:25 Dose: 2.5 mg Documented By: Admin: 05/17/23 20:10 Dose: 2.5 mg Documented By: ARMANDO Azithromycin (Azithromycin 250 Mg Tab) 250 mg PO QAM [facility] Stop: 05/24/23 08:59 Last Admin: 05/18/23 08:24 Dose: 250 mg Documented By: SANDRA Tramadol HCl (Tramadol Hcl 50 Mg Tablet) 50 mg PO TID [facility] Stop: 06/17/23 13:59 Last Admin: 05/18/23 13:06 Dose: 50 mg Documented By: SANDRA Discontinued Medications Amoxicillin/Clavulanate Potassium (Amoxicillin/Clavulanate 500 Mg Tab) 1 tab PO BIDM [facility]; Protocol Stop: 05/24/23 18:30 Last Admin: 05/18/23 17:46 Dose: 1 tab Documented By: Admin: 05/18/23 08:24 Dose: 1 tab Documented By: Admin: 05/17/23 20:10 Dose: 1 tab Documented By: ARMANDO Azithromycin (Azithromycin 250 Mg Tab) 500 mg PO NOW ONE Stop: 05/17/23 18:32 Last Admin: 05/17/23 20:10 Dose: 500 mg Documented By: ARMANDO Imaging Data Radiologist's Impression: Chest X-Ray 05/17/23 13:07 XR chest 1V portable HISTORY: Chest pain, nonspecific COMPARISON: Chest 04/29/2023. FINDINGS: No pneumothorax. The heart remains enlarged. There are mitral annulus calcifications again noted. Mild interstitial pulmonary edema and small bilateral pleural effusions have improved. There are surgical clips within the left axilla. A few small scattered patchy airspace opacities are noted within the lungs. Vascular calcifications are present. No acute fractures. IMPRESSION: 1. Interval improvement in the mild interstitial pulmonary edema and small bilateral pleural effusions. 2. Stable cardiomegaly. 3. Small patchy airspace opacities within the lungs likely corresponds to the pulmonary edema. A superimposed pneumonia would be difficult to exclude. ACT 112: Negative or not required by law. Electronically signed by: Francisco Javier Aragon M.D. 05/17/2023 2:17 PM Discharge Plan Visit Data Chief Complaint: Referred by Doctor Stated Complaint: DOC WANTS TESTS ED Provider: Giancarlo Holder Discharge Problem: Respiratory syncytial virus (RSV) infection, CHF (congestive heart failure) Patient Disposition: Admitted As Inpatient Discharge Instructions Interventions: ED Discharge Assessment Last Done: 05/17/23 17:55
[2023-05-17 14:51] LABS: Influenza A virus by PCR Negative (Neg); Influenza B virus by PCR Negative (Neg); SARS CoV2 RNA(COVID-19) Ceph NEGATIVE (Negative)
[2023-05-17 15:10] LABS: RSV by PCR Positive (Neg)
--- NOTE | 2023-05-17 17:17 | History & Physical Report ---
Date of Service May 17, 2023 Assessment & Plan (1) Acute hypoxic respiratory failure: Plan: Oxygen saturation greater than 92% -Suspect largely viral in origin -Obtain bio fire rule out any additional pathogens -At risk for secondary bacterial infection with risk factors of recent hospitalization -Empiric treatment with Augmentin and Zithromax (2) RSV (respiratory syncytial virus pneumonia): (3) Chronic kidney disease, stage IV (severe): Plan: Nephrology consulted Holding additional diuretics at this time Eliquis dosed for renal insufficiency (4) (HFpEF) heart failure with preserved ejection fraction: Plan: Cardiology consult -Currently euvolemic Reviewed cardiology consultation from April 26, 2023 -Beta-blockade treatment contraindicated due to relative bradycardia -GABRIELE ARB and Entresto are relatively contraindicated due to acute kidney injury -As previously documented inotrope infusion is not a good long-term solution, no indication for short-term at this time (5) JUDE (acute kidney injury): Plan: Suspect combination of diuresis in the setting of decreased p.o. intake -Patient able to eat and drink however still maintaining light fluid restriction -Holding nephrotoxic medications including allopurinol (6) Liver cirrhosis: Plan: Transaminases within normal limits at this time -At risk for congestive hepatopathy (7) Anasarca: Plan: Reportedly improved from patient's baseline (8) Foot ulcer, left: Plan: Wound care consult (9) Leg edema: Plan: Wound consult -Possibly consider compressive therapies in the setting of ongoing anasarca and inability to use diuretics underlying renal disease (10) Permanent atrial fibrillation: Plan: Continue Eliquis 2.5 mg daily for systemic anticoagulation in the setting of poor renal function (11) Pulmonary hypertension: Plan: As noted with heart failure patient poor candidate for standard therapies (12) Type 2 diabetes mellitus: Plan: Blood sugars within normal limits on previous admission, A1c 6.9% March 2023 Diet controlled (13) Secondary hyperparathyroidism: (14) Chronic anticoagulation: History of Present Illness Chief Complaint: Shortness of breath Primary Care Provider: Donnell Garibay MD Patient is an 87-year-old female with a history of chronic kidney disease, CHF, hyponatremia, cirrhosis who was referred to the ED for worsening shortness of br eath and abnormal/worsening kidney function. Patient was recently admitted to [facility] for CHF exacerbation: Patient's baseline weight was in the 140s she was admitted previously with a weight of 195 and discharged approximately 176, today she is 162. She lives at home with the patient's daughter who is her full-time caregiver. She has had recent increasing shortness of breath with mild cough: Nonproductive. She denies chest pain. No change in her bowel habits no black tarry stools no melena no hematochezia. She does report decreased oral intake including both food and fluid. She reports that she has been on a fluid restriction since being discharged from the hospital. She has been observing her fluid and sodium restrictions and has had decreased intake over the last several days due to feeling unwell. She denies fevers or chills. Patient and daughter report that there is a decrease in the patient's lower extremity edema while it is still present it is less than it has been in the last 3 weeks. I also report a continuous weeping left foot wound, this initially occurred on the previous admission formed a blister and popped and has been draining yellow fluid ever since. There is also a wound on the left great toe which by their report is decreasing in size and has looked the best it has in several weeks. We discussed risks and benefits and long-term goals regarding heroic interventions should the patient suffer a cardiac arrest. She indicated she did not want heroic measures and is subsequently DNR in event of cardiac arrest. We discussed risks associated with intubation in event of respiratory insufficiency including the case of progressive pneumonia: Bacterial or viral. Patient did not want to undergo intubation in event of respiratory insufficiency. Accordingly I have updated her CODE STATUS to demonstrate this. She has agreeable with aggressive care to prevent further decompensation including noninvasive mechanical ventilation, supplemental oxygen and such. Patient reports several medication intolerances, sulfa does produce a rash, ceftriaxone produces diarrhea as well as Keflex. Not withstanding she is otherwise tolerated those antibiotics. Patient is requesting cardiology: [facility] and nephrology: [facility] consultations Allergies Allergy/AdvReac Type Severity Reaction Status Date / Time codeine Allergy Mild nausea and Verified 05/17/23 16:53 vomiting latex Allergy Mild Rash Verified 05/17/23 16:53 povidone-iodine Allergy Mild RASH Verified 05/17/23 16:53 soap [From Betadine] Allergy Mild Rash Verified 05/17/23 16:53 Sulfa (Sulfonamide Allergy Mild RASH Verified 05/17/23 16:53 Antibiotics) cephalexin Allergy Unknown . Verified 05/17/23 16:53 sulfamethoxazole Allergy Unknown Diarrhea Verified 05/17/23 16:53 [From Bactrim] trimethoprim [From Bactrim] Allergy Unknown Diarrhea Verified 05/17/23 16:53 ceftriaxone [From Rocephin] AdvReac Severe Diarrhea Verified 05/17/23 16:53 meperidine AdvReac Mild nausea/vomi Verified 05/17/23 16:53 ting Home Medications Medication Instructions Recorded Confirmed Type acetaminophen 500 mg tablet 1,000 mg PO HS PRN Pain 07/25/20 05/17/23 History (Tylenol Extra Strength) ondansetron HCl 4 mg tablet 4 mg PO Q8H PRN nausea and 12/05/22 05/17/23 Rx vomiting #10 tabs diclofenac sodium 1 % topical gel 1 g topical BID PRN Pain #100 grams 02/20/23 05/17/23 Rx apixaban 2.5 mg tablet (Eliquis) 2.5 mg PO BID #180 tabs 04/02/23 05/17/23 Rx tramadol 50 mg tablet 50 mg PO TID #270 tabs 04/10/23 05/17/23 Rx L.acidop,casei,lactis,rham-B.lact,alexandre 2 cap PO DAILY #1 cap 05/11/23 05/17/23 Rx 625 mg (10 billion cell) capsule (Advanced Probiotic) allopurinol 100 mg tablet 100 mg PO DAILY #30 tabs 05/11/23 05/17/23 Rx widmnkhf-hhh-lfvlr acid 0.4 1 tab PO QAM #1 tab 05/11/23 05/17/23 Rx mg-lycopene 300 mcg-lutein 250 mcg tablet (Cerovite Senior) potassium chloride 20 mEq 20 meq PO BID #60 tabs 05/11/23 05/17/23 Rx tablet,extended release(part/cryst) furosemide 80 mg tablet 80 mg PO BID 05/17/23 05/17/23 History metolazone 5 mg tablet 5 mg PO .Q2D/UD 05/17/23 05/17/23 History Past Med/Surg History Medical History Cellulitis of foot Acute hyperkalemia Acute hyponatremia JUDE (acute kidney injury) Chronic anticoagulation Diastolic congestive heart failure f/u Dr. Hayes Hyperlipidemia Hypertension Lymphedema chronic Osteoarthritis Permanent atrial fibrillation Stage III chronic kidney disease f/u nephrology at [place] Surgical History H/O left cataract extraction History of right cataract extraction Hx of shoulder surgery rt. repair shoulder dislocation Hx of basal cell carcinoma excision x1 rt eyelid, x1 left and left ear Hx of total hysterectomy with removal of both tubes and ovaries History of radiation therapy S/P tonsillectomy S/P colonoscopy S/P lumpectomy, left breast with axillary node removal S/P appendectomy Family History Other Adopted Myocardial infarction Denies family history of Ovarian cancer Prostate cancer Breast cancer Colorectal cancer Social History Smoking Status: Never smoker Second Hand Exposure: No; Do You Dip or Chew Tobacco: No; Hx Alcohol Use: No Hx Substance Use: No Preferred Language: Luxembourgish Communication Ability: Effective Visual Impairment: No Limitations Hearing Ability: Normal Lan Manager Required: No Beliefs That Will Affect Care: None marital status: Current Living Situation: Family Current Living Situation Comment: lives home alone in a townhouse 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 Physical Exam Physical Exam: General: Alert. nontoxic. Frail in appearance Skin: Warm, dry, Head: Atraumatic Ears, nose, mouth and throat: airway patent Cardiovascular: Normal peripheral perfusion, S1-S2 Respiratory: no respiratory distress, scattered rhonchi diffusely through bilateral lung salazar Gastrointestinal: Non distended, no tenderness, not distended, no palpable hepatosplenomegaly Musculoskeletal: No deformity, 2+ pitting edema to the mid calf, left lower extremity in bandage with shadowing from serous fluid drainage. Half a centimeter punctate lesion over the dorsal surface of the great toe Results & Data Results & Data Vital Signs (Past 12 Hours) Vital Signs Temp Pulse Pulse Resp BP BP Pulse Ox 05/17/23 15:30 51 L 15 129/61 97 05/17/23 15:00 52 L 18 104/58 L 97 05/17/23 14:48 53 L 18 111/69 97 05/17/23 14:30 57 L 17 104/58 L 96 05/17/23 14:30 111/69 05/17/23 14:00 60 20 128/66 99 05/17/23 13:56 58 L 24 94 05/17/23 13:56 94 05/17/23 13:43 65 05/17/23 13:30 65 26 H 132/64 97 05/17/23 13:27 67 24 161/113 H 95 05/17/23 13:19 136/78 05/17/23 13:19 61 27 H 92 05/17/23 13:17 67 14 98 05/17/23 12:58 36.8 C 58 L 18 130/67 88 L O2 Del Method O2 Flow Rate 05/17/23 15:30 05/17/23 15:00 05/17/23 14:48 Nasal Cannula 3 05/17/23 14:30 05/17/23 14:30 05/17/23 14:00 05/17/23 13:56 Nasal Cannula 05/17/23 13:56 Nasal Cannula 05/17/23 13:43 05/17/23 13:30 05/17/23 13:27 Nasal Cannula 2 05/17/23 13:19 05/17/23 13:19 05/17/23 13:17 05/17/23 12:58 Room Air Critical Care Results & Data Vital Signs (Past 12 Hours) Vital Signs Temp Pulse Pulse Resp BP BP Pulse Ox 05/17/23 15:30 51 L 15 129/61 97 05/17/23 15:00 52 L 18 104/58 L 97 05/17/23 14:48 53 L 18 111/69 97 05/17/23 14:30 57 L 17 104/58 L 96 05/17/23 14:30 111/69 05/17/23 14:00 60 20 128/66 99 05/17/23 13:56 58 L 24 94 05/17/23 13:56 94 05/17/23 13:43 65 05/17/23 13:30 65 26 H 132/64 97 05/17/23 13:27 67 24 161/113 H 95 05/17/23 13:19 136/78 05/17/23 13:19 61 27 H 92 05/17/23 13:17 67 14 98 05/17/23 12:58 36.8 C 58 L 18 130/67 88 L O2 Del Method O2 Flow Rate 05/17/23 15:30 05/17/23 15:00 05/17/23 14:48 Nasal Cannula 3 05/17/23 14:30 05/17/23 14:30 05/17/23 14:00 05/17/23 13:56 Nasal Cannula 05/17/23 13:56 Nasal Cannula 05/17/23 13:43 05/17/23 13:30 05/17/23 13:27 Nasal Cannula 2 05/17/23 13:19 05/17/23 13:19 05/17/23 13:17 05/17/23 12:58 Room Air Lab & Micro Results (Past 24 Hours) RBC 5.62 M/uL (4.20-5.40) H 05/17/23 WBC 7.39 K/ul (4.8-10.8) 05/17/23 Hgb 15.0 g/dl (12.0-16.0) 05/17/23 Hct 49.1 % (37.0-47.0) H 05/17/23 MCV 87.4 fL (80.0-100.0) 05/17/23 MCH 26.7 pg (25.0-34.0) 05/17/23 MCHC 30.5 g/dL (32.0-36.0) L 05/17/23 RDW Standard Deviation 63.4 fL (36.4-46.3) H 05/17/23 RDW Coefficient of Variation 21.8 % (11.5-14.5) H 05/17/23 Plt Count 155 K/uL (130-400) 05/17/23 MPV 11.4 fL (9.4-12.4) 05/17/23 Neutrophils (%) (Auto) 78.7 % 05/17/23 Lymphocytes (%) (Auto) 11.1 % 05/17/23 Monocytes # (Auto) 0.54 K/uL (0.11-0.59) 05/17/23 Eosinophils # (Auto) 0.13 K/uL (0.00-0.50) 05/17/23 Immature Granulocyte % (Auto) 0.4 % 05/17/23 Neutrophils # (Auto) 5.82 K/uL (1.40-6.50) 05/17/23 Lymphocytes # (Auto) 0.82 K/uL (1.20-3.40) L 05/17/23 Monocytes # (Auto) 0.54 K/uL (0.11-0.59) 05/17/23 Eosinophils # (Auto) 0.13 K/uL (0.00-0.50) 05/17/23 Basophils # (Auto) 0.05 K/uL (0.00-0.20) 05/17/23 Immature Granulocyte # (Auto) 0.03 K/uL (0.01-0.20) 3 Polychromasia 2+ 05/17/23 Anisocytosis Present 05/17/23 Na 138 mmol/L (136-145) 05/17/23 K 3.6 mmol/L (3.5-5.1) 05/17/23 Cl 91 mmol/L (98-107) L 05/17/23 CO2 35 mmol/L (21-32) H 05/17/23 Anion Gap 12 (3-11) H 05/17/23 BUN 147 mg/dl (6-23) H 05/17/23 Creatinine 2.35 mg/dl (0.6-1.2) H 05/17/23 Estimated GFR ( Amer) 20.9 ml/min 05/17/23 Estimated GFR (Non-Af Amer) 18.0 ml/min 05/17/23 BUN/Creatinine Ratio 62.6 (10-20) H 05/17/23 Glu 110 mg/dl (70-99(Fasting)) H 05/17/23 Ca 9.5 mg/dl (8.6-10.3) 05/17/23 Total Bilirubin 1.7 mg/dl (0.2-1.0) H 05/17/23 AST 28 U/L (13-39) 05/17/23 ALT 8 U/L (7-52) 05/17/23 Alkaline Phosphatase 112 U/L (34-104) H 05/17/23 TP 7.6 gm/dl (6.0-8.3) 05/17/23 Albumin 3.9 gm/dl (3.4-5.0) 05/17/23 Globulin 3.7 gm/dl (2.5-4.0) 05/17/23 Albumin/Globulin Ratio 1.1 (0.9-2) 05/17/23 Calcium Level 9.5 mg/dl (8.6-10.3) 05/17/23 13:21 Prothromb Time International Ratio 1.2 (0.9-1.1) H 05/17/23 13 :21 Diagnostic Findings (Past 24 Hours) Chest X-Ray 05/17/23 13:07 XR chest 1V portable HISTORY: Chest pain, nonspecific COMPARISON: Chest 04/29/2023. FINDINGS: No pneumothorax. The heart remains enlarged. There are mitral annulus calcifications again noted. Mild interstitial pulmonary edema and small bilateral pleural effusions have improved. There are surgical clips within the left axilla. A few small scattered patchy airspace opacities are noted within the lungs. Vascular calcifications are present. No acute fractures. IMPRESSION: 1. Interval improvement in the mild interstitial pulmonary edema and small bilateral pleural effusions. 2. Stable cardiomegaly. 3. Small patchy airspace opacities within the lungs likely corresponds to the pulmonary edema. A superimposed pneumonia would be difficult to exclude. ACT 112: Negative or not required by law. Electronically signed by: Francisco Javier Aragon M.D. 05/17/2023 2:17 PM RT Ventilator Mngmt (Last Documented) Ventilator Ordered Settings Respiratory Rate 15 05/17/23 15:30 Ventilator - PT Measurements Respiratory Rate 15 Code Status & VTE Plan Code Status DNR in event of cardiac arrest, DNI in event of respiratory insufficiency VTE Prophylaxis Plan VTE Prophylaxis will be ordered: Yes PG Care Time/CCT Total # of Minutes Spent Total Time Spent with Patient: Total time spent is greater than 50% in coordination of care (as documented) at patient's floor/unit and/or counseling patient: Coding Level of Care Code 93297 INT INP/OBS CARE 3/75MIN Diagnoses Acute hypoxic respiratory failure J96.01 RSV (respiratory syncytial virus pneumonia) J12.1 Chronic kidney disease, stage IV (severe) N18.4 (HFpEF) heart failure with preserved ejection fraction I50.30 JUDE (acute kidney injury) N17.9 Liver cirrhosis K74.60 Anasarca R60.1 Ulcer of left foot, unspecified ulcer stage L97.529 Non-pressure ulcer stage: unspecified non-pressure ulcer stage Leg edema R60.0 Permanent atrial fibrillation I48.2 Pulmonary hypertension I27.20 Type 2 diabetes mellitus E11.9 Secondary hyperparathyroidism N25.81 Chronic anticoagulation Z79.01 (8) Foot ulcer, left Non-pressure ulcer stage: unspecified non-pressure ulcer stage Qualified Code(s): L97.529 - Non-pressure chronic ulcer of other part of left foot with unspecified severity
[2023-05-17 18:25] LABS: Adenovirus PCR Not Detected (NotDetected); Bordetella parapertussis PCR Not Detected (NotDetected); Bordetella pertussis PCR Not Detected (NotDetected); Chlamydia pneumoniae PCR Not Detected (NotDetected); Coronavirus 229E PCR Not Detected (NotDetected); Coronavirus CoV-2 (COVID19)PCR Not Detected (NotDetected); Coronavirus HKU1 PCR Not Detected (NotDetected); Coronavirus NL63 PCR Not Detected (NotDetected); Coronavirus OC43PCR Not Detected (NotDetected); Human Metapneumovirus PCR Not Detected (NotDetected); Influenza A PCR Not Detected (NotDetected); Influenza B PCR Not Detected (NotDetected); Mycoplasma pneumoniae PCR Not Detected (NotDetected); Parainfluenza Virus 1 PCR Not Detected (NotDetected); Parainfluenza Virus 2 PCR Not Detected (NotDetected); Parainfluenza Virus 3 PCR Not Detected (NotDetected); Parainfluenza Virus 4 PCR Not Detected (NotDetected); Rhinovirus/Enterovirus PCR Not Detected (NotDetected)
[2023-05-17] MEDS ORDERED: ONDANSETRON INJ 2 MG/ML 2 ML VIAL IV PRN (18:31)
[2023-05-17] MEDS ORDERED: ACETAMINOPHEN 325 MG TAB PO PRN (18:31)
[2023-05-17] MEDS ORDERED: AZITHROMYCIN 250 MG TAB PO ONE (18:31)
[2023-05-17 18:35] LABS: Respiratory Syncytial VirusPCR DETECTED (NotDetected)
[2023-05-17] MEDS: AMOXICILLIN/CLAVULANATE 500 MG TAB PO SCH (20:10)
[2023-05-17] MEDS: APIXABAN 2.5 MG TAB PO SCH (20:10)
--- NOTE | 2023-05-18 06:51 | Electrocardiogram Report ---
Test Reason : Blood Pressure : / mmHG Vent. Rate : 067 BPM Atrial Rate : 066 BPM P-R Int : 000 ms QRS Dur : 108 ms QT Int : 406 ms P-R-T Axes : 000 -59 093 degrees QTc Int : 429 ms Atrial fibrillation with premature ventricular or aberrantly conducted complexes Low voltage QRS Incomplete right bundle branch block Left anterior fascicular block Possible Anterior infarct (cited on or before 17-SEP-2022) Abnormal ECG When compared with ECG of 25-APR-2023 13:20, Premature ventricular complexes are now Present Confirmed by Allan Ashton ([id number]) on 05/18/2023 6:51:16 AM Referred By: Confirmed By:Allan Ashton
[2023-05-18 06:54] LABS: Basophils # (auto) 0.04 K/uL (0.00-0.20); Basophils % (auto) 0.6 %; Eosinophils # (auto) 0.37 K/uL (0.00-0.50); Eosinophils % (auto) 5.8 %; Hematocrit (blood only) 44.8 % (37.0-47.0); Hemoglobin 13.6 g/dl (12.0-16.0); Immature Granulocytes # (auto) 0.02 K/uL (0.01-0.20); Immature Granulocytes % (auto) 0.3 %; Lymphocytes # (auto) 0.88 K/uL (1.20-3.40); Lymphocytes % (auto) 13.9 %; Mean Corpuscular Hemoglobin 26.2 pg (25.0-34.0); Mean Corpuscular Hgb Conc 30.4 g/dL (32.0-36.0); Mean Corpuscular Volume 86.3 fL (80.0-100.0); Mean Platelet Volume 10.9 fL (9.4-12.4); Monocytes # (auto) 0.44 K/uL (0.11-0.59); Monocytes % (auto) 6.9 %; Neutrophils # (auto) 4.59 K/uL (1.40-6.50); Neutrophils % (auto) 72.5 %; Platelet Count 131 K/uL (130-400); RDW Standard Deviation 62.3 fL (36.4-46.3); Red Blood Count 5.19 M/uL (4.20-5.40); White Blood Count 6.34 K/ul (4.8-10.8)
[2023-05-18 07:20] LABS: Anisocytosis Present; Ovalocytes 1+; Polychromasia 1+
--- NOTE | 2023-05-18 07:33 | Hospitalist Progress Note ---
Date of Service May 18, 2023 Assessment & Plan (1) Acute hypoxic respiratory failure: Plan: Maintain oxygen saturation greater than 92% - Respiratory panel positive for RSV -At risk for secondary bacterial infection with risk factors of recent hospitalization but may also be due in part to fluid overload 2/2 CHF -Empiric treatment with Augmentin and Zithromax -Non-con chest CT ordered to better clarify etiology (2) RSV (respiratory syncytial virus pneumonia): (3) Chronic kidney disease, stage IV (severe): Plan: Nephrology consulted, appreciate recs - recommend holding diuretics at this time, consider reintroducing based on assessment of volume status Eliquis dosed for renal insufficiency (4) (HFpEF) heart failure with preserved ejection fraction: Plan: Cardiology consulted, appreciate recs - recommend restarting Lasix. Management as above. Reviewed cardiology consultation from April 26, 2023 -Beta-blockade treatment contraindicated due to relative bradycardia -GABRIELE ARB and Entresto are relatively contraindicated due to acute kidney injury -As previously documented inotrope infusion is not a good long-term solution, no indication for short-term at this time (5) JUDE (acute kidney injury): Plan: Suspect due to combination of aggressive outpatient diuresis in the setting of decreased p.o. intake -Patient able to eat and drink however still maintaining light fluid restriction -Holding nephrotoxic medications including allopurinol (6) Liver cirrhosis: Plan: Transaminases within normal limits at this time -At risk for congestive hepatopathy (7) Anasarca: Plan: Reportedly improved from patient's baseline (8) Foot ulcer, left: Plan: Wound care consult (9) Leg edema: (10) Permanent atrial fibrillation: Plan: Continue Eliquis 2.5 mg daily for systemic anticoagulation in the setting of poor renal function (11) Pulmonary hypertension: Plan: As noted with heart failure patient poor candidate for standard therapies (12) Type 2 diabetes mellitus: Plan: Blood sugars within normal limits on previous admission, A1c 6.9% March 2023 Diet controlled (13) Secondary hyperparathyroidism: (14) Chronic anticoagulation: Admission and Anticipated Discharge Date Admission Date: May 17, 2023 Supervising Physician Co-Signing Physician Notes I personally examined the patient and verified all benoit points of history and exam, discussed case, and agree with decision making with Dr Sawant ongoing cough and dyspnea. seen before and then later after CT vitals noted sitting up on NC O2 coughing periodically lungs coarse rhonchi throughout. CT films and report noted. hypoxia - seems to me predominantly due to RSV/viral pneumonia. does not appear very overtly c/w CHF at this time. would hold on further diuresis for now and follow. ongoing supportive care. continue zithromax for pulmonary a ntiinflammatory effect. no clear typical infiltrate - drop augmentin. follow closely. otherwise as above Subjective Patient is an 87-year-old female with a history of chronic kidney disease, CHF, atrial fibrillation, hyponatremia, cirrhosis who was referred to the ED for worsening shortness of breath and abnormal/worsening kidney function. Patient evaluated at bedside this morning, appears fatigued and is difficult to wake. Patient notes that she is mostly just fatigued, denies current SOB with supplemental oxygen. Denies chest pain, fever, chills. Review of Systems Review of Systems: as per HPI Physical Exam Physical Exam: General: Fatigued but in no acute distress Cardiac: Regular rate, irregular rhythm, no murmurs appreciated Respiratory:Diffuse wheezes noted throughout anterior lung salazar on auscultation, mildly increased work of breathing Extremities: LLE with dressing in place, bilateral LE pitting edema Results & Data Results & Data Vital Signs (Past 12 Hours) Vital Signs Temp Pulse Pulse Resp BP Pulse Ox O2 Del Method 05/18/23 06:00 52 L 05/18/23 03:10 36.1 C L 52 L 18 114/61 99 Nasal Cannula 05/17/23 22:10 35.8 C L 57 L 18 118/51 L 99 Room Air 05/17/23 20:31 Nasal Cannula 05/17/23 19:35 60 O2 Flow Rate 05/18/23 06:00 05/18/23 03:10 2 05/17/23 22:10 05/17/23 20:31 2 05/17/23 19:35 Resident Activity Tracking Resident Involvement: Resident Care Provided Care Provided: Adult Hospital Medicine (8) Foot ulcer, left Non-pressure ulcer stage: unspecified non-pressure ulcer stage Qualified Code(s): L97.529 - Non-pressure chronic ulcer of other part of left foot with unspecified severity
[2023-05-18 07:44] LABS: Albumin Level 3.2 gm/dl (3.4-5.0); BUN Creatinine Ratio 68.6 (10-20); Bilirubin Direct 0.5 mg/dl (0-0.2); Bilirubin,Total 1.4 mg/dl (0.2-1.0); Calcium 8.8 mg/dl (8.6-10.3); Creatinine Clr Calc Pharmacy 17.7 ml/min; Est GFR (African American) 24.3 ml/min; Magnesium 2.5 mg/dl (1.7-2.4); Phosphorus 4.4 mg/dl (2.5-4.9); Potassium 3.4 mmol/L (3.5-5.1); Total Protein 6.2 gm/dl (6.0-8.3)
[2023-05-18] MEDS: AZITHROMYCIN 250 MG TAB PO SCH (08:24)
[2023-05-18] MEDS: AMOXICILLIN/CLAVULANATE 500 MG TAB PO SCH ×2 (08:24→17:46)
[2023-05-18] MEDS: APIXABAN 2.5 MG TAB PO SCH ×2 (08:25→20:12)
--- NOTE | 2023-05-18 10:04 | Cardiology Consultation ---
Date of Consultation May 18, 2023 Assessment & Plan (1) Right heart failure: (2) Leg edema: (3) Chronic kidney disease, stage IV (severe): (4) Permanent atrial fibrillation: (5) On continuous oral anticoagulation: Plan 1. Right heart failure: I agree that a lot of the patient's issues are due to right heart failure resulting in elevated right-sided pressures. This is probably affecting her liver, as well as her severe peripheral edema. It may be due to left heart failure, and decreasing her preload with diuresis is affecting her cardiac output resulting in decreased kidney perfusion and elevated creatinine. The best we can do is to compromise between decreasing kidney function and trying to keep fluid from accumulating. At this point I think we should reinstitute diuretics, we do not want to diurese as rapidly as she was before but I would certainly like to at least maintain where she is now. I would recommend restarting Lasix 80 mg daily today and see if that maintains her fluid status and her kidney function where it is now. I am not sure if we need metolazone at this point, I would probably try without for a day or 2. 2. Leg edema: This is probably a combination of right heart failure increasing venous pressure as well as low albumin. I would make sure she is on nutritional supplements and diurese her as much as we can to minimize her right-sided pressures. 3. Kidney disease: Although she probably has some underlying kidney disease, her creatinine seems very much hemodynamic related which is not an intrinsic kidney problem. If we could maintain kidney perfusion (which would require an increase in cardiac output, noted below) we may be able to improve her fluid management. 4. Atrial fibrillation: She has permanent atrial fibrillation however the heart rate is quite low. In her case this is affecting her cardiac output in 2 ways, the first is the heart rate itself which is quite low (averaging only 50 and I doubt she can increase her stroke-volume very much) and due to the irregularity in the rhythm which she is hemodynamically inefficient. Increasing in regularizing her heart rate may increase her cardiac output, sometimes this can be significant. I do not think it would be wrong to consider a pacemaker, and I did tell her and her daughter that that would be a temporizing treatment but could improve her symptomatology due to improved fluid management. I certainly would not do that now but we could consider it. 5. Anticoagulation: She should be on an anticoagulant, Eliquis is a good option and she is on the correct dose based on her age and kidney function. History of Present Illness Reason for Consultation: CHF Attending Physician: Raymond Beckett DO History of Present Illness This is an 87-year-old woman with a history of chronic kidney disease, electrolyte abnormalities, hyperlipidemia, hypertension, osteoarthritis and chronic lymphedema. She also has permanent atrial fibrillation and is on chronic anticoagulation. She is typically followed in our office by Dr. Hayes, although she was hospitalized April 26, 2023 with fluid retention in the setting of mildly decreased left ventricular systolic function. An echocardiogram done the day of that admission did show mild left ventricular dysfunction with an ejection fraction of 40 to 45% and moderate right ventricular dysfunction. The right atrium was severely dilated as well as the left atrium. She did have moderate mitral regurgitation and she had elevated right ventricular systolic pressures with an mildly dilated inferior vena cava. Compared to March 2021 her left ventricular ejection fraction was somewhat reduced and her right ventricular function appeared worse (at that time she had normal estimated right heart pressures). It was hypothesized that some of her difficulty with anasarca was due to right heart failure although she also appeared to have some element of left heart failure (including but chest x-ray). In addition her albumin is low or borderline low which is probably contributory. Her chest x-ray this admission appears to be somewhat improved with regard to pulmonary edema. 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 If correct her weight has increased here. With diuresis her creatinine increased to 2.26, and with holding her diuretics it is now 2.07. In addition she is in permanent atrial fibrillation and her heart rate is somewhat slow (67 bpm on presentation here but ranging from 38-80 on telemetry this admission with an average visually of around 50). She is on no medications to slow heart rate. She is on Eliquis 2.5 mg twice a day, reduced due to age and kidney function, her creatinine runs at around 2 but does fluctuate above and below that number. I interviewed her today with her daughter in the room. Evidently she has had a significant diuresis (which is backed up by her weight) and although she still has a lot of edema she does not have symptoms of left heart failure. She has been keeping to a daily fluid restriction of 1500 cc and a salt restriction 1.6 g. She is resting comfortably in bed. Allergies Allergy/AdvReac Type Severity Reaction Status Date / Time codeine Allergy Mild nausea and Verified 05/17/23 16:53 vomiting latex Allergy Mild Rash Verified 05/17/23 16:53 povidone-iodine Allergy Mild RASH Verified 05/17/23 16:53 soap [From Betadine] Allergy Mild Rash Verified 05/17/23 16:53 Sulfa (Sulfonamide Allergy Mild RASH Verified 05/17/23 16:53 Antibiotics) cephalexin Allergy Unknown . Verified 05/17/23 16:53 sulfamethoxazole Allergy Unknown Diarrhea Verified 05/17/23 16:53 [From Bactrim] trimethoprim [From Bactrim] Allergy Unknown Diarrhea Verified 05/17/23 16:53 ceftriaxone [From Rocephin] AdvReac Severe Diarrhea Verified 05/17/23 16:53 meperidine AdvReac Mild nausea/vomi Verified 05/17/23 16:53 ting Home Medications Medication Instructions Recorded Confirmed Type acetaminophen 500 mg tablet 1,000 mg PO HS PRN Pain 07/25/20 05/17/23 History (Tylenol Extra Strength) ondansetron HCl 4 mg tablet 4 mg PO Q8H PRN nausea and 12/05/22 05/17/23 Rx vomiting #10 tabs diclofenac sodium 1 % topical gel 1 g topical BID PRN Pain #100 grams 02/20/23 05/17/23 Rx apixaban 2.5 mg tablet (Eliquis) 2.5 mg PO BID #180 tabs 04/02/23 05/17/23 Rx tramadol 50 mg tablet 50 mg PO TID #270 tabs 04/10/23 05/17/23 Rx L.acidop,casei,lactis,rham-B.lact,alexandre 2 cap PO DAILY #1 cap 05/11/23 05/17/23 Rx 625 mg (10 billion cell) capsule (Advanced Probiotic) allopurinol 100 mg tablet 100 mg PO DAILY #30 tabs 05/11/23 05/17/23 Rx dnmgdnji-sgd-whami acid 0.4 1 tab PO QAM #1 tab 05/11/23 05/17/23 Rx mg-lycopene 300 mcg-lutein 250 mcg tablet (Cerovite Senior) potassium chloride 20 mEq 20 meq PO BID #60 tabs 05/11/23 05/17/23 Rx tablet,extended release(part/cryst) furosemide 80 mg tablet 80 mg PO BID 05/17/23 05/17/23 History metolazone 5 mg tablet 5 mg PO .Q2D/UD 05/17/23 05/17/23 History Patient History Medical History Cellulitis of foot Acute hyperkalemia Acute hyponatremia JUDE (acute kidney injury) Chronic anticoagulation Diastolic congestive heart failure f/u Dr. Hayes Hyperlipidemia Hypertension Lymphedema chronic Osteoarthritis Permanent atrial fibrillation Stage III chronic kidney disease f/u nephrology at [place] Surgical History H/O left cataract extraction History of right cataract extraction Hx of shoulder surgery rt. repair shoulder dislocation Hx of basal cell carcinoma excision x1 rt eyelid, x1 left and left ear Hx of total hysterectomy with removal of both tubes and ovaries History of radiation therapy S/P tonsillectomy S/P colonoscopy S/P lumpectomy, left breast with axillary node removal S/P appendectomy Family History Other Adopted Myocardial infarction Denies family history of Ovarian cancer Prostate cancer Breast cancer Colorectal cancer Social History Smoking Status: Never smoker Second Hand Exposure: No; Do You Dip or Chew Tobacco: No; Hx Alcohol Use: No Hx Substance Use: No Preferred Language: [place] Communication Ability: Effective Visual Impairment: No Limitations Hearing Ability: Normal Luggage Liner Required: No Beliefs That Will Affect Care: None marital status: Current Living Situation: Family Current Living Situation Comment: lives home alone in a townhouse 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 She has some sores wrapped on her legs. Results & Data Vital Signs (Past 12 Hours) Vital Signs Temp Pulse Pulse Resp BP Pulse Ox O2 Del Method 05/18/23 09:57 Nasal Cannula 05/18/23 07:52 36.5 C 52 L 20 123/67 97 Nasal Cannula 05/18/23 06:00 52 L 05/18/23 03:10 36.1 C L 52 L 18 114/61 99 Nasal Cannula 05/17/23 22:10 35.8 C L 57 L 18 118/51 L 99 Room Air O2 Flow Rate 05/18/23 09:57 2 05/18/23 07:52 2 05/18/23 06:00 05/18/23 03:10 2 05/17/23 22:10 Laboratory Results Cardiac Enzymes 05/17/23 05/18/23 Range/Units 13:21 06:07 AST 28 23 (13-39) U/L Coagulation 05/17/23 Range/Units 13:21 PT 13.5 H (9.0-12.0) Seconds APTT 34 H (21-31) Seconds CBC 05/17/23 05/18/23 Range/Units 13:21 06:07 WBC 7.39 6.34 (4.8-10.8) K/ul RBC 5.62 H 5.19 (4.20-5.40) M/uL Hgb 15.0 13.6 (12.0-16.0) g/dl Hct 49.1 H 44.8 (37.0-47.0) % Plt Count 155 131 (130-400) K/uL Neut # (Auto) 5.82 4.59 (1.40-6.50) K/uL Lymph # (Auto) 0.82 L 0.88 L (1.20-3.40) K/uL Gilmer # (Auto) 0.54 0.44 (0.11-0.59) K/uL Eos # (Auto) 0.13 0.37 (0.00-0.50) K/uL Baso # (Auto) 0.05 0.04 (0.00-0.20) K/uL Comprehensive Metabolic Panel 05/17/23 05/18/23 Range/Units 13:21 06:07 Sodium 138 139 (136-145) mmol/L Potassium 3.6 3.4 L (3.5-5.1) mmol/L Chloride 91 L 95 L (98-107) mmol/L Carbon Dioxide 35 H 34 H (21-32) mmol/L BUN 147 H 142 H (6-23) mg/dl Creatinine 2.35 H 2.07 H (0.6-1.2) mg/dl Glucose 110 H 90 (70-99(Fasting)) mg/dl Calcium 9.5 8.8 (8.6-10.3) mg/dl Direct Bilirubin 0.5 H (0-0.2) mg/dl AST 28 23 (13-39) U/L ALT 8 5 L (7-52) U/L Alkaline Phosphatase 112 H 94 (34-104) U/L Total Protein 7.6 6.2 (6.0-8.3) gm/dl Albumin 3.9 3.2 L (3.4-5.0) gm/dl Intake and Output 05/17/23 05/18/23 05/18/23 22:59 06:59 14:59 Intake Total 100 / 200 100 / 200 Output Total 250 / 450 200 / 450 Balance -150 / -250 -100 / -250 Intake: Oral 100 / 200 100 / 200 Output: Urine 100 / 300 200 / 300 Urine Amount (Catheter) 150 / 150 External 150 / 150 Other: Weight 73.9 kg 75 kg Weight Measurement Method Built in [facility] Built in [facility] Diagnostic Findings Telemetry: Atrial fibrillation with a slow heart rate, heart rate ranging 38 to 80 bpm with an average of about 50 visually. PG Care Time/CCT Total # of Minutes Spent Total Time Spent with Patient: Total time spent is greater than 50% in coordination of care (as documented) at patient's floor/unit and/or counseling patient: Coding Level of Care Code 44254 INT INP/OBS CARE 3/75MIN Diagnoses Chronic right-sided heart failure I50.812 Heart failure chronicity: chronic Leg edema R60.0 Chronic kidney disease, stage IV (severe) N18.4 Permanent atrial fibrillation I48.2 On continuous oral anticoagulation Z79.01 (1) Right heart failure Heart failure chronicity: chronic Qualified Code(s): I50.812 - Chronic right heart failure
[2023-05-18] MEDS: traMADol HCL 50 MG TABLET PO SCH ×2 (13:06→20:12)
--- NOTE | 2023-05-18 13:25 | Nephrology Consultation ---
Date of Consultation May 18, 2023 Assessment & Plan (1) Chronic kidney disease, stage IV (severe): (2) JUDE (acute kidney injury): (3) Acute hypoxic respiratory failure: (4) RSV (respiratory syncytial virus pneumonia): Plan 87 yo F with PMH of stage 3B CKD, b/l cr 1.4 to 1.6 mg/dl and progressive worsening of renal function over last 2 months and recent acute kidney injury secondary to cardiorenal syndrome with right-sided heart failure, A Fib and pulmonary hypertension. Last Echo with Ef 40 to 45%. She was on high-dose of diuretics which has been on hold for last 2 days because of worsening of renal function. Admitted on 05/16/2023 with cough and hypoxic respiratory failure and noted to be positive for RSV and possibly pneumonia, currently on Augmentin and Zithromax. Creatinine was 1.7 on discharge a week ago, on admission creatinine again elevated at 2.4 but slightly improved to 2.1 this morning. Overall her volume status seems to be much better compared to last hospitalization, however weight is down more than 10 pounds. Lower extremity edema definitely better than before. --continue to hold diuretics today and monitor accurate intake and output, aim for net negative. If net positive then slowly introduce diuretic and adjust dose as needed. -- She does have high risk for progressive worsening of renal function with underlying right-sided heart failure and need for high-dose diuretics to maintain volume status. Had long discussion during last hospitalization, she understands and was agreeable to consider dialysis in future if the need arises. Will follow. Thank you for allowing me to participate in your patient's care. It was a p ricki to see Emma Peña. History of Present Illness Reason for Consultation: JUDE, CKD, volume management. Attending Physician: Raymond Beckett DO History of Present Illness Ms. Emma Gatica is an 87-year-old female with PMH significant for stage IV/V CKD, recent hospitalization for volume overload with CHF, admitted to hospital with respiratory failure, RSV and possible pneumonia. Nephrology consult requested for volume management with history of advanced CKD and JUDE. EMR records are reviewed in detail during patient's visit. Her daughter was at bedside. Emma Peña was recently admitted to hospital from 04/25/23 to 05/11/23 with SOB, decompensated congestive heart failure. During hospitalization she was treated with IV diuretics and noted to have JUDE with worsening of renal function secondary to cardiorenal syndrome. Creatinine peaked to 2.6 but renal function eventually stabilized and improved with improved volume status while she was on higher dose of diuretics. Creatinine was down to 1.7 but BUN was elevated around 120s. she was discharged home on 05/11/2023 with Lasix 80 mg twice a day and metolazone. She was called by the heart failure clinic after she had recent lab showing BUN around 140 and she was advised to hold her diuretics which she has been holding since . Over last 2 days clinically she declined with productive cough and sputum production. Her oxygen level was noted to be 88% at rest and was dropping to low 70s with minimal activity and brought to ER on 05/16/23 for further evaluation. Cr again noted to be elevated at 2.4, BUN 147. lower extremity edema seems much better compared to her last hospitalization. Her weight is also lowered then discharged with from a week ago. In ER she was noted to be RSV positive. Chest x-ray was concerning for possible pneumonia. She was started on Augmentin and Zithromax empirically. h/o stage 3B CKD, previously her b/l cr was around 1.4 to 1.6 mg/dl. Her renal function started to worsen slowly over last 2 months prior to her last hospitalization and outpatient lab showed creatinine was staying around 2.0 to 2.2 mg/dl. Urinalysis showed low-grade proteinuria. Renal imaging was negative for postrenal obstruction. Has history of pulmonary hypertension and right-sided heart failure and significant b/l LE edema. 2D echo showed EF 40 to 45% .She also has permanent atrial fibrillation, currently on Eliquis. She continues to have significant cough associated shortness of breath. No fever or chills. Weight is down and lower extremity edema improved. Kidney function slightly improved, creatinine down to 2.1 and BUN 140, sodium normal. Allergies Allergy/AdvReac Type Severity Reaction Status Date / Time codeine Allergy Mild nausea and Verified 05/17/23 16:53 vomiting latex Allergy Mild Rash Verified 05/17/23 16:53 povidone-iodine Allergy Mild RASH Verified 05/17/23 16:53 soap [From Betadine] Allergy Mild Rash Verified 05/17/23 16:53 Sulfa (Sulfonamide Allergy Mild RASH Verified 05/17/23 16:53 Antibiotics) cephalexin Allergy Unknown . Verified 05/17/23 16:53 sulfamethoxazole Allergy Unknown Diarrhea Verified 05/17/23 16:53 [From Bactrim] trimethoprim [From Bactrim] Allergy Unknown Diarrhea Verified 05/17/23 16:53 ceftriaxone [From Rocephin] AdvReac Severe Diarrhea Verified 05/17/23 16:53 meperidine AdvReac Mild nausea/vomi Verified 05/17/23 16:53 ting Home Medications Medication Instructions Recorded Confirmed Type acetaminophen 500 mg tablet 1,000 mg PO HS PRN Pain 07/25/20 05/17/23 History (Tylenol Extra Strength) ondansetron HCl 4 mg tablet 4 mg PO Q8H PRN nausea and 12/05/22 05/17/23 Rx vomiting #10 tabs diclofenac sodium 1 % topical gel 1 g topical BID PRN Pain #100 grams 02/20/23 05/17/23 Rx apixaban 2.5 mg tablet (Eliquis) 2.5 mg PO BID #180 tabs 04/02/23 05/17/23 Rx tramadol 50 mg tablet 50 mg PO TID #270 tabs 04/10/23 05/17/23 Rx L.acidop,casei,lactis,rham-B.lact,alexandre 2 cap PO DAILY #1 cap 05/11/23 05/17/23 Rx 625 mg (10 billion cell) capsule (Advanced Probiotic) allopurinol 100 mg tablet 100 mg PO DAILY #30 tabs 05/11/23 05/17/23 Rx rxnsuwml-sxo-enksz acid 0.4 1 tab PO QAM #1 tab 05/11/23 05/17/23 Rx mg-lycopene 300 mcg-lutein 250 mcg tablet (Cerovite Senior) potassium chloride 20 mEq 20 meq PO BID #60 tabs 05/11/23 05/17/23 Rx tablet,extended release(part/cryst) furosemide 80 mg tablet 80 mg PO BID 05/17/23 05/17/23 History metolazone 5 mg tablet 5 mg PO .Q2D/UD 05/17/23 05/17/23 History Patient History Medical History Cellulitis of foot Acute hyperkalemia Acute hyponatremia JUDE (acute kidney injury) Chronic anticoagulation Diastolic congestive heart failure f/u Dr. aHyes Hyperlipidemia Hypertension Lymphedema chronic Osteoarthritis Permanent atrial fibrillation Stage III chronic kidney disease f/u nephrology at [place] Surgical History H/O left cataract extraction History of right cataract extraction Hx of shoulder surgery rt. repair shoulder dislocation Hx of basal cell carcinoma excision x1 rt eyelid, x1 left and left ear Hx of total hysterectomy with removal of both tubes and ovaries History of radiation therapy S/P tonsillectomy S/P colonoscopy S/P lumpectomy, left breast with axillary node removal S/P appendectomy Family History Other Adopted Myocardial infarction Denies family history of Ovarian cancer Prostate cancer Breast cancer Colorectal cancer Social History Smoking Status: Never smoker Second Hand Exposure: No; Do You Dip or Chew Tobacco: No; Hx Alcohol Use: No Hx Substance Use: No Preferred Language: Persian Communication Ability: Effective Visual Impairment: No Limitations Hearing Ability: Normal Credit Card Specialist Required: No Beliefs That Will Affect Care: None marital status: Current Living Situation: Family Current Living Situation Comment: lives home alone in a townhouse 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 Physical Exam Constitutional: WD/WN, vitals as above + acute distress and + ill appearing Eyes: + anicteric sclerae Neck: normal visual inspection Respiratory: + respiratory distress and + cough Au scultation: + diminished lung sounds and + rhonchi; no wheezes Cardiovascular: Rate/Rhythm: + bradycardic and + irregularly irregular Extremities: + edema (trace b/l LE edema) Gastrointestinal (Abdomen): Inspection/Auscultation: abdomen normal to inspection Skin: + turgor decreased, + skin atrophy and + erythema Neurologic: no focal motor deficits Psychiatric: Orientation: alert and oriented x 3 Affect: euthymic affect Results & Data Vital Signs (Past 12 Hours) Vital Signs Temp Pulse Pulse Pulse Resp BP Pulse Ox 05/18/23 11:03 58 L 18 130/80 94 05/18/23 09:57 05/18/23 07:52 36.5 C 52 L 20 123/67 97 05/18/23 06:00 52 L 05/18/23 03:10 36.1 C L 52 L 18 114/61 99 O2 Del Method O2 Flow Rate 05/18/23 11:03 Nasal Cannula 2 05/18/23 09:57 Nasal Cannula 2 05/18/23 07:52 Nasal Cannula 2 05/18/23 06:00 05/18/23 03:10 Nasal Cannula 2 PG Care Time/CCT Total # of Minutes Spent Total Time Spent with Patient: Total time spent is greater than 50% in coordination of care (as documented) at patient's floor/unit and/or counseling patient: Coding Level of Care Code 78260 IN/OBS CONSULT LVL 5,80M Diagnoses Chronic kidney disease, stage IV (severe) N18.4 JUDE (acute kidney injury) N17.9 Acute hypoxic respiratory failure J96.01 RSV (respiratory syncytial virus pneumonia) J12.1
--- NOTE | 2023-05-18 17:52 | CT Scan Report ---
CT OF THE CHEST WITHOUT IV CONTRAST CLINICAL HISTORY: hypoxia,?edema vs pneumonia COMPARISON STUDY: Chest CT April 25, 2023. Chest radiograph May 17, 2022. CT DOSE: 544.52 mGy.cm TECHNIQUE: Axial images of the chest were obtained without IV contrast. Images were reviewed in the axial, sagittal, and coronal planes. IV contrast was not administered for this examination. Automat ed exposure control was utilized for the study. A dose lowering technique was utilized adhering to t he principles of ALARA. FINDINGS: Mildly enlarged mediastinal lymph nodes are similar to CT of April 25, 2023. There is m oderate cardiomegaly and extensive coronary artery calcification. Is no pericardial effusion. Mild di latation of the central pulmonary arteries is again noted. Moderate right and small left pleural effu sions have mildly decreased in size since CT of April 25, 2023. There is no pneumothorax. No centr al obstructing mass is present. Interlobular septal thickening is present. Patchy airspace opacities within the lungs are present. There is no cavitation. Scattered foci of subpleural reticulation and b ronchiectasis are present. There may be early honeycombing. No acute fractures within the bony thorax are noted. Body wall edema is present. Visualized portions of the upper abdomen demonstrate a small amount of upper abdominal ascites. IMPRESSION: 1. Moderate right and small left pleural effusions, decreased in size since CT of April 25, 2023. 2. Interlobular septal thickening within the lungs consistent with interstitial pulmonary edema. Patc hy airspace opacities within the lungs favor alveolar pulmonary edema. A superimposed infectious proc ess could appear similar. The findings are superimposed upon interstitial lung disease. 3. No change in mildly enlarged mediastinal lymph nodes, likely reactive. 4. Moderate cardiomegaly. Extensive coronary artery calcification. Dilatation of the central pulmonar y arteries suggestive of pulmonary arterial hypertension. 5. Anasarca. Small amount of upper abdominal ascites. ACT 112: Negative or not required by law. Electronically signed by: Navid Lemus M.D. 05/18/2023 5:50 PM
--- NOTE | 2023-05-18 18:26 | Billing Data ---
Date of Service May 18, 2023 Coding Level of Care Code 09535 SUB INP/OBS CARE
[2023-05-18] MEDS: BENZONATATE 100 MG CAPSULE PO PRN (20:12)
[2023-05-18] MEDS: LOPERAMIDE HCL 2 MG CAP PO PRN (20:15)
[2023-05-19] MEDS: BENZONATATE 100 MG CAPSULE PO PRN ×3 (04:18→18:24)
[2023-05-19] MEDS ORDERED: COUGH DROP (SUGAR FREE) LOZ 24 LOZ/1 BOX BUCCAL PRN (06:16)
--- NOTE | 2023-05-19 07:24 | Hospitalist Progress Note ---
Date of Service May 19, 2023 Assessment & Plan (1) Acute hypoxic respiratory failure: Plan: Maintain oxygen saturation greater than 92% - Respiratory panel positive for RSV -Chest CT done 05/18, impression favors pulmonary edema - low suspicion for bacterial pneumonia, Augmentin discontinued -Continue Azithromycin for pulmonary anti-inflammatory effect (2) RSV (respiratory syncytial virus pneumonia): (3) Chronic kidney disease, stage IV (severe): Plan: Nephrology consulted, appreciate recommendation to restart diuretics - given patient h/o cirrhosis, felt patient may benefit from diuresis with Spironolactone - will start Spironolactone 100mg daily and Lasix 40mg daily, titrate as needed Eliquis dosed for renal insufficiency (4) (HFpEF) heart failure with preserved ejection fraction: Plan: Cardiology consulted, appreciate recs - recommend diuresis. Management as above. Reviewed cardiology consultation from April 26, 2023 -Beta-blockade treatment contraindicated due to relative bradycardia -GABRIELE ARB and Entresto are relatively contraindicated due to acute kidney injury -As previously documented inotrope infusion is not a good long-term solution, no indication for short-term at this time (5) JUDE (acute kidney injury): Plan: Suspect due to combination of aggressive outpatient diuresis in the setting of decreased p.o. intake -Patient able to eat and drink however still maintaining light fluid restriction -Holding nephrotoxic medications including allopurinol -Cr this morning 1.74 (6) Liver cirrhosis: Plan: Noted on imaging during previous hospital stay - further supported by slightly elevated INR and elevated bili -At risk for congestive hepatopathy -Diuresis as above (7) Anasarca: Plan: Reportedly improved from patient's baseline (8) Foot ulcer, left: Plan: Wound care consult (9) Leg edema: (10) Permanent atrial fibrillation: Plan: Continue Eliquis 2.5 mg daily for systemic anticoagulation in the setting of poor renal function (11) Pulmonary hypertension: Plan: As noted with heart failure patient poor candidate for standard therapies (12) Type 2 diabetes mellitus: Plan: Blood sugars within normal limits on previous admission, A1c 6.9% March 2023 Diet controlled (13) Secondary hyperparathyroidism: (14) Chronic anticoagulation: Admission and Anticipated Discharge Date Admission Date: May 17, 2023 Supervising Physician Co-Signing Physician Notes I personally examined the patient and verified all bneoit points of history and exam, discussed case, and agree with decision making with Dr Sawant ongoing cough and dyspnea. seen before and then later after CT vitals noted sitting up on NC O2 coughing periodically lungs coarse rhonchi throughout. CT films and report noted. hypoxia - seems to me predominantly due to RSV/viral pneumonia. Will add spironolactone/lasix given likely cirrhosis 100/40 mg. will recheck creatinine. if levels remain stable, will consider increasing to BID. otherwise as above Subjective Patient is an 87-year-old female with a history of chronic kidney disease, CHF, atrial fibrillation, hyponatremia, cirrhosis who was referred to the ED for worsening shortness of breath and abnormal/worsening kidney function. Patient evaluated at bedside this morning, is better able to converse but appears to be in mild distress due to persistent coughing. Patient notes no change in swelling, endorses mild shortness of breath and is unsure if supplemental oxygen is helping. Review of Systems Review of Systems: as per HPI Physical Exam Physical Exam: General: Fatigued, in mild distress Cardiac: Regular rate, irregular rhythm, no murmurs appreciated Respiratory:Course breath sounds noted throughout lung salazar, mildly increased work of breathing Extremities: LLE with dressing in place, bilateral LE pitting edema. LUE lymphedema Results & Data Results & Data Vital Signs (Past 12 Hours) Vital Signs Temp Pulse Pulse Resp BP Pulse Ox O2 Del Method 05/19/23 07:12 36.5 C 65 19 127/65 93 Nasal Cannula 05/19/23 03:50 36.4 C L 50 L 18 137/77 95 Nasal Cannula 05/18/23 23:34 36.4 C L 52 L 17 126/70 97 Nasal Cannula 05/18/23 22:11 Nasal Cannula 05/18/23 22:01 57 L 05/18/23 19:40 36.4 C L 73 19 159/68 H 96 Nasal Cannula O2 Flow Rate 05/19/23 07:12 1 05/19/23 03:50 0.5 05/18/23 23:34 0.5 05/18/23 22:11 2 05/18/23 22:01 05/18/23 19:40 0.5 Resident Activity Tracking Resident Involvement: Resident Care Provided Care Provided: Adult Hospital Medicine (8) Foot ulcer, left Non-pressure ulcer stage: unspecified non-pressure ulcer stage Qualified Code(s): L97.529 - Non-pressure chronic ulcer of other part of left foot with unspecified severity
[2023-05-19] MEDS: traMADol HCL 50 MG TABLET PO SCH ×3 (07:59→20:29)
[2023-05-19] MEDS: APIXABAN 2.5 MG TAB PO SCH ×2 (07:59→20:29)
[2023-05-19] MEDS: AZITHROMYCIN 250 MG TAB PO SCH (07:59)
[2023-05-19 08:49] LABS: Basophils # (auto) 0.02 K/uL (0.00-0.20); Basophils % (auto) 0.3 %; Eosinophils # (auto) 0.26 K/uL (0.00-0.50); Eosinophils % (auto) 4.1 %; Hematocrit (blood only) 43.1 % (37.0-47.0); Hemoglobin 13.1 g/dl (12.0-16.0); Immature Granulocytes # (auto) 0.03 K/uL (0.01-0.20); Immature Granulocytes % (auto) 0.5 %; Lymphocytes # (auto) 0.69 K/uL (1.20-3.40); Mean Corpuscular Hemoglobin 26.1 pg (25.0-34.0); Mean Corpuscular Hgb Conc 30.4 g/dL (32.0-36.0); Mean Corpuscular Volume 85.9 fL (80.0-100.0); Monocytes # (auto) 0.44 K/uL (0.11-0.59); Neutrophils # (auto) 4.85 K/uL (1.40-6.50); Neutrophils % (auto) 77.1 %; Platelet Count 134 K/uL (130-400); RDW Coefficient of Variation 20.8 % (11.5-14.5); RDW Standard Deviation 61.6 fL (36.4-46.3); Red Blood Count 5.02 M/uL (4.20-5.40); White Blood Count 6.29 K/ul (4.8-10.8)
[2023-05-19 09:13] LABS: BUN Creatinine Ratio 78.7 (10-20); Calcium 8.9 mg/dl (8.6-10.3); Creatinine Clr Calc Pharmacy 21.1 ml/min; Est GFR (Non-African American) 25.9 ml/min; Magnesium 2.5 mg/dl (1.7-2.4); Phosphorus 3.7 mg/dl (2.5-4.9); Potassium 3.2 mmol/L (3.5-5.1)
--- NOTE | 2023-05-19 09:14 | Cardiology Progress Note ---
Date of Service May 19, 2023 Assessment & Plan (1) Right heart failure: (2) Leg edema: (3) Chronic kidney disease, stage IV (severe): (4) Permanent atrial fibrillation: (5) On continuous oral anticoagulation: Plan 1. Right heart failure: I agree that a lot of the patient's issues are due to right heart failure resulting in elevated right-sided pressures. This is probably affecting her liver function, as well as her severe peripheral edema. It may be due originally to left heart failure, and decreasing her preload with diuresis is affecting her cardiac output resulting in decreased kidney perfusion and elevated creatinine. The best we can do is to compromise between decreasing kidney function and trying to keep fluid from accumulating. At this point I think we should try to maintain her weight where it is, we do not want to diurese as rapidly as she was before but I would certainly like to at least maintain where she is now. It has only been 1 day but her weight appears relatively stable since yesterday with reinstitution of diuretics. 2. Leg edema: This is probably a combination of right heart failure increasing venous pressure as well as low albumin. I would make sure she is on nutritional supplements and diurese her as much as we can to minimize her right-sided pressures. 3. Kidney disease: Although she probably has some underlying kidney disease, her creatinine seems very much hemodynamic related which is not an intrinsic kidney problem. Her creatinine has increased this morning, likely related to increased volume over the last several days. If we could maintain kidney perfusion (which would require an increase in cardiac output, noted below) we may be able to improve her fluid management. 4. Atrial fibrillation: She has permanent atrial fibrillation however the heart rate is quite low. In her case this is likely affecting her cardiac output in 2 ways, the first is the heart rate itself which is quite low (averaging only 50 and I doubt she can increase her stroke-volume very much) and due to the irregularity in the rhythm which is hemodynamically inefficient. Increasing and regularizing her heart rate may increase her cardiac output, sometimes this can be significant. I do not think it would be wrong to consider a pacemaker, and I did tell her and her daughter that that would be a temporizing treatment but could improve her symptomatology in the near term due to improved fluid management. I certainly would not do that in the next few days but we should consider it. 5. Anticoagulation: She should be on an anticoagulant, Eliquis is a good option and she is on the correct dose based on her age and kidney function. Admission and Anticipated Discharge Date Admission Date: May 17, 2023 Subjective She is still not feeling well, however she does not have cardiovascular complaints. Physical Exam Physical Exam: Constitutional: Alert, cooperative and in no obvious distress. She is laying supine in bed. HEENT: Unremarkable Neck: No jugular venous distention, carotid pulses are irregular but otherwise normal and equal bilaterally without bruits. Pulmonary: Decreased breath sounds on auscultation bilaterally, no rales. Cardiac: Irregular slow rhythm with no murmur, gallop or rub. Abdomen: Soft, nontender with normal bowel sounds. Extremities: +3 bilateral pretibial edema. Sores on legs bandaged. Neurologic: No focal findings. Skin: No rash, ecchymoses or petechiae. Results & Data Vital Signs (Past 12 Hours) Vital Signs Temp Pulse Pulse Resp BP Pulse Ox O2 Del Method 05/19/23 07:12 36.5 C 65 19 127/65 93 Nasal Cannula 05/19/23 03:50 36.4 C L 50 L 18 137/77 95 Nasal Cannula 05/18/23 23:34 36.4 C L 52 L 17 126/70 97 Nasal Cannula 05/18/23 22:11 Nasal Cannula 05/18/23 22:01 57 L O2 Flow Rate 05/19/23 07:12 1 05/19/23 03:50 0.5 05/18/23 23:34 0.5 05/18/23 22:11 2 05/18/23 22:01 Laboratory Results CBC 05/19/23 Range/Units 07:37 WBC 6.29 (4.8-10.8) K/ul RBC 5.02 (4.20-5.40) M/uL Hgb 13.1 (12.0-16.0) g/dl Hct 43.1 (37.0-47.0) % Plt Count 134 (130-400) K/uL Neut # (Auto) 4.85 (1.40-6.50) K/uL Lymph # (Auto) 0.69 L (1.20-3.40) K/uL [place] # (Auto) 0.44 (0.11-0.59) K/uL Eos # (Auto) 0.26 (0.00-0.50) K/uL Baso # (Auto) 0.02 (0.00-0.20) K/uL Intake and Output 05/18/23 05/19/23 05/19/23 22:59 06:59 14:59 Intake Total 100 / 100 Output Total 52 / 503 450 / 503 Balance 48 / -403 -450 / -403 Intake: Oral 100 / 100 Output: Urine Amount (Catheter) 50 / 500 450 / 500 External 50 / 500 450 / 500 # Bowel Movements 2 / 3 Other: Weight 75.1 kg Weight Measurement Method Built in [facility] Diagnostic Findings Telemetry: Atrial fibrillation, average heart rate around 50 bpm. PG Care Time/CCT Total # of Minutes Spent Total Time Spent with Patient: Total time spent is greater than 50% in coordination of care (as documented) at patient's floor/unit and/or counseling patient: Coding Level of Care Code 69653 SUB INP/OBS CARE 2/35MIN Diagnoses Chronic right-sided heart failure I50.812 Heart failure chronicity: chronic Leg edema R60.0 Chronic kidney disease, stage IV (severe) N18.4 Permanent atrial fibrillation I48.2 On continuous oral anticoagulation Z79.01 (1) Right heart failure Heart failure chronicity: chronic Qualified Code(s): I50.812 - Chronic right heart failure
[2023-05-19 09:19] LABS: Anisocytosis Present; Polychromasia 1+
[2023-05-19] MEDS ORDERED: FUROSEMIDE 40 MG/4 ML VIAL IV SCH (11:15)
[2023-05-19] MEDS ORDERED: POTASSIUM CHLORIDE CRTAB 20 MEQ TABCR PO STA (11:31)
--- NOTE | 2023-05-19 11:35 | Nephrology Progress Note ---
Date of Service May 19, 2023 Assessment & Plan (1) Chronic kidney disease, stage IV (severe): (2) JUDE (acute kidney injury): (3) Acute hypoxic respiratory failure: (4) RSV (respiratory syncytial virus pneumonia): (5) Hypokalemia: Plan 87 yo F with PMH of stage 3B CKD, b/l cr 1.4 to 1.6 mg/dl and progressive worsening of renal function over last 2 months and recent acute kidney injury secondary to cardiorenal syndrome with right-sided heart failure, A Fib and pulmonary hypertension. Last Echo with EF 40 to 45%. She was on high-dose of diuretics which has been on hold for last 2 days because of worsening of renal function. Admitted on 05/16/2023 with cough and hypoxic respiratory failure and noted to be positive for RSV and possibly pneumonia, currently on Augmentin and Zithromax. Creatinine was 1.7 on discharge a week ago, on admission creatinine again elevated at 2.4 but slightly improved to 2.1 this morning. Overall clinically doing poorly, kidney function slightly improved off of diuretics however urine output has been low and CT chest with pulmonary edema as well as bilateral pleural effusion. Hemoglobin normal, iron stores adequate. Phosphorus normal. -- Resume Lasix at 120 mg IV twice a day, potassium chloride 40 mEq x 1 dose now. -- She does have high risk for progressive worsening of renal function with underlying right-sided heart failure and need for high-dose diuretics to maintain volume status. Had long discussion during last hospitalization, she understands and was agreeable to consider dialysis in future if the need arises. Will follow. Admission and Anticipated Discharge Date Admission Date: May 17, 2023 Sen Emma Peña was seen and evaluated this morning. She continues to do poorly, mainly because of persistent cough. Urine output has been low, only around 500 cc overnight. Blood pressure acceptable. Slight improvement in BUN/creatinine noted. Review of Systems Review of Systems: Detailed review of system was done and pertinent positives and negatives are mentioned above. Physical Exam Constitutional: WD/WN, vitals as above + acute distress and + ill appearing Respiratory: + respiratory distress and + cough Au scultation: + diminished lung sounds and + rhonchi; no wheezes Cardiovascular: Rate/Rhythm: + bradycardic and + irregularly irregular Extremities: + edema (trace b/l LE edema) Skin: + turgor decreased, + skin atrophy and + erythema Neurologic: no focal motor deficits Psychiatric: Orientation: alert and oriented x 3 Affect: euthymic affect Results & Data Vital Signs (Past 12 Hours) Vital Signs Temp Pulse Resp BP Pulse Ox O2 Del Method O2 Flow Rate 05/19/23 11:08 36.6 C 56 L 22 138/74 95 Nasal Cannula 1 05/19/23 09:36 Nasal Cannula 2 05/19/23 07:12 36.5 C 65 19 127/65 93 Nasal Cannula 1 05/19/23 03:50 36.4 C L 50 L 18 137/77 95 Nasal Cannula 0.5 05/18/23 23:34 36.4 C L 52 L 17 126/70 97 Nasal Cannula 0.5 PG Care Time/CCT Total # of Minutes Spent Total Time Spent with Patient: Total time spent is greater than 50% in coordination of care (as documented) at patient's floor/unit and/or counseling patient: Coding Level of Care Code 78184 SUB INP/OBS CARE 2/35MIN Diagnoses Chronic kidney disease, stage IV (severe) N18.4 JUDE (acute kidney injury) N17.9 Acute hypoxic respiratory failure J96.01 RSV (respiratory syncytial virus pneumonia) J12.1 Hypokalemia E87.6
[2023-05-19] MEDS: SPIRONOLACTONE 100 MG TAB PO SCH (13:06)
[2023-05-19] MEDS: LOPERAMIDE HCL 2 MG CAP PO PRN (13:09)
[2023-05-20] MEDS: guaiFENesin/DEXTROM SYRUP 200MG/20MG 10ML UDC PO PRN (00:42)
[2023-05-20] MEDS: BENZONATATE 100 MG CAPSULE PO PRN ×3 (03:35→20:19)
[2023-05-20 06:25] LABS: Basophils # (auto) 0.04 K/uL (0.00-0.20); Basophils % (auto) 0.8 %; Eosinophils # (auto) 0.25 K/uL (0.00-0.50); Eosinophils % (auto) 4.8 %; Hematocrit (blood only) 43.5 % (37.0-47.0); Hemoglobin 13.1 g/dl (12.0-16.0); Immature Granulocytes # (auto) 0.02 K/uL (0.01-0.20); Immature Granulocytes % (auto) 0.4 %; Lymphocytes % (auto) 13.5 %; Mean Corpuscular Hemoglobin 26.1 pg (25.0-34.0); Mean Corpuscular Hgb Conc 30.1 g/dL (32.0-36.0); Mean Corpuscular Volume 86.7 fL (80.0-100.0); Mean Platelet Volume 10.9 fL (9.4-12.4); Monocytes # (auto) 0.41 K/uL (0.11-0.59); Monocytes % (auto) 7.9 %; Neutrophils # (auto) 3.77 K/uL (1.40-6.50); Neutrophils % (auto) 72.6 %; Platelet Count 127 K/uL (130-400); RDW Coefficient of Variation 20.9 % (11.5-14.5); RDW Standard Deviation 62.6 fL (36.4-46.3); Red Blood Count 5.02 M/uL (4.20-5.40); White Blood Count 5.19 K/ul (4.8-10.8)
[2023-05-20 06:30] LABS: BUN Creatinine Ratio 71.4 (10-20); Calcium 8.8 mg/dl (8.6-10.3); Creatinine Clr Calc Pharmacy 20.6 ml/min; Est GFR (African American) 29.8 ml/min; Est GFR (Non-African American) 25.7 ml/min; Magnesium 2.4 mg/dl (1.7-2.4); Phosphorus 3.6 mg/dl (2.5-4.9); Potassium 3.8 mmol/L (3.5-5.1)
[2023-05-20 06:52] LABS: Anisocytosis Present; Polychromasia 1+; Target Cells 1+; Tear Drop Cells 1+
--- NOTE | 2023-05-20 06:58 | Hospitalist Progress Note ---
Date of Service May 20, 2023 Assessment & Plan (1) Acute hypoxic respiratory failure: (2) RSV (respiratory syncytial virus pneumonia): (3) Chronic kidney disease, stage IV (severe): (4) GARETH (acute kidney injury): (5) Liver cirrhosis: (6) Anasarca: (7) Foot ulcer, left: (8) Permanent atrial fibrillation: (9) Pulmonary hypertension: (10) Type 2 diabetes mellitus: (11) Secondary hyperparathyroidism: (12) Chronic anticoagulation: (13) Heart failure with mildly reduced ejection fraction: Plan Pt is an 87-year-old female with a history of chronic kidney disease, CHF, atrial fibrillation, hyponatremia, liver cirrhosis who presented to the hospital on 05/17/23 for acute hypoxic respiratory failure in the setting of RSV infection and worsening kidney function GARETH on CKD. Today, continuing lasix + spironolactone and will continue to monitor labs/Cr daily to ensure this is tolerated. Will keep an eye out for any further recommendations/plans from cardio/nephro in the coming days. Will stop the azithromycin tomorrow. Acute hypoxic resp failure in setting of RSV infection - chest CT done 05/18, impression favors pulmonary edema - low suspicion for bacterial pneumonia, Augmentin discontinued - continue Azithromycin for pulmonary anti-inflammatory effect, last dose will be today - maintain oxygen saturation greater than 92% RSV infection - Respiratory panel positive for RSV - continue supportive care for RSV infection as noted above GARETH on CKD stage IV - Cr baseline 1.4-1.6, peak 2.35, now 1.75, stable - Suspect due to combination of aggressive outpatient diuresis and decreased p.o. intake due to illness - Holding nephrotoxic medications including allopurinol, eliquis is renally dosed - Nephrology consulted; recommend restart diuretics, - given patient h/o cirrhosis, felt patient may benefit from diuresis with Spironolactone - continue Spironolactone 100mg daily and Lasix 40mg daily HFmrEF - last echo 04/26/23 EF was 40-45% - Cardiology consulted; recommend diuresis, management as above, - Reviewed cardiology consultation from April 26, 2023; -Beta-blockade treatment contraindicated due to relative bradycardia -GABRIELE ARB and Entresto are relatively contraindicated due to acute kidney injury -As previously documented inotrope infusion is not a good long-term solution, no indication for short-term at this time Liver cirrhosis - Noted on imaging during previous hospital stay - further supported by slightly elevated INR and elevated bili -At risk for congestive hepatopathy -Diuresis as above Anasarca - Reportedly improved from patient's baseline L foot ulcer - Wound care consult Atrial fibrillation - Continue Eliquis 2.5 mg daily for systemic anticoagulation in the setting of poor renal function Pulm HTN - As noted with heart failure patient poor candidate for standard therapies DMT2 - Blood sugars within normal limits on previous admission, A1c 6.9% March 2023 - Diet controlled VTE proph: eliquis as noted above IVF: none Admission and Anticipated Discharge Date Admission Date: May 17, 2023 Supervising Physician Co-Signing Physician Notes Attending Physician Supervision Note: I independently interviewed and examined the patient and verified the benoit history and physical, reviewed labs and image studies and agree with findings and care plan noted above. no new concern. sitting in chair, family at bedside. ongoing cough + vitals noted sitting up on NC O2 coughing periodically lungs coarse rhonchi throughout. RSV infection - supportive care. tessalon perle Hypoxia - resolved though still listed 2L NC with SaO2 97%. wean oxygen HFmrEF - reduced LV systolic function and significant right ventricular failure accounting for significant anasarca, pulmonary congestion and pleural effusions. 40mgs lasix - neg 2L Beta-arnie not indicated d/t relative bradycardia GABRIELE ARB and Entresto not indicated d/t GARETH Cirrhosis - possibly primary or sec to cardiac dysfunction. spironolactone added 100mgs. Normal total protein. Albumin >3. Gareth on ckd 4 - holding allopurinol; renally dose eliquis BUN above 100. creatinine stable A fib - rate controlled. eliquis L foot ulcer - Wound care consult Consider goals of care discussion during the admission Subjective Pt is an 87-year-old female with a history of chronic kidney disease, CHF, atrial fibrillation, hyponatremia, liver cirrhosis who presented to the hospital on 05/17/23 for acute hypoxic respiratory failure in the setting of RSV infection and worsening kidney function GARETH on CKD. Today, pt states she is feeling overall better, she states she feels like she is coughing less today than yesterday. No SOB or chest pain today. Overall feeling better today than before but still feels like there is some "gunk" in her lungs. No acute concerns or questions at this time. Tolerating oral intake well but does not have much of an appetite. Review of Systems Review of Systems: As per HPI Physical Exam Physical Exam: General:Alert and oriented, no acute distress, pleasant older woman HEENT: Normocephalic, moist oral mucosa, Cardio: Regular rate, irregular rhythm Resp:Lungs clear to auscultation b/l, no wheezes or rhonchi, GI: Soft and nontender, nondistended, bowel sounds active Skin: Warm, pink, dry, Ext: Chronic lymphedema of L arm noted with minor edema of bilateral lower extremities Psych: Mood-affect congruence. Results & Data Results & Data Vital Signs (Past 12 Hours) Vital Signs Temp Pulse Pulse Resp BP Pulse Ox O2 Del Method 05/20/23 03:38 36.5 C 50 L 17 120/64 98 Nasal Cannula 05/19/23 23:55 61 05/19/23 22:52 36.3 C L 49 L 18 122/66 96 Nasal Cannula 05/19/23 19:50 36.5 C 55 L 18 152/63 H 98 Nasal Cannula 05/19/23 19:40 Nasal Cannula O2 Flow Rate 05/20/23 03:38 2 05/19/23 23:55 05/19/23 22:52 2 05/19/23 19:50 2 05/19/23 19:40 2 Resident Activity Tracking Resident Involvement: Resident Care Provided Care Provided: Adult Hospital Medicine (7) Foot ulcer, left Non-pressure ulcer stage: unspecified non-pressure ulcer stage Qualified Code(s): L97.529 - Non-pressure chronic ulcer of other part of left foot with unspecified severity
[2023-05-20] MEDS: APIXABAN 2.5 MG TAB PO SCH ×2 (10:15→20:19)
[2023-05-20] MEDS: FUROSEMIDE 40 MG TAB PO SCH (10:15)
[2023-05-20] MEDS: SPIRONOLACTONE 100 MG TAB PO SCH (10:15)
[2023-05-20] MEDS: AZITHROMYCIN 250 MG TAB PO SCH (10:16)
[2023-05-20] MEDS: traMADol HCL 50 MG TABLET PO SCH ×3 (10:26→20:19)
--- NOTE | 2023-05-20 12:27 | Nephrology Progress Note ---
Date of Service May 20, 2023 Assessment & Plan (1) Chronic kidney disease, stage IV (severe): (2) JUDE (acute kidney injury): (3) Acute hypoxic respiratory failure: (4) RSV (respiratory syncytial virus pneumonia): (5) Hypokalemia: Plan 87 yo F with PMH of stage 3B CKD, b/l cr 1.4 to 1.6 mg/dl and progressive worsening of renal function over last 2 months and recent acute kidney injury secondary to cardiorenal syndrome with right-sided heart failure, A Fib and pulmonary hypertension. Last Echo with EF 40 to 45%. She was on high-dose of diuretics which has been on hold for last 2 days because of worsening of renal function. Admitted on 05/16/2023 with cough and hypoxic respiratory failure and noted to be positive for RSV and possibly pneumonia, currently on Augmentin and Zithromax. Creatinine was 1.7 on discharge a week ago, on admission creatinine again elevated at 2.4 but slightly improved to 2.1 this morning. Overall clinically doing poorly, kidney function slightly improved, urine output improved on Lasix IV. Hemoglobin normal, iron stores adequate. Phosphorus normal. -- continue Lasix 120 mg IV twice a day. -- She does have high risk for progressive worsening of renal function with underlying right-sided heart failure and need for high-dose diuretics to maintain volume status. Had long discussion again today, she understands and previously decided to consider dialysis in future if the need arises, however, with multiple critical comorbidities, she may not tolerate dialysis. Will follow. Admission and Anticipated Discharge Date Admission Date: May 17, 2023 Sen Peña was seen and evaluated this morning. She continues to have persistent cough. Urine output slightly improved, around 1200 cc overnight. Blood pressure acceptable. Slight improvement in BUN/creatinine noted. Review of Systems Review of Systems: Detailed review of system was done and pertinent positives and negatives are mentioned above. Physical Exam Constitutional: WD/WN, vitals as above + acute distress and + ill appearing Respiratory: + cough Auscultation: + diminished jimmy ng sounds and + rhonchi; no wheezes Cardiovascular: Rate/Rhythm: + bradycardic and + irregularly irregular Extremities: + edema (trace b/l LE edema) Skin: + turgor decreased, + skin atrophy and + erythema Neurologic: no focal motor deficits Psychiatric: Orientation: alert and oriented x 3 Affect: euthymic affect Results & Data Vital Signs (Past 12 Hours) Vital Signs Temp Pulse Resp BP Pulse Ox O2 Del Method O2 Flow Rate 05/20/23 08:15 Nasal Cannula 2 05/20/23 07:05 36.4 C L 61 18 137/70 93 Nasal Cannula 2.0 05/20/23 03:38 36.5 C 50 L 17 120/64 98 Nasal Cannula 2 PG Care Time/CCT Total # of Minutes Spent Total Time Spent with Patient: Total time spent is greater than 50% in coordination of care (as documented) at patient's floor/unit and/or counseling patient: Coding Level of Care Code 36335 SUB INP/OBS CARE 2/35MIN Diagnoses Chronic kidney disease, stage IV (severe) N18.4 JUDE (acute kidney injury) N17.9 Acute hypoxic respiratory failure J96.01 RSV (respiratory syncytial virus pneumonia) J12.1 Hypokalemia E87.6
--- NOTE | 2023-05-20 12:32 | Billing Data ---
Date of Service May 19, 2023 Coding Level of Care Code 45533 SUB INP/OBS CARE
--- NOTE | 2023-05-21 07:07 | Hospitalist Progress Note ---
Date of Service May 21, 2023 Assessment & Plan (1) Acute hypoxic respiratory failure: (2) RSV (respiratory syncytial virus pneumonia): (3) Chronic kidney disease, stage IV (severe): (4) JUDE (acute kidney injury): (5) Liver cirrhosis: (6) Anasarca: (7) Foot ulcer, left: (8) Permanent atrial fibrillation: (9) Pulmonary hypertension: (10) Type 2 diabetes mellitus: (11) Secondary hyperparathyroidism: (12) Chronic anticoagulation: (13) Heart failure with mildly reduced ejection fraction: Plan Pt is an 87-year-old female with a history of chronic kidney disease, CHF, atrial fibrillation, hyponatremia, liver cirrhosis who presented to the hospital on 05/17/23 for acute hypoxic respiratory failure in the setting of RSV infection and worsening kidney function JUDE on CKD. Today, pt seems to be about the same as yesterday. Had several runs of V tach yesterday/overnight and cardio made aware, will continue to monitor. If pt has issues sleeping tonight, melatonin would be reasonable to try, prn placed. Continue lasix and spironolactone. Awaiting PT/OT for discharge planning. Acute hypoxic resp failure in setting of RSV infection - chest CT done 05/18, impression favors pulmonary edema - low suspicion for bacterial pneumonia, Augmentin discontinued - Azithromycin for pulmonary anti-inflammatory effect, last dose yesterday - maintain oxygen saturation greater than 92% Nonsustained V Tach - pt had 2 runs so far of vtach, one for 7 beats and one for 24 beats per tele - Dr. Samaniego cardio made aware by nursing staff, ideally could add B arnie but with low HR not possible at this time unless pacemaker placed - pt is asymptomatic, continue to monitor RSV infection - Respiratory panel positive for RSV - continue supportive care for RSV infection as noted above JUDE on CKD stage IV - Cr baseline 1.4-1.6, peak 2.35, 1.75, now 1.58 improved - Suspect due to combination of aggressive outpatient diuresis and decreased p.o. intake due to illness - Holding nephrotoxic medications including allopurinol, eliquis is renally dosed - Nephrology consulted; recommend restart diuretics, - given patient h/o cirrhosis, felt patient may benefit from diuresis with Spironolactone - continue Spironolactone 100mg daily and Lasix 40mg daily HFmrEF - last echo 04/26/23 EF was 40-45% - Cardiology consulted; recommend diuresis, management as above, - Reviewed cardiology consultation from April 26, 2023; -Beta-blockade treatment contraindicated due to relative bradycardia -GABRIELE ARB and Entresto are relatively contraindicated due to acute kidney injury -As previously documented inotrope infusion is not a good long-term solution, no indication for short-term at this time Liver cirrhosis - Noted on imaging during previous hospital stay - further supported by slightly elevated INR and elevated bili -At risk for congestive hepatopathy -Diuresis as above Anasarca - Reportedly improved from patient's baseline L foot ulcer - Wound care consult Atrial fibrillation - Continue Eliquis 2.5 mg daily for systemic anticoagulation in the setting of poor renal function Pulm HTN - As noted with heart failure patient poor candidate for standard therapies DMT2 - Blood sugars within normal limits on previous admission, A1c 6.9% March 2023 - Diet controlled VTE proph: eliquis as noted above IVF: none Lines: smith in place Admission and Anticipated Discharge Date Admission Date: May 17, 2023 Supervising Physician Co-Signing Physician Notes Attending Physician Supervision Note: I independently interviewed and examined the patient and verified the benoit history and physical, reviewed labs and image studies and agree with findings and care plan noted above. coughing a lot. vitals noted sitting up on NC O2 coughing periodically lungs coarse rhonchi throughout. RSV infection - supportive care. tessalon perle; add robitussin AC Hypoxia - resolved though still listed 2L NC with SaO2 97%. wean oxygen HFmrEF - reduced LV systolic function and significant right ventricular failure accounting for significant anasarca, pulmonary congestion and pleural effusions. 40mgs lasix - neg 3.3L - Euvolemic now Beta-anrie not indicated d/t relative bradycardia GABRIELE ARB and Entresto not indicated d/t JUDE Cirrhosis - possibly primary or sec to cardiac dysfunction. spironolactone added 100mgs. Normal total protein. Albumin >3. Jude on ckd 4 - holding allopurinol; renally dose eliquis BUN/creatinine improving HD discussed by nephro - would likely not do well on it considering comorbidities. A fib - rate controlled. eliquis L foot ulcer - Wound care consult Consider goals of care discussion during the admission Phoebe Smith + Subjective Pt is an 87-year-old female with a history of chronic kidney disease, CHF, atrial fibrillation, hyponatremia, liver cirrhosis who presented to the hospital on 05/17/23 for acute hypoxic respiratory failure in the setting of RSV infection and worsening kidney function JUDE on CKD. Today, pt states she could not get comfortable to sleep at night so she is more tired today. Denies pain or her cough keeping her awake, she just was not very comfortable on the hospital bed and finds that this place is not very restful. Denies wanting to try a sleep aid but told to let us know if she feels she needs something. She notes that at night the nurse had come in and told her something was happening with her heart and asked if she felt okay and then they left and she never heard back from them that she recalls. She states overall she feels no better or worse than yesterday. No chest pain or SOB, still not a very good appetite but tolerating intake fine. No questions or acute concerns at this time. Review of Systems Review of Systems: As per HPI Physical Exam Physical Exam: General:Alert and oriented, no acute distress, pleasant older woman HEENT: Normocephalic, moist oral mucosa, Cardio: Regular rate, irregular rhythm Resp:Lungs clear to auscultation b/l, GI: Soft and nontender, nondistended, bowel sounds active Skin: Warm, pink, dry, Ext: Chronic lymphedema of L arm noted, with minor edema of bilateral lower extremities appears unchanged from yesterday Psych: Mood-affect congruence. Results & Data Results & Data Vital Signs (Past 12 Hours) Vital Signs Temp Pulse Resp BP Pulse Ox O2 Del Method O2 Flow Rate 05/21/23 03:51 36.5 C 60 19 136/74 96 Nasal Cannula 2.5 05/20/23 23:26 36.5 C 55 L 19 132/78 97 Nasal Cannula 2.5 05/20/23 20:53 Nasal Cannula 2 05/20/23 19:29 36.4 C L 53 L 18 124/65 98 Nasal Cannula 2 Resident Activity Tracking Resident Involvement: Resident Care Provided Care Provided: Adult Hospital Medicine (7) Foot ulcer, left Non-pressure ulcer stage: unspecified non-pressure ulcer stage Qualified Code(s): L97.529 - Non-pressure chronic ulcer of other part of left foot with unspecified severity
[2023-05-21 07:56] LABS: Basophils # (auto) 0.05 K/uL (0.00-0.20); Basophils % (auto) 0.9 %; Eosinophils # (auto) 0.25 K/uL (0.00-0.50); Eosinophils % (auto) 4.4 %; Hematocrit (blood only) 44.1 % (37.0-47.0); Hemoglobin 13.7 g/dl (12.0-16.0); Immature Granulocytes # (auto) 0.02 K/uL (0.01-0.20); Immature Granulocytes % (auto) 0.4 %; Lymphocytes # (auto) 0.67 K/uL (1.20-3.40); Lymphocytes % (auto) 11.8 %; Mean Corpuscular Hemoglobin 26.3 pg (25.0-34.0); Mean Corpuscular Hgb Conc 31.1 g/dL (32.0-36.0); Mean Corpuscular Volume 84.6 fL (80.0-100.0); Mean Platelet Volume 10.4 fL (9.4-12.4); Monocytes # (auto) 0.58 K/uL (0.11-0.59); Monocytes % (auto) 10.2 %; Neutrophils # (auto) 4.12 K/uL (1.40-6.50); Neutrophils % (auto) 72.3 %; Platelet Count 125 K/uL (130-400); RDW Standard Deviation 61.4 fL (36.4-46.3); Red Blood Count 5.21 M/uL (4.20-5.40); White Blood Count 5.69 K/ul (4.8-10.8)
[2023-05-21 08:14] LABS: BUN Creatinine Ratio 74.7 (10-20); Calcium 8.9 mg/dl (8.6-10.3); Creatinine Clr Calc Pharmacy 22.7 ml/min; Est GFR (African American) 33.7 ml/min; Est GFR (Non-African American) 29.1 ml/min; Magnesium 2.3 mg/dl (1.7-2.4); Phosphorus 3.4 mg/dl (2.5-4.9); Potassium 3.7 mmol/L (3.5-5.1)
[2023-05-21 08:21] LABS: Anisocytosis Present
--- NOTE | 2023-05-21 08:37 | Cardiology Progress Note ---
Date of Service May 21, 2023 Assessment & Plan (1) Right heart failure: (2) Leg edema: (3) Chronic kidney disease, stage IV (severe): (4) Permanent atrial fibrillation: (5) On continuous oral anticoagulation: (6) Ventricular tachycardia: Plan 1. Right heart failure: I agree that a lot of the patient's issues are due to right heart failure resulting in elevated right-sided pressures. This is probably affecting her liver function, as well as contributing to her severe peripheral edema. Her right heart failure may be due originally to left heart failure, and decreasing her preload with diuresis was affecting her cardiac output resulting in decreased kidney perfusion and elevated creatinine. The best we can do is to compromise between decreasing kidney function and trying to keep fluid from accumulating. Her weight is down nicely and her kidney function is also improved. This is probably a good balance and as long as we do not change things too much we may be able to get rid of more fluid without worsening her kidney function. 2. Leg edema: This is probably a combination of right heart failure increasing venous pressure as well as low albumin. I would make sure she is on nutritional supplements and diurese her as much as we can to minimize her right-sided pressures. 3. Kidney disease: Although she probably has some underlying kidney disease, her creatinine seems very much hemodynamic related which is not an intrinsic kidney problem. Her creatinine has improved with decrease in diuretics even though her weight has continued to drop (if correct). Hopefully this can continue. If we could maintain kidney perfusion (which would require an increase in cardiac output, noted below) we may be able to improve her fluid management. 4. Atrial fibrillation: She has permanent atrial fibrillation however the heart rate has been quite low. For some reason it has increased, currently averaging about 60 which may be helping her kidney perfusion and allowing better diuresis. In her case bradycardia during atrial fibrillation is likely affecting her cardiac output in 2 ways, the first is the heart rate itself which had been quite low (averaging only 50 and I doubt she can increase her stroke-volume very much) and due to the irregularity in the rhythm which is hemodynamically inefficient. Increasing and regularizing her heart rate may increase her cardiac output, sometimes this can be significant. I do not think it would be wrong to consider a pacemaker, and I did tell her and her daughter that that would be a temporizing treatment but could improve her symptomatology in the near term due to improved fluid management. I certainly would not do that in the next few days but we should consider it. Her improvement in kidney function and drop in weight may in part be due to an increase in heart rate, I am not sure why her heart rate is increasing but it seems to be better over the last day or 2. 5. Anticoagulation: She should be on an anticoagulant, Eliquis is a good option and she is on the correct dose based on her age and kidney function. 6. Ventricular tachycardia: Although worrisome this is technically nonsustained ventricular tachycardia and there is no indication for more aggressive treatment (such as antiarrhythmic therapy or ICD implantation) so I would continue to observe. Beta-blockers would be ideal but we cannot use them, if we do implant a pacemaker I would definitely add beta-blockade for this and other reasons. Admission and Anticipated Discharge Date Admission Date: May 17, 2023 Subjective She is complaining of feeling poorly, she is not specific. She is tired but is not short of breath and does not have palpitations. Physical Exam Physical Exam: Constitutional: Alert, cooperative and in no obvious distress. She is laying supine in bed. HEENT: Unremarkable Neck: No jugular venous distention, carotid pulses are irregular but otherwise normal and equal bilaterally without bruits. Pulmonary: Decreased breath sounds on auscultation bilaterally, no rales. Cardiac: Irregular slow rhythm with no murmur, gallop or rub. Abdomen: Soft, nontender with normal bowel sounds. Extremities: +3 bilateral pretibial edema. Sores on legs bandaged. Neurologic: No focal findings. Skin: No rash, ecchymoses or petechiae. Results & Data Vital Signs (Past 12 Hours) Vital Signs Temp Pulse Resp BP Pulse Ox O2 Del Method O2 Flow Rate 05/21/23 07:41 36.5 C 61 18 138/75 98 Nasal Cannula 2 05/21/23 03:51 36.5 C 60 19 136/74 96 Nasal Cannula 2.5 05/20/23 23:26 36.5 C 55 L 19 132/78 97 Nasal Cannula 2.5 05/20/23 20:53 Nasal Cannula 2 Laboratory Results CBC 05/21/23 Range/Units 07:32 WBC 5.69 (4.8-10.8) K/ul RBC 5.21 (4.20-5.40) M/uL Hgb 13.7 (12.0-16.0) g/dl Hct 44.1 (37.0-47.0) % Plt Count 125 L (130-400) K/uL Neut # (Auto) 4.12 (1.40-6.50) K/uL Lymph # (Auto) 0.67 L (1.20-3.40) K/uL [place] # (Auto) 0.58 (0.11-0.59) K/uL Eos # (Auto) 0.25 (0.00-0.50) K/uL Baso # (Auto) 0.05 (0.00-0.20) K/uL Comprehensive Metabolic Panel 05/21/23 Range/Units 07:32 Sodium 136 (136-145) mmol/L Potassium 3.7 (3.5-5.1) mmol/L Chloride 95 L (98-107) mmol/L Carbon Dioxide 34 H (21-32) mmol/L BUN 118 H (6-23) mg/dl Creatinine 1.58 H (0.6-1.2) mg/dl Glucose 122 H (70-99(Fasting)) mg/dl Calcium 8.9 (8.6-10.3) mg/dl Intake and Output 05/20/23 05/21/23 05/21/23 22:59 06:59 14:59 Intake Total 200 / 200 Output Total 850 / 1250 400 / 1250 Balance -650 / -1050 -400 / -1050 Intake: Oral 200 / 200 Output: Urine Amount (Catheter) 850 / 1250 400 / 1250 Lord/Indwelling 850 / 1250 400 / 1250 Other: Other Intake Source sips sips Weight 71.6 kg Weight Measurement Method Built in [facility] Diagnostic Findings Telemetry: Her heart rate has been gradually increasing, averaging about 60 bpm over the last 24 hours. She does have frequent premature ventricular beats and she did have a 24 beat run of monomorphic ventricular tachycardia at about 160 bpm. PG Care Time/CCT Total # of Minutes Spent Total Time Spent with Patient: Total time spent is greater than 50% in coordination of care (as documented) at patient's floor/unit and/or counseling patient: Coding Level of Care Code 98647 SUB INP/OBS CARE 2/35MIN Diagnoses Chronic right-sided heart failure I50.812 Heart failure chronicity: chronic Leg edema R60.0 Chronic kidney disease, stage IV (severe) N18.4 Permanent atrial fibrillation I48.2 On continuous oral anticoagulation Z79.01 Ventricular tachycardia I47.20 (1) Right heart failure Heart failure chronicity: chronic Qualified Code(s): I50.812 - Chronic right heart failure
[2023-05-21] MEDS: BENZONATATE 100 MG CAPSULE PO PRN (09:57)
[2023-05-21] MEDS: SPIRONOLACTONE 100 MG TAB PO SCH (09:57)
[2023-05-21] MEDS: FUROSEMIDE 40 MG TAB PO SCH (09:58)
[2023-05-21] MEDS: guaiFENesin/DEXTROM SYRUP 200MG/20MG 10ML UDC PO PRN (09:58)
[2023-05-21] MEDS: APIXABAN 2.5 MG TAB PO SCH ×2 (09:58→20:17)
[2023-05-21] MEDS: traMADol HCL 50 MG TABLET PO SCH ×3 (10:02→20:17)
[2023-05-21] MEDS ORDERED: guaiFENesin/CODEINE 100MG/10MG 5ML UDC PO STA (10:53)
[2023-05-21] MEDS ORDERED: MELATONIN 3 MG TAB PO PRN (12:04)
--- NOTE | 2023-05-21 12:21 | Nephrology Progress Note ---
Date of Service May 21, 2023 Assessment & Plan (1) Chronic kidney disease, stage IV (severe): (2) JUDE (acute kidney injury): (3) Acute hypoxic respiratory failure: (4) RSV (respiratory syncytial virus pneumonia): (5) Hypokalemia: Plan 87 yo F with PMH of stage 3B CKD, b/l cr 1.4 to 1.6 mg/dl and progressive worsening of renal function over last 2 months and recent acute kidney injury secondary to cardiorenal syndrome with right-sided heart failure, A Fib and pulmonary hypertension. Last Echo with EF 40 to 45%. She was on high-dose of diuretics which has been on hold for last 2 days because of worsening of renal function. Admitted on 05/16/2023 with cough and hypoxic respiratory failure and noted to be positive for RSV and possibly pneumonia, currently on Augmentin and Zithromax. Creatinine was 1.7 on discharge a week ago, on admission creatinine again elevated at 2.4 but slightly improved to 2.1 this morning. Overall clinically there is some improvement, kidney function continues to improve slowly, urine output improved on Lasix IV. Hemoglobin normal, iron stores adequate. Phosphorus normal. -- continue Lasix 120 mg IV twice a day, aim for net negative. -- She does have high risk for progressive worsening of renal function with underlying right-sided heart failure and need for high-dose diuretics to maintain volume status. Had long discussion again today, she understands and previously decided to consider dialysis in future if the need arises, however, with multiple critical comorbidities, she may not tolerate dialysis. Will follow. Admission and Anticipated Discharge Date Admission Date: May 17, 2023 Sen Peña was seen and evaluated this morning. Has on going cough, poor appetite. UO decent, negative. Kidney function improving. Review of Systems Review of Systems: Detailed review of system was done and pertinent positives and negatives are mentioned above. Physical Exam Constitutional: WD/WN, vitals as above + ill appearing Respiratory: + cough Auscultation: + diminished jimmy ng sounds, + rhonchi and + wheezes Cardiovascular: Rate/Rhythm: + bradycardic and + irregularly irregular Extremities: + edema (trace b/l LE edema) Skin: + turgor decreased, + skin atrophy and + erythema Neurologic: no focal motor deficits Psychiatric: Orientation: alert and oriented x 3 Affect: euthymic affect Results & Data Vital Signs (Past 12 Hours) Vital Signs Temp Pulse Resp BP Pulse Ox O2 Del Method O2 Flow Rate 05/21/23 11:07 36.4 C L 57 L 18 147/67 H 98 Nasal Cannula 2 05/21/23 07:41 36.5 C 61 18 138/75 98 Nasal Cannula 2 05/21/23 03:51 36.5 C 60 19 136/74 96 Nasal Cannula 2.5 PG Care Time/CCT Total # of Minutes Spent Total Time Spent with Patient: Total time spent is greater than 50% in coordination of care (as documented) at patient's floor/unit and/or counseling patient: Coding Level of Care Code 78239 SUB INP/OBS CARE 2/35MIN Diagnoses Chronic kidney disease, stage IV (severe) N18.4 JUDE (acute kidney injury) N17.9 Acute hypoxic respiratory failure J96.01 RSV (respiratory syncytial virus pneumonia) J12.1 Hypokalemia E87.6
[2023-05-21] MEDS: guaiFENesin/CODEINE 100MG/10MG 5ML UDC PO PRN (20:19)
--- NOTE | 2023-05-22 06:59 | Hospitalist Progress Note ---
Date of Service May 22, 2023 Assessment & Plan (1) Acute hypoxic respiratory failure: (2) RSV (respiratory syncytial virus pneumonia): (3) Chronic kidney disease, stage IV (severe): (4) JUDE (acute kidney injury): (5) Liver cirrhosis: (6) Anasarca: (7) Foot ulcer, left: (8) Permanent atrial fibrillation: (9) Pulmonary hypertension: (10) Type 2 diabetes mellitus: (11) Secondary hyperparathyroidism: (12) Chronic anticoagulation: (13) Heart failure with mildly reduced ejection fraction: Plan Pt is an 87-year-old female with a history of chronic kidney disease, CHF, atrial fibrillation, hyponatremia, liver cirrhosis who presented to the hospital on 05/17/23 for acute hypoxic respiratory failure in the setting of RSV infection and worsening kidney function JUDE on CKD. Today, to get PT/OT. With cough still bothering her, will schedule cough medicines to see how she does. Still monitoring kidney function. Acute hypoxic resp failure in setting of RSV infection - chest CT done 05/18, impression favors pulmonary edema - low suspicion for bacterial pneumonia, Augmentin discontinued - Azithromycin for pulmonary anti-inflammatory effect, finished - maintain oxygen saturation greater than 92% Nonsustained V Tach - pt had 2 runs so far of vtach, one for 7 beats and one for 24 beats per tele - Dr. Samaniego cardio made aware by nursing staff, ideally could add B arnie but with low HR not possible at this time unless pacemaker placed - pt is asymptomatic, continue to monitor RSV infection - Respiratory panel positive for RSV - continue supportive care for RSV infection as noted above JUDE on CKD stage IV - Cr baseline 1.4-1.6, peak 2.35, 1.75, 1.58, now 1.52 improved - Suspect due to combination of aggressive outpatient diuresis and decreased p.o. intake due to illness - Holding nephrotoxic medications including allopurinol, eliquis is renally dosed - Nephrology consulted; recommend restart diuretics, - given patient h/o cirrhosis, felt patient may benefit from diuresis with Spironolactone - continue Spironolactone 100mg daily and Lasix 40mg daily po HFmrEF - last echo 04/26/23 EF was 40-45% - Cardiology consulted; recommend diuresis, management as above, - Reviewed cardiology consultation from April 26, 2023; -Beta-blockade treatment contraindicated due to relative bradycardia -GABRIELE ARB and Entresto are relatively contraindicated due to acute kidney injury -As previously documented inotrope infusion is not a good long-term solution, no indication for short-term at this time Liver cirrhosis - Noted on imaging during previous hospital stay - further supported by slightly elevated INR and elevated bili -At risk for congestive hepatopathy -Diuresis as above Anasarca - Reportedly improved from patient's baseline L foot ulcer - Wound care consult Atrial fibrillation - Continue Eliquis 2.5 mg daily for systemic anticoagulation in the setting of poor renal function Pulm HTN - As noted with heart failure patient poor candidate for standard therapies DMT2 - Blood sugars within normal limits on previous admission, A1c 6.9% March 2023 - Diet controlled VTE proph: eliquis as noted above IVF: none Lines: smith in place Admission and Anticipated Discharge Date Admission Date: May 17, 2023 Supervising Physician Co-Signing Physician Notes I also saw the patient and confirmed benoit portions of the clinical history and physical exam. I agree with the impression and plan as noted in resident documentation above. We saw the patient just after her lunch. She is seen in the bedside chair. No new complaints. Vital signs stable; afebrile; 99% on nasal cannula 2 L/min Impression and Plan RSV infection Hypoxia Supportive care Supplemental oxygen, wean as able Right heart failure Atrial fibrillation Bradycardia, slightly improved Cardiology consultation appreciated Beta-arnie not indicated d/t relative bradycardia GABRIELE ARB and Entresto not indicated d/t JUDE Continue renally dosed Eliquis Cirrhosis Spironolactone added Monitor serum potassium CKD stage IV JUDE Nephrology consultation appreciated Continue to diurese; Lasix 40 mg BID Subjective Pt is an 87-year-old female with a history of chronic kidney disease, CHF, atrial fibrillation, hyponatremia, liver cirrhosis who presented to the hospital on 05/17/23 for acute hypoxic respiratory failure in the setting of RSV infection and worsening kidney function JUDE on CKD. Today, pt states she is feeling okay. She states that she is no better or worse than yesterday. She states that she is agreeable to PT seeing her here but that she has ample resources at home including her daughter, home health and PT/OT, and her walker, among other things to help her get around and take care of herself, so she will not go to inpatient rehab once ready for discharge medically. She does state she is coughing quite a bit still. No questions or complaints today. No chest pain or SOB. Review of Systems Review of Systems: As per HPI Physical Exam Physical Exam: General:Alert and oriented, no acute distress, Cardio: Regular rate, irregular rhythm Resp:Lungs clear to auscultation b/l, Skin: Warm, pink, dry, Ext: Chronic lymphedema of L arm noted, with minor edema of bilateral lower extremities appears still unchanged from yesterday Psych: Mood-affect congruence. Results & Data Results & Data Vital Signs (Past 12 Hours) Vital Signs Temp Pulse Pulse Resp BP Pulse Ox O2 Del Method 05/22/23 03:29 36.6 C 56 L 20 139/72 97 Nasal Cannula 05/21/23 23:34 36.5 C 59 L 16 145/75 H 96 Nasal Cannula 05/21/23 23:00 58 L 05/21/23 20:15 Nasal Cannula 05/21/23 19:36 36.5 C 58 L 20 147/73 H Nasal Cannula O2 Flow Rate 05/22/23 03:29 2 05/21/23 23:34 2 05/21/23 23:00 05/21/23 20:15 2 05/21/23 19:36 2 Resident Activity Tracking Resident Involvement: Resident Care Provided Care Provided: Adult Hospital Medicine (7) Foot ulcer, left Non-pressure ulcer stage: unspecified non-pressure ulcer stage Qualified Code(s): L97.529 - Non-pressure chronic ulcer of other part of left foot with unspecified severity
[2023-05-22 08:30] LABS: Basophils # (auto) 0.05 K/uL (0.00-0.20); Basophils % (auto) 0.8 %; Eosinophils # (auto) 0.17 K/uL (0.00-0.50); Eosinophils % (auto) 2.8 %; Hematocrit (blood only) 47.1 % (37.0-47.0); Hemoglobin 14.3 g/dl (12.0-16.0); Immature Granulocytes # (auto) 0.03 K/uL (0.01-0.20); Immature Granulocytes % (auto) 0.5 %; Lymphocytes # (auto) 0.76 K/uL (1.20-3.40); Lymphocytes % (auto) 12.3 %; Mean Corpuscular Hemoglobin 26.4 pg (25.0-34.0); Mean Corpuscular Hgb Conc 30.4 g/dL (32.0-36.0); Mean Corpuscular Volume 86.9 fL (80.0-100.0); Mean Platelet Volume 10.9 fL (9.4-12.4); Monocytes # (auto) 0.53 K/uL (0.11-0.59); Monocytes % (auto) 8.6 %; Neutrophils # (auto) 4.62 K/uL (1.40-6.50); Platelet Count 123 K/uL (130-400); RDW Coefficient of Variation 20.7 % (11.5-14.5); RDW Standard Deviation 62.2 fL (36.4-46.3); Red Blood Count 5.42 M/uL (4.20-5.40); White Blood Count 6.16 K/ul (4.8-10.8)
[2023-05-22 08:41] LABS: BUN Creatinine Ratio 73.7 (10-20); Creatinine Clr Calc Pharmacy 23.7 ml/min; Est GFR (African American) 35.4 ml/min; Est GFR (Non-African American) 30.5 ml/min
[2023-05-22 08:53] LABS: Anisocytosis Present
--- NOTE | 2023-05-22 10:26 | Nephrology Progress Note ---
Date of Service May 22, 2023 Assessment & Plan (1) Chronic kidney disease, stage IV (severe): (2) JUDE (acute kidney injury): (3) Acute hypoxic respiratory failure: (4) RSV (respiratory syncytial virus pneumonia): (5) Hypokalemia: Plan 87 yo F with PMH of stage 3B CKD, b/l cr 1.4 to 1.6 mg/dl and progressive worsening of renal function over last 2 months and recent acute kidney injury secondary to cardiorenal syndrome with right-sided heart failure, A Fib and pulmonary hypertension. Last Echo with EF 40 to 45%. She was on high-dose of diuretics which has been on hold for last 2 days because of worsening of renal function. Admitted on 05/16/2023 with cough and hypoxic respiratory failure and noted to be positive for RSV and possibly pneumonia, currently on Augmentin and Zithromax. Creatinine was 1.7 on discharge a week ago, on admission creatinine again elevated at 2.4 but slightly improved to 2.1 this morning. Overall clinically improving, kidney function continues to improve slowly, urine output improved on Lasix IV, net negative. Hemoglobin normal, iron stores adequate. Phosphorus normal. --continue Lasix 120 mg IV twice a day and aim for net negative while monitoring kidney function and electrolytes. --she refuses to go to a Rehab and plan to go home when she feels stronger --does have high risk for progressive worsening of renal function with underlying right-sided heart failure and need for high-dose diuretics to maintain volume status. Had long discussion and she understands and previously decided to consider dialysis in future if the need arises, however, with multiple critical comorbidities, she may not tolerate dialysis. Will follow. Admission and Anticipated Discharge Date Admission Date: May 17, 2023 Sen Emma Peña was seen and evaluated this morning. Feeling slightly better but not strong enough to do much PT, has low hello hi this is Monica Maisha how you on going cough, poor appetite. UO decent, negative. Kidney function improving. Review of Systems Review of Systems: Detailed review of system was done and pertinent positives and negatives are mentioned above. Physical Exam Constitutional: WD/WN, vitals as above + ill appearing Respiratory: + cough Auscultation: + diminished jimmy ng sounds, + rhonchi and + wheezes Cardiovascular: Rate/Rhythm: + bradycardic and + irregularly irregular Extremities: + edema (trace b/l LE edema) Skin: + turgor decreased, + skin atrophy and + erythema Neurologic: no focal motor deficits Psychiatric: Orientation: alert and oriented x 3 Affect: euthymic affect Results & Data Vital Signs (Past 12 Hours) Vital Signs Temp Pulse Pulse Resp BP Pulse Ox O2 Del Method 05/22/23 07:19 36.3 C L 56 L 19 150/70 H 99 Nasal Cannula 05/22/23 03:29 36.6 C 56 L 20 139/72 97 Nasal Cannula 05/21/23 23:34 36.5 C 59 L 16 145/75 H 96 Nasal Cannula 05/21/23 23:00 58 L O2 Flow Rate 05/22/23 07:19 2 05/22/23 03:29 2 05/21/23 23:34 2 05/21/23 23:00 PG Care Time/CCT Total # of Minutes Spent Total Time Spent with Patient: Total time spent is greater than 50% in coordination of care (as documented) at patient's floor/unit and/or counseling patient: Coding Level of Care Code 84936 SUB INP/OBS CARE 2/35MIN Diagnoses Chronic kidney disease, stage IV (severe) N18.4 JUDE (acute kidney injury) N17.9 Acute hypoxic respiratory failure J96.01 RSV (respiratory syncytial virus pneumonia) J12.1 Hypokalemia E87.6
[2023-05-22] MEDS: guaiFENesin/CODEINE 100MG/10MG 5ML UDC PO PRN (10:40)
[2023-05-22] MEDS: traMADol HCL 50 MG TABLET PO SCH ×3 (10:40→20:43)
[2023-05-22] MEDS: BENZONATATE 100 MG CAPSULE PO PRN (10:41)
[2023-05-22] MEDS: APIXABAN 2.5 MG TAB PO SCH ×2 (10:41→20:54)
[2023-05-22] MEDS: FUROSEMIDE 40 MG TAB PO SCH ×2 (10:42→17:27)
[2023-05-22] MEDS: SPIRONOLACTONE 100 MG TAB PO SCH (10:42)
[2023-05-22] MEDS: guaiFENesin/CODEINE 100MG/10MG 5ML UDC PO SCH ×2 (14:41→20:43)
[2023-05-22] MEDS: BENZONATATE 100 MG CAPSULE PO SCH ×2 (14:41→20:55)
[2023-05-23] MEDS: guaiFENesin/CODEINE 100MG/10MG 5ML UDC PO SCH ×3 (00:32→13:27)
--- NOTE | 2023-05-23 07:00 | Hospitalist Progress Note ---
Date of Service May 23, 2023 Assessment & Plan (1) Acute hypoxic respiratory failure: (2) RSV (respiratory syncytial virus pneumonia): (3) Chronic kidney disease, stage IV (severe): (4) JUDE (acute kidney injury): (5) Liver cirrhosis: (6) Anasarca: (7) Foot ulcer, left: (8) Permanent atrial fibrillation: (9) Pulmonary hypertension: (10) Type 2 diabetes mellitus: (11) Secondary hyperparathyroidism: (12) Chronic anticoagulation: (13) Heart failure with mildly reduced ejection fraction: Plan Pt is an 87-year-old female with a history of chronic kidney disease, CHF, atrial fibrillation, hyponatremia, liver cirrhosis who presented to the hospital on 05/17/23 for acute hypoxic respiratory failure in the setting of RSV infection and worsening kidney function JUDE on CKD. Today, continue current management. Check labs tomorrow am. PT to see pt today hopefully. Continue scheduled cough medicines but anticipate with RSV the cough may linger for weeks or months, but should not get worse. Acute hypoxic resp failure in setting of RSV infection - chest CT done 05/18, impression favors pulmonary edema - low suspicion for bacterial pneumonia, Augmentin discontinued - Azithromycin for pulmonary anti-inflammatory effect, finished - maintain oxygen saturation greater than 92% Nonsustained V Tach - pt had 2 runs so far of vtach, one for 7 beats and one for 24 beats per tele - Dr. Samaniego cardio made aware by nursing staff, ideally could add B arnie but with low HR not possible at this time unless pacemaker placed - pt is asymptomatic, continue to monitor RSV infection - Respiratory panel positive for RSV - continue supportive care for RSV infection as noted above JUDE on CKD stage IV - Cr baseline 1.4-1.6, peak 2.35, 1.75, 1.58, now 1.52 improved - Suspect due to combination of aggressive outpatient diuresis and decreased p.o. intake due to illness - Holding nephrotoxic medications including allopurinol, eliquis is renally dosed - Nephrology consulted; recommend restart diuretics, - given patient h/o cirrhosis, felt patient may benefit from diuresis with Spironolactone - continue Spironolactone 100mg daily and Lasix 40mg BID po HFmrEF - last echo 04/26/23 EF was 40-45% - Cardiology consulted; recommend diuresis, management as above, - Reviewed cardiology consultation from April 26, 2023; -Beta-blockade treatment contraindicated due to relative bradycardia -GABRIELE ARB and Entresto are relatively contraindicated due to acute kidney injury -As previously documented inotrope infusion is not a good long-term solution, no indication for short-term at this time Liver cirrhosis - Noted on imaging during previous hospital stay - further supported by slightly elevated INR and elevated bili -At risk for congestive hepatopathy -Diuresis as above Anasarca - Reportedly improved from patient's baseline L foot ulcer - Wound care consult Atrial fibrillation - Continue Eliquis 2.5 mg daily for systemic anticoagulation in the setting of poor renal function Pulm HTN - As noted with heart failure patient poor candidate for standard therapies DMT2 - Blood sugars within normal limits on previous admission, A1c 6.9% March 2023 - Diet controlled VTE proph: eliquis as noted above IVF: none Lines: smith in place Admission and Anticipated Discharge Date Admission Date: May 17, 2023 Supervising Physician Co-Signing Physician Notes I also saw the patient and confirmed benoit portions of the clinical history and physical exam. I agree with the impression and plan as noted in resident doc umentation above. Upon exam early afternoon, in bedside chair. Seems tired. Complains of continued cough which is inhibiting restful sleep. Vital signs stable; afebrile; 99% on nasal cannula 2 L/min Sodium 134, potassium 4.1 BUN 107, creatinine 1.42 Impression and Plan RSV infection Hypoxia Supportive care; Cough suppressants to facilitate improved sleep Supplemental oxygen, wean as able Right heart failure Atrial fibrillation Bradycardia, slightly improved Cardiology consultation appreciated Beta-arnie not indicated d/t relative bradycardia GABRIELE ARB and Entresto not indicated d/t JUDE Continue renally dosed Eliquis Cirrhosis Spironolactone added Monitor serum potassium CKD stage IV JUDE Nephrology consultation appreciated Continue to diurese; Lasix 40 mg BID Subjective Pt is an 87-year-old female with a history of chronic kidney disease, CHF, atrial fibrillation, hyponatremia, liver cirrhosis who presented to the hospital on 05/17/23 for acute hypoxic respiratory failure in the setting of RSV infe ction and worsening kidney function JUDE on CKD. Today, pt states she is feeling okay. States she had some trouble sleeping last night with her cough but otherwise feeling well. No questions or complaints at this time. No acute distress, sitting up in chair today. Review of Systems Review of Systems: As per HPI Physical Exam Physical Exam: General:Alert and oriented, no acute distress, Cardio: Regular rate, irregular rhythm Resp:Rhonchi auscultated, unchanged from previous days, diminished breath sounds Skin: Warm, pink, dry, Ext: Chronic lymphedema of L arm noted, with minor edema of bilateral lower extremities appears still unchanged from yesterday Psych: Mood-affect congruence. Results & Data Results & Data Vital Signs (Past 12 Hours) Vital Signs Temp Pulse Pulse Resp BP Pulse Ox O2 Del Method 05/23/23 03:16 36.5 C 55 L 19 126/70 96 Nasal Cannula 05/22/23 23:00 54 L 05/22/23 22:34 36.3 C L 55 L 16 121/71 97 Nasal Cannula 05/22/23 20:15 Nasal Cannula 05/22/23 19:24 36.7 C 54 L 16 130/65 93 Nasal Cannula O2 Flow Rate 05/23/23 03:16 2 05/22/23 23:00 05/22/23 22:34 2 05/22/23 20:15 2 05/22/23 19:24 2 Resident Activity Tracking Resident Involvement: Resident Care Provided Care Provided: Adult Hospital Medicine (7) Foot ulcer, left Non-pressure ulcer stage: unspecified non-pressure ulcer stage Qualified Code(s): L97.529 - Non-pressure chronic ulcer of other part of left foot with unspecified severity
[2023-05-23 07:55] LABS: Basophils # (auto) 0.06 K/uL (0.00-0.20); Eosinophils # (auto) 0.16 K/uL (0.00-0.50); Eosinophils % (auto) 2.7 %; Hematocrit (blood only) 48.8 % (37.0-47.0); Hemoglobin 14.6 g/dl (12.0-16.0); Immature Granulocytes # (auto) 0.02 K/uL (0.01-0.20); Immature Granulocytes % (auto) 0.3 %; Lymphocytes # (auto) 0.91 K/uL (1.20-3.40); Lymphocytes % (auto) 15.6 %; Mean Corpuscular Hemoglobin 25.9 pg (25.0-34.0); Mean Corpuscular Hgb Conc 29.9 g/dL (32.0-36.0); Mean Corpuscular Volume 86.5 fL (80.0-100.0); Monocytes # (auto) 0.51 K/uL (0.11-0.59); Monocytes % (auto) 8.7 %; Neutrophils # (auto) 4.17 K/uL (1.40-6.50); Neutrophils % (auto) 71.7 %; Platelet Count 132 K/uL (130-400); RDW Coefficient of Variation 20.6 % (11.5-14.5); RDW Standard Deviation 61.6 fL (36.4-46.3); Red Blood Count 5.64 M/uL (4.20-5.40); White Blood Count 5.83 K/ul (4.8-10.8)
[2023-05-23 08:03] LABS: BUN Creatinine Ratio 75.4 (10-20); Creatinine Clr Calc Pharmacy 25.8 ml/min; Est GFR (African American) 38.4 ml/min; Est GFR (Non-African American) 33.1 ml/min; Potassium 4.1 mmol/L (3.5-5.1)
[2023-05-23 08:26] LABS: Anisocytosis Present
[2023-05-23] MEDS: traMADol HCL 50 MG TABLET PO SCH ×3 (09:27→20:57)
[2023-05-23] MEDS: APIXABAN 2.5 MG TAB PO SCH ×2 (09:28→20:58)
[2023-05-23] MEDS: FUROSEMIDE 40 MG TAB PO SCH ×2 (09:28→16:54)
[2023-05-23] MEDS: BENZONATATE 100 MG CAPSULE PO SCH ×3 (09:28→20:58)
[2023-05-23] MEDS: SPIRONOLACTONE 100 MG TAB PO SCH (09:28)
--- NOTE | 2023-05-23 10:32 | Nephrology Progress Note ---
Date of Service May 23, 2023 Assessment & Plan (1) Chronic kidney disease, stage IV (severe): (2) JUDE (acute kidney injury): (3) Acute hypoxic respiratory failure: (4) RSV (respiratory syncytial virus pneumonia): (5) Hypokalemia: Plan 87 yo F with PMH of stage 3B CKD, b/l cr 1.4 to 1.6 mg/dl and progressive worsening of renal function over last 2 months and recent acute kidney injury secondary to cardiorenal syndrome with right-sided heart failure, A Fib and pulmonary hypertension. Last Echo with EF 40 to 45%. She was on high-dose of diuretics which has been on hold for last 2 days because of worsening of renal function. Admitted on 05/16/2023 with cough and hypoxic respiratory failure and noted to be positive for RSV and possibly pneumonia, currently on Augmentin and Zithromax. Creatinine was 1.7 on discharge a week ago, on admission creatinine again elevated at 2.4. Overall clinically improving, kidney function continues to improve slowly, urine output improved, net negative. Hemoglobin normal, iron stores adequate. --continue Lasix 40 mg twice a day and aim for net negative while monitoring kidney function and electrolytes. --Ok to be discharge with outpt close monitoring, she refuses to go to a Rehab and plan to go home but she does not feel ready yet Will follow. Admission and Anticipated Discharge Date Admission Date: May 17, 2023 Sen Peña was seen and evaluated this morning. Overall doing better, appetite improved but does not feel strong enough and ready for discharge. UO decent, negative. Kidney function improving slowly, electrolyte acceptable. Review of Systems Review of Systems: Detailed review of system was done and pertinent positives and negatives are mentioned above. Physical Exam Constitutional: WD/WN, vitals as above + ill appearing Respiratory: + cough Auscultation: + diminished jimmy ng sounds and + rhonchi Cardiovascular: Rate/Rhythm: + irregularly irregular Extremities: + edema (trace b/l LE edema) Skin: + turgor decreased, + skin atrophy and + erythema Neurologic: no focal motor deficits Psychiatric: Orientation: alert and oriented x 3 Affect: euthymic affect Results & Data Vital Signs (Past 12 Hours) Vital Signs Temp Pulse Pulse Resp BP Pulse Ox O2 Del Method 05/23/23 09:38 Nasal Cannula 05/23/23 08:44 61 05/23/23 08:06 36.4 C L 61 18 156/68 H 98 Room Air 05/23/23 03:16 36.5 C 55 L 19 126/70 96 Nasal Cannula 05/22/23 23:00 54 L 05/22/23 22:34 36.3 C L 55 L 16 121/71 97 Nasal Cannula O2 Flow Rate 05/23/23 09:38 2 05/23/23 08:44 05/23/23 08:06 05/23/23 03:16 2 05/22/23 23:00 05/22/23 22:34 2 PG Care Time/CCT Total # of Minutes Spent Total Time Spent with Patient: Total time spent is greater than 50% in coordination of care (as documented) at patient's floor/unit and/or counseling patient: Coding Level of Care Code 27355 SUB INP/OBS CARE 2/35MIN Diagnoses Chronic kidney disease, stage IV (severe) N18.4 JUDE (acute kidney injury) N17.9 Acute hypoxic respiratory failure J96.01 RSV (respiratory syncytial virus pneumonia) J12.1 Hypokalemia E87.6
[2023-05-23] MEDS ORDERED: guaiFENesin/CODEINE 100MG/10MG 5ML UDC PO ONE (14:15)
--- NOTE | 2023-05-23 15:10 | XRay Report ---
XR chest 2V PA/lateral HISTORY: 87 years-old Female cough not improving, crackles acute cough COMPARISON: Chest CT 05/18/2023 TECHNIQUE: PA and lateral views of the chest FINDINGS: Cardiac silhouette is enlarged. Pulmonary arterial hypertension with bilateral hilar prominence redem onstrated. Persistent layering pleural effusions with bilateral mixed interstitial and alveolar opaci ties. Mitral annular calcifications. Degenerative changes of the shoulders and spine. IMPRESSION: 1. Cardiomegaly with unchanged mixed interstitial and alveolar opacities suggestive of pulmonary dione a. 2. Persistent layering pleural effusions. ACT 112: Negative or not required by law. The above report was generated using voice recognition software. It may contain grammatical, syntax o r spelling errors. Electronically signed by: Ang Reese M.D. 05/23/2023 3:07 PM
[2023-05-24 06:18] LABS: Basophils # (auto) 0.04 K/uL (0.00-0.20); Basophils % (auto) 0.8 %; Eosinophils # (auto) 0.18 K/uL (0.00-0.50); Eosinophils % (auto) 3.6 %; Hematocrit (blood only) 45.4 % (37.0-47.0); Hemoglobin 13.8 g/dl (12.0-16.0); Immature Granulocytes # (auto) 0.02 K/uL (0.01-0.20); Immature Granulocytes % (auto) 0.4 %; Lymphocytes # (auto) 0.56 K/uL (1.20-3.40); Lymphocytes % (auto) 11.3 %; Mean Corpuscular Hemoglobin 26.1 pg (25.0-34.0); Mean Corpuscular Hgb Conc 30.4 g/dL (32.0-36.0); Mean Platelet Volume 10.4 fL (9.4-12.4); Monocytes # (auto) 0.39 K/uL (0.11-0.59); Monocytes % (auto) 7.8 %; Neutrophils # (auto) 3.78 K/uL (1.40-6.50); Neutrophils % (auto) 76.1 %; Platelet Count 108 K/uL (130-400); RDW Coefficient of Variation 20.3 % (11.5-14.5); RDW Standard Deviation 61.3 fL (36.4-46.3); Red Blood Count 5.28 M/uL (4.20-5.40); White Blood Count 4.97 K/ul (4.8-10.8)
[2023-05-24 06:35] LABS: Anisocytosis Present
[2023-05-24 06:39] LABS: BUN Creatinine Ratio 72.3 (10-20); Calcium 8.8 mg/dl (8.6-10.3); Creatinine Clr Calc Pharmacy 23.1 ml/min; Est GFR (African American) 34.5 ml/min; Est GFR (Non-African American) 29.8 ml/min; Potassium 4.1 mmol/L (3.5-5.1)
[2023-05-24] MEDS: BENZONATATE 100 MG CAPSULE PO SCH ×3 (08:44→19:49)
[2023-05-24] MEDS: FUROSEMIDE 40 MG TAB PO SCH ×2 (08:44→17:54)
[2023-05-24] MEDS: traMADol HCL 50 MG TABLET PO SCH ×3 (08:44→19:48)
[2023-05-24] MEDS: SPIRONOLACTONE 100 MG TAB PO SCH (08:44)
[2023-05-24] MEDS: APIXABAN 2.5 MG TAB PO SCH ×2 (08:44→19:49)
--- NOTE | 2023-05-24 09:12 | Hospitalist Progress Note ---
Date of Service May 24, 2023 Assessment & Plan (1) Acute hypoxic respiratory failure: (2) RSV (respiratory syncytial virus pneumonia): (3) Chronic kidney disease, stage IV (severe): (4) JUDE (acute kidney injury): (5) Liver cirrhosis: (6) Anasarca: (7) Foot ulcer, left: (8) Permanent atrial fibrillation: (9) Pulmonary hypertension: (10) Type 2 diabetes mellitus: (11) Secondary hyperparathyroidism: (12) Chronic anticoagulation: (13) Heart failure with mildly reduced ejection fraction: Plan Pt is an 87-year-old female with a history of chronic kidney disease, CHF, atrial fibrillation, hyponatremia, liver cirrhosis who presented to the hospital on 05/17/23 for acute hypoxic respiratory failure in the setting of RSV infection and worsening kidney function JUDE on CKD. Today, reviewed xray from yesterday with her, which is unchanged from previous CXR. Pt is wanting to maybe go home tomorrow (Saturday) which may be reasonable since she has been stable. Will need to do void trial before she can be considered for discharge and 2 step. Has HH and home PT/OT already set up according to her. If kidney function stable tomorrow and void trial successful today, possible D/C tomorrow. Acute hypoxic resp failure in setting of RSV infection - chest CT done 05/18, impression favors pulmonary edema - low suspicion for bacterial pneumonia, Augmentin discontinued - Azithromycin for pulmonary anti-inflammatory effect, finished - maintain oxygen saturation greater than 92% Nonsustained V Tach - pt had 2 runs so far of vtach, one for 7 beats and one for 24 beats per tele - Dr. Samaniego cardio made aware by nursing staff, ideally could add B arnie but with low HR not possible at this time unless pacemaker placed - pt is asymptomatic, continue to monitor RSV infection - Respiratory panel positive for RSV - continue supportive care for RSV infection as noted above JUDE on CKD stage IV - Cr baseline 1.4-1.6, peak 2.35, 1.75, 1.58, now 1.52 improved - Suspect due to combination of aggressive outpatient diuresis and decreased p.o. intake due to illness - Holding nephrotoxic medications including allopurinol, eliquis is renally dosed - Nephrology consulted; recommend restart diuretics, - given patient h/o cirrhosis, felt patient may benefit from diuresis with Spironolactone - continue Spironolactone 100mg daily and Lasix 40mg BID po HFmrEF - last echo 04/26/23 EF was 40-45% - Cardiology consulted; recommend diuresis, management as above, - Reviewed cardiology consultation from April 26, 2023; -Beta-blockade treatment contraindicated due to relative bradycardia -GABRIELE ARB and Entresto are relatively contraindicated due to acute kidney injury -As previously documented inotrope infusion is not a good long-term solution, no indication for short-term at this time Liver cirrhosis - Noted on imaging during previous hospital stay - further supported by slightly elevated INR and elevated bili -At risk for congestive hepatopathy -Diuresis as above Anasarca - Reportedly improved from patient's baseline L foot ulcer - Wound care consult Atrial fibrillation - Continue Eliquis 2.5 mg daily for systemic anticoagulation in the setting of poor renal function Pulm HTN - As noted with heart failure patient poor candidate for standard therapies DMT2 - Blood sugars within normal limits on previous admission, A1c 6.9% March 28 - Diet controlled VTE proph: eliquis as noted above IVF: none Admission and Anticipated Discharge Date Admission Date: May 17, 2023 Supervising Physician Co-Signing Physician Notes I personally examined the patient and verified benoit points of history and exam, discussed case, and agree with decision making and plan documented by Dr. Brice. Examined patient at bedside with her daughter Sharron present with whom she lives. Patient reports improvement of respiratory symptoms, lungs still with reduced and coarse breath sounds bilaterally, oxygen requirement 2 L at present. Lord remains in place, will attempt TOV. Subjective Pt is an 87-year-old female with a history of chronic kidney disease, CHF, atrial fibrillation, hyponatremia, liver cirrhosis who presented to the hospital on 05/17/23 for acute hypoxic respiratory failure in the setting of RSV infection and worsening kidney function JUDE on CKD. Today, pt states that she is feeling fine, no better or worse than yesterday at this point. Her cough is no better or worse. She states her aim was to maybe go home tomorrow (Saturday). No questions or acute complaints at this time. No acute distress. Review of Systems Review of Systems: As per HPI Physical Exam Physical Exam: General:Alert and oriented, no acute distress, Cardio: Regular rate, irregular rhythm Resp:Rhonchi auscultated, unchanged from previous days, diminished breath sounds Skin: Warm, pink, dry, Ext: Chronic lymphedema of L arm noted, with minor edema of bilateral lower extremities appears still yet unchanged from yesterday Psych: Mood-affect congruence. Results & Data Results & Data Vital Signs (Past 12 Hours) Vital Signs Temp Pulse Pulse Resp BP Pulse Ox O2 Del Method 05/24/23 08:53 Nasal Cannula 05/24/23 07:32 60 05/24/23 06:00 63 20 96 Nasal Cannula 05/24/23 03:12 36.6 C 58 L 18 116/74 95 Nasal Cannula 05/23/23 22:38 36.5 C 53 L 18 121/70 96 Nasal Cannula O2 Flow Rate 05/24/23 08:53 2 05/24/23 07:32 05/24/23 06:00 2 05/24/23 03:12 2 05/23/23 22:38 2 Resident Activity Tracking Resident Involvement: Resident Care Provided Care Provided: Adult Hospital Medicine (7) Foot ulcer, left Non-pressure ulcer stage: unspecified non-pressure ulcer stage Qualified Code(s): L97.529 - Non-pressure chronic ulcer of other part of left foot with unspecified severity
--- NOTE | 2023-05-24 10:36 | Nephrology Progress Note ---
Date of Service May 24, 2023 Assessment & Plan (1) Chronic kidney disease, stage IV (severe): (2) JUDE (acute kidney injury): (3) Acute hypoxic respiratory failure: (4) RSV (respiratory syncytial virus pneumonia): (5) Hypokalemia: Plan 87 yo F with PMH of stage 3B CKD, b/l cr 1.4 to 1.6 mg/dl and progressive worsening of renal function over last 2 months and recent acute kidney injury secondary to cardiorenal syndrome with right-sided heart failure, A Fib and pulmonary hypertension. Last Echo with EF 40 to 45%. She was on high-dose of diuretics which has been on hold for last 2 days because of worsening of renal function. Admitted on 05/16/2023 with cough and hypoxic respiratory failure and noted to be positive for RSV and possibly pneumonia, currently on Augmentin and Zithromax. Creatinine was 1.7 on discharge a week ago, on admission creatinine again elevated at 2.4. Overall clinically improving slowly, kidney function relatively stable although slight changes in cr noted today. Urine output improved, net negative. Hemoglobin normal, iron stores adequate. --continue Lasix 40 mg twice a day and aim for net negative while monitoring kidney function and electrolytes. --if no significant changes in kidney function tomorrow, will be ok to be d ischarged with outpt close monitoring, however, she does have lot of risk factors fro worsening kidney function. In case of worsening of kidney function, may need to hold discharge and discuss about possible need for dialysis in next few days. Discussed with Emma Peña and she understands the complexity of her illness. Will sign off, but please contact over the weekend if needed. Thanks! Admission and Anticipated Discharge Date Admission Date: May 17, 2023 Subjective Mary was seen and evaluated this morning. Clinically about the same, has not been noticing any significant improvement although overall her appetite seems to be better. UO decent, negative. Kidney function staying relatively stable with acceptable electrolyte. Chest x-ray showed persistent pulmonary congestion and bilateral pleural effusion. Review of Systems Review of Systems: Detailed review of system was done and pertinent positives and negatives are mentioned above. Physical Exam Constitutional: WD/WN, vitals as above + ill appearing Respiratory: + cough Auscultation: + diminished jimmy ng sounds, + crackles and + rhonchi Cardiovascular: Rate/Rhythm: + irregularly irregular Extremities: + edema (trace b/l LE edema) Skin: + turgor decreased, + skin atrophy and + erythema Neurologic: no focal motor deficits Psychiatric: Orientation: alert and oriented x 3 Affect: euthymic affect Results & Data Vital Signs (Past 12 Hours) Vital Signs Temp Pulse Pulse Resp BP Pulse Ox O2 Del Method 05/24/23 08:53 Nasal Cannula 05/24/23 07:32 60 05/24/23 06:00 63 20 96 Nasal Cannula 05/24/23 03:12 36.6 C 58 L 18 116/74 95 Nasal Cannula 05/23/23 22:38 36.5 C 53 L 18 121/70 96 Nasal Cannula O2 Flow Rate 05/24/23 08:53 2 05/24/23 07:32 05/24/23 06:00 2 05/24/23 03:12 2 05/23/23 22:38 2 PG Care Time/CCT Total # of Minutes Spent Total Time Spent with Patient: Total time spent is greater than 50% in coordination of care (as documented) at patient's floor/unit and/or counseling patient: Coding Level of Care Code 38327 SUB INP/OBS CARE 2/35MIN Diagnoses Chronic kidney disease, stage IV (severe) N18.4 JUDE (acute kidney injury) N17.9 Acute hypoxic respiratory failure J96.01 RSV (respiratory syncytial virus pneumonia) J12.1 Hypokalemia E87.6
[2023-05-24] MEDS ORDERED: SODIUM CHLORIDE 0.65% NA SOLN 45 ML (OCEAN) ONE (12:46)
[2023-05-25 06:40] LABS: Hematocrit (blood only) 45.5 % (37.0-47.0); Hemoglobin 14.3 g/dl (12.0-16.0); Mean Corpuscular Hemoglobin 26.2 pg (25.0-34.0); Mean Corpuscular Hgb Conc 31.4 g/dL (32.0-36.0); Mean Corpuscular Volume 83.5 fL (80.0-100.0); Mean Platelet Volume 10.8 fL (9.4-12.4); Platelet Count 126 K/uL (130-400); RDW Coefficient of Variation 20.7 % (11.5-14.5); Red Blood Count 5.45 M/uL (4.20-5.40); White Blood Count 5.75 K/ul (4.8-10.8)
[2023-05-25 06:47] LABS: BUN Creatinine Ratio 69.4 (10-20); Creatinine Clr Calc Pharmacy 22.6 ml/min; Est GFR (African American) 33.2 ml/min; Est GFR (Non-African American) 28.7 ml/min; Potassium 4.7 mmol/L (3.5-5.1)
[2023-05-25 06:54] LABS: Anisocytosis Present; Basophils # (auto) 0.04 K/uL (0.00-0.20); Basophils % (auto) 0.7 %; Eosinophils # (auto) 0.12 K/uL (0.00-0.50); Eosinophils % (auto) 2.1 %; Immature Granulocytes # (auto) 0.02 K/uL (0.01-0.20); Immature Granulocytes % (auto) 0.3 %; Lymphocytes % (auto) 13.9 %; Monocytes # (auto) 0.55 K/uL (0.11-0.59); Monocytes % (auto) 9.6 %; Neutrophils # (auto) 4.22 K/uL (1.40-6.50); Neutrophils % (auto) 73.4 %; Target Cells 1+
--- NOTE | 2023-05-25 06:55 | Hospitalist Progress Note ---
Date of Service May 25, 2023 Assessment & Plan (1) Acute hypoxic respiratory failure: (2) RSV (respiratory syncytial virus pneumonia): (3) Chronic kidney disease, stage IV (severe): (4) JUDE (acute kidney injury): (5) Liver cirrhosis: (6) Anasarca: (7) Foot ulcer, left: (8) Permanent atrial fibrillation: (9) Pulmonary hypertension: (10) Type 2 diabetes mellitus: (11) Secondary hyperparathyroidism: (12) Chronic anticoagulation: (13) Heart failure with mildly reduced ejection fraction: Plan Pt is an 87-year-old female with a history of chronic kidney disease, CHF, atrial fibrillation, hyponatremia, liver cirrhosis who presented to the hospital on 05/17/23 for acute hypoxic respiratory failure in the setting of RSV infection and worsening kidney function JUDE on CKD. Today, pt seen in the morning and again in the afternoon with daughter(strategic planning director) present. Still no improvement in how lungs sound and had tried a duoneb with no difference. Clinically she sounds wet on exam more than wheezy, so will try 10 mg IV lasix tonight to see if we can improve a little bit before pt goes home. Pt reluctant and frustrated but agreeable to stay tonight, but wanting to go tomorrow. Would like to see a little bit more improvement before discharge if possible. Acute hypoxic resp failure in setting of RSV infection - chest CT done 05/18, impression favors pulmonary edema - low suspicion for bacterial pneumonia, Augmentin discontinued - Azithromycin for pulmonary anti-inflammatory effect, finished - maintain oxygen saturation greater than 92% Nonsustained V Tach - pt had 2 runs so far of vtach, one for 7 beats and one for 24 beats per tele - Dr. Samaniego cardio made aware by nursing staff, ideally could add B arnie but with low HR not possible at this time unless pacemaker placed - pt is asymptomatic, continue to monitor RSV infection - Respiratory panel positive for RSV - continue supportive care for RSV infection as noted above JUDE on CKD stage IV - Cr baseline 1.4-1.6, peak 2.35, 1.75, 1.58, now 1.52 improved - Suspect due to combination of aggressive outpatient diuresis and decreased p.o. intake due to illness - Holding nephrotoxic medications including allopurinol, eliquis is renally dosed - Nephrology consulted; recommend restart diuretics, - given patient h/o cirrhosis, felt patient may benefit from diuresis with Spironolactone - continue Spironolactone 100mg daily and Lasix 40mg BID po HFmrEF - last echo 04/26/23 EF was 40-45% - Cardiology consulted; recommend diuresis, management as above, - Reviewed cardiology consultation from April 26, 2023; -Beta-blockade treatment contraindicated due to relative bradycardia -GABRIELE ARB and Entresto are relatively contraindicated due to acute kidney injury -As previously documented inotrope infusion is not a good long-term solution, no indication for short-term at this time Liver cirrhosis - Noted on imaging during previous hospital stay - further supported by slightly elevated INR and elevated bili -At risk for congestive hepatopathy -Diuresis as above Anasarca - Reportedly improved from patient's baseline L foot ulcer - Wound care consult Atrial fibrillation - Continue Eliquis 2.5 mg daily for systemic anticoagulation in the setting of poor renal function Pulm HTN - As noted with heart failure patient poor candidate for standard therapies DMT2 - Blood sugars within normal limits on previous admission, A1c 6.9% March 2023 - Diet controlled VTE proph: eliquis as noted above IVF: none Admission and Anticipated Discharge Date Admission Date: May 17, 2023 Supervising Physician Co-Signing Physician Notes I personally examined the patient and verified benoit points of history and exam, discussed case, and agree with decision making and plan documented by Dr. Brice. Daughter and caregiver Sharron at bedside. Lung sounds remain coarse and rhonchorous bilaterally worse at bases. Wet cough continues, patient denies sputum. DuoNeb not helpful today. We discussed that oxygen requirement may be new baseline, patient remains on 2L. Will re-evaluate pleural effusions with CXR in morning. Patient would like to go home tomorrow with home health/PT. Discussed optimizing quality of life at present and patient/family are open to palliative and/or hospice approach if needed. Discussed concern for readmission, patient will require close follow-up following discharge. Subjective Pt is an 87-year-old female with a history of chronic kidney disease, CHF, atrial fibrillation, hyponatremia, liver cirrhosis who presented to the hospital on 05/17/23 for acute hypoxic respiratory failure in the setting of RSV infection and worsening kidney function JUDE on CKD. Today, pt states she feels about the same as yesterday. No better or worse. No acute questions or complaints when seen this morning. Review of Systems Review of Systems: As per HPI Physical Exam Physical Exam: General:Alert and oriented, no acute distress, Cardio: Regular rate, irregular rhythm Resp:Rhonchi auscultated with some wheezing throughout all lung salazar , unchanged from previous days, Skin: Warm, pink, dry, Ext: Chronic lymphedema of L arm noted, with minor edema of bilateral lower extremities Psych: Mood-affect congruence. Results & Data Results & Data Vital Signs (Past 12 Hours) Vital Signs Temp Pulse Resp BP Pulse Ox O2 Del Method O2 Flow Rate 05/25/23 03:50 Nasal Cannula 2 05/25/23 03:00 36.4 C L 56 L 19 138/71 96 Nasal Cannula 05/24/23 23:00 36.3 C L 65 21 136/72 98 Nasal Cannula 05/24/23 20:30 Nasal Cannula 2 05/24/23 19:00 36.5 C 65 20 103/65 90 Room Air Resident Activity Tracking Resident Involvement: Resident Care Provided Care Provided: Adult Hospital Medicine (7) Foot ulcer, left Non-pressure ulcer stage: unspecified non-pressure ulcer stage Qualified Code(s): L97.529 - Non-pressure chronic ulcer of other part of left foot with unspecified severity
[2023-05-25] MEDS: APIXABAN 2.5 MG TAB PO SCH ×2 (08:19→21:40)
[2023-05-25] MEDS: BENZONATATE 100 MG CAPSULE PO SCH ×3 (08:19→21:40)
[2023-05-25] MEDS: FUROSEMIDE 40 MG TAB PO SCH ×2 (08:20→16:50)
[2023-05-25] MEDS: SPIRONOLACTONE 100 MG TAB PO SCH (08:20)
[2023-05-25] MEDS: traMADol HCL 50 MG TABLET PO SCH ×3 (08:25→21:40)
[2023-05-25] MEDS ORDERED: ALBUT/IPRATROP 3MG/0.5MG NEB 3 ML VIAL NEB STA (12:36)
[2023-05-25] MEDS ORDERED: FUROSEMIDE INJ 20 MG/2 ML VIAL IV STA (15:55)
[2023-05-26 06:43] LABS: Hematocrit (blood only) 43.8 % (37.0-47.0); Hemoglobin 13.9 g/dl (12.0-16.0); Mean Corpuscular Hemoglobin 26.3 pg (25.0-34.0); Mean Corpuscular Hgb Conc 31.7 g/dL (32.0-36.0); Mean Platelet Volume 11.2 fL (9.4-12.4); Platelet Count 122 K/uL (130-400); RDW Coefficient of Variation 20.8 % (11.5-14.5); RDW Standard Deviation 59.8 fL (36.4-46.3); Red Blood Count 5.28 M/uL (4.20-5.40); White Blood Count 6.68 K/ul (4.8-10.8)
[2023-05-26 06:59] LABS: Anisocytosis Present; Basophils # (auto) 0.04 K/uL (0.00-0.20); Basophils % (auto) 0.6 %; Eosinophils # (auto) 0.17 K/uL (0.00-0.50); Eosinophils % (auto) 2.5 %; Immature Granulocytes # (auto) 0.02 K/uL (0.01-0.20); Immature Granulocytes % (auto) 0.3 %; Lymphocytes # (auto) 0.67 K/uL (1.20-3.40); Monocytes # (auto) 0.56 K/uL (0.11-0.59); Monocytes % (auto) 8.4 %; Neutrophils # (auto) 5.22 K/uL (1.40-6.50); Neutrophils % (auto) 78.2 %; Polychromasia 1+; Tear Drop Cells 1+
--- NOTE | 2023-05-26 06:59 | Hospitalist Progress Note ---
Date of Service May 26, 2023 Assessment & Plan (1) Acute hypoxic respiratory failure: (2) RSV (respiratory syncytial virus pneumonia): (3) Chronic kidney disease, stage IV (severe): (4) JUDE (acute kidney injury): (5) Liver cirrhosis: (6) Anasarca: (7) Foot ulcer, left: (8) Permanent atrial fibrillation: (9) Pulmonary hypertension: (10) Type 2 diabetes mellitus: (11) Secondary hyperparathyroidism: (12) Chronic anticoagulation: (13) Heart failure with mildly reduced ejection fraction: Plan Pt is an 87-year-old female with a history of chronic kidney disease, CHF, atrial fibrillation, hyponatremia, liver cirrhosis who presented to the hospital on 05/17/23 for acute hypoxic respiratory failure in the setting of RSV infection and worsening kidney function JUDE on CKD. Today, pt seen in the morning and again in the afternoon with daughter(elevator repairer) present. Still no improvement in how lungs sound and had tried a duoneb with no difference. Clinically she sounds wet on exam more than wheezy, so will try 10 mg IV lasix tonight to see if we can improve a little bit before pt goes home. Pt reluctant and frustrated but agreeable to stay tonight, but wanting to go tomorrow. Would like to see a little bit more improvement before discharge if possible. Acute hypoxic resp failure in setting of RSV infection - chest CT done 05/18, impression favors pulmonary edema - low suspicion for bacterial pneumonia, Augmentin discontinued - Azithromycin for pulmonary anti-inflammatory effect, finished - maintain oxygen saturation greater than 92% Nonsustained V Tach - pt had 2 runs so far of vtach, one for 7 beats and one for 24 beats per tele - Dr. Samaniego cardio made aware by nursing staff, ideally could add B arnie but with low HR not possible at this time unless pacemaker placed - pt is asymptomatic, continue to monitor RSV infection - Respiratory panel positive for RSV - continue supportive care for RSV infection as noted above JUDE on CKD stage IV - Cr baseline 1.4-1.6, peak 2.35, 1.75, 1.58, now 1.52 improved - Suspect due to combination of aggressive outpatient diuresis and decreased p.o. intake due to illness - Holding nephrotoxic medications including allopurinol, eliquis is renally dosed - Nephrology consulted; recommend restart diuretics, - given patient h/o cirrhosis, felt patient may benefit from diuresis with Spironolactone - continue Spironolactone 100mg daily and Lasix 40mg BID po HFmrEF - last echo 04/26/23 EF was 40-45% - Cardiology consulted; recommend diuresis, management as above, - Reviewed cardiology consultation from April 26, 2023; -Beta-blockade treatment contraindicated due to relative bradycardia -GABRIELE ARB and Entresto are relatively contraindicated due to acute kidney injury -As previously documented inotrope infusion is not a good long-term solution, no indication for short-term at this time Liver cirrhosis - Noted on imaging during previous hospital stay - further supported by slightly elevated INR and elevated bili -At risk for congestive hepatopathy -Diuresis as above Anasarca - Reportedly improved from patient's baseline L foot ulcer - Wound care consult Atrial fibrillation - Continue Eliquis 2.5 mg daily for systemic anticoagulation in the setting of poor renal function Pulm HTN - As noted with heart failure patient poor candidate for standard therapies DMT2 - Blood sugars within normal limits on previous admission, A1c 6.9% March 2023 - Diet controlled VTE proph: eliquis as noted above IVF: none Admission and Anticipated Discharge Date Admission Date: May 17, 2023 Subjective Pt is an 87-year-old female with a history of chronic kidney disease, CHF, atrial fibrillation, hyponatremia, liver cirrhosis who presented to the hospital on 05/17/23 for acute hypoxic respiratory failure in the setting of RSV infection and worsening kidney function JUDE on CKD. Today, Review of Systems Review of Systems: As per HPI Physical Exam Physical Exam: General:Alert and oriented, no acute distress, Cardio: Regular rate, irregular rhythm Resp:Rhonchi auscultated with some wheezing throughout all lung salazar , unchanged from previous days, Skin: Warm, pink, dry, Ext: Chronic lymphedema of L arm noted, with minor edema of bilateral lower extremities Psych: Mood-affect congruence. Results & Data Results & Data Vital Signs (Past 12 Hours) Vital Signs Temp Pulse Pulse Resp BP Pulse Ox O2 Del Method 05/26/23 03:29 36.4 C L 54 L 20 133/55 L 96 Nasal Cannula 05/25/23 23:51 36.6 C 60 20 139/74 99 Nasal Cannula 05/25/23 23:00 662 H 05/25/23 21:30 Nasal Cannula 05/25/23 19:21 36.6 C 69 162/81 H 98 Nasal Cannula O2 Flow Rate 05/26/23 03:29 2.0 05/25/23 23:51 2.0 05/25/23 23:00 05/25/23 21:30 2 05/25/23 19:21 (7) Foot ulcer, left Non-pressure ulcer stage: unspecified non-pressure ulcer stage Qualified Code(s): L97.529 - Non-pressure chronic ulcer of other part of left foot with unspecified severity
[2023-05-26 07:00] LABS: Calcium 8.9 mg/dl (8.6-10.3); Creatinine Clr Calc Pharmacy 23.1 ml/min; Est GFR (African American) 34.5 ml/min; Est GFR (Non-African American) 29.8 ml/min; Potassium 4.8 mmol/L (3.5-5.1)
[2023-05-26] MEDS: APIXABAN 2.5 MG TAB PO SCH (09:08)
[2023-05-26] MEDS: FUROSEMIDE 40 MG TAB PO SCH (09:08)
[2023-05-26] MEDS: traMADol HCL 50 MG TABLET PO SCH ×2 (09:08→13:56)
[2023-05-26] MEDS: SPIRONOLACTONE 100 MG TAB PO SCH (09:08)
[2023-05-26] MEDS: BENZONATATE 100 MG CAPSULE PO SCH (09:08)
[2023-05-26] MEDS ORDERED: FUROSEMIDE INJ 20 MG/2 ML VIAL IV ONE (09:16)
--- NOTE | 2023-05-26 11:09 | XRay Report ---
SINGLE VIEW CHEST CLINICAL HISTORY: Crackles on physical examination. Congestive failure. FINDINGS: A AP, portable, upright chest radiograph is compared to study dated 05/23/2023 and correlat ed with chest CT dated 05/18/2023. Surgical clips project over the left axilla. The heart is enlarged and noting atherosclerotic calcification of the thoracic aorta. There is pulmonary vascular congesti on. The mitral annulus is densely calcified. Bilateral airspace opacities likely representing interst itial edema. Small pleural effusions are noted. Chronic fibrotic changes similar to previous with foc i of probable scarring throughout both lungs. No pneumothorax is seen. The skeletal structures are os teopenic. The bony thorax is grossly intact. IMPRESSION: 1. Cardiomegaly with evidence of congestive failure. This has modestly improved from 05/23/2023. 2. Bilateral airspace opacities likely represent pulmonary edema. Correlate clinically for evidence o f a superimposed infectious/inflammatory pneumonitis. Radiographic follow-up to resolution is recomme nded. 3. Small pleural effusions. ACT 112: Negative or not required by law. Electronically signed by: Olman Benítez M.D. 05/26/2023 11:08 AM
--- NOTE | 2023-05-26 13:31 | Discharge Summary ---
Date of Service May 26, 2023 Admission HPI Per Admitting Provider Patient is an 87-year-old female with a history of chronic kidney disease, CHF, hyponatremia, cirrhosis who was referred to the ED for worsening shortness of breath and abnormal/worsening kidney function. Patient was recently admitted to [facility] for CHF exacerbation: Patient's baseline weight was in the 140s she was admitted previously with a weight of 195 and discharged approximately 176, today she is 162. She lives at home with the patient's daughter who is her full-time caregiver. She has had recent increasing shortness of breath with mild cough: Nonproductive. She denies chest pain. No change in her bowel habits no black tarry stools no melena no hematochezia. She does report decreased oral intake including both food and fluid. She reports that she has been on a fluid restriction since being discharged from the hospital. She has been observing her fluid and sodium restrictions and has had decreased intake over the last several days due to feeling unwell. She denies fevers or chills. Patient and daughter report that there is a decrease in the patient's lower extremity edema while it is still present it is less than it has been in the last 3 weeks. I also report a continuous weeping left foot wound, this initially occurred on the previous admission formed a blister and popped and has been draining yellow fluid ever since. There is also a wound on the left great toe which by their report is decreasing in size and has looked the best it has in several weeks. We discussed risks and benefits and long-term goals regarding heroic interventions should the patient suffer a cardiac arrest. She indicated she did not want heroic measures and is subsequently DNR in event of cardiac arrest. We discussed risks associated with intubation in event of respiratory insufficiency including the case of progressive pneumonia: Bacterial or viral. Patient did not want to undergo intubation in event of respiratory insufficiency. Accordingly I have updated her CODE STATUS to demonstrate this. She has agreeable with aggressive care to prevent further decompensation including noninvasive mechanical ventilation, supplemental oxygen and such. Patient reports several medication intolerances, sulfa does produce a rash, ceftriaxone produces diarrhea as well as Keflex. Not withstanding she is otherwise tolerated those antibiotics. Patient is requesting cardiology: [facility] physician group and nephrology: [facility] physician group consultations Admission Exam Per Admitting Provider General: Alert. nontoxic. Frail in appearance Skin: Warm, dry, Head: Atraumatic Ears, nose, mouth and throat: airway patent Cardiovascular: Normal peripheral perfusion, S1-S2 Respiratory: no respiratory distress, scattered rhonchi diffusely through bilateral lung salazar Gastrointestinal: Non distended, no tenderness, not distended, no palpable hepatosplenomegaly Musculoskeletal: No deformity, 2+ pitting edema to the mid calf, left lower extremity in bandage with shadowing from serous fluid drainage. Half a centimeter punctate lesion over the dorsal surface of the great toe Principal Diagnosis Acute hypoxic respiratory failure secondary to RSV, Heart failure, Acute kidney injury Discharge Exam General:Alert and oriented, no acute distress, Cardio: Regular rate, irregular rhythm Resp:Rhonchi auscultated with some wheezing throughout all lung salazar , unchanged from previous days, Skin: Warm, pink, dry, Ext: Chronic lymphedema of L arm noted, with minor edema of bilateral lower extremities Psych: Mood-affect congruence. Discharge Data Allergies Allergy/AdvReac Type Severity Reaction Status Date / Time codeine Allergy Mild nausea and Verified 05/17/23 16:53 vomiting latex Allergy Mild Rash Verified 05/17/23 16:53 povidone-iodine Allergy Mild RASH Verified 05/17/23 16:53 soap [From Betadine] Allergy Mild Rash Verified 05/17/23 16:53 Sulfa (Sulfonamide Allergy Mild RASH Verified 05/17/23 16:53 Antibiotics) cephalexin Allergy Unknown . Verified 05/17/23 16:53 sulfamethoxazole Allergy Unknown Diarrhea Verified 05/17/23 16:53 [From Bactrim] trimethoprim [From Bactrim] Allergy Unknown Diarrhea Verified 05/17/23 16:53 ceftriaxone [From Rocephin] AdvReac Severe Diarrhea Verified 05/17/23 16:53 meperidine AdvReac Mild nausea/vomi Verified 05/17/23 16:53 ting Consultations 05/17/23 15:48 ED Decision to Admit Stat 05/17/23 18:31 Consult Cardiology Routine Consult Nephrology Routine Ordered Studies 05/18/23 15:36 CT chest diagnostic wo con Routine Hospital Course (1) Acute hypoxic respiratory failure: (2) RSV (respiratory syncytial virus pneumonia): (3) Chronic kidney disease, stage IV (severe): (4) JUDE (acute kidney injury): (5) Liver cirrhosis: (6) Anasarca: (7) Foot ulcer, left: (8) Permanent atrial fibrillation: (9) Pulmonary hypertension: (10) Type 2 diabetes mellitus: (11) Secondary hyperparathyroidism: (12) Chronic anticoagulation: (13) Heart failure with mildly reduced ejection fraction: Plan Pt is an 87-year-old female with a history of chronic kidney disease, CHF, atrial fibrillation, hyponatremia, liver cirrhosis who presented to the hospital on 05/17/23 for acute hypoxic respiratory failure in the setting of RSV infection and worsening kidney function JUDE on CKD. Pt was given 10 mg IV lasix last night and again this morning. Repeat chest xray performed and shows improvement from previous on 05/23. Cough and crackles likely multifactorial and discussed with pt that it is a very difficult balance for her given HF with CKD to balance fluids appropriately. Pt understood and would like referral for hospice eval as ultimately she wants to send her remaining life at home. Case set up for hospice eval to be done by her HH agency. At this time, pt is stable for discharge home with continued home health services and daughter (primary perinatal instructor) is agreeable. Pt is to f/u with cardio and nephro and pcp on discharge. Sent for new regime of diuretics to her pharmacy, which includes lasix 40mg po BID and spironolactone 100mg po daily in the morning. Pt to go home with O2 2L setting due to continued oxygen requirement. Acute hypoxic resp failure in setting of RSV infection, resolved - chest CT done 05/18, impression favors pulmonary edema - low suspicion for bacterial pneumonia, Augmentin discontinued - Azithromycin for pulmonary anti-inflammatory effect, finished - maintain oxygen saturation greater than 92% Nonsustained V Tach - pt had 2 runs so far of vtach, one for 7 beats and one for 24 beats per tele - Dr. Samaniego cardio made aware by nursing staff, ideally could add B arnie but with low HR not possible at this time unless pacemaker placed, which may possibly be done on an outpatient basis - pt is asymptomatic, continue to monitor RSV infection - Respiratory panel positive for RSV - continue supportive care for RSV infection as noted above JUDE on CKD stage IV - Cr baseline 1.4-1.6, peak 2.35, 1.75, 1.58, now 1.52 improved - Suspect due to combination of aggressive outpatient diuresis and decreased p.o. intake due to illness - Holding nephrotoxic medications including allopurinol, eliquis is renally dosed - Nephrology consulted; recommend restart diuretics, - given patient h/o cirrhosis, felt patient may benefit from diuresis with Spironolactone - continue Spironolactone 100mg daily and Lasix 40mg BID po HFmrEF - last echo 04/26/23 EF was 40-45% - Cardiology consulted; recommend diuresis, management as above, - Reviewed cardiology consultation from April 26, 2023; -Beta-blockade treatment contraindicated due to relative bradycardia -GABRIELE ARB and Entresto are relatively contraindicated due to acute kidney injury -As previously documented inotrope infusion is not a good long-term solution, no indication for short-term at this time Liver cirrhosis - Noted on imaging during previous hospital stay - further supported by slightly elevated INR and elevated bili -At risk for congestive hepatopathy -Diuresis as above Anasarca - Reportedly improved from patient's baseline L foot ulcer - continue wound care Atrial fibrillation - Continue Eliquis 2.5 mg daily for systemic anticoagulation in the setting of poor renal function Pulm HTN - As noted with heart failure patient poor candidate for standard therapies DMT2 - Blood sugars within normal limits on previous admission, A1c 6.9% March 2023 - Diet controlled Total Time Total Time Spent Total Time Spent (In Minutes): 40 Discharge Plan Discharge Items Patient Disposition: Home - Home Health Services Reason For Visit: SHORTNESS OF BREATH Discharge Diagnosis: Acute hypoxic respiratory failure secondary to RSV, Heart failure, Acute kidney injury Activity: Per Instructions section Non-emergency contact: Primary Care Provider, Chancellor and [employer] Cutter Hand Call non-emergency contact if: you have any medication questions and your symptoms worsen Follow-up/Referrals: Saul Clemente MD [Physician] - Pro,Donnell Mcclain MD [Primary Care Provider] - Allan Ashton MD [Physician] - Diet: Low Sodium (2gm) Addtl Attending Provider Instructions: You were admitted for acute hypoxic respiratory failure due to RSV infection. You have improved and have been able to maintain good blood oxygen levels while on 2 L of oxygen, which we have sent to go home with you. Just with many other viral infections, symptoms may persist for weeks or even months, but symptoms should stay the same or continue to improve during this time. We have sent Tessalon Perles, a medication you have been taking here for cough, to your pharmacy. You were also noted to have chronic kidney disease with an acute injury and heart failure. We have adjusted your doses of diuretics (water pills) and have your new regime set to be furosemide (lasix) 40 mg twice daily and spironolactone 100 mg once daily. These medications have been sent to your pharmacy. Your symptoms have improved, and we feel it is safe for you to return home with a family member as a caregiver, home health, and home PT/OT services. It is imperative that you follow-up with your PCP within 1 week of discharge from the hospital. You should also make appointments with your patcher wood welder and flavor tank tender after hospitalization to review any changes to your medical status or chronic medications. Medications: Your medication list has been reviewed and reconciled upon discharge to ensure accuracy and continuity of care. An updated list of all your medications is included with your hospital discharge paperwork. Please review this list closely, and make note of any changes. We sent a new medication called furosemide (lasix) to your pharmacy. Take furosemide (lasix) 40 mg (1 tab) twice a day with the second dose at 5pm. This is your diuretic or water pill for your heart failure. Taking the second pill at 5pm helps mitigate the need to get up and use the restroom all night (at least somewhat). We sent a new medication called spironolactone to your pharmacy. Take spironolactone 100 mg (1 tab) once daily in the morning with your morning dose of lasix. This is your other diuretic or water pill. We sent a new medication called Tessalon Perles (benzonatate) to your pharmacy. Take Tessalon Perles (benzonatate) 100 mg (1 capsule) three times daily for the next 30 days. This medication helps with cough, and as RSV symptoms such as cough can last for weeks, we sent a script in for 90 capsules so you can take it up to 3 times a day. If you feel your cough is improving and you do not need it, you may reduce or stop it any time. We sent a new medication called Guaifenesin-codeine to your pharmacy. Take Guaifenesin-codeine as needed every 6 hours for cough. These medications have been sent to [facility]. Take your medications as instructed; do not skip a dose of your medicines. Make sure all of your doctors know every medicine you are taking (including [id number] medicines, vitamins, and supplements). Call your primary care provider before taking any new medicines (including over- the-counter medicines, vitamins, and supplements), because some of these may interact with your current medications, or may make your symptoms worse. Tell your primary care provider if you cannot afford your medications. Activity: You can do normal everyday activities as your body allows. Take rest breaks if you feel tired. Do not overexert. Stop activity if you have pain, shortness of breath or feel dizzy. Weight: It is important for you to monitor your daily weights. Weigh yourself every morning using the same scale. Wear the same amount of clothing each time, without anything in your pockets. Keep a log of your daily weights, and bring this log with you every time you see your primary care physician, or any other doctor. Call your primary care physician if you gain more than 2-3 pounds in 1-2 days. Diet: Follow a low sodium (salt) diet. We recommend limiting your sodium intake to under 2000mg per day. Choose foods and drinks with low or no salt. Remove the salt shaker from your table at home. We also recommend limiting your daily fluid intake to 1800mL (60oz) in order to help your body balance fluids. Do not drink excessive beer, alcohol, or wine. If you are struggling with these restrictions, or need additional help incorporating healthy habits into your daily life, please contact your primary care provider. Follow-up appointments: Make an appointment with your primary care physician within one week of discharge. A copy of this summary will be sent to them. Every time you see your primary care physician, or any other doctor, bring your medication list, a list of questions, and your recent weights. CONTACT YOUR PRIMARY CARE PROVIDER if you experience any of the following: Shortness of breath or difficulty breathing Swelling of your feet, ankles, hands or abdomen Feeling tired with normal activity or experiencing dizziness or fainting Difficulty following your treatment plan, or difficulty taking medications CALL 911 OR GO TO THE EMERGENCY DEPARTMENT if you experience any of the following: Severe abdominal pain or nausea/vomiting Severe chest pain, or chest pain that radiates (moves) to your jaw or arm Sudden, severe shortness of breath or difficulty breathing Thank you for allowing us to participate in your care. Pending Studies at Discharge: No Stand-Alone Forms: My [facility] Medications and DC Order Prescriptions: New furosemide 40 mg Tablet 40 mg PO BID17 30 Days Qty: 60 3RF spironolactone 100 mg Tablet 100 mg PO QAM Qty: 30 3RF benzonatate 100 mg Capsule 100 mg PO TID 30 Days Qty: 90 3RF codeine-guaifenesin 10-100 mg/5 mL Liquid 10 ml PO Q6H 14 Days Qty: 560 1RF codeine-guaifenesin [Guaifenesin AC] 10-100 mg/5 mL liquid 5 ml PO Q6H PRN (Reason: allergy symptoms) Qty: 120 0RF Continued diclofenac sodium 1 % gel 1 g topical BID PRN (Reason: Pain) Qty: 100 6RF tramadol 50 mg tablet 50 mg PO TID Qty: 270 0RF acetaminophen [Tylenol Extra Strength] 500 mg tablet 1,000 mg PO HS PRN (Reason: Pain) ondansetron HCl 4 mg tablet 4 mg PO Q8H PRN (Reason: nausea and vomiting) Qty: 10 1RF Eliquis 2.5 mg tablet 2.5 mg PO BID Qty: 180 3RF potassium chloride 20 mEq Tablet,Er Particles/Crystals 20 meq PO BID Qty: 60 0RF allopurinol 100 mg Tablet 100 mg PO DAILY Qty: 30 0RF Cerovite Senior 0.4 mg-300 mcg- 250 mcg Tablet 1 tab PO QAM Qty: 1 0RF Rx Instructions: buy over the counter Advanced Probiotic 625 mg (10 billion cell) Capsule 2 cap PO DAILY Qty: 1 0RF Rx Instructions: buy over the counter probiotic, take for 2-4 weeks metolazone 5 mg tablet 5 mg PO .Q2D/UD Rx Instructions: 05/17/23 THIS MED CURRENTLY ON HOLD. TAKE THIS MED EVERY OTHER MORNING,AND, NEEDED ON OTHER MORNINGS.WHEN TAKING - TAKE 30 MINUTES PRIOR TO AM FUROSEMIDE. Discontinued furosemide 80 mg tablet 80 mg PO BID Rx Instructions: 05/17/23 THIS MED CURRENTLY ON HOLD. Discharge Orders: Discharge Order- CHF (Routine); Ordered 05/26/23 Ordered By: Paris Brice Admission Data Admit Date/Time: 05/17/23 16:46 Attending Provider: Aranza Cui Admit Provider: Dandre Hernandez Primary Care Provider: Donnell Garibay Other Providers: Dandre Hernandez; Allan Ashton; Saul Clemente; Kevin Jones; [facility] Other Interventions: Discharge Summary Assessment (RN) Last Done: 05/26/23 14:07 Supervising Physician Co-Signing Physician Notes I personally examined the patient and verified benoit points of history and exam, discussed case, and agree with decision making and plan documented by Dr. Brice. Patient anxious to return home, discussed goals of care at length with her daughter and caregiver Sharron at bedside. Repeat chest x-ray with modest improvement of evidence of congestive heart failure today. We reviewed the cautious lines between heart function, volume status, and kidney function. Lung exam reveals congested lungs bilaterally, with diffuse rhonchi and rales in bilateral bases and moist cough. Discussed consideration of hospice evaluation, patient and her daughter agreed to a referral for hospice to facilitate conversations when at home this week. Patient advised to schedule follow-up with PCP, nephrology, and cardiology. Resident Activity Tracking Resident Involvement: Resident Care Provided Care Provided: Adult Hospital Medicine
== END 2023-05-26 15:52 | disposition home health service (06) | DRG 193 ==
LOC: ED 12:56 → 2S 16:46 → SUATTDRO 16:46 → 2S 17:55